=== PATIENT | male | born 1975 | race Caucasian/White ===

== ENCOUNTER 2017-09-22 14:00 | Emergency (ER) | payer MEDICAID ==
[2017-09-22 14:36] VITALS: BP 157/97
[2017-09-22] MEDS ORDERED: PROPARACAINE 0.5% OPHTH DROPS 15 ML EACHEYE STA (15:08)
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
== END 2017-09-22 15:28 | disposition home or self-care (01) ==
LOC: ED 14:00
DX: S05.02XA Injury of conjunctiva and corneal abrasion without foreign body, left eye, initial encounter (principal); X58.XXXA Exposure to other specified factors, initial encounter; F17.200 Nicotine dependence, unspecified, uncomplicated
CPT/HCPCS: 99283; J3490

== ENCOUNTER 2020-11-14 18:39 | Inpatient (IN) | payer MEDICAID ==
[2020-11-14] MEDS ORDERED: VANCOMYCIN INJ 1 GM in SODIUM CHLORIDE 0.9% 500 ML IV STA (19:15)
[2020-11-14] MEDS ORDERED: PIPERACILLIN/TAZOBACTAM 3.375 GM in SODIUM CHLORIDE 0.9% MINIBAG 100 ML IV STA (19:15)
[2020-11-14 19:18] LABS: BASOPHILS # (AUTO) 0.1 10^3/uL (0.0-0.1); BASOPHILS % (AUTO) 0.4 %; EOSINOPHILS # (AUTO) 0.5 10^3/uL (0.0-0.7); EOSINOPHILS % (AUTO) 3.3 %; HCT - HEMATOCRIT 35.1 % (42.0-52.0); HGB - HEMOGLOBIN 12.3 g/dL (14.0-18.0); LYMPHOCYTES # (AUTO) 1.6 10^3/uL (1.5-3.5); LYMPHOCYTES % (AUTO) 11.4 %; MEAN CORPUSCULAR HEMOGLOBIN 31.9 pg (27.0-31.0); MEAN CORPUSCULAR VOLUME 90.9 fL (80.0-94.0); MEAN PLATELET VOLUME 9.3 fL (7.4-11.4); MONOCYTES % (AUTO) 7.4 %; NEUTROPHILS # (AUTO) 10.7 10^3/uL (1.5-6.6); PLT - PLATELET COUNT 272 10^3/uL (130-450); RED BLOOD COUNT 3.86 10^6/uL (4.70-6.10); RED CELL DISTRIBUTION WIDTH 13.2 % (12.0-15.0); WHITE BLOOD COUNT 13.9 x10^3/uL (4.8-10.8)
[2020-11-14] MEDS ORDERED: SODIUM CHLORIDE 0.9% 2,585.49 ML IV STA (19:18)
--- NOTE | 2020-11-14 19:19 | ED Physician Documentation ---
History of Present Illness - Stated complaint Stated Complaint: LT LEG PX - Chief complaint Chief Complaint: Ext Problem - History obtained from History obtained from: Patient - History of Present Illness Timing: How many weeks ago (1) Pain level max: 9 Pain level now: 7 - Additonal information Additional information: Patient is a 45-year-old male who presents to the emergency department with left lower extremity swelling and pain. Worsening over the past week. He states he accidentally cut it on a tree. Tetanus is up-to-date. He states that originally he scraped the rivera along a tree. Fevers for the past 24 hours. He tried rubbing coconut oil on the skin, this did not help. Denies any IV drug use. He does use marijuana. Denies any allergies to medication or usual medications at home. Review of Systems Ten Systems: 10 systems reviewed and negative Constitutional: reports: Fever, Chills Ears: denies: Ear pain Nose: denies: Rhinorrhea / runny nose, Congestion GI: denies: Abdominal Pain, Nausea, Vomiting, Diarrhea Skin: denies: Rash Musculoskeletal: denies: Neck pain, Back pain PD PAST MEDICAL HISTORY - Past Medical History Cardiovascular: None Respiratory: None Endocrine/Autoimmune: None GI: None : None HEENT: None Psych: None Musculoskeletal: None Derm: None - Past Surgical History Past Surgical History: No - Present Medications Home Medications: Ambulatory Orders Medication Instructions Recorded Confirmed Polymyxin B/Trimeth Ophth Drop 1 drops LEFTEYE Q3H 7 Days #1 09/22/17 [Polytrim Ophth Drops] bottle - Allergies Allergies/Adverse Reactions: Allergies Allergy/AdvReac Type Severity Reaction Status Date / Time No Known Drug Allergies Allergy Verified 11/14/20 18:51 - Social History Does the pt smoke?: Yes Smoking Status: Current every day smoker Does the pt drink ETOH?: No Does the pt have substance abuse?: No - Immunizations Immunizations are current?: Yes - POLST Patient has POLST: No PD ED PE NORMAL - Vitals Vital signs reviewed: Yes - General General: Alert and oriented X 3, No acute distress - HEENT HEENT: Moist mucous membranes - Neck Neck: Supple, no meningeal sign - Cardiac Cardiac: RRR - Respiratory Respiratory: No respiratory distress, Clear bilaterally - Abdomen Abdomen: Soft, Non tender, Non distended - Derm Derm: Warm and dry - Extremities Extremities: Other (LLE swelling, erythema, pus draining from the lower left leg. erythema from toes to knee.) - Neuro Neuro: Alert and oriented X 3 Results - Vitals Vitals: Vital Signs - 24 hr 11/14/20 18:45 Temperature 38.9 C H Heart Rate 114 H Respiratory 20 Rate Blood Pressure 147/74 H O2 Saturation 94 Oxygen O2 Source Room air - Labs Labs: Microbiology 11/14/20 19:27 Wound Culture - Preliminary Left Lower Extremity - Abscess Laboratory Tests 11/14/20 11/14/20 11/14/20 19:12 19:12 19:12 WBC 13.9 H RBC 3.86 L Hgb 12.3 L Hct 35.1 L MCV 90.9 MCH 31.9 H MCHC 35.0 RDW 13.2 Plt Count 272 MPV 9.3 Neut # (Auto) 10.7 H Lymph # (Auto) 1.6 Radford # (Auto) 1.0 Eos # (Auto) 0.5 Baso # (Auto) 0.1 Absolute Nucleated RBC 0.00 Nucleated RBC % 0.0 PT 13.5 H INR 1.2 APTT 26.2 Sodium 131 L Potassium 3.4 L Chloride 96 L Carbon Dioxide 22 Anion Gap 13.0 BUN 17 Creatinine 0.8 Estimated GFR (MDRD) 104 Glucose 148 H Lactic Acid Calcium 8.8 Total Bilirubin 0.4 AST 39 ALT 32 Alkaline Phosphatase 74 Total Protein 7.2 Albumin 3.2 Globulin 4.0 Albumin/Globulin Ratio 0.8 L Lipase 31 Nasal Adenovirus (PCR) Nasal B. parapertussis DNA (PCR) Nasal Coronavir 229E PCR Nasal Coronavir HKU1 PCR Nasal Coronavir NL63 PCR Nasal Coronavir OC43 PCR Nasal Enterovir/Rhinovir PCR Nasal Influenza B PCR Nasal Influenza A PCR Nasal Parainfluen 1 PCR Nasal Parainfluen 2 PCR Nasal Parainfluen 3 PCR Nasal Parainfluen 4 PCR Nasal RSV (PCR) Nasal B.pertussis DNA PCR Nasal C.pneumoniae (PCR) Jeremias Human Metapneumo PCR Nasal M.pneumoniae (PCR) Nasal SARS-CoV-2 (PCR) 11/14/20 11/14/20 19:12 19:35 WBC RBC Hgb Hct MCV MCH MCHC RDW Plt Count MPV Neut # (Auto) Lymph # (Auto) Radford # (Auto) Eos # (Auto) Baso # (Auto) Absolute Nucleated RBC Nucleated RBC % PT INR APTT Sodium Potassium Chloride Carbon Dioxide Anion Gap BUN Creatinine Estimated GFR (MDRD) Glucose Lactic Acid 2.1 Calcium Total Bilirubin AST ALT Alkaline Phosphatase Total Protein Albumin Globulin Albumin/Globulin Ratio Lipase Nasal Adenovirus (PCR) NOT DETECTED Nasal B. parapertussis DNA (PCR) NOT DETECTED Nasal Coronavir 229E PCR NOT DETECTED Nasal Coronavir HKU1 PCR NOT DETECTED Nasal Coronavir NL63 PCR NOT DETECTED Nasal Coronavir OC43 PCR NOT DETECTED Nasal Enterovir/Rhinovir PCR NOT DETECTED Nasal Influenza B PCR NOT DETECTED Nasal Influenza A PCR NOT DETECTED Nasal Parainfluen 1 PCR NOT DETECTED Nasal Parainfluen 2 PCR NOT DETECTED Nasal Parainfluen 3 PCR NOT DETECTED Nasal Parainfluen 4 PCR NOT DETECTED Nasal RSV (PCR) NOT DETECTED Nasal B.pertussis DNA PCR NOT DETECTED Nasal C.pneumoniae (PCR) NOT DETECTED Jeremias Human Metapneumo PCR NOT DETECTED Nasal M.pneumoniae (PCR) NOT DETECTED Nasal SARS-CoV-2 (PCR) NOT DETECTED - Rads (name of study) cxr Radiology: Prelim report reviewed, EMP read contemporaneously, See rad report (No acute disease) PD MEDICAL DECISION MAKING - ED course Complexity details: reviewed results, re-evaluated patient, considered differential, d/w patient ED course: 45-year-old male with what appears to be sepsis due to cellulitis of the left lower extremity. Wound culture performed. Blood cultures drawn. Given vancomycin and Zosyn. Given IV fluids. We will admit for further care. Discussed the case with Dr. Solis, hospitalist who accepts This document was made in part using voice recognition software. While efforts are made to proofread this document, sound alike and grammatical errors may occur. - Sepsis Event Current Stage of Sepsis: Sepsis Possible source of Sepsis: Skin/soft tissue Mental/Cognitive Status: Alert/Oriented X3, Normal for patient Capillary refill: Less than 2 seconds Peripheral Pulse Strength: 3+ Normal Peripheral Pulse Location: Radial Bedside ultrasound performed: No Departure - Departure Disposition: 66 [facility] DC/Xfer Clinical Impression: Cellulitis Qualifiers: Site of cellulitis: extremity Site of cellulitis of extremity: lower extremity Laterality: left Qualified Code(s): L03.116 - Cellulitis of left lower limb Sepsis Qualifiers: Sepsis type: sepsis due to unspecified organism Sepsis acute organ dysfunction status: unspecified Qualified Code(s): A41.9 - Sepsis, unspecified organism Condition: Stable Discharge Date/Time: 11/14/20 20:00
[2020-11-14 19:30] LABS: INR 1.2 (0.8-1.2); LACTIC ACID, VENOUS 2.1 mmol/L (0.5-2.2); PT - PROTHROMBIN TIME 13.5 secs (9.9-12.6)
[2020-11-14 19:31] LABS: ALBUMIN 3.2 g/dL (3.2-5.5); ALBUMIN/GLOBULIN RATIO 0.8 (1.0-2.2); BILIRUBIN,TOTAL 0.4 mg/dL (0.2-1.0); CALCIUM 8.8 mg/dL (8.5-10.3); CREATININE 0.8 mg/dL (0.6-1.2); POTASSIUM 3.4 mmol/L (3.5-5.0); TOTAL PROTEIN 7.2 g/dL (6.7-8.2)
--- NOTE | 2020-11-14 19:35 | XRAY Report ---
PROCEDURE: Chest 1 View X-Ray INDICATIONS: fever TECHNIQUE: One view of the chest was acquired. COMPARISON: None FINDINGS: Surgical changes and devices: None. Lungs and pleura: No pleural effusions or pneumothorax. Lungs are clear. Mediastinum: Mediastinal contours appear normal. Heart size is normal. Bones and chest wall: No suspicious bony lesions. Overlying soft tissues appear unremarkable. IMPRESSION: No acute cardiopulmonary pathology. Reviewed by: Bharathi Martinez MD on 11/14/2020 7:33 PM PDT Approved by: Bharathi Martinez MD on 11/14/2020 7:33 PM PDT Station ID: [id number]
[2020-11-14 19:37] LABS: PARTIAL THROMBOPLASTIN TIME 26.2 secs (24.9-33.3)
[2020-11-14] MEDS ORDERED: oxyCODONE 5 MG TABLET PO PRN (19:38)
[2020-11-14] MEDS ORDERED: SODIUM CHLORIDE FLUSH 0.9% 10 ML SYRINGE IVP PRN (19:38)
[2020-11-14] MEDS ORDERED: ONDANSETRON 4 MG/2 ML VIAL IVP PRN (19:38)
[2020-11-14] MEDS ORDERED: ACETAMINOPHEN 325 MG TABLET PO PRN (19:38)
[2020-11-14] MEDS ORDERED: MORPHINE 2 MG/ML CARPUJECT IVP PRN (19:38)
[2020-11-14] MEDS ORDERED: ONDANSETRON ODT 4 MG TABLET TL PRN (19:38)
[2020-11-14] MEDS ORDERED: VANCOMYCIN 1 GM VIAL ONE (19:41)
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
[2020-11-14] MEDS ORDERED: LACTATED RINGERS 1,000 ML IV SCH ×2 (20:00→21:30)
[2020-11-14 20:28] LABS: B. PARAPERTUSSIS- RESP PCR PAN NOT DETECTED; B. PERTUSSIS- RESP PCR PANEL NOT DETECTED; C. PNEUMONIAE- RESP PCR PANEL NOT DETECTED; CORONAVIRUS 229E-RESP PCR NOT DETECTED; CORONAVIRUS HKU1-RESP PCR NOT DETECTED; CORONAVIRUS NL63-RESP PCR NOT DETECTED; CORONAVIRUS OC43-RESP PCR NOT DETECTED; HUMAN METAPNEUMOVIRUS NOT DETECTED; INFLUENZA A- RESP PCR PANEL NOT DETECTED; INFLUENZA B - RESP PCR PANEL NOT DETECTED; M. PNEUMONIAE- RESP PCR PANEL NOT DETECTED; PARAINFLUENZA VIRUS 1 NOT DETECTED; PARAINFLUENZA VIRUS 2 NOT DETECTED; PARAINFLUENZA VIRUS 3 NOT DETECTED; PARAINFLUENZA VIRUS 4 NOT DETECTED; RHINOVIRUS/ENTEROVIRUS NOT DETECTED; RSV- RESP PCR PANEL NOT DETECTED; SARS-CoV-2 -RESP PCR PANEL NOT DETECTED
[2020-11-14] MEDS ORDERED: NICOTINE 7 MG PATCH TOP SCH (22:35)
[2020-11-15] MEDS: PIPERACILLIN/TAZOBACTAM 3.375 GM in SODIUM CHLORIDE 0.9% MINIBAG 100 ML IV SCH ×4 (03:08→21:00)
[2020-11-15] MEDS: SODIUM CHLORIDE FLUSH 0.9% 10 ML SYRINGE IVP SCH ×3 (03:09→19:36)
[2020-11-15 03:40] LABS: BILIRUBIN,URINE NEGATIVE (NEGATIVE); GLUCOSE, URINE (UA) NEGATIVE (NEGATIVE); KETONES,URINE (UA) NEGATIVE (NEGATIVE); LEUKOCYTE ESTERASE, URINE NEGATIVE (NEGATIVE); NITRITE,URINE NEGATIVE (NEGATIVE); OCCULT BLOOD,URINE NEGATIVE (NEGATIVE); PROTEIN,URINE TRACE mg/dL (NEGATIVE); UROBILINOGEN,URINE 1 (NORMAL) E.U./dL (NORMAL)
[2020-11-15 03:43] LABS: CLARITY,URINE CLEAR (CLEAR)
[2020-11-15 03:58] LABS: MUDS CUTOFF CONCENTRATIONS CUTOFF CONC BELOW:
[2020-11-15 04:16] LABS: AMPHETAMINE SCREEN,URINE POSITIVE (NEGATIVE); BARBITURATE SCREEN,UR NEGATIVE (NEGATIVE); BENZODIAZEPINES SCREEN, URINE NEGATIVE (NEGATIVE); COCAINE SCREEN URINE NEGATIVE (NEGATIVE); METHADONE SCREEN, URINE NEGATIVE (NEGATIVE); METHAMPHETAMINES SCREEN, URINE POSITIVE (NEGATIVE); OPIATE SCREEN, URINE NEGATIVE (NEGATIVE); OXYCODONE SCREEN, URINE NEGATIVE (NEGATIVE); PROPOXYPHENE SCREEN, URINE NEGATIVE (NEGATIVE); THC CANNABINOID SCREEN, URINE POSITIVE (NEGATIVE); TRICYCLIC ANTIDEPRESSANT,URINE NEGATIVE (NEGATIVE)
[2020-11-15 05:21] LABS: BASOPHILS # (AUTO) 0.1 10^3/uL (0.0-0.1); BASOPHILS % (AUTO) 0.5 %; EOSINOPHILS # (AUTO) 0.4 10^3/uL (0.0-0.7); EOSINOPHILS % (AUTO) 3.8 %; HCT - HEMATOCRIT 34.9 % (42.0-52.0); HGB - HEMOGLOBIN 11.4 g/dL (14.0-18.0); LYMPHOCYTES # (AUTO) 2.2 10^3/uL (1.5-3.5); LYMPHOCYTES % (AUTO) 18.6 %; MEAN CORPUSCULAR HEMOGLOBIN 30.6 pg (27.0-31.0); MEAN CORPUSCULAR HGB CONC 32.7 g/dL (32.0-36.0); MEAN CORPUSCULAR VOLUME 93.6 fL (80.0-94.0); MEAN PLATELET VOLUME 9.3 fL (7.4-11.4); NEUTROPHILS # (AUTO) 7.8 10^3/uL (1.5-6.6); NEUTROPHILS % (AUTO) 67.3 %; PLT - PLATELET COUNT 252 10^3/uL (130-450); RED BLOOD COUNT 3.73 10^6/uL (4.70-6.10); RED CELL DISTRIBUTION WIDTH 13.4 % (12.0-15.0); WHITE BLOOD COUNT 11.6 x10^3/uL (4.8-10.8)
[2020-11-15 05:40] LABS: CALCIUM 8.2 mg/dL (8.5-10.3); CREATININE 0.6 mg/dL (0.6-1.2); CRP - C-REACTIVE PROTEIN 13.9 mg/dL (0-1.0); POTASSIUM 3.7 mmol/L (3.5-5.0)
[2020-11-15] MEDS ORDERED: VANCOMYCIN INJ 1 GM in SODIUM CHLORIDE 0.9% 250 ML IV SCH (07:00)
--- NOTE | 2020-11-15 07:24 | PROVIDER PROGRESS NOTE ---
Subjective - Prog Note Date Prog Note Date: 11/15/20 - Subjective Subjective: He reports feeling quite fatigued and tired this morning. States his pain is controlled at rest but he has significant pain on palpation in the left lower extremity. He does admit to smoking methamphetamines day prior to admission. Denies any history of IV drug use. Current Medications - Current Medications Current Medications: Active Medications Acetaminophen (Acetaminophen 325 Mg Tablet) 650 mg PO Q4HR PRN PRN Reason: Pain 1 to 4 Enoxaparin Sodium (Enoxaparin 40 Mg/0.4 Ml Syringe) 40 mg SUBQ DAILY [facility] Vancomycin HCl 1 gm/ Sodium (Chloride) 250 mls @ 167 mls/hr IV Q12H [facility] Last Admin: 11/15/20 06:48 Dose: 167 mls/hr Documented by: Piperacillin Sod/Tazobactam (Sod 3.375 gm/ Sodium Chloride) 100 mls @ 200 mls/hr IV Q6H [facility] Last Infusion: 11/15/20 03:38 Dose: Infused Documented by: Lactated Ringer's (Lr) 1,000 mls @ 100 mls/hr IV .Q10H [facility] Stop: 11/15/20 07:29 Last Admin: 11/14/20 21:53 Dose: 100 mls/hr Documented by: Morphine Sulfate (Morphine 2 Mg/Ml Carpuject) 2 mg IVP Q2HR PRN PRN Reason: Pain 8 to 10 Nicotine (Nicotine 7 Mg Patch) 1 patch TOP DAILY [facility] Last Admin: 11/14/20 22:55 Dose: 1 patch Documented by: Ondansetron HCl (Ondansetron Odt 4 Mg Tablet) 4 mg TL Q6HR PRN PRN Reason: Nausea / Vomiting Ondansetron HCl (Ondansetron 4 Mg/2 Ml Vial) 4 mg IVP Q6HR PRN PRN Reason: Nausea / Vomiting Oxycodone HCl (Oxycodone 5 Mg Tablet) 5 mg PO Q4HR PRN PRN Reason: Pain 5 to 7 Sodium Chloride (Sodium Chloride Flush 0.9% 10 Ml Syringe) 10 ml IVP PRN PRN PRN Reason: NEEDED PER PROVIDER ORDERS Sodium Chloride (Sodium Chloride Flush 0.9% 10 Ml Syringe) 10 ml IVP 0100,0900,1700 [facility] Last Admin: 11/15/20 03:09 Dose: 10 ml Documented by: Objective - Vital Signs/Intake & Output Reviewed Vital Signs: Yes Vital Signs: Vital Signs x48h Temp Pulse Pulse Resp BP Pulse Ox 11/15/20 04:36 37 C 74 17 97 11/15/20 03:12 37.0 C 74 17 149/86 H 97 11/14/20 23:45 37.4 C 93 20 143/75 H 98 Intake & Output: Intake & Output 11/12/20 11/13/20 11/14/20 11/15/20 23:59 23:59 23:59 23:59 Intake Total 3425.49 100 Output Total 1000 Balance 3425.49 -900 - Objective General Appearance: positive: Lethargic (He appears lethargic but will wake up and answer questions but will quickly fall asleep.), Other (Appears disheveled.) ENT: positive: Other (Poor dentition.) Neck: positive: Nml inspection Respiratory: positive: No respiratory distress. negative: Wheezes, Rales Cardiovascular: positive: Regular rate & rhythm, No murmur. negative: Tachycardia Abdomen: positive: Non-tender, No distention. negative: Tenderness Skin: positive: Other (The left lower extremity is erythematous below the knee down to the foot. It is warm to touch and tender to palpation. There is 3 x 3 cm wound over the lateral aspect of the mid tibia with purulent drainage.) Extremities: positive: Pedal edema (Last 2 to +3 pitting edema in the left lower extremity from the dorsum of the foot up to the knee.) Neurologic/Psychiatric: negative: Disoriented to person, Disoriented to place - Lab Results Fish Bones: 11/15/20 05:08 11/15/20 05:08 Other Labs: Lab Results x24hrs 11/15/20 11/15/20 11/15/20 Range/Units 05:08 05:08 03:07 WBC 11.6 H (4.8-10.8) x10^3/uL RBC 3.73 L (4.70-6.10) 10^6/uL Hgb 11.4 L (14.0-18.0) g/dL Hct 34.9 L (42.0-52.0) % MCV 93.6 (80.0-94.0) fL MCH 30.6 (27.0-31.0) pg MCHC 32.7 (32.0-36.0) g/dL RDW 13.4 (12.0-15.0) % Plt Count 252 (130-450) 10^3/uL MPV 9.3 (7.4-11.4) fL Neut # (Auto) 7.8 H (1.5-6.6) 10^3/uL Lymph # (Auto) 2.2 (1.5-3.5) 10^3/uL Cataño # (Auto) 1.0 (0.0-1.0) 10^3/uL Eos # (Auto) 0.4 (0.0-0.7) 10^3/uL Baso # (Auto) 0.1 (0.0-0.1) 10^3/uL Absolute Nucleated RBC 0.00 x10^3/uL Nucleated RBC % 0.0 /100WBC PT (9.9-12.6) secs INR (0.8-1.2) APTT (24.9-33.3) secs Sodium 137 (135-145) mmol/L Potassium 3.7 (3.5-5.0) mmol/L Chloride 105 (101-111) mmol/L Carbon Dioxide 24 (21-32) mmol/L Anion Gap 8.0 (6-13) BUN 11 (6-20) mg/dL Creatinine 0.6 (0.6-1.2) mg/dL Estimated GFR (MDRD) 144 (>89) Glucose 91 (70-100) mg/dL Lactic Acid (0.5-2.2) mmol/L Calcium 8.2 L (8.5-10.3) mg/dL Total Bilirubin (0.2-1.0) mg/dL AST (10-42) IU/L ALT (10-60) IU/L Alkaline Phosphatase (42-121) IU/L C-Reactive Protein 13.9 H (0-1.0) mg/dL Total Protein (6.7-8.2) g/dL Albumin (3.2-5.5) g/dL Globulin (2.1-4.2) g/dL Albumin/Globulin Ratio (1.0-2.2) Lipase (22-51) U/L Urine Color Urine Clarity (CLEAR) Urine pH (5.0-7.5) PH Ur Specific Whitewood (1.002-1.030) Urine Protein (NEGATIVE) mg/dL Urine Glucose (UA) (NEGATIVE) mg/dL Urine Ketones (NEGATIVE) mg/dL Urine Occult Blood (NEGATIVE) Urine Nitrite (NEGATIVE) Urine Bilirubin (NEGATIVE) Urine Urobilinogen (NORMAL) E.U./dL Ur Leukocyte Esterase (NEGATIVE) Ur Microscopic Review Urine Culture Comments Nasal Adenovirus (PCR) Nasal B. parapertussis DNA (PCR) Nasal Coronavir 229E PCR Nasal Coronavir HKU1 PCR Nasal Coronavir NL63 PCR Nasal Coronavir OC43 PCR Nasal Enterovir/Rhinovir PCR Nasal Influenza B PCR Nasal Influenza A PCR Nasal Parainfluen 1 PCR Nasal Parainfluen 2 PCR Nasal Parainfluen 3 PCR Nasal Parainfluen 4 PCR Nasal RSV (PCR) Nasal B.pertussis DNA PCR Nasal C.pneumoniae (PCR) Jeremias Human Metapneumo PCR Nasal M.pneumoniae (PCR) Nasal SARS-CoV-2 (PCR) Urine Opiates Screen NEGATIVE (NEGATIVE) Ur Oxycodone Screen NEGATIVE (NEGATIVE) Urine Methadone Screen NEGATIVE (NEGATIVE) Ur Propoxyphene Screen NEGATIVE (NEGATIVE) Ur Barbiturates Screen NEGATIVE (NEGATIVE) Ur Tricyclics Screen NEGATIVE (NEGATIVE) Ur Phencyclidine Scrn NEGATIVE (NEGATIVE) Ur Amphetamine Screen POSITIVE H (NEGATIVE) U Methamphetamines Scrn POSITIVE H (NEGATIVE) U Benzodiazepines Scrn NEGATIVE (NEGATIVE) Urine Cocaine Screen NEGATIVE (NEGATIVE) U Cannabinoids Screen POSITIVE H (NEGATIVE) 11/15/20 11/14/20 11/14/20 Range/Units 03:07 19:35 19:12 WBC (4.8-10.8) x10^3/uL RBC (4.70-6.10) 10^6/uL Hgb (14.0-18.0) g/dL Hct (42.0-52.0) % MCV (80.0-94.0) fL MCH (27.0-31.0) pg MCHC (32.0-36.0) g/dL RDW (12.0-15.0) % Plt Count (130-450) 10^3/uL MPV (7.4-11.4) fL Neut # (Auto) (1.5-6.6) 10^3/uL Lymph # (Auto) (1.5-3.5) 10^3/uL Cataño # (Auto) (0.0-1.0) 10^3/uL Eos # (Auto) (0.0-0.7) 10^3/uL Baso # (Auto) (0.0-0.1) 10^3/uL Absolute Nucleated RBC x10^3/uL Nucleated RBC % /100WBC PT (9.9-12.6) secs INR (0.8-1.2) APTT (24.9-33.3) secs Sodium (135-145) mmol/L Potassium (3.5-5.0) mmol/L Chloride (101-111) mmol/L Carbon Dioxide (21-32) mmol/L Anion Gap (6-13) BUN (6-20) mg/dL Creatinine (0.6-1.2) mg/dL Estimated GFR (MDRD) (>89) Glucose (70-100) mg/dL Lactic Acid 2.1 (0.5-2.2) mmol/L Calcium (8.5-10.3) mg/dL Total Bilirubin (0.2-1.0) mg/dL AST (10-42) IU/L ALT (10-60) IU/L Alkaline Phosphatase (42-121) IU/L C-Reactive Protein (0-1.0) mg/dL Total Protein (6.7-8.2) g/dL Albumin (3.2-5.5) g/dL Globulin (2.1-4.2) g/dL Albumin/Globulin Ratio (1.0-2.2) Lipase (22-51) U/L Urine Color YELLOW Urine Clarity CLEAR (CLEAR) Urine pH 6.0 (5.0-7.5) PH Ur Specific Whitewood 1.020 (1.002-1.030) Urine Protein TRACE (NEGATIVE) mg/dL Urine Glucose (UA) NEGATIVE (NEGATIVE) mg/dL Urine Ketones NEGATIVE (NEGATIVE) mg/dL Urine Occult Blood NEGATIVE (NEGATIVE) Urine Nitrite NEGATIVE (NEGATIVE) Urine Bilirubin NEGATIVE (NEGATIVE) Urine Urobilinogen 1 (NORMAL) (NORMAL) E.U./dL Ur Leukocyte Esterase NEGATIVE (NEGATIVE) Ur Microscopic Review NOT INDICATED Urine Culture Comments NOT INDICATED Nasal Adenovirus (PCR) NOT DETECTED Nasal B. parapertussis DNA (PCR) NOT DETECTED Nasal Coronavir 229E PCR NOT DETECTED Nasal Coronavir HKU1 PCR NOT DETECTED Nasal Coronavir NL63 PCR NOT DETECTED Nasal Coronavir OC43 PCR NOT DETECTED Nasal Enterovir/Rhinovir PCR NOT DETECTED Nasal Influenza B PCR NOT DETECTED Nasal Influenza A PCR NOT DETECTED Nasal Parainfluen 1 PCR NOT DETECTED Nasal Parainfluen 2 PCR NOT DETECTED Nasal Parainfluen 3 PCR NOT DETECTED Nasal Parainfluen 4 PCR NOT DETECTED Nasal RSV (PCR) NOT DETECTED Nasal B.pertussis DNA PCR NOT DETECTED Nasal C.pneumoniae (PCR) NOT DETECTED Jeremias Human Metapneumo PCR NOT DETECTED Nasal M.pneumoniae (PCR) NOT DETECTED Nasal SARS-CoV-2 (PCR) NOT DETECTED Urine Opiates Screen (NEGATIVE) Ur Oxycodone Screen (NEGATIVE) Urine Methadone Screen (NEGATIVE) Ur Propoxyphene Screen (NEGATIVE) Ur Barbiturates Screen (NEGATIVE) Ur Tricyclics Screen (NEGATIVE) Ur Phencyclidine Scrn (NEGATIVE) Ur Amphetamine Screen (NEGATIVE) U Methamphetamines Scrn (NEGATIVE) U Benzodiazepines Scrn (NEGATIVE) Urine Cocaine Screen (NEGATIVE) U Cannabinoids Screen (NEGATIVE) 11/14/20 11/14/20 11/14/20 Range/Units 19:12 19:12 19:12 WBC 13.9 H (4.8-10.8) x10^3/uL RBC 3.86 L (4.70-6.10) 10^6/uL Hgb 12.3 L (14.0-18.0) g/dL Hct 35.1 L (42.0-52.0) % MCV 90.9 (80.0-94.0) fL MCH 31.9 H (27.0-31.0) pg MCHC 35.0 (32.0-36.0) g/dL RDW 13.2 (12.0-15.0) % Plt Count 272 (130-450) 10^3/uL MPV 9.3 (7.4-11.4) fL Neut # (Auto) 10.7 H (1.5-6.6) 10^3/uL Lymph # (Auto) 1.6 (1.5-3.5) 10^3/uL Cataño # (Auto) 1.0 (0.0-1.0) 10^3/uL Eos # (Auto) 0.5 (0.0-0.7) 10^3/uL Baso # (Auto) 0.1 (0.0-0.1) 10^3/uL Absolute Nucleated RBC 0.00 x10^3/uL Nucleated RBC % 0.0 /100WBC PT 13.5 H (9.9-12.6) secs INR 1.2 (0.8-1.2) APTT 26.2 (24.9-33.3) secs Sodium 131 L (135-145) mmol/L Potassium 3.4 L (3.5-5.0) mmol/L Chloride 96 L (101-111) mmol/L Carbon Dioxide 22 (21-32) mmol/L Anion Gap 13.0 (6-13) BUN 17 (6-20) mg/dL Creatinine 0.8 (0.6-1.2) mg/dL Estimated GFR (MDRD) 104 (>89) Glucose 148 H (70-100) mg/dL Lactic Acid (0.5-2.2) mmol/L Calcium 8.8 (8.5-10.3) mg/dL Total Bilirubin 0.4 (0.2-1.0) mg/dL AST 39 (10-42) IU/L ALT 32 (10-60) IU/L Alkaline Phosphatase 74 (42-121) IU/L C-Reactive Protein (0-1.0) mg/dL Total Protein 7.2 (6.7-8.2) g/dL Albumin 3.2 (3.2-5.5) g/dL Globulin 4.0 (2.1-4.2) g/dL Albumin/Globulin Ratio 0.8 L (1.0-2.2) Lipase 31 (22-51) U/L Urine Color Urine Clarity (CLEAR) Urine pH (5.0-7.5) PH Ur Specific Whitewood (1.002-1.030) Urine Protein (NEGATIVE) mg/dL Urine Glucose (UA) (NEGATIVE) mg/dL Urine Ketones (NEGATIVE) mg/dL Urine Occult Blood (NEGATIVE) Urine Nitrite (NEGATIVE) Urine Bilirubin (NEGATIVE) Urine Urobilinogen (NORMAL) E.U./dL Ur Leukocyte Esterase (NEGATIVE) Ur Microscopic Review Urine Culture Comments Nasal Adenovirus (PCR) Nasal B. parapertussis DNA (PCR) Nasal Coronavir 229E PCR Nasal Coronavir HKU1 PCR Nasal Coronavir NL63 PCR Nasal Coronavir OC43 PCR Nasal Enterovir/Rhinovir PCR Nasal Influenza B PCR Nasal Influenza A PCR Nasal Parainfluen 1 PCR Nasal Parainfluen 2 PCR Nasal Parainfluen 3 PCR Nasal Parainfluen 4 PCR Nasal RSV (PCR) Nasal B.pertussis DNA PCR Nasal C.pneumoniae (PCR) Jeremias Human Metapneumo PCR Nasal M.pneumoniae (PCR) Nasal SARS-CoV-2 (PCR) Urine Opiates Screen (NEGATIVE) Ur Oxycodone Screen (NEGATIVE) Urine Methadone Screen (NEGATIVE) Ur Propoxyphene Screen (NEGATIVE) Ur Barbiturates Screen (NEGATIVE) Ur Tricyclics Screen (NEGATIVE) Ur Phencyclidine Scrn (NEGATIVE) Ur Amphetamine Screen (NEGATIVE) U Methamphetamines Scrn (NEGATIVE) U Benzodiazepines Scrn (NEGATIVE) Urine Cocaine Screen (NEGATIVE) U Cannabinoids Screen (NEGATIVE) ABX Reporting Has patient been on IV antibiotics over the past 48 hours?: Yes Sepsis Event Note (H) - Evaluation Current Stage of Sepsis: Sepsis Possible source of Sepsis: positive: Skin/soft tissue - Sepsis Criteria Sepsis Criteria: Recorded Temperature greater than 38.3C or Less than 36C, Re corded Heart Rate greater than 90 bpm, WBC count greater than 12,000 or less than 4000, MOTHERS HELPER: altered consciousness (unrelated to primary neuro pathology) Assessment/Plan - Problem List (1) Sepsis Impression: He is improving from a sepsis standpoint. He has been afebrile since yesterday evening. His white count is also improving. He is also no longer tachycardic. Blood cultures are pending. We will continue him on vancomycin and Zosyn IV. Continue to trend CBC and follow-up blood cultures. Qualifiers: Sepsis type: sepsis due to unspecified organism Sepsis acute organ dysfunction status: unspecified Qualified Code(s): A41.9 - Sepsis, unspecified organism (2) Cellulitis of left lower extremity Impression: This is the cause of his sepsis. Preliminary ultrasound report does not reveal any obvious abscess. He does have extensive subcutaneous edema.. We will continue him on vancomycin and Zosyn given there is wound over his left extremity with purulent drainage. Wound culture is growing gram-positive cocci in pairs and chains and we will continue to follow this up.. Follow-up blood cultures. Trend CRP and white count. (3) Methamphetamine abuse Impression: This was present on admission. He is lethargic today as he is likely with drawing from the methamphetamine. We will asked social work to evaluate him to discuss options regarding substance abuse.
[2020-11-15] MEDS ORDERED: NICOTINE 7 MG PATCH TOP SCH (07:47)
[2020-11-15] MEDS: ENOXAPARIN 40 MG/0.4 ML SYRINGE SUBQ SCH (09:19)
--- NOTE | 2020-11-15 10:02 | Ultrasound Report ---
PROCEDURE: Ext Limited Non Vascular INDICATIONS: left lower leg, below knee, tense, red, hot w infe TECHNIQUE: Real-time scanning was performed of the left rivera, with image documentation. COMPARISON: None. FINDINGS: Subcutaneous edema is present. No focal fluid collection is present. Prominent vessel is n oted traversing the midportion of the imaged area. IMPRESSION: Subcutaneous edema suggestive of cellulitis. Recommend clinical correlation. No focal fl uid collection. Reviewed by: Rosa Prince MD on 11/15/2020 10:01 AM PDT Approved by: Rosa Prince MD on 11/15/2020 10:01 AM PDT Station ID: [id number]
[2020-11-15] MEDS ORDERED: VANCOMYCIN INJ 500 MG in SODIUM CHLORIDE 0.9% MINIBAG 100 ML IV ONE (10:30)
--- NOTE | 2020-11-15 10:45 | PHARMACY PROGRESS NOTE ---
- Therapy Status Vancomycin regimen day #: 2 Therapy status: Awaiting steady state Basis for treatment: Empirical Treatment indication: CELLULITIS, SEPSIS Trough goal: 15-20 Concurrent antibiotics: PIP/TAZO - EZEKIEL Risk Risk level for Acute Kidney Injury: High Acute Kidney Injury risk factors: Piperacillin/Tozobactam, Goal trough >15, Total daily Vancomycin >4 grams, Sepsis - Monitoring and Recommendation Clinical response to treatment: I&O Previous 24 hours 11/13/20 11/14/20 11/15/20 23:59 23:59 23:59 Intake Total 3425.49 450 Output Total 2050 Balance 3425.49 -1600 Lab Results 11/15/20 11/14/20 05:08 19:12 BUN 11 17 Creatinine 0.6 0.8 Estimated GFR (MDRD) 144 104 Cultures 11/14/20 19:27 Left Lower Extremity - Abscess Wound Culture - Preliminary Monitoring plan: Daily serum creatinine Next trough due prior to maintenance dose #: 4 Next trough due (date/time): 11/16 AT 1730 Areas for additional monitoring: IV to PO when appropriate, Therapy de- escalation based on culture results, Acute Kidney Injury Pharmacy recommendation: Continue current regime
--- NOTE | 2020-11-15 15:11 | PHARMACY PROGRESS NOTE ---
- Best Possible Medication History Admit Date and Time: 11/14/201937 Processed by: Pharmacy Medication History completed: Yes Patient Interview: Completed As the person ultimately responsible for medication therapy, providers are able to order a medication from an existing home medication list in [facility] via the "Reconcile Routine" prior to Confirmation of that medication by sales support assistant. Such practice is discouraged except when the physician, in their clinical divya gment, deems that a medical need exists for a medication without regard to previous use.
[2020-11-15] MEDS: VANCOMYCIN INJ 1 GM, VANCOMYCIN INJ 500 MG in SODIUM CHLORIDE 0.9% 500 ML IV SCH (18:42)
[2020-11-16] MEDS: SODIUM CHLORIDE FLUSH 0.9% 10 ML SYRINGE IVP SCH ×2 (00:05→08:38)
[2020-11-16] MEDS: NICOTINE 21 MG PATCH TOP SCH ×2 (00:07→08:37)
[2020-11-16] MEDS: VANCOMYCIN INJ 1 GM, VANCOMYCIN INJ 500 MG in SODIUM CHLORIDE 0.9% 500 ML IV SCH ×2 (02:01→14:45)
[2020-11-16] MEDS: PIPERACILLIN/TAZOBACTAM 3.375 GM in SODIUM CHLORIDE 0.9% MINIBAG 100 ML IV SCH (05:07)
[2020-11-16 05:24] LABS: BASOPHILS # (AUTO) 0.1 10^3/uL (0.0-0.1); BASOPHILS % (AUTO) 0.5 %; EOSINOPHILS # (AUTO) 0.7 10^3/uL (0.0-0.7); EOSINOPHILS % (AUTO) 6.6 %; HCT - HEMATOCRIT 35.2 % (42.0-52.0); HGB - HEMOGLOBIN 11.5 g/dL (14.0-18.0); LYMPHOCYTES # (AUTO) 2.1 10^3/uL (1.5-3.5); LYMPHOCYTES % (AUTO) 20.6 %; MEAN CORPUSCULAR HEMOGLOBIN 30.8 pg (27.0-31.0); MEAN CORPUSCULAR HGB CONC 32.7 g/dL (32.0-36.0); MEAN CORPUSCULAR VOLUME 94.4 fL (80.0-94.0); MEAN PLATELET VOLUME 9.4 fL (7.4-11.4); MONOCYTES # (AUTO) 0.6 10^3/uL (0.0-1.0); MONOCYTES % (AUTO) 5.9 %; NEUTROPHILS # (AUTO) 6.6 10^3/uL (1.5-6.6); NEUTROPHILS % (AUTO) 65.6 %; PLT - PLATELET COUNT 306 10^3/uL (130-450); RED BLOOD COUNT 3.73 10^6/uL (4.70-6.10); RED CELL DISTRIBUTION WIDTH 13.5 % (12.0-15.0); WHITE BLOOD COUNT 10.1 x10^3/uL (4.8-10.8)
[2020-11-16 05:41] LABS: CALCIUM 8.4 mg/dL (8.5-10.3); CREATININE 0.8 mg/dL (0.6-1.2); CRP - C-REACTIVE PROTEIN 10.4 mg/dL (0-1.0); POTASSIUM 3.8 mmol/L (3.5-5.0)
[2020-11-16 08:19] VITALS: BP 133/81
[2020-11-16] MEDS: ENOXAPARIN 40 MG/0.4 ML SYRINGE SUBQ SCH (08:37)
--- NOTE | 2020-11-16 11:20 | Discharge Plan ---
Discharge Plan Problem Reviewed?: Yes Disposition: Against Medical Advice Condition: Fair Prescriptions: Amox/Clav 875/125 [Augmentin 875/125 Tab] 1 tablet PO Q8H 10 Days #30 tablet Diet: Regular Activity Restrictions: Activity as Tolerated Shower Restrictions: No Driving Restrictions: Yes Instruction Topics: Cellulitis Dc, Abuse Meth Abuse and Addiction Health Concerns: You were admitted for treatment of a leg infection (cellulitis), that had caused you to become septic. You are leaving AMA before the recommended hospitalization time, since a longer course of IV antibiotics are medically advised. Oral antibiotics are being ordered for you to keep treating this infection as an outpatient. The prescription for Augmentin was electronically sent to your [facility] pharmacy in [place]. Methamphetamine drug use is not advised. Social Work assistance to help you stop was offered to you, but you declined that. You need to see your Primary Care Provider in 1-2 weeks for re-check of the leg infection. Plan of Treatment: As above. Care Goals: Improvement in symptoms and stabilization are the goals. Assessment: Recommendations to continue hospital treatment were discussed with you; you are being discharged AGAINST MEDICAL ADVICE. No Smoking: If you smoke, Please STOP! Call for help.
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
== END 2020-11-16 13:00 | disposition left against medical advice (07) | DRG 871 ==
LOC: ED 18:39 → MS2 19:38
PROVIDERS: ADMIT Specialist; ATTEND Internal Medicine
DX: A40.8 Other streptococcal sepsis (principal); G93.41 Metabolic encephalopathy; L03.116 Cellulitis of left lower limb; F15.13 Other stimulant abuse with withdrawal; F10.11 Alcohol abuse, in remission; R65.20 Severe sepsis without septic shock; E87.6 Hypokalemia; F17.200 Nicotine dependence, unspecified, uncomplicated; R33.9 Retention of urine, unspecified; S81.812S Laceration without foreign body, left lower leg, sequela; W26.8XXS Contact with other sharp object(s), not elsewhere classified, sequela; Z20.822 Contact with and (suspected) exposure to COVID-19; Z53.29 Procedure and treatment not carried out because of patient's decision for other reasons
CPT/HCPCS: 0202U; 36415; 51701; 71045; 76882; 80048; 80053; 80306; 81003; 83605; 83690; 85025; 85610; 85730; 86140; 87040; 87070; 87077; 87181; 87205; 99284; 99285; A9270; J1650; J3370; J7120; 80202; 81001; 87086

== ENCOUNTER 2020-12-16 15:41 | Emergency (ER) | payer MEDICAID ==
--- OUTSIDE RECORDS SUMMARY | 2020-12-16 15:44 | EXTERNAL MEDICAL SUMMARY RPT | Continuity of Care Document ---
:1975 Demographics Phone Unavailable Preferred Language Unknown Marital Status Unknown Confucianist Affiliation Unknown Race Unknown Ethnic Group Unknown Author Organization [facility] Address [address] [phone] Phone Social History date description facility [id number]
[2020-12-16 15:56] VITALS: BP 162/93
[2020-12-16] MEDS ORDERED: HYDROcod/ACETAM 5/325 MG TABLET PO STA (16:07)
[2020-12-16] MEDS ORDERED: ceFAZolin 1 GM VIAL IM STA (16:07)
--- NOTE | 2020-12-16 16:09 | ED Physician Documentation ---
PD HPI LOWER EXT INJURY - Stated complaint Stated Complaint: MALE /PX - Chief complaint Chief Complaint: Wound - History obtained from History obtained from: Patient - Additional information Additional information: 45-year-old gentleman was admitted to this hospital about a month ago for left leg cellulitis. Subsequently a wound culture grew group A strep and MSSA. He was discharged on Augmentin and was doing well but over the last few days the wound has gotten worse again. He denies fevers or chills. He was febrile and septic last time. Review of Systems Constitutional: reports: Reviewed and negative. denies: Fever, Chills Eyes: denies: Loss of vision, Decreased vision Ears: denies: Loss of hearing, Ear pain Nose: denies: Rhinorrhea / runny nose, Congestion PD PAST MEDICAL HISTORY - Past Medical History Cardiovascular: None Respiratory: None Neuro: Head injury Endocrine/Autoimmune: None GI: None : None HEENT: None Psych: None Musculoskeletal: None Derm: None - Past Surgical History Past Surgical History: No - Present Medications Home Medications: Ambulatory Orders Medication Instructions Recorded Confirmed Amox/Clav 875/125 [Augmentin 1 tablet PO Q8H 10 Days #30 tablet 11/16/20 875/125 Tab] - Allergies Allergies/Adverse Reactions: Allergies Allergy/AdvReac Type Severity Reaction Status Date / Time No Known Drug Allergies Allergy Verified 12/16/20 15:56 - Social History Does the pt smoke?: Yes Smoking Status: Current every day smoker Does the pt drink ETOH?: No Does the pt have substance abuse?: No - Immunizations Immunizations are current?: Yes - POLST Patient has POLST: No POLST Status: Full Code PD ED PE NORMAL - Vitals Vital signs reviewed: Yes - General General: Alert and oriented X 3, No acute distress - Derm Derm: Other (There is a 2 cm diameter purulent ulcer with moderate surrounding cellulitis to the anterior mid lateral left rivera. It was cultured on exam.) - Neuro Neuro: Alert and oriented X 3, Normal speech Results - Vitals Vitals: Vital Signs - 24 hr 12/16/20 15:52 Temperature 36.6 C Heart Rate 98 Respiratory 14 Rate Blood Pressure 162/93 H O2 Saturation 98 Oxygen O2 Source Room air Departure - Departure Disposition: 01 Home, Self Care Clinical Impression: Cellulitis of left lower extremity Condition: Good Record reviewed to determine appropriate education?: Yes Instructions: Cellulitis Dc Comments: Return in 2 days for wound check and culture review. If you do not want to go all the way back to the ER, you can follow-up at the urgent care in [place] located at: Address: [address] [place] [address], [place] [address] Hours: 7AM7PM Sunday 7AM7PM Sunday 9AM4PM Sunday 124PM Sunday 7AM7PM Sunday 7AM7PM Sunday 7AM7PM In the meantime soap and water at least daily and keep it covered with dressing.
--- OUTSIDE RECORDS SUMMARY | 2020-12-16 16:12 | EXTERNAL MEDICAL SUMMARY RPT | Continuity of Care Document ---
:1975 Demographics Phone Unavailable Preferred Language Unknown Marital Status Unknown Anabaptism Affiliation Unknown Race Unknown Ethnic Group Unknown Author Organization [facility] Address [address] [phone] Phone Social History date description facility [id number]
== END 2020-12-16 16:59 | disposition home or self-care (01) ==
LOC: ED 15:41
DX: L03.116 Cellulitis of left lower limb (principal); L97.229 Non-pressure chronic ulcer of left calf with unspecified severity; B95.62 Methicillin resistant Staphylococcus aureus infection as the cause of diseases classified elsewhere; B96.20 Unspecified Escherichia coli [E. coli] as the cause of diseases classified elsewhere; Z16.23 Resistance to quinolones and fluoroquinolones; Z16.29 Resistance to other single specified antibiotic; F17.200 Nicotine dependence, unspecified, uncomplicated
CPT/HCPCS: 87070; 87181; 87205; 96372; 99283; A9270

== ENCOUNTER 2021-01-31 20:46 | Emergency (ER) | payer MEDICAID ==
--- OUTSIDE RECORDS SUMMARY | 2021-01-31 20:49 | EXTERNAL MEDICAL SUMMARY RPT | Continuity of Care Document ---
:1975 Demographics Phone Unavailable Preferred Language Unknown Marital Status Unknown Nondenominational Affiliation Unknown Race Unknown Ethnic Group Unknown Author Organization [facility] Address [address] [phone] Phone Allergies Encounters Medications Problems Results
[2021-01-31 20:54] VITALS: BP 160/96
--- OUTSIDE RECORDS SUMMARY | 2021-01-31 20:56 | EXTERNAL MEDICAL SUMMARY RPT | Continuity of Care Document ---
:1975 Demographics Phone Unavailable Preferred Language Unknown Marital Status Unknown Orthodoxy Affiliation Unknown Race Unknown Ethnic Group Unknown Author Organization [facility] Address [address] [phone] Phone Allergies Encounters Medications Problems Results
[2021-01-31] MEDS ORDERED: DOXYCYCLINE 100 MG TABLET PO STA (21:22)
[2021-01-31] MEDS ORDERED: cephALEXin 250 MG CAPSULE PO STA (21:22)
[2021-01-31] MEDS ORDERED: IBUPROFEN 800 MG TABLET PO STA (21:22)
--- NOTE | 2021-01-31 21:26 | ED Physician Documentation ---
PD HPI LOWER EXT INJURY - Stated complaint Stated Complaint: L LEG WOUND - Chief complaint Chief Complaint: Ext Problem - History obtained from History obtained from: Patient - Additional information Additional information: 45-year-old gentleman was admitted to this hospital with left leg cellulitis in October. Bounced back in November, but was not as sick. In November, the most recent culture grew beta-hemolytic group A strep, MRSA which was resistant to Bactrim, and E. coli. He was placed on Keflex and we tried to call him several times to change the antibiotics, but his mailbox was full. He says he has since fixed that problem. He has increased redness to the left leg. Denies systemic symptoms such as fevers. He is actively using methamphetamines via inhalation. Review of Systems Ten Systems: 10 systems reviewed and negative Constitutional: reports: Reviewed and negative Eyes: reports: Reviewed and negative Ears: reports: Reviewed and negative Nose: reports: Reviewed and negative Throat: reports: Reviewed and negative Cardiac: reports: Reviewed and negative Respiratory: reports: Reviewed and negative PD PAST MEDICAL HISTORY - Past Medical History Past Medical History: Yes Cardiovascular: None Respiratory: None Neuro: Head injury Endocrine/Autoimmune: None GI: None : None HEENT: None Psych: None Musculoskeletal: None Derm: None - Past Surgical History Past Surgical History: No - Present Medications Home Medications: Ambulatory Orders Medication Instructions Recorded Confirmed Doxycycline Hyclate 100 mg PO BID #20 01/31/21 Ibuprofen [Motrin] 800 mg PO Q8H PRN #20 tablet 01/31/21 cephALEXin [Keflex] 500 mg PO Q6H #40 cap 01/31/21 - Allergies Allergies/Adverse Reactions: Allergies Allergy/AdvReac Type Severity Reaction Status Date / Time No Known Drug Allergies Allergy Verified 01/31/21 20:49 - Social History Does the pt smoke?: Yes Smoking Status: Current every day smoker Does the pt drink ETOH?: No Does the pt have substance abuse?: Yes Substance Use and Type: Marijuana, Meth - Immunizations Immunizations are current?: Yes - POLST Patient has POLST: No POLST Status: Full Code PD ED PE NORMAL - Vitals Vital signs reviewed: Yes - General General: Alert and oriented X 3, No acute distress - HEENT HEENT: PERRL, EOMI - Neck Neck: No bony TTP - Extremities Extremities: Other (There is a 3 cm ulcer to the anterior left rivera with significant surrounding cellulitis. Some smaller lesions surrounding it. A culture was taken during exam.) - Neuro Neuro: Alert and oriented X 3, Normal speech Results - Vitals Vitals: Vital Signs - 24 hr 01/31/21 20:49 Temperature 36.6 C Heart Rate 100 Respiratory 16 Rate Blood Pressure 160/96 H O2 Saturation 100 Oxygen O2 Source Room air PD MEDICAL DECISION MAKING - ED course ED course: He has no systemic symptoms so doubt sepsis. He is placed on doxycycline and Keflex after review of prior cultures. Another culture was obtained. He says this time he can be reached by phone. Departure - Departure Disposition: Home, Self Care Clinical Impression: Cellulitis of left lower extremity Condition: Good Record reviewed to determine appropriate education?: Yes Instructions: Cellulitis Dc Prescriptions: Doxycycline Hyclate 100 mg PO BID #20 cephALEXin [Keflex] 500 mg PO Q6H #40 cap Ibuprofen [Motrin] 800 mg PO Q8H PRN #20 tablet PRN Reason: PAIN &/OR FEVER Comments: We are performing a wound culture, the results should be done in 48-72 hours. If antibiotic change is necessary we will call you. Return if worse in the meantime, especially if you develop increased pain, fevers, cannot keep down the medication. Otherwise follow-up with your physician in approximately 2-3 days. You can also followup at the walk in clinic in [place]: Address: [address] [place], [place] [address], [place] [address] Hours: Sunday 7AM7PM Sunday 7AM7PM Sunday 7AM7PM 7AM7PM Sunday 7AM7PM Sunday 9AM4PM Sunday 124PM
== END 2021-01-31 21:40 | disposition home or self-care (01) ==
LOC: ED 20:46
DX: L97.229 Non-pressure chronic ulcer of left calf with unspecified severity (principal); L03.116 Cellulitis of left lower limb; F15.10 Other stimulant abuse, uncomplicated; F17.200 Nicotine dependence, unspecified, uncomplicated
CPT/HCPCS: 87070; 87077; 87181; 87205; 99283; A9270

== ENCOUNTER 2021-03-24 12:15 | Emergency (ER) | payer MEDICAID ==
[2021-03-24 12:22] VITALS: BP 154/101
[2021-03-24] MEDS ORDERED: CLINDAMYCIN 150 MG CAPSULE PO STA (12:36)
[2021-03-24] MEDS ORDERED: IBUPROFEN 600 MG TABLET PO STA (12:37)
--- NOTE | 2021-03-24 12:43 | ED Physician Documentation ---
History of Present Illness - Stated complaint Stated Complaint: right leg px - Chief complaint Chief Complaint: Ext Problem - History obtained from History obtained from: Patient - Additonal information Additional information: Patient comes emergency department chief complaint of flareup of right leg cellulitis again. Patient has a history of recurrent cellulitis, secondary to chronic sores on his legs. He states that he has had a little extra drainage from his lower leg ulcer and that he has noticed that the lower leg seems to have increased erythema and swelling compared with baseline. Patient states that he has not been seen in wound care clinic and does not have a primary care physician. He has gone to the walk-in clinic but states they will not see him anymore. Reasons for this are unclear. No fevers or chills. No lightheadedness. No streaking. No other complaints at this time. Review of Systems Ten Systems: 10 systems reviewed and negative Constitutional: reports: Reviewed and negative. denies: Fever, Chills Eyes: reports: Reviewed and negative Ears: reports: Reviewed and negative Nose: reports: Reviewed and negative Throat: reports: Reviewed and negative Cardiac: reports: Reviewed and negative Respiratory: reports: Reviewed and negative GI: reports: Reviewed and negative : reports: Reviewed and negative Skin: reports: Other (Swelling, wounds, drainage) Musculoskeletal: reports: Reviewed and negative Neurologic: reports: Reviewed and negative Psychiatric: reports: Reviewed and negative Endocrine: reports: Reviewed and negative Immunocompromised: reports: Reviewed and negative PD PAST MEDICAL HISTORY - Past Medical History Cardiovascular: None Respiratory: None Neuro: Head injury Endocrine/Autoimmune: None GI: None : None HEENT: None Psych: None Musculoskeletal: None Derm: None - Past Surgical History Past Surgical History: No - Present Medications Home Medications: Ambulatory Orders Medication Instructions Recorded Confirmed Doxycycline Hyclate 100 mg PO BID #20 01/31/21 Ibuprofen [Motrin] 800 mg PO Q8H PRN #20 tablet 01/31/21 cephALEXin [Keflex] 500 mg PO Q6H #40 cap 01/31/21 Clindamycin [Cleocin] 300 mg PO Q6H 7 Days 03/24/21 - Allergies Allergies/Adverse Reactions: Allergies Allergy/AdvReac Type Severity Reaction Status Date / Time No Known Drug Allergies Allergy Verified 03/24/21 12:22 - Social History Does the pt smoke?: Yes Smoking Status: Current every day smoker Does the pt drink ETOH?: No Does the pt have substance abuse?: Yes - Immunizations Immunizations are current?: Yes - POLST Patient has POLST: No POLST Status: Full Code PD ED PE NORMAL - Vitals Vital signs reviewed: Yes - General General: Alert and oriented X 3, No acute distress, Well developed/nourished - HEENT HEENT: Atraumatic, PERRL, EOMI, Moist mucous membranes - Neck Neck: Supple, no meningeal sign - Cardiac Cardiac: Strong equal pulses - Respiratory Respiratory: No respiratory distress - Derm Derm: Warm and dry, Other (Of right lower leg circumferentially, and from about 6 cm distal to the knee and distally from there. Approximately 5 cm diameter stage III ulcer in the patient's mid pretibial area. Granulation tissue noted with some moisture but no expressible drainage. Numerous smaller such wounds. No indurati) - Extremities Extremities: No deformity - Neuro Neuro: Alert and oriented X 3 - Psych Psych: Normal mood, Normal affect Results - Vitals Vitals: Vital Signs - 24 hr 03/24/21 12:18 Temperature 37.6 C Heart Rate 104 H Respiratory 18 Rate Blood Pressure 154/101 H O2 Saturation 99 Oxygen O2 Source Room air PD MEDICAL DECISION MAKING - ED course Complexity details: reviewed results, re-evaluated patient, considered differential, d/w patient ED course: I reviewed the patient's history and found that his most recent wound culture was in January, and showed bacteria sensitive to clindamycin. Patient was started on this orally in the emergency department. We have discussed the importance of follow-up in primary care and that it may be helpful for the patient with his chronic wounds to be seen wound care as well. We discussed the usual indications for return. Departure - Departure Disposition: 01 Home, Self Care Clinical Impression: Cellulitis Qualifiers: Site of cellulitis: extremity Site of cellulitis of extremity: lower extremity Laterality: right Qualified Code(s): L03.115 - Cellulitis of right lower limb Ulcer of right leg Qualifiers: Non-pressure ulcer stage: with fat layer exposed Qualified Code(s): L97.912 - Non-pressure chronic ulcer of unspecified part of right lower leg with fat layer exposed Condition: Stable Instructions: ED Infec Skin Cellulitis Follow-Up: Kevin Oneil MD [Credentialed Staff Provider] - Prescriptions: Clindamycin [Cleocin] 300 mg PO Q6H 7 Days
== END 2021-03-24 13:07 | disposition home or self-care (01) ==
LOC: ED 12:15
DX: L03.115 Cellulitis of right lower limb (principal); L97.812 Non-pressure chronic ulcer of other part of right lower leg with fat layer exposed; F17.200 Nicotine dependence, unspecified, uncomplicated
CPT/HCPCS: 99282; 99284; A9270

== ENCOUNTER 2021-04-20 14:45 | Emergency (ER) | payer MEDICAID ==
--- NOTE | 2021-04-20 14:58 | ED Physician Documentation ---
PD HPI SKIN - Stated complaint Stated Complaint: LT LEG PX - Chief complaint Chief Complaint: Ext Problem - History obtained from History obtained from: Patient - History of Present Illness Timing - onset: How many weeks ago (has had ulceration anterior lower left leg since September without healing. Has had intermittent episdoes of surrounding cellulitis infection. Treated once inpatient and other times outpatient. Has not had PMD, trying to get into local clinic. Has not had consistent wound care as is homeless.) Timing - details: Gradual onset, Still present, Waxing and waning Location: LLE Quality / character: Painful, Discolored, Swelling, Draining Associated symptoms: No: Fever, Myalgias, N/V/D Recently seen: Emergency Dept (seen a month ago and the month prior, before that November, with similar process. Cultures grew Strep group B and MRSA. was treated with single agent antibiotics each time with improvement in surrounding redness but not of the ulceration itself.) Review of Systems Constitutional: denies: Fever, Chills, Myalgias Nose: denies: Rhinorrhea / runny nose, Congestion Throat: denies: Sore throat Cardiac: denies: Chest pain / pressure Respiratory: denies: Dyspnea, Cough GI: denies: Abdominal Pain, Nausea, Vomiting, Diarrhea Skin: reports: Lesions Musculoskeletal: reports: Extremity pain Neurologic: denies: Focal weakness, Numbness PD PAST MEDICAL HISTORY - Past Medical History Cardiovascular: None Respiratory: None Neuro: Head injury Endocrine/Autoimmune: None GI: None : None HEENT: None Psych: None Musculoskeletal: None Derm: None - Past Surgical History Past Surgical History: No - Present Medications Home Medications: Ambulatory Orders Medication Instructions Recorded Confirmed Doxycycline Hyclate 100 mg PO BID #20 01/31/21 Ibuprofen [Motrin] 800 mg PO Q8H PRN #20 tablet 01/31/21 cephALEXin [Keflex] 500 mg PO Q6H #40 cap 01/31/21 Clindamycin [Cleocin] 300 mg PO Q6H 7 Days 03/24/21 Clindamycin [Cleocin] 300 mg PO TID 7 Days #20 cap 04/20/21 HYDROcod/ACETAM 5/325 [[place] 5/325] 1 ea PO Q6H PRN #15 tablet 04/20/21 Mupirocin Calcium [Mupirocin] 1 applic TP TID #15 gm 04/20/21 cephALEXin [Keflex] 500 mg PO TID #20 cap 04/20/21 - Allergies Allergies/Adverse Reactions: Allergies Allergy/AdvReac Type Severity Reaction Status Date / Time No Known Drug Allergies Allergy Verified 03/24/21 12:22 - Living Situation Living Situation: reports: Alone Living Arrangement: reports: Homeless - Social History Does the pt smoke?: Yes Smoking Status: Current every day smoker Does the pt drink ETOH?: No Does the pt have substance abuse?: Yes - Immunizations Immunizations are current?: Yes - POLST Patient has POLST: No POLST Status: Full Code PD ED PE NORMAL - Vitals Vital signs reviewed: Yes - General General: Alert and oriented X 3, Well developed/nourished - Cardiac Cardiac: RRR, No murmur - Respiratory Respiratory: Clear bilaterally - Abdomen Abdomen: Soft, Non tender - Derm Derm: Normal color, Warm and dry, Other (left anterior and lateral lower leg with several ulcers to fatty tissue layer. The largest is anterior, with some yellow base. No draiange. Surrounding redness and tender c/w cellulitis as well. No fluctuance. ) Results - Vitals Vitals: Vital Signs - 24 hr 04/20/21 04/20/21 14:49 15:40 Temperature 36.8 C 36.8 C Heart Rate 90 91 Respiratory 16 20 Rate Blood Pressure 179/106 H 166/106 H O2 Saturation 98 97 Oxygen O2 Source Room air - Labs Labs: Laboratory Tests 04/20/21 04/20/21 15:30 15:30 WBC 9.3 RBC 4.04 L Hgb 12.6 L Hct 37.4 L MCV 92.6 MCH 31.2 H MCHC 33.7 RDW 13.6 Plt Count 330 MPV 8.9 Neut # (Auto) 5.1 Lymph # (Auto) 2.2 [place] # (Auto) 0.6 Eos # (Auto) 1.4 H Baso # (Auto) 0.1 Absolute Nucleated RBC 0.00 Nucleated RBC % 0.0 Manual Slide Review Indicated WBC Morphology NORMAL APPEARANCE Platelet Estimate NORMAL (130-450,000) Platelet Morphology NORMAL APPEARANCE RBC Morph Micro Appear NORMAL APPEARANCE Sodium 142 Potassium 3.7 Chloride 107 Carbon Dioxide 27 Anion Gap 8.0 BUN 16 Creatinine 0.8 Estimated GFR (MDRD) 103 Glucose 88 Calcium 9.2 C-Reactive Protein 1.5 H PD MEDICAL DECISION MAKING - ED course Complexity details: reviewed old records, reviewed results, considered differential (recurrent cellulitis in area of chronic ulcer lower leg. Prior cultures had strep group B and MRSA. No current drainage so not current culture. Will cover for both organisms. ), d/w patient Departure - Departure Disposition: 01 Home, Self Care Clinical Impression: Cellulitis of left lower extremity Ulcer of left lower leg Qualifiers: Non-pressure ulcer stage: with fat layer exposed Qualified Code(s): L97.922 - Non-pressure chronic ulcer of unspecified part of left lower leg with fat layer exposed Condition: Stable Record reviewed to determine appropriate education?: Yes Instructions: ED Infec Skin Cellulitis Prescriptions: Clindamycin [Cleocin] 300 mg PO TID 7 Days #20 cap cephALEXin [Keflex] 500 mg PO TID #20 cap Mupirocin Calcium [Mupirocin] 1 applic TP TID #15 gm HYDROcod/ACETAM 5/325 [[place] 5/325] 1 ea PO Q6H PRN #15 tablet PRN Reason: Pain Comments: To the best you can, clean the wound with soap and water once or twice daily and apply mupirocin topical antibiotic. Your wound cultures from prior visits had grown 2 different germs bolus staph and strep. As such I would prescribe you to antibiotics to target both of those. Take the cephalexin and clindamycin 3 times a day as directed for the next week. Tylenol or ibuprofen as needed for pains. Add Hydrocodone every 6 hours for worse pain. This would be intended to be short term. I would suggest having you recheck the wound at the walk-in clinic and [facility] in about 3 to 5 days. Alternatively return to the ER for evaluation. I am prescribing a short course of narcotic pain medication for you. These are potentially dangerous and addictive medications that should be used carefully. These medications may constipate you. Take an [id number] stool softener such as docusate twice daily with plenty of water while taking these medications. If you go 24 hours without a bowel movement, take [id number] MiraLAX, per package instructions. Do not drink or drive while taking these medications. If you received narcotic or sedating medications while in the emergency department do not drive for 24 hours. Store this medication in a safe, secure place and out of reach of children. It is a violation of federal law to give or sell this medication to another person or to use in a manner other than prescribed. The ED will not refill narcotic prescriptions, including prescriptions lost or stolen. You can dispose of unwanted medications at the [facility]'s office or at several pharmacies such as [facility]. Forms: Activity restrictions Discharge Date/Time: 04/20/21 17:48
[2021-04-20] MEDS ORDERED: CLINDAMYCIN 600 MG/50 ML 50 ML IV ONE (15:30)
[2021-04-20] MEDS ORDERED: MUPIROCIN 2% OINT 1 GM TOP STA (15:30)
[2021-04-20] MEDS ORDERED: cefTRIAXone 1 GM VIAL IVP STA (15:30)
[2021-04-20 15:41] VITALS: BP 166/106
[2021-04-20 15:55] LABS: BASOPHILS # (AUTO) 0.1 10^3/uL (0.0-0.1); EOSINOPHILS # (AUTO) 1.4 10^3/uL (0.0-0.7); EOSINOPHILS % (AUTO) 14.6 %; HCT - HEMATOCRIT 37.4 % (42.0-52.0); HGB - HEMOGLOBIN 12.6 g/dL (14.0-18.0); LYMPHOCYTES # (AUTO) 2.2 10^3/uL (1.5-3.5); LYMPHOCYTES % (AUTO) 23.4 %; MEAN CORPUSCULAR HEMOGLOBIN 31.2 pg (27.0-31.0); MEAN CORPUSCULAR HGB CONC 33.7 g/dL (32.0-36.0); MEAN CORPUSCULAR VOLUME 92.6 fL (80.0-94.0); MEAN PLATELET VOLUME 8.9 fL (7.4-11.4); MONOCYTES # (AUTO) 0.6 10^3/uL (0.0-1.0); MONOCYTES % (AUTO) 6.2 %; NEUTROPHILS # (AUTO) 5.1 10^3/uL (1.5-6.6); NEUTROPHILS % (AUTO) 54.5 %; PLT - PLATELET COUNT 330 10^3/uL (130-450); RED BLOOD COUNT 4.04 10^6/uL (4.70-6.10); RED CELL DISTRIBUTION WIDTH 13.6 % (12.0-15.0); WHITE BLOOD COUNT 9.3 x10^3/uL (4.8-10.8)
[2021-04-20 15:56] LABS: SLIDE REVIEW? Indicated
[2021-04-20] MEDS ORDERED: MUPIROCIN 2% OINT 1 GM ONE (16:06)
[2021-04-20 16:09] LABS: CALCIUM 9.2 mg/dL (8.5-10.3); CREATININE 0.8 mg/dL (0.6-1.2); CRP - C-REACTIVE PROTEIN 1.5 mg/dL (0-1.0); POTASSIUM 3.7 mmol/L (3.5-5.0)
[2021-04-20 16:41] LABS: PLATELET ESTIMATE, MANUAL NORMAL (130-450,000) (NORMAL); PLATELET MORPHOLOGY NORMAL APPEARANCE (NORMAL); RBC MORPHOLOGY (MULTIPLE) NORMAL APPEARANCE (NORMAL); WBC MORPHOLOGY (MULTIPLE) NORMAL APPEARANCE (NORMAL)
== END 2021-04-20 17:48 | disposition home or self-care (01) ==
LOC: ED 14:45
DX: L03.116 Cellulitis of left lower limb (principal); L97.922 Non-pressure chronic ulcer of unspecified part of left lower leg with fat layer exposed; Z59.0 Homelessness; F17.200 Nicotine dependence, unspecified, uncomplicated
CPT/HCPCS: 36415; 80048; 85025; 86140; 96365; 96375; 99283; 99284; A9270

== ENCOUNTER 2021-06-10 23:53 | Outpatient (CLI) | payer MEDICAID | END 2021-06-10 23:54 | disposition critical access hospital (66) | LOC: EMS 23:53 | DX: A49.02 Methicillin resistant Staphylococcus aureus infection, unspecified site (principal) | CPT/HCPCS: A0425; A0429; A0999 ==

== ENCOUNTER 2021-06-11 00:02 | Emergency (ER) | payer MEDICAID ==
--- NOTE | 2021-06-11 00:28 | ED Physician Documentation ---
PD HPI SKIN - Stated complaint Stated Complaint: LEFT LEG INFECTION - Chief complaint Chief Complaint: Wound - History obtained from History obtained from: Patient - Additional information Additional information: 46yM with chronic L leg wound/infection with MRSA in the past p/w worsening erythema and pain X several weeks. patient is without a home, actively uses meth. denies fevers. +full body aches. last antibiotics about a month ago. Review of Systems Ten Systems: 10 systems reviewed and negative Constitutional: reports: Myalgias, Fatigue. denies: Fever, Chills PD PAST MEDICAL HISTORY - Past Medical History Past Medical History: No Derm: Other drug resistant infections Other Past Medical History: MRSA - Past Surgical History Past Surgical History: No - Present Medications Home Medications: Ambulatory Orders Medication Instructions Recorded Confirmed Doxycycline Hyclate 100 mg PO BID 14 Days #28 tab 06/11/21 - Allergies Allergies/Adverse Reactions: Allergies Allergy/AdvReac Type Severity Reaction Status Date / Time No Known Drug Allergies Allergy Verified 06/11/21 00:17 - Social History Does the pt smoke?: Yes Smoking Status: Current some day smoker Does the pt drink ETOH?: No Does the pt have substance abuse?: Yes Substance Use and Type: Marijuana - Immunizations Immunizations are current?: Yes - POLST Patient has POLST: No PD ED PE NORMAL - Vitals Vital signs reviewed: Yes - General General: Alert and oriented X 3, No acute distress, Other (disheveled appearing) - HEENT HEENT: Atraumatic, PERRL, EOMI - Neck Neck: Supple, no meningeal sign - Cardiac Cardiac: RRR - Respiratory Respiratory: No respiratory distress, Clear bilaterally - Abdomen Abdomen: Non tender, Non distended - Derm Derm: Normal color, Warm and dry, Other (chronic appearing open wound and erythema to LLE below the knee extending to entire anterolateral leg. 2+ BL DP pulses, cap refill, sensation, strength) - Extremities Extremities: No deformity, Normal ROM s pain - Neuro Neuro: Alert and oriented X 3 - Psych Psych: Normal mood, Normal affect Results - Vitals Vitals: Vital Signs - 24 hr 06/11/21 06/11/21 06/11/21 00:12 01:00 01:13 Temperature 97.0 C H Heart Rate 98 87 91 Respiratory 14 14 20 Rate Blood Pressure 177/103 H 152/94 H 152/94 H O2 Saturation 99 98 99 06/11/21 06/11/21 06/11/21 01:30 02:00 02:30 Temperature 36.1 C L Heart Rate 90 89 92 Respiratory 17 16 17 Rate Blood Pressure 160/97 H 160/97 H 151/102 H O2 Saturation 95 98 98 06/11/21 06/11/21 06/11/21 03:00 03:02 05:00 Temperature Heart Rate 89 93 81 Respiratory 18 14 16 Rate Blood Pressure 145/111 H 148/111 H 124/85 H O2 Saturation 97 99 98 06/11/21 06:00 Temperature Heart Rate 74 Respiratory 16 Rate Blood Pressure 143/91 H O2 Saturation 98 Oxygen O2 Source Room air - EKG (time done) 0055 Rate: Rate (enter#) (87) Rhythm: NSR [place]: Normal, Other (borderline lad) Intervals: Normal MA QRS: Normal Ischemia: Normal ST segments - Labs Labs: Laboratory Tests 06/11/21 06/11/21 06/11/21 00:51 00:51 00:51 WBC 9.0 RBC 3.97 L Hgb 11.9 L Hct 36.5 L MCV 91.9 MCH 30.0 MCHC 32.6 RDW 13.3 Plt Count 320 MPV 8.8 Neut # (Auto) 5.3 Lymph # (Auto) 2.1 [facility] # (Auto) 0.9 Eos # (Auto) 0.7 Baso # (Auto) 0.1 Absolute Nucleated RBC 0.00 Nucleated RBC % 0.0 ESR Sodium 136 Potassium 3.9 Chloride 101 Carbon Dioxide 25 Anion Gap 10.0 BUN 23 H Creatinine 1.1 Estimated GFR (MDRD) 71 L Glucose 123 H Lactic Acid 1.2 Calcium 8.6 Total Bilirubin 0.3 AST 18 ALT 15 Alkaline Phosphatase 82 C-Reactive Protein 2.1 H C-React Prot High Sens 22.1 Total Protein 7.7 Albumin 3.1 L Globulin 4.6 H Albumin/Globulin Ratio 0.7 L 06/11/21 00:51 WBC RBC Hgb Hct MCV MCH MCHC RDW Plt Count MPV Neut # (Auto) Lymph # (Auto) [facility] # (Auto) Eos # (Auto) Baso # (Auto) Absolute Nucleated RBC Nucleated RBC % ESR 5 Sodium Potassium Chloride Carbon Dioxide Anion Gap BUN Creatinine Estimated GFR (MDRD) Glucose Lactic Acid Calcium Total Bilirubin AST ALT Alkaline Phosphatase C-Reactive Protein C-React Prot High Sens Total Protein Albumin Globulin Albumin/Globulin Ratio PD MEDICAL DECISION MAKING - ED course ED course: 46yM p/w chronic wound infection. d/w our hospitalist Dr Moraesf for possible admission but given he has no leukocytosis, fever, no signs of dvt, and no osteo or free air on xray, we will trial outpatient antibiotics first. If no improvement or worsening in 48h, patient will return for IV antibiotics. return precautions reinforced to patient. plan to f/u for wound check in 48 hours. Departure - Departure Clinical Impression: Chronic wound of extremity, Cellulitis Condition: Stable Instructions: ED Infec Skin Cellulitis Prescriptions: Doxycycline Hyclate 100 mg PO BID 14 Days #28 tab Comments: You were seen in the emergency department for chronic skin infection. Please take your antibiotics as prescribed and return to the emergency department if you do not have improvement in 24 to 48 hours. Return immediately if you have temperature higher than 100.4. Follow-up with your primary doctor for wound check in 48 hours or go to walk-in clinic.
[2021-06-11] MEDS ORDERED: VANCOMYCIN INJ 2 GM in SODIUM CHLORIDE 0.9% 500 ML IV STA (00:30)
[2021-06-11 01:02] LABS: BASOPHILS # (AUTO) 0.1 10^3/uL (0.0-0.1); BASOPHILS % (AUTO) 0.9 %; EOSINOPHILS # (AUTO) 0.7 10^3/uL (0.0-0.7); EOSINOPHILS % (AUTO) 7.5 %; HCT - HEMATOCRIT 36.5 % (42.0-52.0); HGB - HEMOGLOBIN 11.9 g/dL (14.0-18.0); LYMPHOCYTES # (AUTO) 2.1 10^3/uL (1.5-3.5); LYMPHOCYTES % (AUTO) 23.2 %; MEAN CORPUSCULAR HGB CONC 32.6 g/dL (32.0-36.0); MEAN CORPUSCULAR VOLUME 91.9 fL (80.0-94.0); MEAN PLATELET VOLUME 8.8 fL (7.4-11.4); MONOCYTES # (AUTO) 0.9 10^3/uL (0.0-1.0); MONOCYTES % (AUTO) 9.6 %; NEUTROPHILS # (AUTO) 5.3 10^3/uL (1.5-6.6); NEUTROPHILS % (AUTO) 58.5 %; PLT - PLATELET COUNT 320 10^3/uL (130-450); RED BLOOD COUNT 3.97 10^6/uL (4.70-6.10); RED CELL DISTRIBUTION WIDTH 13.3 % (12.0-15.0)
[2021-06-11 01:20] LABS: ALBUMIN 3.1 g/dL (3.2-5.5); ALBUMIN/GLOBULIN RATIO 0.7 (1.0-2.2); BILIRUBIN,TOTAL 0.3 mg/dL (0.2-1.0); CALCIUM 8.6 mg/dL (8.5-10.3); CREATININE 1.1 mg/dL (0.6-1.2); CRP - C-REACTIVE PROTEIN 2.1 mg/dL (0-1.0); CRP HIGH SENSITIVITY 22.1 mg/L; POTASSIUM 3.9 mmol/L (3.5-5.0); TOTAL PROTEIN 7.7 g/dL (6.7-8.2)
[2021-06-11] MEDS ORDERED: VANCOMYCIN 1 GM VIAL ONE (01:24)
--- NOTE | 2021-06-11 01:48 | Ultrasound Report ---
PROCEDURE: Duplex Ext Veins Left INDICATIONS: LLE wound TECHNIQUE: Real-time imaging, as well as color and pulse Doppler interrogation, were performed of the lower extr emity deep veins from the inguinal ligament to the popliteal fossa. COMPARISON: None. FINDINGS: The deep veins are normally compressible, and free of intraluminal thrombus. Color and pu lse Doppler demonstrate normal phasic intraluminal flow. There is normal augmentation response to di stal compression maneuver. Enlarged left groin lymph node is noted which could be reactive or neoplastic. IMPRESSION: No evidence of deep vein thrombosis involving the left lower extremity. Reviewed by: Rita Owens MD, PhD on 06/11/2021 1:46 AM PDT Approved by: Rita Owens MD, PhD on 06/11/2021 1:46 AM PDT Station ID: [id number]
[2021-06-11] MEDS ORDERED: KETOROLAC 15 MG/ML VIAL IVP STA (02:26)
[2021-06-11] MEDS ORDERED: DOXYCYCLINE 100 MG TABLET PO STA (07:54)
--- NOTE | 2021-06-11 08:03 | XRAY Report ---
PROCEDURE: Tib/Fib LT INDICATIONS: LLE cellulitis, infection TECHNIQUE: 4 views of the tibia and fibula were acquired. COMPARISON: None FINDINGS: No fracture. Alignment is normal. Imaged portions of the knee and ankle demonstrate no acute osseous abnormality. There is diffuse soft tissue edema throughout the lower extremity with irregularity of t he anterior soft tissues of the mid to distal tibia. No radiopaque foreign body or subcutaneous emphy sema is identified. There is questionable mild smooth periosteal reaction. IMPRESSION: Skin surface irregularity of the anterior aspect of the mid to distal leg without underlying radiopaq ue foreign body. There is diffuse soft tissue edema. Subtle smooth periosteal reaction underlying ski n lesion may represent sequela of chronic inflammation. Osteomyelitis is not completely excluded. Rec ommend clinical correlation. Reviewed by: Edson Rojas DO on 06/11/2021 7:02 AM GI[facility] Approved by: Edson Rojas DO on 06/11/2021 7:02 AM GIULIANO Station ID: [id number]
--- NOTE | 2021-06-11 08:05 | XRAY Report ---
PROCEDURE: Chest 1 View X-Ray INDICATIONS: body aches, chest aches TECHNIQUE: One view of the chest was acquired. COMPARISON: 11/14/2020 FINDINGS: Overlying EKG wires. Surgical changes and devices: None. Lungs and pleura: No pleural effusions or pneumothorax. Lungs are clear. Mediastinum: Mediastinal contours appear normal. Heart size is normal. Bones and chest wall: No suspicious bony lesions. Overlying soft tissues appear unremarkable. IMPRESSION: No evidence of an acute cardiopulmonary abnormality. No significant discrepancy from the preliminary report. Reviewed by: Edson Rojas DO on 06/11/2021 7:04 AM GI[facility] Approved by: Edson Rojas DO on 06/11/2021 7:04 AM GIULIANO Station ID: [id number]
[2021-06-11 11:46] VITALS: BP 139/80
== END 2021-06-11 11:47 | disposition home or self-care (01) ==
LOC: MERGE 00:02 → ED 00:02
DX: L03.116 Cellulitis of left lower limb (principal); Z86.14 Personal history of Methicillin resistant Staphylococcus aureus infection; M79.10 Myalgia, unspecified site; R53.83 Other fatigue; F17.200 Nicotine dependence, unspecified, uncomplicated; Z59.00 Homelessness unspecified
CPT/HCPCS: 36415; 71045; 73590; 80053; 83605; 85025; 85651; 86140; 86141; 87040; 93005; 93971; 96365; 96366; 96375; 99283; 99284; A9270; J3370

== ENCOUNTER 2021-06-19 | Emergency (ER) | payer MEDICAID ==
[2021-06-19 01:09] LABS: BASOPHILS # (AUTO) 0.1 10^3/uL (0.0-0.1); EOSINOPHILS # (AUTO) 0.8 10^3/uL (0.0-0.7); EOSINOPHILS % (AUTO) 10.3 %; HCT - HEMATOCRIT 35.7 % (42.0-52.0); HGB - HEMOGLOBIN 11.4 g/dL (14.0-18.0); LYMPHOCYTES # (AUTO) 2.2 10^3/uL (1.5-3.5); LYMPHOCYTES % (AUTO) 26.4 %; MEAN CORPUSCULAR HEMOGLOBIN 29.8 pg (27.0-31.0); MEAN CORPUSCULAR HGB CONC 31.9 g/dL (32.0-36.0); MEAN CORPUSCULAR VOLUME 93.5 fL (80.0-94.0); MEAN PLATELET VOLUME 9.4 fL (7.4-11.4); MONOCYTES # (AUTO) 0.8 10^3/uL (0.0-1.0); MONOCYTES % (AUTO) 9.3 %; NEUTROPHILS # (AUTO) 4.3 10^3/uL (1.5-6.6); NEUTROPHILS % (AUTO) 52.6 %; PLT - PLATELET COUNT 358 10^3/uL (130-450); RED BLOOD COUNT 3.82 10^6/uL (4.70-6.10); RED CELL DISTRIBUTION WIDTH 13.1 % (12.0-15.0); WHITE BLOOD COUNT 8.1 x10^3/uL (4.8-10.8)
[2021-06-19 01:19] LABS: ALBUMIN 3.2 g/dL (3.2-5.5); ALBUMIN/GLOBULIN RATIO 0.7 (1.0-2.2); BILIRUBIN,TOTAL 0.2 mg/dL (0.2-1.0); CALCIUM 9.4 mg/dL (8.5-10.3); POTASSIUM 3.7 mmol/L (3.5-5.0); TOTAL PROTEIN 7.9 g/dL (6.7-8.2)
--- NOTE | 2021-06-19 02:37 | ED Physician Documentation ---
PD HPI SKIN - Stated complaint Stated Complaint: L LEG INJ - Chief complaint Chief Complaint: Wound - History obtained from History obtained from: Patient - Additional information Additional information: 46yM with pmh methamphetamine use, undomiciled, with chronic LLE MRSA wound infection and cellulitis, p/w worsening infection since being seen in the ED 1 week prior. Patient states he filled his prescription for doxycycline upon discharge and took 5 days worth of antibiotics before losing his prescription this Sunday. He presents to the ED today due to worsening erythema, pain and swelling. denies fevers. Review of Systems Constitutional: denies: Fever, Chills Skin: reports: Other (chronic wound infection LLE) PD PAST MEDICAL HISTORY - Past Medical History Past Medical History: Yes Cardiovascular: None Respiratory: None Neuro: Head injury Endocrine/Autoimmune: None GI: None : None HEENT: None Psych: None Musculoskeletal: None Derm: None, Other drug resistant infections - Past Surgical History Past Surgical History: No - Present Medications Home Medications: Ambulatory Orders Medication Instructions Recorded Confirmed Doxycycline Hyclate 100 mg PO BID #20 01/31/21 06/19/21 Ibuprofen [Motrin] 800 mg PO Q8H PRN #20 tablet 01/31/21 06/19/21 HYDROcod/ACETAM 5/325 [[place] 5/325] 1 ea PO Q6H PRN #15 tablet 04/20/21 06/19/21 Mupirocin Calcium [Mupirocin] 1 applic TP TID #15 gm 04/20/21 06/19/21 Doxycycline Hyclate 100 mg PO BID 14 Days #28 tab 06/19/21 Ibuprofen [Motrin] 600 mg PO Q6H PRN #30 tab 06/19/21 Mupirocin 2% Oint [Bactroban 2% 1 applic TOP TID 30 Days #50 gm 06/19/21 Oint] - Allergies Allergies/Adverse Reactions: Allergies Allergy/AdvReac Type Severity Reaction Status Date / Time No Known Drug Allergies Allergy Verified 06/19/21 00:02 - Social History Does the pt smoke?: Yes Smoking Status: Current every day smoker Does the pt drink ETOH?: No Does the pt have substance abuse?: Yes - Immunizations Immunizations are current?: Yes - POLST Patient has POLST: No POLST Status: Full Code PD ED PE NORMAL - Vitals Vital signs reviewed: Yes - General General: Alert and oriented X 3, No acute distress, Well developed/nourished - HEENT HEENT: Atraumatic, PERRL, EOMI - Neck Neck: Supple, no meningeal sign - Cardiac Cardiac: RRR - Respiratory Respiratory: No respiratory distress, Clear bilaterally - Derm Derm: Normal color, Warm and dry, Other (erythema to LLE stopping below the knee. also with chronic purulent eschar to L anterior leg. eschar to R anterior leg appears noncellulitic. 2+ BL DP pulses) - Extremities Extremities: Other (normal cap refill, strength, sensation in BL LE. 2+ DP pulses) - Neuro Neuro: Alert and oriented X 3, No motor deficit, No sensory deficit - Psych Psych: Normal mood, Normal affect Results - Vitals Vitals: Vital Signs - 24 hr 06/19/21 06/19/21 06/19/21 00:03 02:45 03:54 Temperature 36.5 C 37.1 C 37.1 C Heart Rate 90 91 91 Respiratory 16 14 14 Rate Blood Pressure 180/90 H 171/104 H 171/104 H O2 Saturation 99 99 99 Oxygen O2 Source Room air - Labs Labs: Microbiology 06/19/21 00:35 Wound Culture - Preliminary Left Lower Extremity - Abscess Laboratory Tests 06/19/21 06/19/21 06/19/21 00:48 00:48 00:48 WBC 8.1 RBC 3.82 L Hgb 11.4 L Hct 35.7 L MCV 93.5 MCH 29.8 MCHC 31.9 L RDW 13.1 Plt Count 358 MPV 9.4 Neut # (Auto) 4.3 Lymph # (Auto) 2.2 [place] # (Auto) 0.8 Eos # (Auto) 0.8 H Baso # (Auto) 0.1 Absolute Nucleated RBC 0.00 Nucleated RBC % 0.0 Sodium 139 Potassium 3.7 Chloride 104 Carbon Dioxide 23 Anion Gap 12.0 BUN 24 H Creatinine 1.0 Estimated GFR (MDRD) 80 L Glucose 118 H Lactic Acid 1.4 Calcium 9.4 Total Bilirubin 0.2 AST 25 ALT 21 Alkaline Phosphatase 82 Total Protein 7.9 Albumin 3.2 Globulin 4.7 H Albumin/Globulin Ratio 0.7 L PD MEDICAL DECISION MAKING - ED course ED course: d/w Dr. Dalton for possible admission given that patient took doxycycline outpatient for a week and has not had improvement in his LLE wound. She will evaluate the patient and get back to me. Dr. Dalton offered admission to the patient but he has a court date on sunday and states he would like to try outpatient antibiotics again since it seemed to work last time until he ran out. Strict return precautions discussed. Plan to f/u with [facility]. Departure - Departure Disposition: Home, Self Care Clinical Impression: Chronic wound of extremity, Cellulitis Condition: Stable Instructions: Cellulitis Dc Prescriptions: Mupirocin 2% Oint [Bactroban 2% Oint] 1 applic TOP TID 30 Days #50 gm Doxycycline Hyclate 100 mg PO BID 14 Days #28 tab Ibuprofen [Motrin] 600 mg PO Q6H PRN #30 tab PRN Reason: Pain Comments: You are seen in the emergency department for wound site infection. Please return to the emergency department if you do not have improvement in 48 hours. Return if you have fevers or new or worsening symptoms or other concerns. Follow-up with walk-in clinic for wound check in 48 hours. Discharge Date/Time: 06/19/21 04:05
[2021-06-19] MEDS ORDERED: DOXYCYCLINE 100 MG TABLET PO STA (03:28)
[2021-06-19] MEDS ORDERED: KETOROLAC 30 MG/ML VIAL IM STA (03:37)
[2021-06-19 03:54] VITALS: BP 171/104
== END 2021-06-19 04:05 | disposition home or self-care (01) ==
LOC: ED
DX: L03.116 Cellulitis of left lower limb (principal); F17.200 Nicotine dependence, unspecified, uncomplicated; Z59.02 Unsheltered homelessness
CPT/HCPCS: 36415; 80053; 83605; 85025; 87040; 87070; 87077; 87181; 87205; 96372; 99283; A9270

== ENCOUNTER 2021-07-28 23:43 | Inpatient (IN) | payer MEDICAID ==
[2021-07-28] MEDS ORDERED: SODIUM CHLORIDE 0.9% 2,653.53 ML IV STA (23:54)
[2021-07-28] MEDS ORDERED: ACETAMINOPHEN 325 MG TABLET PO STA (23:56)
[2021-07-28] MEDS ORDERED: CEFEPIME 2 GM in SODIUM CHLORIDE 0.9% MINIBAG 100 ML IV STA (23:56)
[2021-07-28] MEDS ORDERED: VANCOMYCIN INJ 1.75 GM in SODIUM CHLORIDE 0.9% 500 ML IV STA (23:56)
[2021-07-29] MEDS ORDERED: VANCOMYCIN 1 GM VIAL ONE ×2 (00:12→00:17)
--- NOTE | 2021-07-29 00:22 | ED Physician Documentation ---
PD HPI SKIN - Stated complaint Stated Complaint: L LEG INFECTION - Chief complaint Chief Complaint: Wound - History obtained from History obtained from: Patient - Additional information Additional information: 46-year-old man with chronic left leg MRSA infection p/w fever/chills and worsening erythema/pain of BL legs, worse on L versus right, worsening over the past couple weeks. gradual onset, constant, aching, nonradiating, localized to L anterior leg with associated wound that is expanding and purulent. patient has failed several courses of outpatient antibiotics and is amenable to admission. Review of Systems Ten Systems: 10 systems reviewed and negative Constitutional: reports: Fever, Chills Cardiac: denies: Chest pain / pressure Respiratory: denies: Dyspnea, Cough GI: denies: Nausea, Vomiting Musculoskeletal: reports: Extremity pain PD PAST MEDICAL HISTORY - Past Medical History Cardiovascular: None Respiratory: None Neuro: Head injury Endocrine/Autoimmune: None GI: None : None HEENT: None Psych: None Musculoskeletal: None Derm: None, Other drug resistant infections - Past Surgical History Past Surgical History: No - Present Medications Home Medications: Ambulatory Orders Medication Instructions Recorded Confirmed Doxycycline Hyclate 100 mg PO BID #20 01/31/21 06/19/21 Ibuprofen [Motrin] 800 mg PO Q8H PRN #20 tablet 01/31/21 06/19/21 HYDROcod/ACETAM 5/325 [[place] 5/325] 1 ea PO Q6H PRN #15 tablet 04/20/21 06/19/21 Mupirocin Calcium [Mupirocin] 1 applic TP TID #15 gm 04/20/21 06/19/21 Doxycycline Hyclate 100 mg PO BID 14 Days #28 tab 06/19/21 Ibuprofen [Motrin] 600 mg PO Q6H PRN #30 tab 06/19/21 Mupirocin 2% Oint [Bactroban 2% 1 applic TOP TID 30 Days #50 gm 06/19/21 Oint] - Allergies Allergies/Adverse Reactions: Allergies Allergy/AdvReac Type Severity Reaction Status Date / Time No Known Drug Allergies Allergy Verified 07/28/21 23:46 - Social History Does the pt smoke?: Yes Smoking Status: Current every day smoker Does the pt drink ETOH?: No Does the pt have substance abuse?: Yes - Immunizations Immunizations are current?: Yes - POLST Patient has POLST: No POLST Status: Full Code PD ED PE NORMAL - Vitals Vital signs reviewed: Yes - General General: Alert and oriented X 3, Other (disheveled appearing, uncomfortable appearing) - HEENT HEENT: Atraumatic, PERRL, EOMI - Neck Neck: Supple, no meningeal sign - Cardiac Cardiac: Other (tachycardic rate, regular rhythm) - Respiratory Respiratory: No respiratory distress, Clear bilaterally - Abdomen Abdomen: Non tender, Non distended - Derm Derm: Warm and dry, Other (LLE with large chronic appearing wound to anterior leg with gross purulence and surrounding erythema/swelling and warmth. RLE with small eschar and surrounding erythema to anterior aspect) - Extremities Extremities: Other (2+ BL DP pulses. normal sensation and cap refill) - Neuro Neuro: Alert and oriented X 3 - Psych Psych: Normal mood, Normal affect Results - Vitals Vitals: Vital Signs - 24 hr 07/28/21 07/29/21 23:46 01:00 Temperature 38.8 C H Heart Rate 125 H 107 H Respiratory 18 20 Rate Blood Pressure 189/99 H 146/83 H O2 Saturation 92 96 Oxygen O2 Source Room air - Labs Labs: Microbiology 07/29/21 00:54 Wound Culture - Preliminary Leg - Left Laboratory Tests 07/29/21 07/29/21 07/29/21 00:27 00:27 00:27 WBC 10.7 RBC 4.69 L Hgb 13.8 L Hct 42.3 MCV 90.2 MCH 29.4 MCHC 32.6 RDW 13.2 Plt Count 333 MPV 8.7 Neut # (Auto) 8.7 H Lymph # (Auto) 1.2 L [place] # (Auto) 0.5 Eos # (Auto) 0.2 Baso # (Auto) 0.0 Absolute Nucleated RBC 0.00 Nucleated RBC % 0.0 Sodium 134 L Potassium 4.3 Chloride 96 L Carbon Dioxide 29 Anion Gap 9.0 BUN 18 Creatinine 1.0 Estimated GFR (MDRD) 80 L Glucose 113 H Lactic Acid 1.0 Calcium 9.1 Total Bilirubin 0.4 AST 24 ALT 17 Alkaline Phosphatase 85 Total Protein 8.4 H Albumin 3.5 Globulin 4.9 H Albumin/Globulin Ratio 0.7 L Nasal Adenovirus (PCR) Nasal B. parapertussis DNA (PCR) Nasal Coronavir 229E PCR Nasal Coronavir HKU1 PCR Nasal Coronavir NL63 PCR Nasal Coronavir OC43 PCR Nasal Enterovir/Rhinovir PCR Nasal Influenza B PCR Nasal Influenza A PCR Nasal Parainfluen 1 PCR Nasal Parainfluen 2 PCR Nasal Parainfluen 3 PCR Nasal Parainfluen 4 PCR Nasal RSV (PCR) Nasal B.pertussis DNA PCR Nasal C.pneumoniae (PCR) [place] Human Metapneumo PCR Nasal M.pneumoniae (PCR) Nasal SARS-CoV-2 (PCR) 07/29/21 00:31 WBC RBC Hgb Hct MCV MCH MCHC RDW Plt Count MPV Neut # (Auto) Lymph # (Auto) [place] # (Auto) Eos # (Auto) Baso # (Auto) Absolute Nucleated RBC Nucleated RBC % Sodium Potassium Chloride Carbon Dioxide Anion Gap BUN Creatinine Estimated GFR (MDRD) Glucose Lactic Acid Calcium Total Bilirubin AST ALT Alkaline Phosphatase Total Protein Albumin Globulin Albumin/Globulin Ratio Nasal Adenovirus (PCR) NOT DETECTED Nasal B. parapertussis DNA (PCR) NOT DETECTED Nasal Coronavir 229E PCR NOT DETECTED Nasal Coronavir HKU1 PCR NOT DETECTED Nasal Coronavir NL63 PCR NOT DETECTED Nasal Coronavir OC43 PCR NOT DETECTED Nasal Enterovir/Rhinovir PCR NOT DETECTED Nasal Influenza B PCR NOT DETECTED Nasal Influenza A PCR NOT DETECTED Nasal Parainfluen 1 PCR NOT DETECTED Nasal Parainfluen 2 PCR NOT DETECTED Nasal Parainfluen 3 PCR NOT DETECTED Nasal Parainfluen 4 PCR NOT DETECTED Nasal RSV (PCR) NOT DETECTED Nasal B.pertussis DNA PCR NOT DETECTED Nasal C.pneumoniae (PCR) NOT DETECTED [place] Human Metapneumo PCR NOT DETECTED Nasal M.pneumoniae (PCR) NOT DETECTED Nasal SARS-CoV-2 (PCR) DETECTED A PD MEDICAL DECISION MAKING - ED course ED course: 46yM p/w sepsis 2/2 chronic LLE wound versus covid-19 infection. patient hypoxic on arrival with o2 sat 92% RA. antibiotics given. plan to admit for treatment of wound infection/management of covid-19 infection. Departure - Departure Disposition: 66 [facility] DC/Xfer Clinical Impression: Chronic wound of extremity, Sepsis, COVID-19, Hypoxia Condition: Stable
[2021-07-29 00:38] LABS: BASOPHILS % (AUTO) 0.2 %; EOSINOPHILS # (AUTO) 0.2 10^3/uL (0.0-0.7); EOSINOPHILS % (AUTO) 1.7 %; HCT - HEMATOCRIT 42.3 % (42.0-52.0); HGB - HEMOGLOBIN 13.8 g/dL (14.0-18.0); LYMPHOCYTES # (AUTO) 1.2 10^3/uL (1.5-3.5); LYMPHOCYTES % (AUTO) 11.3 %; MEAN CORPUSCULAR HEMOGLOBIN 29.4 pg (27.0-31.0); MEAN CORPUSCULAR HGB CONC 32.6 g/dL (32.0-36.0); MEAN CORPUSCULAR VOLUME 90.2 fL (80.0-94.0); MEAN PLATELET VOLUME 8.7 fL (7.4-11.4); MONOCYTES # (AUTO) 0.5 10^3/uL (0.0-1.0); NEUTROPHILS # (AUTO) 8.7 10^3/uL (1.5-6.6); NEUTROPHILS % (AUTO) 81.5 %; PLT - PLATELET COUNT 333 10^3/uL (130-450); RED BLOOD COUNT 4.69 10^6/uL (4.70-6.10); RED CELL DISTRIBUTION WIDTH 13.2 % (12.0-15.0); WHITE BLOOD COUNT 10.7 x10^3/uL (4.8-10.8)
[2021-07-29 00:52] LABS: ALBUMIN 3.5 g/dL (3.2-5.5); ALBUMIN/GLOBULIN RATIO 0.7 (1.0-2.2); BILIRUBIN,TOTAL 0.4 mg/dL (0.2-1.0); CALCIUM 9.1 mg/dL (8.5-10.3); POTASSIUM 4.3 mmol/L (3.5-5.0); TOTAL PROTEIN 8.4 g/dL (6.7-8.2)
--- NOTE | 2021-07-29 00:58 | XRAY Report ---
PROCEDURE: Tib/Fib LT INDICATIONS: chronic nonhealing wound. fever TECHNIQUE: 2 views of the tibia and fibula were acquired. COMPARISON: None FINDINGS: Bones: No fractures or dislocations. No suspicious bony lesions. Soft tissues: No suspicious soft tissue calcifications or masses. IMPRESSION: No acute fracture. No osseous lesion. If symptoms and/or clinical suspicion for pathology continue, f urther assessment with repeat plain films, or advanced imaging (e.g., CT, MRI, or bone scan) is recom mended for further assessment. Reviewed by: Tim Cotto MD on 07/29/2021 12:57 AM PST Approved by: Tim Cotto MD on 07/29/2021 12:57 AM PST Station ID: [id number]
[2021-07-29 01:35] LABS: B. PARAPERTUSSIS- RESP PCR PAN NOT DETECTED; B. PERTUSSIS- RESP PCR PANEL NOT DETECTED; C. PNEUMONIAE- RESP PCR PANEL NOT DETECTED; CORONAVIRUS 229E-RESP PCR NOT DETECTED; CORONAVIRUS HKU1-RESP PCR NOT DETECTED; CORONAVIRUS NL63-RESP PCR NOT DETECTED; CORONAVIRUS OC43-RESP PCR NOT DETECTED; HUMAN METAPNEUMOVIRUS NOT DETECTED; INFLUENZA A- RESP PCR PANEL NOT DETECTED; INFLUENZA B - RESP PCR PANEL NOT DETECTED; M. PNEUMONIAE- RESP PCR PANEL NOT DETECTED; PARAINFLUENZA VIRUS 1 NOT DETECTED; PARAINFLUENZA VIRUS 2 NOT DETECTED; PARAINFLUENZA VIRUS 3 NOT DETECTED; PARAINFLUENZA VIRUS 4 NOT DETECTED; RHINOVIRUS/ENTEROVIRUS NOT DETECTED; RSV- RESP PCR PANEL NOT DETECTED
[2021-07-29 01:36] LABS: SARS-CoV-2 -RESP PCR PANEL DETECTED
[2021-07-29] MEDS ORDERED: ACETAMINOPHEN 325 MG TABLET PO PRN (01:57)
[2021-07-29] MEDS ORDERED: ONDANSETRON 4 MG/2 ML VIAL IVP PRN (01:57)
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
[2021-07-29] MEDS: SODIUM CHLORIDE 0.9% 1,000 ML IV SCH ×3 (02:57→21:49)
[2021-07-29 05:55] LABS: BASOPHILS % (AUTO) 0.2 %; EOSINOPHILS # (AUTO) 0.1 10^3/uL (0.0-0.7); HCT - HEMATOCRIT 37.7 % (42.0-52.0); HGB - HEMOGLOBIN 12.5 g/dL (14.0-18.0); LYMPHOCYTES # (AUTO) 1.4 10^3/uL (1.5-3.5); LYMPHOCYTES % (AUTO) 13.4 %; MEAN CORPUSCULAR HEMOGLOBIN 29.6 pg (27.0-31.0); MEAN CORPUSCULAR HGB CONC 33.2 g/dL (32.0-36.0); MEAN CORPUSCULAR VOLUME 89.3 fL (80.0-94.0); MEAN PLATELET VOLUME 8.9 fL (7.4-11.4); MONOCYTES # (AUTO) 0.5 10^3/uL (0.0-1.0); MONOCYTES % (AUTO) 4.7 %; NEUTROPHILS # (AUTO) 8.4 10^3/uL (1.5-6.6); NEUTROPHILS % (AUTO) 80.3 %; PLT - PLATELET COUNT 277 10^3/uL (130-450); RED BLOOD COUNT 4.22 10^6/uL (4.70-6.10); RED CELL DISTRIBUTION WIDTH 13.1 % (12.0-15.0); WHITE BLOOD COUNT 10.4 x10^3/uL (4.8-10.8)
[2021-07-29 06:03] LABS: CREATININE 0.8 mg/dL (0.6-1.2)
[2021-07-29] MEDS: ACETAMINOPHEN 325 MG TABLET PO PRN (09:00)
[2021-07-29] MEDS ORDERED: HEPARIN 5,000 UNIT/ML VIAL SUBQ SCH (09:00)
[2021-07-29] MEDS ORDERED: CEFEPIME 2 GM in SODIUM CHLORIDE 0.9% MINIBAG 100 ML IV SCH (09:00)
[2021-07-29] MEDS: NICOTINE 14 MG PATCH TOP SCH (09:01)
[2021-07-29] MEDS: SODIUM CHLORIDE FLUSH 0.9% 10 ML SYRINGE IVP SCH ×3 (09:01→23:43)
[2021-07-29] MEDS ORDERED: IOVERSOL 320 100 ML VIAL IVP ONE ×2 (09:15→10:44)
--- NOTE | 2021-07-29 09:49 | XRAY Report ---
PROCEDURE: Chest 1 View X-Ray INDICATIONS: COVID (+) TECHNIQUE: One view of the chest was acquired. COMPARISON: 11/14/2020 FINDINGS: Surgical changes and devices: None. Lungs and pleura: No pleural effusions or pneumothorax. There are patchy bilateral airspace groundgl ass opacities, most notable in the central/perihilar lungs and the left lung base. Mediastinum: Mediastinal contours appear normal. Heart size is normal. Bones and chest wall: No suspicious bony lesions. Overlying soft tissues appear unremarkable. IMPRESSION: Patchy bilateral groundglass airspace opacities, most notable in the central/perihilar in the left umang ng base. Findings would be consistent with infection, including viral pneumonitis. Reviewed by: Michel Darnell MD on 07/29/2021 8:48 AM [facility] Approved by: Michel Darnell MD on 07/29/2021 8:48 AM [facility] Station ID: [id number]
[2021-07-29 10:02] LABS: INR 1.3 (0.8-1.2); PT - PROTHROMBIN TIME 14.5 secs (9.9-12.6)
[2021-07-29] MEDS: VANCOMYCIN INJ 1 GM, VANCOMYCIN INJ 500 MG in SODIUM CHLORIDE 0.9% 500 ML IV SCH ×2 (11:46→23:43)
[2021-07-29] MEDS ORDERED: VANCOMYCIN INJ 1.75 GM in SODIUM CHLORIDE 0.9% 500 ML IV SCH (12:00)
[2021-07-29] MEDS: MULTIVITAMIN W/MINERALS TABLET PO SCH (12:20)
[2021-07-29] MEDS: ASCORBIC ACID 500 MG TABLET PO SCH (12:20)
[2021-07-29] MEDS: LACTOBACILLUS RHAMNOSUS GG CAPSULE PO SCH (12:20)
--- NOTE | 2021-07-29 12:42 | CT Report ---
PROCEDURE: LOWER EXTREMITY W - LT INDICATIONS: Cellulitis, eval for necrotizing fascitis TECHNIQUE: Contrast-enhanced 1 mm thick axial images obtained through both lower extremities from the level of the distal femur to the feet. Sagittal and coronal reformations, with soft tissue and bone algorithm. COMPARISON: None. FINDINGS: No acute fracture. No focal osseous destruction seen. There is anatomic alignment. There is diffuse subcutaneous cellulitis and edema involving both lower extremities on the left great er than right. There is trace scattered superficial fascial fluid. No definite soft tissue gas is see n. No rim-enhancing loculated abscess identified. Associated diffuse skin thickening noted again left greater than right. The muscles are grossly unremarkable. No definite subfascial abnormality identified. Vessels appear p atent. Trace left knee joint effusion. IMPRESSION: Diffuse superficial cellulitis of the lower extremities, left greater than right. No definite soft ti ssue gas. Reviewed by: Reg Metz MD on 07/29/2021 12:41 PM PST Approved by: Reg Metz MD on 07/29/2021 12:41 PM PST Station ID: [id number]
--- NOTE | 2021-07-29 12:46 | CT Report ---
PROCEDURE: LOWER EXTREMITY W - RT INDICATIONS: Cellulitis, eval for necrotizing fascitis TECHNIQUE: Contrast-enhanced 1 mm thick axial images obtained through both lower extremities from the level of the distal femur to the feet. Sagittal and coronal reformations, with soft tissue and bone algorithm. COMPARISON: Please see images including both lower extremities on the comparison left lower extremity CT dated same day. FINDINGS: No acute fracture. No focal osseous destruction seen. There is anatomic alignment. There is diffuse subcutaneous cellulitis and edema involving both lower extremities on the left great er than right. There is trace scattered superficial fascial fluid. No definite soft tissue gas is see n. No rim-enhancing loculated abscess identified. Associated diffuse skin thickening noted again left greater than right. The muscles are grossly unremarkable. No definite subfascial abnormality identified. Vessels appear p atent. IMPRESSION: Diffuse superficial cellulitis of the lower extremities, left greater than right. No definite soft ti ssue gas. Reviewed by: Reg Metz MD on 07/29/2021 12:45 PM PST Approved by: Reg Metz MD on 07/29/2021 12:45 PM PST Station ID: [id number]
--- NOTE | 2021-07-29 14:19 | PHARMACY PROGRESS NOTE ---
- Best Possible Medication History Admit Date and Time: 07/29/21 0157 Processed by: Pharmacy Patient Interview: Pt interview ONLY source As the person ultimately responsible for medication therapy, providers are able to order a medication from an existing home medication list in [facility] via the "Reconcile Routine" prior to Confirmation of that medication by family support coordinator. Such practice is discouraged except when the physician, in their clinical judgment, deems that a medical need exists for a medication without regard to previous use.
[2021-07-29] MEDS: CEFEPIME 2 GM in SODIUM CHLORIDE 0.9% MINIBAG 100 ML IV SCH ×2 (17:20→21:50)
[2021-07-29 21:37] LABS: MUDS CUTOFF CONCENTRATIONS CUTOFF CONC BELOW:
[2021-07-29 21:51] LABS: AMPHETAMINE SCREEN,URINE POSITIVE (NEGATIVE); BARBITURATE SCREEN,UR NEGATIVE (NEGATIVE); BENZODIAZEPINES SCREEN, URINE NEGATIVE (NEGATIVE); COCAINE SCREEN URINE NEGATIVE (NEGATIVE); METHADONE SCREEN, URINE NEGATIVE (NEGATIVE); METHAMPHETAMINES SCREEN, URINE POSITIVE (NEGATIVE); OPIATE SCREEN, URINE NEGATIVE (NEGATIVE); OXYCODONE SCREEN, URINE NEGATIVE (NEGATIVE); PROPOXYPHENE SCREEN, URINE NEGATIVE (NEGATIVE); THC CANNABINOID SCREEN, URINE NEGATIVE (NEGATIVE); TRICYCLIC ANTIDEPRESSANT,URINE NEGATIVE (NEGATIVE)
[2021-07-30] MEDS: ACETAMINOPHEN 325 MG TABLET PO PRN ×2 (05:30→12:16)
[2021-07-30] MEDS: CEFEPIME 2 GM in SODIUM CHLORIDE 0.9% MINIBAG 100 ML IV SCH ×3 (05:36→22:58)
[2021-07-30 06:48] LABS: BASOPHILS % (AUTO) 0.1 %; EOSINOPHILS # (AUTO) 0.3 10^3/uL (0.0-0.7); EOSINOPHILS % (AUTO) 3.3 %; HCT - HEMATOCRIT 37.5 % (42.0-52.0); HGB - HEMOGLOBIN 12.3 g/dL (14.0-18.0); LYMPHOCYTES # (AUTO) 0.8 10^3/uL (1.5-3.5); MEAN CORPUSCULAR HEMOGLOBIN 29.4 pg (27.0-31.0); MEAN CORPUSCULAR HGB CONC 32.8 g/dL (32.0-36.0); MEAN CORPUSCULAR VOLUME 89.5 fL (80.0-94.0); MEAN PLATELET VOLUME 8.7 fL (7.4-11.4); MONOCYTES # (AUTO) 0.3 10^3/uL (0.0-1.0); MONOCYTES % (AUTO) 3.4 %; NEUTROPHILS # (AUTO) 7.8 10^3/uL (1.5-6.6); NEUTROPHILS % (AUTO) 83.8 %; PLT - PLATELET COUNT 266 10^3/uL (130-450); RED BLOOD COUNT 4.19 10^6/uL (4.70-6.10); RED CELL DISTRIBUTION WIDTH 13.2 % (12.0-15.0); WHITE BLOOD COUNT 9.3 x10^3/uL (4.8-10.8)
[2021-07-30 06:57] LABS: CREATININE 0.7 mg/dL (0.6-1.2); POTASSIUM 4.2 mmol/L (3.5-5.0)
[2021-07-30] MEDS: SODIUM CHLORIDE 0.9% 1,000 ML IV SCH ×2 (09:01→20:06)
[2021-07-30] MEDS: ENOXAPARIN 30 MG/0.3 ML SYRINGE SUBQ SCH (09:02)
[2021-07-30] MEDS: NICOTINE 14 MG PATCH TOP SCH (09:02)
[2021-07-30] MEDS: ASCORBIC ACID 500 MG TABLET PO SCH (09:02)
[2021-07-30] MEDS: LACTOBACILLUS RHAMNOSUS GG CAPSULE PO SCH (09:02)
[2021-07-30] MEDS: MULTIVITAMIN W/MINERALS TABLET PO SCH (09:02)
[2021-07-30] MEDS: SODIUM CHLORIDE FLUSH 0.9% 10 ML SYRINGE IVP SCH ×2 (09:03→20:06)
[2021-07-30] MEDS: VANCOMYCIN INJ 1 GM, VANCOMYCIN INJ 500 MG in SODIUM CHLORIDE 0.9% 500 ML IV SCH (12:12)
[2021-07-30] MEDS: IBUPROFEN 600 MG TABLET PO PRN (14:23)
--- NOTE | 2021-07-30 14:26 | PROVIDER PROGRESS NOTE ---
Assessment/Plan - Problem List (1) Sepsis Qualifiers: Assessment/Plan: Sepsis is improving with normalized heart rate and Lactic Acid level but still spiking fevers today. Sepsis is secondary to cellulitis of both lower extremities, per imaging, L worse than R. It is reported that patient has history of MRSA and Pseudomonas infection, and attempts to manage cellulitis with oral antibiotics in the out patient setting has been unsuccessful. Outpatient treatment was further compounded by patient being homeless. Blood culture was repeated today with the fever Awaiting blood culture results. We will continue iv vancomycin and iv cefepime. Continue IV hydration with normal saline. Tylenol and Motrin ordered as needed for fever. (2) Cellulitis Qualifiers: Site of cellulitis: extremity Site of cellulitis of extremity: lower extr emity Laterality: unspecified laterality Qualified Code(s): L03.119 - Cellulitis of unspecified part of limb Assessment/Plan: Cellulitis is of both lower extremities, per CT imaging done after admission, L worse than R. It is reported that patient has history of MRSA and Pseudomonas infection, and attempts to manage cellulitis with oral antibiotics in the outpatient setting has been unsuccessful. Outpatient treatment was further compounded by patient having no PCP, antibx were obtained from ER visits. Await blood culture results. We will continue iv vancomycin and iv cefepime. Continue IV hydration with normal saline. Tylenol and Motrin ordered as needed for pain or fever. Keep legs elevated (3) Chronic wound of extremity Assessment/Plan: Patient has been unable to see wound care in the outpatient setting because he does not have a primary care physician. Antibx were obtained from ER visits. Currently he is homeless. First step to addressing his outpatient care will be establishing with a primary care physician. Social work/discharge coordinators to provide him with a list of primary care physicians in the area and will secure him an appointment. We will consult wound care while the patient is in the hospital for recommendations. (4) COVID-19 Assessment/Plan: Patient is unvaccinated. The (+) COVID was an incidental finding. A chest x-ray was done after admission and does show bilateral fluffy infiltrates consistent with Covid pneumonia. The patient is asymptomatic. Oxygen saturation is 98% on room air with a respiratory rate of 19. Not qualify for remdesivir treatment or Regeneron treatment Will continue to monitor the patient from a respiratory point of view. Contact isolation ordered. (5) Methamphetamine abuse Assessment/Plan: A MUDS screen was done and is (+) for Meth. Today he is somnolent, possibly in withdrawal phase of meth use. - Current Meds Current Meds: Current Medications Generic Name Dose Route Start Last Admin Trade Name Freq PRN Reason Stop Dose Admin Acetaminophen 650 mg 07/29/21 08:51 07/30/21 12:16 Acetaminophen 325 Mg Tablet PO 650 mg Q4HR PRN Administration Pain or Fever > 38C (100.4F) Ascorbic Acid 500 mg 07/29/21 12:00 07/30/21 09:02 Ascorbic Acid 500 Mg Tablet PO 500 mg DAILY LAKISHA Administration Enoxaparin Sodium 30 mg 07/30/21 09:00 07/30/21 09:02 Enoxaparin 30 Mg/0.3 Ml Syringe SUBQ 30 mg DAILY LAKISHA Administration Sodium Chloride 1,000 mls @ 125 mls/hr 07/29/21 02:00 07/30/21 09:01 Normal Saline 0.9% IV 125 mls/hr .Q8H LAKISHA Administration Vancomycin HCl 1 gm/ 500 mls @ 250 mls/hr 07/29/21 12:00 07/30/21 12:12 Vancomycin HCl 500 mg/ Sodium IV 250 mls/hr Chloride Q12H LAKISHA Administration Cefepime HCl 2 gm/ Sodium 100 mls @ 200 mls/hr 07/29/21 16:00 07/30/21 12:12 Chloride IV 200 mls/hr TID LAKISHA Administration Lactobacillus Rhamnosus 1 cap 07/29/21 12:00 07/30/21 09:02 Lactobacillus Rhamnosus Gg Capsule PO 1 cap DAILY LAKISHA Administration Multivitamins/Minerals 1 tab 07/29/21 12:00 07/30/21 09:02 Multivitamin W/Minerals Tablet PO 1 tab DAILYWM LAKISHA Administration Nicotine 1 patch 07/29/21 09:00 07/30/21 09:02 Nicotine 14 Mg Patch TOP 1 patch DAILY LAKISHA Administration Sodium Chloride 10 ml 07/29/21 09:00 07/30/21 09:03 Sodium Chloride Flush 0.9% 10 Ml Syringe IVP Not Given 0100,0900,1700 LAKISHA - Lab Result Fish Bone Diagrams: 07/30/21 06:37 07/30/21 06:37 - Additional Planning My Orders: My Active Orders 07/29/21 16:00 Cefepime 2 gm Sodium Chloride 0.9% Minibag [Normal Saline 0.9% Minibag] 100 ml IV TID 07/30/21 08:16 Telemetry-Discontinue [RC] .ONCE 07/30/21 08:29 CULTURE, BLOOD #1 [RM] Stat Subjective - Subjective Patient Reports: Resting Comfortably Nursing Reports: Other (Eating well, sleeping alot per RN) Objective Vital Signs: Vital Signs - 24 hr 07/29/21 07/29/21 07/30/21 17:00 19:56 00:07 Temperature 37.1 C 38.1 C H Heart Rate [ 81 87 Brachial] Heart Rate [ 87 Radial] Respiratory 16 20 20 Rate Blood Pressure 122/65 136/69 H [Right Brachial artery] Blood Pressure 124/68 [Right Radial artery] O2 Saturation 98 95 07/30/21 07/30/21 07/30/21 05:53 07:53 12:23 Temperature 38.9 C H 37.9 C 39.4 C H Heart Rate [ 98 93 98 Brachial] Heart Rate [ Radial] Respiratory 19 20 20 Rate Blood Pressure 136/88 H 141/86 H 154/77 H [Right Brachial artery] Blood Pressure [Right Radial artery] O2 Saturation 95 95 94 07/30/21 07/30/21 13:36 14:19 Temperature 38.9 C H 39.4 C H Heart Rate [ Brachial] Heart Rate [ Radial] Respiratory Rate Blood Pressure [Right Brachial artery] Blood Pressure [Right Radial artery] O2 Saturation Oxygen O2 Source Room air I&O (Last 24 Hrs): Intake and Output Totals x24h 07/28/21 07/29/21 07/30/21 23:59 23:59 23:59 Intake Total 7728.863 2655.000 Output Total 3050 3400 Balance 4678.863 -745.000 General: Alert ((visit done remotely)), No acute distress HEENT: Mucous membr. moist/pink Neck: Supple Neuro: Non Focal Cardiovascular: Regular rate Respiratory: No respiratory distress Extremities: Other (Redness and warmth both shins, open wound of L rivera is bandaged) - Results Results: Laboratory Results WBC 9.3 x10^3/uL (4.8-10.8) 07/30/21 06:37 RBC 4.19 10^6/uL (4.70-6.10) L 07/30/21 06:37 Hgb 12.3 g/dL (14.0-18.0) L 07/30/21 06:37 Hct 37.5 % (42.0-52.0) L 07/30/21 06:37 MCV 89.5 fL (80.0-94.0) 07/30/21 06:37 MCH 29.4 pg (27.0-31.0) 07/30/21 06:37 MCHC 32.8 g/dL (32.0-36.0) 07/30/21 06:37 RDW 13.2 % (12.0-15.0) 07/30/21 06:37 Plt Count 266 10^3/uL (130-450) 07/30/21 06:37 MPV 8.7 fL (7.4-11.4) 07/30/21 06:37 Neut # (Auto) 7.8 10^3/uL (1.5-6.6) H 07/30/21 06:37 Lymph # (Auto) 0.8 10^3/uL (1.5-3.5) L 07/30/21 06:37 Hunt # (Auto) 0.3 10^3/uL (0.0-1.0) 07/30/21 06:37 Eos # (Auto) 0.3 10^3/uL (0.0-0.7) 07/30/21 06:37 Baso # (Auto) 0.0 10^3/uL (0.0-0.1) 07/30/21 06:37 Absolute Nucleated RBC 0.00 x10^3/uL 07/30/21 06:37 Nucleated RBC % 0.0 /100WBC 07/30/21 06:37 PT 14.5 secs (9.9-12.6) H 07/29/21 09:26 INR 1.3 (0.8-1.2) H 07/29/21 09:26 D-Dimer < 200.0 ng/mL (200.0-255.0) L 07/29/21 09:26 Sodium 132 mmol/L (135-145) L 07/30/21 06:37 Potassium 4.2 mmol/L (3.5-5.0) 07/30/21 06:37 Chloride 101 mmol/L (101-111) 07/30/21 06:37 Carbon Dioxide 23 mmol/L (21-32) 07/30/21 06:37 Anion Gap 8.0 (6-13) 07/30/21 06:37 BUN 12 mg/dL (6-20) 07/30/21 06:37 Creatinine 0.7 mg/dL (0.6-1.2) 07/30/21 06:37 Estimated GFR (MDRD) 120 (>89) 07/30/21 06:37 Glucose 90 mg/dL (70-100) 07/30/21 06:37 Lactic Acid 1.0 mmol/L (0.5-2.2) 07/29/21 00:27 Calcium 8.0 mg/dL (8.5-10.3) L 07/30/21 06:37 Magnesium 1.8 mg/dL (1.7-2.8) 07/29/21 09:26 Total Bilirubin 0.4 mg/dL (0.2-1.0) 07/29/21 00:27 AST 24 IU/L (10-42) 07/29/21 00:27 ALT 17 IU/L (10-60) 07/29/21 00:27 Alkaline Phosphatase 85 IU/L (42-121) 07/29/21 00:27 Total Protein 8.4 g/dL (6.7-8.2) H 07/29/21 00:27 Albumin 3.5 g/dL (3.2-5.5) 07/29/21 00:27 Globulin 4.9 g/dL (2.1-4.2) H 07/29/21 00:27 Albumin/Globulin Ratio 0.7 (1.0-2.2) L 07/29/21 00:27 Nasal Adenovirus (PCR) NOT DETECTED 07/29/21 00:31 Nasal B. parapertussis DNA (PCR) NOT DETECTED 07/29/21 00:31 Nasal Coronavir 229E PCR NOT DETECTED 07/29/21 00:31 Nasal Coronavir HKU1 PCR NOT DETECTED 07/29/21 00:31 Nasal Coronavir NL63 PCR NOT DETECTED 07/29/21 00:31 Nasal Coronavir OC43 PCR NOT DETECTED 07/29/21 00:31 Nasal Enterovir/Rhinovir PCR NOT DETECTED 07/29/21 00:31 Nasal Influenza B PCR NOT DETECTED 07/29/21 00:31 Nasal Influenza A PCR NOT DETECTED 07/29/21 00:31 Nasal Parainfluen 1 PCR NOT DETECTED 07/29/21 00:31 Nasal Parainfluen 2 PCR NOT DETECTED 07/29/21 00:31 Nasal Parainfluen 3 PCR NOT DETECTED 07/29/21 00:31 Nasal Parainfluen 4 PCR NOT DETECTED 07/29/21 00:31 Nasal RSV (PCR) NOT DETECTED 07/29/21 00:31 Nasal B.pertussis DNA PCR NOT DETECTED 07/29/21 00:31 Nasal C.pneumoniae (PCR) NOT DETECTED 07/29/21 00:31 Jeremias Human Metapneumo PCR NOT DETECTED 07/29/21 00:31 Nasal M.pneumoniae (PCR) NOT DETECTED 07/29/21 00:31 Nasal SARS-CoV-2 (PCR) DETECTED A 07/29/21 00:31 Urine Opiates Screen NEGATIVE (NEGATIVE) 07/29/21 21:27 Ur Oxycodone Screen NEGATIVE (NEGATIVE) 07/29/21 21:27 Urine Methadone Screen NEGATIVE (NEGATIVE) 07/29/21 21:27 Ur Propoxyphene Screen NEGATIVE (NEGATIVE) 07/29/21 21:27 Ur Barbiturates Screen NEGATIVE (NEGATIVE) 07/29/21 21:27 Ur Tricyclics Screen NEGATIVE (NEGATIVE) 07/29/21 21:27 Ur Phencyclidine Scrn NEGATIVE (NEGATIVE) 07/29/21 21:27 Ur Amphetamine Screen POSITIVE (NEGATIVE) H 07/29/21 21:27 U Methamphetamines Scrn POSITIVE (NEGATIVE) H 07/29/21 21:27 U Benzodiazepines Scrn NEGATIVE (NEGATIVE) 07/29/21 21:27 Urine Cocaine Screen NEGATIVE (NEGATIVE) 07/29/21 21:27 U Cannabinoids Screen NEGATIVE (NEGATIVE) 07/29/21 21:27 Sepsis Event Note (H) - Evaluation Current Stage of Sepsis: Sepsis Possible source of Sepsis: positive: Skin/soft tissue - Sepsis Criteria Sepsis Criteria: Recorded Temperature greater than 38.3C or Less than 36C, Recorded Heart Rate greater than 90 bpm
--- NOTE | 2021-07-30 15:05 | PHARMACY PROGRESS NOTE ---
- Therapy Status Vancomycin regimen day #: 2 Therapy status: Awaiting steady state Basis for treatment: Empirical Treatment indication: Cellulitis with IV drug abuse Trough goal: 15-20 Concurrent antibiotics: Cefepime - EZEKIEL Risk Risk level for Acute Kidney Injury: Moderate Acute Kidney Injury risk factors: Goal trough >15, Sepsis - Monitoring and Recommendation Clinical response to treatment: I&O Previous 24 hours 07/28/21 07/29/21 07/30/21 23:59 23:59 23:59 Intake Total 7728.863 3155.000 Output Total 3050 3600 Balance 4678.863 -445.000 Lab Results 07/30/21 07/29/21 07/29/21 06:37 05:34 00:27 BUN 12 14 18 Creatinine 0.7 0.8 1.0 Estimated GFR (MDRD) 120 103 80 L Cultures 07/29/21 00:54 Leg - Left Wound Culture - Preliminary Pseudomonas Species, Presumpt Staphylococcus Aureus 07/29/21 00:27 Blood Blood Culture - Preliminary NO GROWTH AFTER 1 DAY 07/29/21 00:33 Blood Blood Culture - Preliminary NO GROWTH AFTER 1 DAY Monitoring plan: Daily serum creatinine Next trough due prior to maintenance dose #: 5 Next trough due (date/time): 07/31/2021 @1100 Areas for additional monitoring: IV to PO when appropriate, Therapy de- escalation based on culture results
[2021-07-31] MEDS: IBUPROFEN 600 MG TABLET PO PRN (00:08)
[2021-07-31 05:19] LABS: BASOPHILS % (AUTO) 0.2 %; EOSINOPHILS # (AUTO) 0.1 10^3/uL (0.0-0.7); EOSINOPHILS % (AUTO) 0.8 %; HCT - HEMATOCRIT 36.4 % (42.0-52.0); HGB - HEMOGLOBIN 12.1 g/dL (14.0-18.0); LYMPHOCYTES # (AUTO) 0.8 10^3/uL (1.5-3.5); LYMPHOCYTES % (AUTO) 12.8 %; MEAN CORPUSCULAR HEMOGLOBIN 29.3 pg (27.0-31.0); MEAN CORPUSCULAR HGB CONC 33.2 g/dL (32.0-36.0); MEAN CORPUSCULAR VOLUME 88.1 fL (80.0-94.0); MEAN PLATELET VOLUME 9.4 fL (7.4-11.4); MONOCYTES # (AUTO) 0.3 10^3/uL (0.0-1.0); MONOCYTES % (AUTO) 4.6 %; NEUTROPHILS # (AUTO) 5.3 10^3/uL (1.5-6.6); NEUTROPHILS % (AUTO) 81.3 %; PLT - PLATELET COUNT 239 10^3/uL (130-450); RED BLOOD COUNT 4.13 10^6/uL (4.70-6.10); RED CELL DISTRIBUTION WIDTH 13.2 % (12.0-15.0); WHITE BLOOD COUNT 6.6 x10^3/uL (4.8-10.8)
[2021-07-31 05:30] LABS: CALCIUM 7.7 mg/dL (8.5-10.3); CREATININE 0.7 mg/dL (0.6-1.2); POTASSIUM 3.8 mmol/L (3.5-5.0)
[2021-07-31] MEDS: SODIUM CHLORIDE FLUSH 0.9% 10 ML SYRINGE IVP SCH ×3 (06:22→19:47)
[2021-07-31] MEDS: ACETAMINOPHEN 325 MG TABLET PO PRN ×2 (06:22→11:17)
[2021-07-31] MEDS: SODIUM CHLORIDE 0.9% 1,000 ML IV SCH ×2 (06:24→19:47)
[2021-07-31] MEDS: CEFEPIME 2 GM in SODIUM CHLORIDE 0.9% MINIBAG 100 ML IV SCH ×3 (06:24→21:49)
[2021-07-31] MEDS: ENOXAPARIN 30 MG/0.3 ML SYRINGE SUBQ SCH (08:33)
[2021-07-31] MEDS: LACTOBACILLUS RHAMNOSUS GG CAPSULE PO SCH (08:33)
[2021-07-31] MEDS: NICOTINE 14 MG PATCH TOP SCH (08:33)
[2021-07-31] MEDS: ASCORBIC ACID 500 MG TABLET PO SCH (08:33)
[2021-07-31] MEDS: MULTIVITAMIN W/MINERALS TABLET PO SCH (08:33)
--- NOTE | 2021-07-31 11:32 | PROVIDER PROGRESS NOTE ---
Assessment/Plan - Problem List (1) Sepsis Qualifiers: Assessment/Plan: Sepsis is improving with normalized heart rate and Lactic Acid level but still spiking fever today. He has had a fever daily since admission. Sepsis is secondary to cellulitis of both lower extremities, per CT imaging, L worse than R. It is reported that patient has history of MRSA and Pseudomonas infection, and attempts to manage cellulitis with oral antibiotics in the outpatient setting has been unsuccessful. Outpatient treatment was further compounded by patient being homeless. Blood culture was repeated again today with the fever Awaiting blood culture results. We will continue iv vancomycin and iv cefepime. Continue IV hydration with normal saline. Will order an Echo to eval for endocarditis, given that daily fever spikes persist. Tylenol and Motrin ordered as needed for fever. (2) Cellulitis Qualifiers: Site of cellulitis: extremity Site of cellulitis of extremity: lower extremity Laterality: unspecified laterality Qualified Code(s): L03.119 - Cellulitis of unspecified part of limb Assessment/Plan: Cellulitis is of both lower extremities, per CT imaging done after admission, L worse than R. It is reported that patient has history of MRSA and Pseudomonas infection, and attempts to manage cellulitis with oral antibiotics in the outpatient setting has been unsuccessful. Outpatient treatment was further compounded by patient having no PCP, antibx were obtained from ER visits. He has spiked a fever every day of being here yet. Awaiting blood culture results. We will continue iv vancomycin and iv cefepime. Continue IV hydration with normal saline. Tylenol and Motrin ordered as needed for pain or fever. Keep legs elevated (3) MRSA infection Assessment/Plan: As per (+) wound culture results, and sensitivities available. Continue iv Vanco. Awaiting blood culture results. (4) Proteus infection Assessment/Plan: As per (+) wound culture results, and sensitivities available. Continue iv Cefepime. Awaiting blood culture results. (5) Non-healing wound of lower extremity Qualifiers: Encounter type: subsequent encounter Assessment/Plan: He has had this wound for many mos. Patient has been unable to see wound care in the outpatient setting because he does not have a primary care physician. Antibx were obtained from ER visits. Currently he is homeless. First step to addressing his outpatient care will be establishing with a primary care physician. Social work/discharge coordinators to provide him with a list of primary care physicians in the area and will secure him an appointment. We will consult wound care while the patient is in the hospital for recommendations (today is [place], and Wound Clinic personnel not here until ). (6) COVID-19 Assessment/Plan: Patient is unvaccinated. The (+) COVID was an incidental finding. A chest x-ray was done after admission and does show bilateral fluffy infiltrates consistent with Covid pneumonia. The patient is asymptomatic. Oxygen saturation is 98% on room air with a respiratory rate of 19. Not qualify for Remdesivir treatment or Regeneron treatment Will continue to monitor the patient from a respiratory point of view. Contact isolation ordered. (7) Methamphetamine abuse Assessment/Plan: A MUDS screen was done at admission and was (+) for Meth. For his first 2.5 days here, he was somnolent, probably in withdrawal phase of meth use. He is awake and alert today. - Current Meds Current Meds: Current Medications Generic Name Dose Route Start Last Admin Trade Name Freq PRN Reason Stop Dose Admin Acetaminophen 650 mg 07/29/21 08:51 07/31/21 11:17 Acetaminophen 325 Mg Tablet PO 650 mg Q4HR PRN Administration Pain or Fever > 38C (100.4F) Ascorbic Acid 500 mg 07/29/21 12:00 07/31/21 08:33 Ascorbic Acid 500 Mg Tablet PO 500 mg DAILY LAKISHA Administration Enoxaparin Sodium 30 mg 07/30/21 09:00 07/31/21 08:33 Enoxaparin 30 Mg/0.3 Ml Syringe SUBQ 30 mg DAILY LAKISHA Administration Sodium Chloride 1,000 mls @ 125 mls/hr 07/29/21 02:00 07/31/21 06:24 Normal Saline 0.9% IV 125 mls/hr .Q8H LAKISHA Administration Vancomycin HCl 1 gm/ 500 mls @ 250 mls/hr 07/29/21 12:00 07/31/21 03:18 Vancomycin HCl 500 mg/ Sodium IV Infused Chloride Q12H LAKISHA Infusion Cefepime HCl 2 gm/ Sodium 100 mls @ 200 mls/hr 07/29/21 16:00 07/31/21 07:00 Chloride IV Infused TID LAKISHA Infusion Ibuprofen 600 mg 07/29/21 08:52 07/31/21 00:08 Ibuprofen 600 Mg Tablet PO 600 mg Q6HR PRN Administration PAIN Lactobacillus Rhamnosus 1 cap 07/29/21 12:00 07/31/21 08:33 Lactobacillus Rhamnosus Gg Capsule PO 1 cap DAILY LAKISHA Administration Multivitamins/Minerals 1 tab 07/29/21 12:00 07/31/21 08:33 Multivitamin W/Minerals Tablet PO 1 tab DAILYWM LAKISHA Administration Nicotine 1 patch 07/29/21 09:00 07/31/21 08:33 Nicotine 14 Mg Patch TOP 1 patch DAILY LAKISHA Administration Sodium Chloride 10 ml 07/29/21 09:00 07/31/21 08:34 Sodium Chloride Flush 0.9% 10 Ml Syringe IVP Not Given 0100,0900,1700 LAKISHA - Lab Result Fish Bone Diagrams: 07/31/21 04:45 07/31/21 04:45 - Additional Planning My Orders: My Active Orders 07/31/21 08:27 CULTURE, BLOOD #1 [RM] Stat Subjective - Subjective Patient Reports: Feeling Better Nursing Reports: Other (Less sleepy, wants a shower and could shower himself) Objective Vital Signs: Vital Signs - 24 hr 07/30/21 07/30/21 07/30/21 12:23 13:36 14:19 Temperature 39.4 C H 38.9 C H 39.4 C H Heart Rate [ 98 Brachial] Heart Rate [ Radial] Respiratory 20 Rate Blood Pressure 154/77 H [Right Brachial artery] Blood Pressure [Right Radial artery] O2 Saturation 94 07/30/21 07/30/21 07/30/21 15:00 15:01 16:51 Temperature 38.5 C H 39.2 C H 36.9 C Heart Rate [ Brachial] Heart Rate [ 86 Radial] Respiratory 20 Rate Blood Pressure [Right Brachial artery] Blood Pressure 114/67 [Right Radial artery] O2 Saturation 95 07/30/21 07/31/21 07/31/21 20:53 00:05 06:15 Temperature 37.3 C 38.9 C H 38 C H Heart Rate [ 87 Brachial] Heart Rate [ 93 102 H Radial] Respiratory 22 22 20 Rate Blood Pressure 150/82 H [Right Brachial artery] Blood Pressure 147/74 H 151/90 H [Right Radial artery] O2 Saturation 97 94 95 07/31/21 07/31/21 07:59 09:48 Temperature 38.3 C H 38 C H Heart Rate [ 100 Brachial] Heart Rate [ Radial] Respiratory 18 Rate Blood Pressure 138/68 H [Right Brachial artery] Blood Pressure [Right Radial artery] O2 Saturation 94 Oxygen O2 Source Room air I&O (Last 24 Hrs): Intake and Output Totals x24h 07/29/21 07/30/21 07/31/21 23:59 23:59 23:59 Intake Total 7728.863 4655.000 2425 Output Total 3050 4550 1700 Balance 4678.863 105.000 725 General: Alert, Oriented x3 HEENT: Mucous membr. moist/pink, Other (Disheveled) Neck: Supple, No JVD Neuro: Alert, Non Focal Cardiovascular: Regular rate, No murmurs Respiratory: No respiratory distress, Breath sounds nml Abdomen: Soft Extremities: Other (Decreased swelling and redness of both lower legs, scaly skin around L anterior rivera woumd. Wound has brown, dry eschar, well dem arctaed.) - Results Results: Laboratory Results WBC 6.6 x10^3/uL (4.8-10.8) 07/31/21 04:45 RBC 4.13 10^6/uL (4.70-6.10) L 07/31/21 04:45 Hgb 12.1 g/dL (14.0-18.0) L 07/31/21 04:45 Hct 36.4 % (42.0-52.0) L 07/31/21 04:45 MCV 88.1 fL (80.0-94.0) 07/31/21 04:45 MCH 29.3 pg (27.0-31.0) 07/31/21 04:45 MCHC 33.2 g/dL (32.0-36.0) 07/31/21 04:45 RDW 13.2 % (12.0-15.0) 07/31/21 04:45 Plt Count 239 10^3/uL (130-450) 07/31/21 04:45 MPV 9.4 fL (7.4-11.4) 07/31/21 04:45 Neut # (Auto) 5.3 10^3/uL (1.5-6.6) 07/31/21 04:45 Lymph # (Auto) 0.8 10^3/uL (1.5-3.5) L 07/31/21 04:45 Yell # (Auto) 0.3 10^3/uL (0.0-1.0) 07/31/21 04:45 Eos # (Auto) 0.1 10^3/uL (0.0-0.7) 07/31/21 04:45 Baso # (Auto) 0.0 10^3/uL (0.0-0.1) 07/31/21 04:45 Absolute Nucleated RBC 0.00 x10^3/uL 07/31/21 04:45 Nucleated RBC % 0.0 /100WBC 07/31/21 04:45 PT 14.5 secs (9.9-12.6) H 07/29/21 09:26 INR 1.3 (0.8-1.2) H 07/29/21 09:26 D-Dimer < 200.0 ng/mL (200.0-255.0) L 07/29/21 09:26 Sodium 132 mmol/L (135-145) L 07/31/21 04:45 Potassium 3.8 mmol/L (3.5-5.0) 07/31/21 04:45 Chloride 100 mmol/L (101-111) L 07/31/21 04:45 Carbon Dioxide 21 mmol/L (21-32) 07/31/21 04:45 Anion Gap 11.0 (6-13) 07/31/21 04:45 BUN 11 mg/dL (6-20) 07/31/21 04:45 Creatinine 0.7 mg/dL (0.6-1.2) 07/31/21 04:45 Estimated GFR (MDRD) 120 (>89) 07/31/21 04:45 Glucose 94 mg/dL (70-100) 07/31/21 04:45 Lactic Acid 1.0 mmol/L (0.5-2.2) 07/29/21 00:27 Calcium 7.7 mg/dL (8.5-10.3) L 07/31/21 04:45 Magnesium 1.8 mg/dL (1.7-2.8) 07/29/21 09:26 Total Bilirubin 0.4 mg/dL (0.2-1.0) 07/29/21 00:27 AST 24 IU/L (10-42) 07/29/21 00:27 ALT 17 IU/L (10-60) 07/29/21 00:27 Alkaline Phosphatase 85 IU/L (42-121) 07/29/21 00:27 Total Protein 8.4 g/dL (6.7-8.2) H 07/29/21 00:27 Albumin 3.5 g/dL (3.2-5.5) 07/29/21 00:27 Globulin 4.9 g/dL (2.1-4.2) H 07/29/21 00:27 Albumin/Globulin Ratio 0.7 (1.0-2.2) L 07/29/21 00:27 Nasal Adenovirus (PCR) NOT DETECTED 07/29/21 00:31 Nasal B. parapertussis DNA (PCR) NOT DETECTED 07/29/21 00:31 Nasal Coronavir 229E PCR NOT DETECTED 07/29/21 00:31 Nasal Coronavir HKU1 PCR NOT DETECTED 07/29/21 00:31 Nasal Coronavir NL63 PCR NOT DETECTED 07/29/21 00:31 Nasal Coronavir OC43 PCR NOT DETECTED 07/29/21 00:31 Nasal Enterovir/Rhinovir PCR NOT DETECTED 07/29/21 00:31 Nasal Influenza B PCR NOT DETECTED 07/29/21 00:31 Nasal Influenza A PCR NOT DETECTED 07/29/21 00:31 Nasal Parainfluen 1 PCR NOT DETECTED 07/29/21 00:31 Nasal Parainfluen 2 PCR NOT DETECTED 07/29/21 00:31 Nasal Parainfluen 3 PCR NOT DETECTED 07/29/21 00:31 Nasal Parainfluen 4 PCR NOT DETECTED 07/29/21 00:31 Nasal RSV (PCR) NOT DETECTED 07/29/21 00:31 Nasal B.pertussis DNA PCR NOT DETECTED 07/29/21 00:31 Nasal C.pneumoniae (PCR) NOT DETECTED 07/29/21 00:31 Jeremias Human Metapneumo PCR NOT DETECTED 07/29/21 00:31 Nasal M.pneumoniae (PCR) NOT DETECTED 07/29/21 00:31 Nasal SARS-CoV-2 (PCR) DETECTED A 07/29/21 00:31 Urine Opiates Screen NEGATIVE (NEGATIVE) 07/29/21 21: Ur Oxycodone Screen NEGATIVE (NEGATIVE) 07/29/21 21:27 Urine Methadone Screen NEGATIVE (NEGATIVE) 07/29/21 21:27 Ur Propoxyphene Screen NEGATIVE (NEGATIVE) 07/29/21 21:27 Ur Barbiturates Screen NEGATIVE (NEGATIVE) 07/29/21 21:27 Ur Tricyclics Screen NEGATIVE (NEGATIVE) 07/29/21 21:27 Ur Phencyclidine Scrn NEGATIVE (NEGATIVE) 07/29/21 21:27 Ur Amphetamine Screen POSITIVE (NEGATIVE) H 07/29/21 21:27 U Methamphetamines Scrn POSITIVE (NEGATIVE) H 07/29/21 21:27 U Benzodiazepines Scrn NEGATIVE (NEGATIVE) 07/29/21 21:27 Urine Cocaine Screen NEGATIVE (NEGATIVE) 07/29/21 21:27 U Cannabinoids Screen NEGATIVE (NEGATIVE) 07/29/21 21:27 Sepsis Event Note (H) - Evaluation Current Stage of Sepsis: Sepsis Possible source of Sepsis: positive: Skin/soft tissue - Sepsis Criteria Sepsis Criteria: Recorded Temperature greater than 38.3C or Less than 36C, Recorded Heart Rate greater than 90 bpm
[2021-07-31 11:33] LABS: VANCOMYCIN,TROUGH 9.9 ug/mL (10.0-20.0)
--- NOTE | 2021-07-31 11:39 | PHARMACY PROGRESS NOTE ---
- Therapy Status Vancomycin regimen day #: 3 Therapy status: Trough subtherapeutic Basis for treatment: Culture result Treatment indication: MRSA Cellulitis Trough goal: 15-20 Concurrent antibiotics: Cefepime - EZEKIEL Risk Risk level for Acute Kidney Injury: High Acute Kidney Injury risk factors: Goal trough >15, Total daily Vancomycin >4 grams, Sepsis - Monitoring and Recommendation Clinical response to treatment: I&O Previous 24 hours 07/29/21 07/30/21 07/31/21 23:59 23:59 23:59 Intake Total 7728.863 4655.000 2425 Output Total 3050 4550 1700 Balance 4678.863 105.000 725 Lab Results 07/31/21 07/30/21 07/29/21 04:45 06:37 05:34 BUN 11 12 14 Creatinine 0.7 0.7 0.8 Estimated GFR (MDRD) 120 120 103 07/29/21 00:27 BUN 18 Creatinine 1.0 Estimated GFR (MDRD) 80 L Vancomycin Monitoring 07/31/21 11:15 Vancomycin Trough 9.9 L Cultures 07/29/21 00:54 Leg - Left Wound Culture - Final Pseudomonas Aeruginosa Methicillin Resist S. Aureus 07/30/21 08:29 Blood Blood Culture - Preliminary NO GROWTH AFTER 1 DAY 07/29/21 00:27 Blood Blood Culture - Preliminary NO GROWTH AFTER 2 DAYS 07/29/21 00:33 Blood Blood Culture - Preliminary NO GROWTH AFTER 2 DAYS Improving Monitoring plan: Daily serum creatinine Next trough due prior to maintenance dose #: 6 Next trough due (date/time): 08/02/21 @ 1100 Areas for additional monitoring: IV to PO when appropriate, Therapy de- escalation based on culture results, Acute Kidney Injury Pharmacy recommendation: Increase dose
[2021-07-31] MEDS: VANCOMYCIN INJ 1 GM, VANCOMYCIN INJ 500 MG in SODIUM CHLORIDE 0.9% 500 ML IV SCH ×5 (12:00→19:47)
[2021-08-01] MEDS: VANCOMYCIN INJ 1 GM, VANCOMYCIN INJ 500 MG in SODIUM CHLORIDE 0.9% 500 ML IV SCH ×3 (03:56→20:06)
[2021-08-01] MEDS: ACETAMINOPHEN 325 MG TABLET PO PRN ×4 (04:10→22:12)
[2021-08-01 05:41] LABS: BASOPHILS % (AUTO) 0.2 %; EOSINOPHILS % (AUTO) 0.4 %; HCT - HEMATOCRIT 34.7 % (42.0-52.0); HGB - HEMOGLOBIN 11.5 g/dL (14.0-18.0); LYMPHOCYTES # (AUTO) 0.9 10^3/uL (1.5-3.5); LYMPHOCYTES % (AUTO) 17.6 %; MEAN CORPUSCULAR HEMOGLOBIN 29.6 pg (27.0-31.0); MEAN CORPUSCULAR HGB CONC 33.1 g/dL (32.0-36.0); MEAN CORPUSCULAR VOLUME 89.2 fL (80.0-94.0); MEAN PLATELET VOLUME 9.1 fL (7.4-11.4); MONOCYTES # (AUTO) 0.3 10^3/uL (0.0-1.0); MONOCYTES % (AUTO) 6.3 %; NEUTROPHILS # (AUTO) 3.8 10^3/uL (1.5-6.6); NEUTROPHILS % (AUTO) 75.1 %; PLT - PLATELET COUNT 225 10^3/uL (130-450); RED BLOOD COUNT 3.89 10^6/uL (4.70-6.10); RED CELL DISTRIBUTION WIDTH 13.1 % (12.0-15.0); WHITE BLOOD COUNT 5.1 x10^3/uL (4.8-10.8)
[2021-08-01 05:51] LABS: CALCIUM 7.7 mg/dL (8.5-10.3); CREATININE 0.7 mg/dL (0.6-1.2); POTASSIUM 3.9 mmol/L (3.5-5.0)
[2021-08-01] MEDS: CEFEPIME 2 GM in SODIUM CHLORIDE 0.9% MINIBAG 100 ML IV SCH ×3 (06:35→22:18)
[2021-08-01] MEDS: SODIUM CHLORIDE FLUSH 0.9% 10 ML SYRINGE IVP SCH ×3 (06:35→20:07)
[2021-08-01] MEDS: ASCORBIC ACID 500 MG TABLET PO SCH (08:58)
[2021-08-01] MEDS: MULTIVITAMIN W/MINERALS TABLET PO SCH (08:58)
[2021-08-01] MEDS: ENOXAPARIN 30 MG/0.3 ML SYRINGE SUBQ SCH (08:58)
[2021-08-01] MEDS: NICOTINE 14 MG PATCH TOP SCH (08:58)
[2021-08-01] MEDS: SODIUM CHLORIDE 0.9% 1,000 ML IV SCH ×5 (08:59→20:22)
[2021-08-01] MEDS: IBUPROFEN 600 MG TABLET PO PRN ×2 (08:59→20:06)
[2021-08-01] MEDS: LACTOBACILLUS RHAMNOSUS GG CAPSULE PO SCH (08:59)
--- NOTE | 2021-08-01 14:06 | PROVIDER PROGRESS NOTE ---
Assessment/Plan - Problem List (1) Cellulitis Qualifiers: Site of cellulitis: extremity Site of cellulitis of extremity: lower extremity Laterality: unspecified laterality Qualified Code(s): L03.119 - Cellulitis of unspecified part of limb Assessment/Plan: Cellulitis is of both lower extremities, per CT imaging done after admission, L worse than R. It is reported that patient has history of MRSA and Pseudomonas infection, and attempts to manage cellulitis with oral antibiotics in the outpatient setting has been unsuccessful. Outpatient treatment was further compounded by patient having no PCP, antibx were obtained from ER visits. He has spiked a fever every day of being here yet. Awaiting blood culture results. We will continue iv vancomycin and iv cefepime. Continue IV hydration with normal saline. Tylenol and Motrin ordered as needed for pain or fever. Keep legs elevated (3) MRSA infection Assessment/Plan: As per (+) wound culture results, and sensitivities available. Continue iv Vanco. Awaiting blood culture results. (4) Proteus infection Assessment/Plan: As per (+) wound culture results, and sensitivities available. Continue iv Cefepime. Awaiting blood culture results. (5) Non-healing wound of lower extremity Qualifiers: Encounter type: subsequent encounter Assessment/Plan: He has had this wound for many mos. Patient has been unable to see wound care in the outpatient setting because he does not have a primary care physician. Antibx were obtained from ER visits. Currently he is homeless. First step to addressing his outpatient care will be establishing with a primary care physician. Social work/discharge coordinators to provide him with a list of primary care physicians in the area and will secure him an appointment. We will consult Wound Care from [facility] while the patient is in the hospital for recommendations (today is [place], and Wound Clinic personnel not here until ). (6) COVID-19 Assessment/Plan: Patient is unvaccinated. The (+) COVID was an incidental finding. A chest x-ray was done after admission and does show bilateral fluffy infiltrates consistent with Covid pneumonia. The patient is asymptomatic. Oxygen saturation is 92-95% on room air with a respiratory rate of 19. Not qualify for Remdesivir treatment or Regeneron t reatment Will continue to monitor the patient from a respiratory point of view. Contact isolation ordered. (7) Methamphetamine abuse Assessment/Plan: A MUDS screen was done at admission and was (+) for Meth. For his first 2.5 days here, he was somnolent, probably in withdrawal phase of meth use. He is awake and alert since yesterday. (4) Non-healing wound of lower extremity Qualifiers: Encounter type: subsequent encounter (7) Sepsis Qualifiers: Assessment/Plan: Resolved. Normalized heart rate and Lactic Acid level but still spiking fevers daily (however that may be from COVID). Echo ordered to eval for endocarditis, given that daily fever spikes persist. - Current Meds Current Meds: Current Medications Generic Name Dose Route Start Last Admin Trade Name Freq PRN Reason Stop Dose Admin Acetaminophen 650 mg 07/29/21 08:51 08/01/21 08:58 Acetaminophen 325 Mg Tablet PO 650 mg Q4HR PRN Administration Pain or Fever > 38C (100.4F) Ascorbic Acid 500 mg 07/29/21 12:00 08/01/21 08:58 Ascorbic Acid 500 Mg Tablet PO 500 mg DAILY LAKISHA Administration Enoxaparin Sodium 30 mg 07/30/21 09:00 08/01/21 08:58 Enoxaparin 30 Mg/0.3 Ml Syringe SUBQ 30 mg DAILY LAKISHA Administration Sodium Chloride 1,000 mls @ 125 mls/hr 07/29/21 02:00 08/01/21 08:59 Normal Saline 0.9% IV 125 mls/hr .Q8H LAKISHA Administration Cefepime HCl 2 gm/ Sodium 100 mls @ 200 mls/hr 07/29/21 16:00 08/01/21 07:12 Chloride IV Infused TID LAKISHA Infusion Vancomycin HCl 1 gm/ 500 mls @ 250 mls/hr 07/31/21 12:00 08/01/21 06:37 Vancomycin HCl 500 mg/ Sodium IV Infused Chloride Q8H LAKISHA Infusion Ibuprofen 600 mg 07/29/21 08:52 08/01/21 08:59 Ibuprofen 600 Mg Tablet PO 600 mg Q6HR PRN Administration PAIN Lactobacillus Rhamnosus 1 cap 07/29/21 12:00 08/01/21 08:59 Lactobacillus Rhamnosus Gg Capsule PO 1 cap DAILY LAKISHA Administration Multivitamins/Minerals 1 tab 07/29/21 12:00 08/01/21 08:58 Multivitamin W/Minerals Tablet PO 1 tab DAILYWM LAKISHA Administration Nicotine 1 patch 07/29/21 09:00 08/01/21 08:58 Nicotine 14 Mg Patch TOP 1 patch DAILY LAKISHA Administration Sodium Chloride 10 ml 07/29/21 09:00 08/01/21 06:35 Sodium Chloride Flush 0.9% 10 Ml Syringe IVP 10 ml 0100,0900,1700 LAKISHA Administration - Lab Result Fish Bone Diagrams: 08/01/21 05:30 08/01/21 05:30 - Additional Planning My Orders: My Active Orders 08/01/21 08:00 Echo Transthoracic Complete [ECHO] Routine Subjective - Subjective Patient Reports: Resting Comfortably, Other (Feels terrible when spikes a fever. Appetitie is OK) Objective Vital Signs: Vital Signs - 24 hr 07/31/21 07/31/21 07/31/21 17:00 18:53 20:38 Temperature 39.3 C H 39.3 C H 38.3 C H Heart Rate Heart Rate [ 103 H 92 Brachial] Heart Rate [ 101 H Radial] Respiratory 20 24 20 Rate Blood Pressure 150/94 H 110/54 L [Right Brachial artery] O2 Saturation 95 92 94 07/31/21 07/31/21 08/01/21 22:14 23:38 03:59 Temperature 36.6 C 36.6 C 38.2 C H Heart Rate Heart Rate [ 77 91 Brachial] Heart Rate [ Radial] Respiratory 16 22 Rate Blood Pressure 116/73 140/72 H [Right Brachial artery] O2 Saturation 95 95 08/01/21 08/01/21 08/01/21 05:07 08:01 09:57 Temperature 37.8 C 37.8 C 37.8 C Heart Rate 79 Heart Rate [ 79 Brachial] Heart Rate [ Radial] Respiratory 18 18 Rate Blood Pressure 134/72 H [Right Brachial artery] O2 Saturation 94 94 08/01/21 12:02 Temperature 37.0 C Heart Rate Heart Rate [ 77 Brachial] Heart Rate [ Radial] Respiratory 18 Rate Blood Pressure 118/64 [Right Brachial artery] O2 Saturation 96 Oxygen O2 Source Room air I&O (Last 24 Hrs): Intake and Output Totals x24h 07/30/21 07/31/21 08/01/21 23:59 23:59 23:59 Intake Total 4655.000 5558.333 2226.250 Output Total 4550 4350 950 Balance 615.893 1462.333 1276.250 General: Alert ((visit done remotely)), Oriented x3 HEENT: Mucous membr. moist/pink Neck: Supple Neuro: Alert, Non Focal Cardiovascular: Regular rate Respiratory: No respiratory distress Abdomen: Soft Extremities: Other (Legs similr to yesterday's exam) - Results Results: Laboratory Results WBC 5.1 x10^3/uL (4.8-10.8) 08/01/21 05:30 RBC 3.89 10^6/uL (4.70-6.10) L 08/01/21 05:30 Hgb 11.5 g/dL (14.0-18.0) L 08/01/21 05:30 Hct 34.7 % (42.0-52.0) L 08/01/21 05:30 MCV 89.2 fL (80.0-94.0) 08/01/21 05:30 MCH 29.6 pg (27.0-31.0) 08/01/21 05:30 MCHC 33.1 g/dL (32.0-36.0) 08/01/21 05:30 RDW 13.1 % (12.0-15.0) 08/01/21 05:30 Plt Count 225 10^3/uL (130-450) 08/01/21 05:30 MPV 9.1 fL (7.4-11.4) 08/01/21 05:30 Neut # (Auto) 3.8 10^3/uL (1.5-6.6) 08/01/21 05:30 Lymph # (Auto) 0.9 10^3/uL (1.5-3.5) L 08/01/21 05:30 [place] # (Auto) 0.3 10^3/uL (0.0-1.0) 08/01/21 05:30 Eos # (Auto) 0.0 10^3/uL (0.0-0.7) 08/01/21 05:30 Baso # (Auto) 0.0 10^3/uL (0.0-0.1) 08/01/21 05:30 Absolute Nucleated RBC 0.00 x10^3/uL 08/01/21 05:30 Nucleated RBC % 0.0 /100WBC 08/01/21 05:30 PT 14.5 secs (9.9-12.6) H 07/29/21 09:26 INR 1.3 (0.8-1.2) H 07/29/21 09:26 D-Dimer < 200.0 ng/mL (200.0-255.0) L 07/29/21 09:26 Sodium 133 mmol/L (135-145) L 08/01/21 05:30 Potassium 3.9 mmol/L (3.5-5.0) 08/01/21 05:30 Chloride 102 mmol/L (101-111) 08/01/21 05:30 Carbon Dioxide 22 mmol/L (21-32) 08/01/21 05:30 Anion Gap 9.0 (6-13) 08/01/21 05:30 BUN 11 mg/dL (6-20) 08/01/21 05:30 Creatinine 0.7 mg/dL (0.6-1.2) 08/01/21 05:30 Estimated GFR (MDRD) 120 (>89) 08/01/21 05:30 Glucose 101 mg/dL (70-100) H 08/01/21 05:30 Lactic Acid 1.0 mmol/L (0.5-2.2) 07/29/21 00:27 Calcium 7.7 mg/dL (8.5-10.3) L 08/01/21 05:30 Magnesium 1.8 mg/dL (1.7-2.8) 07/29/21 09:26 Total Bilirubin 0.4 mg/dL (0.2-1.0) 07/29/21 00:27 AST 24 IU/L (10-42) 07/29/21 00:27 ALT 17 IU/L (10-60) 07/29/21 00:27 Alkaline Phosphatase 85 IU/L (42-121) 07/29/21 00:27 Total Protein 8.4 g/dL (6.7-8.2) H 07/29/21 00:27 Albumin 3.5 g/dL (3.2-5.5) 07/29/21 00:27 Globulin 4.9 g/dL (2.1-4.2) H 07/29/21 00:27 Albumin/Globulin Ratio 0.7 (1.0-2.2) L 07/29/21 00:27 Nasal Adenovirus (PCR) NOT DETECTED 07/29/21 00:31 Nasal B. parapertussis DNA (PCR) NOT DETECTED 07/29/21 00:31 Nasal Coronavir 229E PCR NOT DETECTED 07/29/21 00:31 Nasal Coronavir HKU1 PCR NOT DETECTED 12 00:31 Nasal Coronavir NL63 PCR NOT DETECTED 07/29/21 00:31 Nasal Coronavir OC43 PCR NOT DETECTED 07/29/21 00:31 Nasal Enterovir/Rhinovir PCR NOT DETECTED 07/29/21 00:31 Nasal Influenza B PCR NOT DETECTED 12 00:31 Nasal Influenza A PCR NOT DETECTED 07/29/21 00:31 Nasal Parainfluen 1 PCR NOT DETECTED 07/29/21 00:31 Nasal Parainfluen 2 PCR NOT DETECTED 07/29/21 00:31 Nasal Parainfluen 3 PCR NOT DETECTED 12 00:31 Nasal Parainfluen 4 PCR NOT DETECTED 12 00:31 Nasal RSV (PCR) NOT DETECTED 07/29/21 00:31 Nasal B.pertussis DNA PCR NOT DETECTED 07/29/21 00:31 Nasal C.pneumoniae (PCR) NOT DETECTED 07/29/21 00:31 Jeremias Human Metapneumo PCR NOT DETECTED 07/29/21 00:31 Nasal M.pneumoniae (PCR) NOT DETECTED 07/29/21 00:31 Nasal SARS-CoV-2 (PCR) DETECTED A 07/29/21 00:31 Last Dose Date UNK 07/31/21 11:15 Last Dose Time UNK 07/31/21 11:15 Vancomycin Trough 9.9 ug/mL (10.0-20.0) L 07/31/21 11:15 Urine Opiates Screen NEGATIVE (NEGATIVE) 07/29/21 21:27 Ur Oxycodone Screen NEGATIVE (NEGATIVE) 07/29/21 21:27 Urine Methadone Screen NEGATIVE (NEGATIVE) 07/29/21 21:27 Ur Propoxyphene Screen NEGATIVE (NEGATIVE) 07/29/21 21:27 Ur Barbiturates Screen NEGATIVE (NEGATIVE) 07/29/21 21:27 Ur Tricyclics Screen NEGATIVE (NEGATIVE) 07/29/21 21:27 Ur Phencyclidine Scrn NEGATIVE (NEGATIVE) 07/29/21 21:27 Ur Amphetamine Screen POSITIVE (NEGATIVE) H 07/29/21 21:27 U Methamphetamines Scrn POSITIVE (NEGATIVE) H 07/29/21 21:27 U Benzodiazepines Scrn NEGATIVE (NEGATIVE) 07/29/21 21:27 Urine Cocaine Screen NEGATIVE (NEGATIVE) 07/29/21 21:27 U Cannabinoids Screen NEGATIVE (NEGATIVE) 07/29/21 21:27 Sepsis Event Note (H) - Evaluation Current Stage of Sepsis: Sepsis Possible source of Sepsis: positive: Skin/soft tissue - Sepsis Criteria Sepsis Criteria: Recorded Temperature greater than 38.3C or Less than 36C, Recorded Heart Rate greater than 90 bpm
[2021-08-02] MEDS: VANCOMYCIN INJ 1 GM, VANCOMYCIN INJ 500 MG in SODIUM CHLORIDE 0.9% 500 ML IV SCH ×3 (04:10→20:10)
[2021-08-02] MEDS: SODIUM CHLORIDE FLUSH 0.9% 10 ML SYRINGE IVP SCH ×3 (04:11→17:46)
[2021-08-02] MEDS: CEFEPIME 2 GM in SODIUM CHLORIDE 0.9% MINIBAG 100 ML IV SCH ×3 (06:28→22:44)
[2021-08-02] MEDS: MULTIVITAMIN W/MINERALS TABLET PO SCH (08:04)
[2021-08-02] MEDS: IBUPROFEN 600 MG TABLET PO PRN (08:04)
[2021-08-02] MEDS: guaiFENesin 600 MG TABLET PO SCH ×2 (09:12→20:10)
[2021-08-02] MEDS: BENZONATATE 100 MG CAPSULE PO PRN (09:12)
[2021-08-02] MEDS: HYDROcod/ACETAM 5/325 MG TABLET PO PRN ×3 (09:12→20:15)
[2021-08-02] MEDS: LORazepam 0.5 MG TABLET PO PRN ×2 (09:12→20:15)
[2021-08-02] MEDS: ENOXAPARIN 30 MG/0.3 ML SYRINGE SUBQ SCH (09:13)
[2021-08-02] MEDS: LACTOBACILLUS RHAMNOSUS GG CAPSULE PO SCH (09:13)
[2021-08-02] MEDS: ASCORBIC ACID 500 MG TABLET PO SCH (09:13)
[2021-08-02] MEDS: NICOTINE 14 MG PATCH TOP SCH (09:17)
--- NOTE | 2021-08-02 10:57 | PROVIDER PROGRESS NOTE ---
Assessment/Plan - Problem List (1) Cellulitis Qualifiers: Site of cellulitis: extremity Site of cellulitis of extremity: lower extremity Laterality: unspecified laterality Qualified Code(s): L03.119 - Cellulitis of unspecified part of limb Assessment/Plan: 08/02 improved. There is no swelling, still present slight erythema but still present warmth comparing with right leg. Continue intravenous antibiotics cefepime and vancomycin, continue probiotics, per wound culture study. pt had opened wound at left lower extremity, consult with wound care, nurse for dressing change. continue pain control. Repeated blood culture is negative for bacteremia. (2) MRSA infection Assessment/Plan: positive MRSA per wound culture results, and sensitivities available as pt's hx of wound culture. continue IV of antibiotics per sensitive study result. (3) fever Assessment/Plan: As per (+) wound culture results, and sensitivities available. Continue iv Cefepime. Awaiting blood culture results. (4) Non-healing wound of lower extremity improved. the opened wound appear dry, non drainage. he had hx of left lower extremity wound and non healing for many months . Patient has been unable to see wound care in the outpatient setting because he does not have a primary care physician. Currently he is homeless. consult Wound Care from [facility] while the patient is in the hospital for recommendations, dressing change. continue antibiotics treatment in the hospital. (5) fever Assessment/Plan: pt continue to have Intermittently fever. it likely caused by his Covid 19 infection. pt's blood culture is negative for bacteremia. ECHO study did not present Vegetation. Continue intravenous IV fluids, continue Tylenol and ibuprofen as needed. (6) COVID-19 Assessment/Plan: Patient had a stable respiratory status, patient had a 94%-98% oxygen saturation on room air, patient has no acute respiratory distress. Because patient does not need supplemental oxygen, patient was not treated with COVID-19 medication yet. Patient is unvaccinated. we Will continue to monitor the patient Respiratory status closely Contact isolation ordered. (7) Methamphetamine abuse Assessment/Plan: A MUDS screen was done at admission and was (+) for Meth as pt's hx, IV drug abuse. he present anxiety on today, which is likely caused by his drug withdrawal. add PRN of Ativan. pt had order of [place] for his cellulitis pain. pt is alert and oriented plus 4. Initially he requested to sign AMA, now per nurse report, he seem calm down and is willing to stay at hospital to continue the treatment. Discussed all risks of signing AMA with pt in detail. pt understood that. - Current Meds Current Meds: Current Medications Generic Name Dose Route Start Last Admin Trade Name Freq PRN Reason Stop Dose Admin Acetaminophen 650 mg 07/29/21 08:51 08/01/21 22:12 Acetaminophen 325 Mg Tablet PO 650 mg Q4HR PRN Administration Pain or Fever > 38C (100.4F) Hydrocodone Bitart/Acetaminophen 1 tab 07/29/21 01:57 08/02/21 09:12 Hydrocod/Acetam 5/325 Mg Tablet PO 1 tab Q4HR PRN Administration Pain 5 to 7 Ascorbic Acid 500 mg 07/29/21 12:00 08/02/21 09:13 Ascorbic Acid 500 Mg Tablet PO 500 mg DAILY LAKISHA Administration Benzonatate 100 mg 08/02/21 08:36 08/02/21 09:12 Benzonatate 100 Mg Capsule PO 100 mg TID PRN Administration Cough Enoxaparin Sodium 30 mg 07/30/21 09:00 08/02/21 09:13 Enoxaparin 30 Mg/0.3 Ml Syringe SUBQ 30 mg DAILY LAKISHA Administration Guaifenesin 600 mg 08/02/21 08:25 08/02/21 09:12 Guaifenesin 600 Mg Tablet PO 600 mg BID LAKISHA Administration Sodium Chloride 1,000 mls @ 125 mls/hr 07/29/21 02:00 08/01/21 20:22 Normal Saline 0.9% IV Not Given .Q8H [facility] Cefepime HCl 2 gm/ Sodium 100 mls @ 200 mls/hr 07/29/21 16:00 08/02/21 07:05 Chloride IV Infused TID [facility] Infusion Vancomycin HCl 1 gm/ 500 mls @ 250 mls/hr 07/31/21 12:00 08/02/21 06:58 Vancomycin HCl 500 mg/ Sodium IV Infused Chloride Q8H [facility] Infusion Ibuprofen 600 mg 07/29/21 08:52 08/02/21 08:04 Ibuprofen 600 Mg Tablet PO 600 mg Q6HR PRN Administration PAIN Lactobacillus Rhamnosus 1 cap 07/29/21 12:00 08/02/21 09:13 Lactobacillus Rhamnosus Gg Capsule PO 1 cap DAILY [facility] Administration Lorazepam 0.5 mg 08/02/21 08:16 08/02/21 09:12 Lorazepam 0.5 Mg Tablet PO 0.5 mg Q8H PRN Administration Anxiety Multivitamins/Minerals 1 tab 07/29/21 12:00 08/02/21 08:04 Multivitamin W/Minerals Tablet PO 1 tab DAILYWM [facility] Administration Nicotine 1 patch 07/29/21 09:00 08/02/21 09:17 Nicotine 14 Mg Patch TOP 1 patch DAILY [facility] Administration Sodium Chloride 10 ml 07/29/21 09:00 08/02/21 09:21 Sodium Chloride Flush 0.9% 10 Ml Syringe IVP 10 ml 0100,0900,1700 LAKISHA Administration - Lab Result Fish Bone Diagrams: 08/01/21 05:30 08/01/21 05:30 - Additional Planning My Orders: My Active Orders 08/02/21 Social Work Consult [CONS] Routine VITAMIN D,25-OH,TOTAL,IA [REFLAB] Routine Wound Consult MAC [MAC] Routine 08/02/21 06:35 BMP - BASIC METABOLIC PANEL [CHEM] Routine CBC - COMP BLD CT W/AUTO DIFF [HEME] Routine 08/02/21 08:16 Wound Care - MAC [RC] .ONCE LORazepam [Ativan] 0.5 mg PO Q8H PRN 08/02/21 08:25 guaiFENesin [Mucinex] 600 mg PO BID 08/02/21 08:36 Benzonatate [Tessalon] 100 mg PO TID PRN Subjective - Subjective Patient Reports: Feeling Better Objective Vital Signs: Vital Signs - 24 hr 08/01/21 08/01/21 08/01/21 12:02 17:00 17:20 Temperature 37.0 C 37.3 C Heart Rate [ 77 Brachial] Heart Rate [ 91 Radial] Respiratory 18 22 Rate Blood Pressure [Left Brachial artery] Blood Pressure 118/64 [Right Brachial artery] Blood Pressure 108/59 L [Right Radial artery] O2 Saturation 96 99 98 08/01/21 08/01/21 08/01/21 19:12 20:05 21:43 Temperature 39.1 C H 39.2 C H 38.4 C H Heart Rate [ 88 Brachial] Heart Rate [ Radial] Respiratory 16 Rate Blood Pressure [Left Brachial artery] Blood Pressure 126/65 [Right Brachial artery] Blood Pressure [Right Radial artery] O2 Saturation 96 08/01/21 08/02/21 08/02/21 23:57 06:10 08:02 Temperature 37.5 C 38.9 C H 38.4 C H Heart Rate [ 79 87 Brachial] Heart Rate [ 87 Radial] Respiratory 18 19 20 Rate Blood Pressure 155/88 H [Left Brachial artery] Blood Pressure 107/58 L 139/81 H [Right Brachial artery] Blood Pressure [Right Radial artery] O2 Saturation 95 97 98 08/02/21 09:22 Temperature 37.6 C Heart Rate [ Brachial] Heart Rate [ Radial] Respiratory Rate Blood Pressure [Left Brachial artery] Blood Pressure [Right Brachial artery] Blood Pressure [Right Radial artery] O2 Saturation Oxygen O2 Source Room air I&O (Last 24 Hrs): Intake and Output Totals x24h 07/31/21 08/01/21 08/02/21 23:59 23:59 23:59 Intake Total 5558.333 4643.333 855 Output Total 4350 2075 1600 Balance 8253.806 1816.333 -745 General: Alert, Oriented x3, Mild distress HEENT: Atraumatic Neck: Supple Lymphatic: no adenopathy Neuro: Alert, Non Focal, Oriented Times 3 Cardiovascular: Regular rate, Normal S1, Normal S2 Respiratory: Chest non-tender, No respiratory distress Abdomen: Normal bowel sounds, Soft Extremities: Normal pulses, Other (There is an opened superficial chronic wound at anterior of left lower extremity, size nearly 3x 3.5cm, it is dry and no drainage.) - Results Results: Laboratory Results WBC 5.1 x10^3/uL (4.8-10.8) 08/01/21 05:30 RBC 3.89 10^6/uL (4.70-6.10) L 08/01/21 05:30 Hgb 11.5 g/dL (14.0-18.0) L 08/01/21 05:30 Hct 34.7 % (42.0-52.0) L 08/01/21 05:30 MCV 89.2 fL (80.0-94.0) 08/01/21 05:30 MCH 29.6 pg (27.0-31.0) 08/01/21 05:30 MCHC 33.1 g/dL (32.0-36.0) 08/01/21 05:30 RDW 13.1 % (12.0-15.0) 08/01/21 05:30 Plt Count 225 10^3/uL (130-450) 08/01/21 05:30 MPV 9.1 fL (7.4-11.4) 08/01/21 05:30 Neut # (Auto) 3.8 10^3/uL (1.5-6.6) 08/01/21 05:30 Lymph # (Auto) 0.9 10^3/uL (1.5-3.5) L 08/01/21 05:30 [place] # (Auto) 0.3 10^3/uL (0.0-1.0) 08/01/21 05:30 Eos # (Auto) 0.0 10^3/uL (0.0-0.7) 08/01/21 05:30 Baso # (Auto) 0.0 10^3/uL (0.0-0.1) 08/01/21 05:30 Absolute Nucleated RBC 0.00 x10^3/uL 08/01/21 05:30 Nucleated RBC % 0.0 /100WBC 08/01/21 05:30 PT 14.5 secs (9.9-12.6) H 07/29/21 09:26 INR 1.3 (0.8-1.2) H 07/29/21 09:26 D-Dimer < 200.0 ng/mL (200.0-255.0) L 07/29/21 09:26 Sodium 133 mmol/L (135-145) L 08/01/21 05:30 Potassium 3.9 mmol/L (3.5-5.0) 08/01/21 05:30 Chloride 102 mmol/L (101-111) 08/01/21 05:30 Carbon Dioxide 22 mmol/L (21-32) 08/01/21 05:30 Anion Gap 9.0 (6-13) 08/01/21 05:30 BUN 11 mg/dL (6-20) 08/01/21 05:30 Creatinine 0.7 mg/dL (0.6-1.2) 08/01/21 05:30 Estimated GFR (MDRD) 120 (>89) 08/01/21 05:30 Glucose 101 mg/dL (70-100) H 08/01/21 05:30 Lactic Acid 1.0 mmol/L (0.5-2.2) 07/29/21 00:27 Calcium 7.7 mg/dL (8.5-10.3) L 08/01/21 05:30 Magnesium 1.8 mg/dL (1.7-2.8) 07/29/21 09:26 Total Bilirubin 0.4 mg/dL (0.2-1.0) 07/29/21 00:27 AST 24 IU/L (10-42) 07/29/21 00:27 ALT 17 IU/L (10-60) 07/29/21 00:27 Alkaline Phosphatase 85 IU/L (42-121) 07/29/21 00:27 Total Protein 8.4 g/dL (6.7-8.2) H 07/29/21 00:27 Albumin 3.5 g/dL (3.2-5.5) 07/29/21 00:27 Globulin 4.9 g/dL (2.1-4.2) H 07/29/21 00:27 Albumin/Globulin Ratio 0.7 (1.0-2.2) L 07/29/21 00:27 Nasal Adenovirus (PCR) NOT DETECTED 07/29/21 00:31 Nasal B. parapertussis DNA (PCR) NOT DETECTED 07/29/21 00:31 Nasal Coronavir 229E PCR NOT DETECTED 07/29/21 00:31 Nasal Coronavir HKU1 PCR NOT DETECTED 07/29/21 00:31 Nasal Coronavir NL63 PCR NOT DETECTED 07/29/21 00:31 Nasal Coronavir OC43 PCR NOT DETECTED 07/29/21 00:31 Nasal Enterovir/Rhinovir PCR NOT DETECTED 07/29/21 00:31 Nasal Influenza B PCR NOT DETECTED 07/29/21 00:31 Nasal Influenza A PCR NOT DETECTED 07/29/21 00:31 Nasal Parainfluen 1 PCR NOT DETECTED 07/29/21 00:31 Nasal Parainfluen 2 PCR NOT DETECTED 07/29/21 00:31 Nasal Parainfluen 3 PCR NOT DETECTED 07/29/21 00:31 Nasal Parainfluen 4 PCR NOT DETECTED 07/29/21 00:31 Nasal RSV (PCR) NOT DETECTED 07/29/21 00:31 Nasal B.pertussis DNA PCR NOT DETECTED 07/29/21 00:31 Nasal C.pneumoniae (PCR) NOT DETECTED 07/29/21 00:31 Jeremias Human Metapneumo PCR NOT DETECTED 07/29/21 00:31 Nasal M.pneumoniae (PCR) NOT DETECTED 07/29/21 00:31 Nasal SARS-CoV-2 (PCR) DETECTED A 07/29/21 00:31 Last Dose Date UNK 07/31/21 11:15 Last Dose Time UNK 07/31/21 11:15 Vancomycin Trough 9.9 ug/mL (10.0-20.0) L 07/31/21 11:15 Urine Opiates Screen NEGATIVE (NEGATIVE) 07/29/21 21:27 Ur Oxycodone Screen NEGATIVE (NEGATIVE) 07/29/21 21:27 Urine Methadone Screen NEGATIVE (NEGATIVE) 07/29/21 21:27 Ur Propoxyphene Screen NEGATIVE (NEGATIVE) 07/29/21 21:27 Ur Barbiturates Screen NEGATIVE (NEGATIVE) 07/29/21 21:27 Ur Tricyclics Screen NEGATIVE (NEGATIVE) 07/29/21 21:27 Ur Phencyclidine Scrn NEGATIVE (NEGATIVE) 07/29/21 21:27 Ur Amphetamine Screen POSITIVE (NEGATIVE) H 07/29/21 21:27 U Methamphetamines Scrn POSITIVE (NEGATIVE) H 07/29/21 21:27 U Benzodiazepines Scrn NEGATIVE (NEGATIVE) 07/29/21 21:27 Urine Cocaine Screen NEGATIVE (NEGATIVE) 07/29/21 21:27 U Cannabinoids Screen NEGATIVE (NEGATIVE) 07/29/21 21:27 Sepsis Event Note (H) - Evaluation Current Stage of Sepsis: Sepsis Possible source of Sepsis: positive: Skin/soft tissue - Sepsis Criteria Sepsis Criteria: Recorded Temperature greater than 38.3C or Less than 36C, Recorded Heart Rate greater than 90 bpm ABX Reporting Has patient been on IV antibiotics over the past 48 hours?: Yes Current Medications - Current Medications Current Medications: Active Medications Acetaminophen (Acetaminophen 325 Mg Tablet) 650 mg PO Q4HR PRN PRN Reason: Pain or Fever > 38C (100.4F) Last Admin: 08/01/21 22:12 Dose: 650 mg Documented by: Hydrocodone Bitart/Acetaminophen (Hydrocod/Acetam 5/325 Mg Tablet) 1 tab PO Q4HR PRN PRN Reason: Pain 5 to 7 Last Admin: 08/02/21 09:12 Dose: 1 tab Documented by: Ascorbic Acid (Ascorbic Acid 500 Mg Tablet) 500 mg PO DAILY [facility] Last Admin: 08/02/21 09:13 Dose: 500 mg Documented by: Benzonatate (Benzonatate 100 Mg Capsule) 100 mg PO TID PRN PRN Reason: Cough Last Admin: 08/02/21 09:12 Dose: 100 mg Documented by: Enoxaparin Sodium (Enoxaparin 30 Mg/0.3 Ml Syringe) 30 mg SUBQ DAILY [facility] Last Admin: 08/02/21 09:13 Dose: 30 mg Documented by: Guaifenesin (Guaifenesin 600 Mg Tablet) 600 mg PO BID [facility] Last Admin: 08/02/21 09:12 Dose: 600 mg Documented by: Sodium Chloride (Normal Saline 0.9%) 1,000 mls @ 125 mls/hr IV .Q8H [facility] Last Admin: 08/01/21 20:22 Dose: Not Given Documented by: Cefepime HCl 2 gm/ Sodium (Chloride) 100 mls @ 200 mls/hr IV TID [facility] Last Infusion: 08/02/21 07:05 Dose: Infused Documented by: Vancomycin HCl 1 gm/Vancomycin HCl 500 mg/ Sodium Chloride 500 mls @ 250 mls/hr IV Q8H [facility] Last Infusion: 08/02/21 06:58 Dose: Infused Documented by: Ibuprofen (Ibuprofen 600 Mg Tablet) 600 mg PO Q6HR PRN PRN Reason: PAIN Last Admin: 08/02/21 08:04 Dose: 600 mg Documented by: Lactobacillus Rhamnosus (Lactobacillus Rhamnosus Gg Capsule) 1 cap PO DAILY [facility] Last Admin: 08/02/21 09:13 Dose: 1 cap Documented by: Lorazepam (Lorazepam 0.5 Mg Tablet) 0.5 mg PO Q8H PRN PRN Reason: Anxiety Last Admin: 08/02/21 09:12 Dose: 0.5 mg Documented by: Multivitamins/Minerals (Multivitamin W/Minerals Tablet) 1 tab PO DAILYWM [facility] Last Admin: 08/02/21 08:04 Dose: 1 tab Documented by: Nicotine (Nicotine 14 Mg Patch) 1 patch TOP DAILY [facility] Last Admin: 08/02/21 09:17 Dose: 1 patch Documented by: Ondansetron HCl (Ondansetron 4 Mg/2 Ml Vial) 4 mg IVP Q6HR PRN PRN Reason: Nausea / Vomiting Sodium Chloride (Sodium Chloride Flush 0.9% 10 Ml Syringe) 10 ml IVP PRN PRN PRN Reason: NEEDED PER PROVIDER ORDERS Sodium Chloride (Sodium Chloride Flush 0.9% 10 Ml Syringe) 10 ml IVP 0100,0900,1700 [facility] Last Admin: 08/02/21 09:21 Dose: 10 ml Documented by: No Known Home Medications 07/29/21
[2021-08-02 11:33] LABS: BASOPHILS % (AUTO) 0.4 %; EOSINOPHILS % (AUTO) 0.4 %; HCT - HEMATOCRIT 32.8 % (42.0-52.0); HGB - HEMOGLOBIN 10.8 g/dL (14.0-18.0); LYMPHOCYTES # (AUTO) 0.9 10^3/uL (1.5-3.5); LYMPHOCYTES % (AUTO) 19.5 %; MEAN CORPUSCULAR HGB CONC 32.9 g/dL (32.0-36.0); MEAN CORPUSCULAR VOLUME 88.2 fL (80.0-94.0); MEAN PLATELET VOLUME 9.2 fL (7.4-11.4); MONOCYTES # (AUTO) 0.2 10^3/uL (0.0-1.0); MONOCYTES % (AUTO) 3.3 %; NEUTROPHILS # (AUTO) 3.6 10^3/uL (1.5-6.6); PLT - PLATELET COUNT 209 10^3/uL (130-450); RED BLOOD COUNT 3.72 10^6/uL (4.70-6.10); RED CELL DISTRIBUTION WIDTH 13.1 % (12.0-15.0); WHITE BLOOD COUNT 4.8 x10^3/uL (4.8-10.8)
[2021-08-02] MEDS: SODIUM CHLORIDE 0.9% 1,000 ML IV SCH ×2 (11:38→15:21)
[2021-08-02] MEDS: SODIUM CHLORIDE FLUSH 0.9% 10 ML SYRINGE IVP PRN ×2 (11:40→20:18)
[2021-08-02 11:43] LABS: SLIDE REVIEW? Indicated
[2021-08-02 11:46] LABS: CALCIUM 7.7 mg/dL (8.5-10.3); CREATININE 0.7 mg/dL (0.6-1.2); POTASSIUM 3.4 mmol/L (3.5-5.0); VANCOMYCIN,TROUGH 15.5 ug/mL (10.0-20.0)
[2021-08-02 12:23] LABS: WBC MORPHOLOGY (MULTIPLE) NORMAL APPEARANCE (NORMAL)
[2021-08-02 12:24] LABS: PLATELET ESTIMATE, MANUAL NORMAL (130-450,000) (NORMAL); PLATELET MORPHOLOGY NORMAL APPEARANCE (NORMAL); RBC MORPHOLOGY (MULTIPLE) NORMAL APPEARANCE (NORMAL)
[2021-08-02] MEDS ORDERED: POTASSIUM CHLORIDE 20 MEQ TABLET PO ONE (13:10)
[2021-08-03] MEDS: BENZONATATE 100 MG CAPSULE PO PRN ×2 (00:25→21:18)
[2021-08-03] MEDS: HYDROcod/ACETAM 5/325 MG TABLET PO PRN ×4 (00:25→21:18)
[2021-08-03] MEDS: SODIUM CHLORIDE FLUSH 0.9% 10 ML SYRINGE IVP SCH ×3 (01:21→16:24)
[2021-08-03] MEDS: VANCOMYCIN INJ 1 GM, VANCOMYCIN INJ 500 MG in SODIUM CHLORIDE 0.9% 500 ML IV SCH ×3 (03:38→19:23)
[2021-08-03] MEDS: SODIUM CHLORIDE 0.9% 1,000 ML IV SCH ×3 (03:40→16:45)
[2021-08-03 05:56] LABS: BASOPHILS % (AUTO) 0.4 %; EOSINOPHILS % (AUTO) 0.4 %; HCT - HEMATOCRIT 35.5 % (42.0-52.0); HGB - HEMOGLOBIN 11.7 g/dL (14.0-18.0); LYMPHOCYTES # (AUTO) 1.5 10^3/uL (1.5-3.5); LYMPHOCYTES % (AUTO) 27.2 %; MEAN CORPUSCULAR HEMOGLOBIN 29.3 pg (27.0-31.0); MEAN PLATELET VOLUME 9.1 fL (7.4-11.4); MONOCYTES # (AUTO) 0.3 10^3/uL (0.0-1.0); MONOCYTES % (AUTO) 6.1 %; NEUTROPHILS # (AUTO) 3.6 10^3/uL (1.5-6.6); NEUTROPHILS % (AUTO) 65.5 %; PLT - PLATELET COUNT 244 10^3/uL (130-450); RED BLOOD COUNT 3.99 10^6/uL (4.70-6.10); RED CELL DISTRIBUTION WIDTH 13.2 % (12.0-15.0); WHITE BLOOD COUNT 5.5 x10^3/uL (4.8-10.8)
[2021-08-03 06:04] LABS: CALCIUM 8.1 mg/dL (8.5-10.3); CREATININE 0.7 mg/dL (0.6-1.2); POTASSIUM 3.8 mmol/L (3.5-5.0)
[2021-08-03] MEDS: CEFEPIME 2 GM in SODIUM CHLORIDE 0.9% MINIBAG 100 ML IV SCH ×3 (06:18→21:23)
[2021-08-03] MEDS: CHOLECALCIFEROL 400 UNIT TABLET PO SCH (08:30)
[2021-08-03] MEDS: IBUPROFEN 600 MG TABLET PO PRN (08:30)
[2021-08-03] MEDS: MULTIVITAMIN W/MINERALS TABLET PO SCH (08:31)
[2021-08-03] MEDS: ENOXAPARIN 30 MG/0.3 ML SYRINGE SUBQ SCH (08:31)
[2021-08-03] MEDS: ASCORBIC ACID 500 MG TABLET PO SCH (08:31)
[2021-08-03] MEDS: LORazepam 0.5 MG TABLET PO PRN ×2 (08:31→16:47)
[2021-08-03] MEDS: guaiFENesin 600 MG TABLET PO SCH ×2 (08:31→21:18)
[2021-08-03] MEDS: NICOTINE 14 MG PATCH TOP SCH (08:31)
[2021-08-03] MEDS: LACTOBACILLUS RHAMNOSUS GG CAPSULE PO SCH (08:31)
--- NOTE | 2021-08-03 13:42 | PROVIDER PROGRESS NOTE ---
Assessment/Plan - Problem List (1) Cellulitis Qualifiers: Site of cellulitis: extremity Site of cellulitis of extremity: lower extremity Laterality: unspecified laterality Qualified Code(s): L03.119 - Cellulitis of unspecified part of limb Assessment/Plan: 08/03 continue improved, but still present mild warmth comparing right lower extremity. left lower extremity swelling, erythema are controlled. WBC is normal arrange, repeat blood culture is negative. pt has no fever for over one day wh ich was likely caused by his Covid 19. continue IV of antibiotics. According to wound culture, we may switch to PO antibiotics on tomorrow. continue pain control. 08/02 improved. There is no swelling, still present slight erythema but still present warmth comparing with right leg. Continue intravenous antibiotics cefepime and vancomycin, continue probiotics, per wound culture study. pt had opened wound at left lower extremity, consult with wound care, nurse for dressing change. continue pain control. Repeated blood culture is negative for bacteremia. (2) MRSA infection Assessment/Plan: positive MRSA per wound culture results, and sensitivities available as pt's hx of wound culture. continue IV of antibiotics per sensitive study result. (3) Non-healing wound of lower extremity 08/03 improved, swelling and drainage are controlled. [facility] clinic wound already assessed and treated for pt, followup their instruction for dressing change, continue antibiotics, pt need wound care at out-pt setting as well. consult with professor of social work improved. the opened wound appear dry, non drainage. he had hx of left lower extremity wound and non healing for many months . Patient has been unable to see wound care in the outpatient setting because he does not have a primary care physician. Currently he is homeless. consult Wound Care from [facility] while the patient is in the hospital for recommendations, dressing change. continue antibiotics treatment in the hospital. (4) fever Assessment/Plan: 08/03 resolved. pt had no fever for over one day. pt is likely improving for his Covid 19 pt continue to have Intermittently fever. it likely caused by his Covid 19 infection. pt's blood culture is negative for bacteremia. ECHO study did not present Vegetation. Continue intravenous IV fluids, continue Tylenol and ibuprofen as needed. (5) COVID-19 Assessment/Plan: 08/03 stable, pt has 95% Oxygen saturation on room air, patient has no acute respiratory distress. Continue Isolation precaution. Patient had a stable respiratory status, patient had a 94%-98% oxygen saturation on room air, patient has no acute respiratory distress. Because patient does not need supplemental oxygen, patient was not treated with COVID-19 medication yet. Patient is unvaccinated. we Will continue to monitor the patient Respiratory status closely Contact isolation ordered. (6) Methamphetamine abuse Assessment/Plan: 128, patient feel much better, patient's anxiety and pain are controlled. Patient's withdrawal symptoms are controlled. Continue Ativan and Acton as needed A MUDS screen was done at admission and was (+) for Meth as pt's hx, IV drug abuse. he present anxiety on today, which is likely caused by his drug withdrawal. add PRN of Ativan. pt had order of Acton for his cellulitis pain. pt is alert and oriented plus 4. Initially he requested to sign AMA, now per nurse report, he seem calm down and is willing to stay at hospital to continue the treatment. Discussed all risks of signing AMA with pt in detail. pt understood that. Consult with social work for help patient. - Current Meds Current Meds: Current Medications Generic Name Dose Route Start Last Admin Trade Name Freq PRN Reason Stop Dose Admin Acetaminophen 650 mg 07/29/21 08:51 08/01/21 22:12 Acetaminophen 325 Mg Tablet PO 650 mg Q4HR PRN Administration Pain or Fever > 38C (100.4F) Hydrocodone Bitart/Acetaminophen 1 tab 07/29/21 01:57 08/03/21 06:18 Hydrocod/Acetam 5/325 Mg Tablet PO 1 tab Q4HR PRN Administration Pain 5 to 7 Ascorbic Acid 500 mg 07/29/21 12:00 08/03/21 08:31 Ascorbic Acid 500 Mg Tablet PO 500 mg DAILY LAKISHA Administration Benzonatate 100 mg 08/02/21 08:36 08/03/21 00:25 Benzonatate 100 Mg Capsule PO 100 mg TID PRN Administration Cough Cholecalciferol 800 unit 08/03/21 09:00 08/03/21 08:30 Cholecalciferol 400 Unit Tablet PO 800 unit DAILY LAKISHA Administration Enoxaparin Sodium 30 mg 07/30/21 09:00 08/03/21 08:31 Enoxaparin 30 Mg/0.3 Ml Syringe SUBQ 30 mg DAILY LAKISHA Administration Guaifenesin 600 mg 08/02/21 08:25 08/03/21 08:31 Guaifenesin 600 Mg Tablet PO 600 mg BID LAKISHA Administration Sodium Chloride 1,000 mls @ 125 mls/hr 07/29/21 02:00 08/03/21 06:48 Normal Saline 0.9% IV 125 mls/hr .Q8H LAKISHA Infusion Cefepime HCl 2 gm/ Sodium 100 mls @ 200 mls/hr 07/29/21 16:00 08/03/21 06:49 Chloride IV Infused TID L[facility]ISHA Infusion Vancomycin HCl 1 gm/ 500 mls @ 250 mls/hr 07/31/21 12:00 08/03/21 12:10 Vancomycin HCl 500 mg/ Sodium IV 250 mls/hr Chloride Q8H LAKISHA Administration Ibuprofen 600 mg 07/29/21 08:52 08/03/21 08:30 Ibuprofen 600 Mg Tablet PO 600 mg Q6HR PRN Administration PAIN Lactobacillus Rhamnosus 1 cap 07/29/21 12:00 08/03/21 08:31 Lactobacillus Rhamnosus Gg Capsule PO 1 cap DAILY LAKISHA Administration Lorazepam 0.5 mg 08/02/21 08:16 08/03/21 08:31 Lorazepam 0.5 Mg Tablet PO 0.5 mg Q8H PRN Administration Anxiety Multivitamins/Minerals 1 tab 07/29/21 12:00 08/03/21 08:31 Multivitamin W/Minerals Tablet PO 1 tab DAILYWM LAKISHA Administration Nicotine 1 patch 07/29/21 09:00 08/03/21 08:31 Nicotine 14 Mg Patch TOP 1 patch DAILY LAKISHA Administration Sodium Chloride 10 ml 07/29/21 01:57 08/02/21 20:18 Sodium Chloride Flush 0.9% 10 Ml Syringe IVP 10 ml PRN PRN Administration NEEDED PER PROVIDER ORDERS Sodium Chloride 10 ml 07/29/21 09:00 08/03/21 08:32 Sodium Chloride Flush 0.9% 10 Ml Syringe IVP 10 ml 0100,0900,1700 LAKISHA Administration - Lab Result Fish Bone Diagrams: 08/03/21 05:39 08/03/21 05:39 - Additional Planning My Orders: My Active Orders 08/02/21 15:35 Miscellaenous Nursing Order [RC] DAILY 08/03/21 09:00 Cholecalciferol [Vitamin D3] 800 unit PO DAILY Subjective - Subjective Patient Reports: Feeling Better, Resting Comfortably Objective Vital Signs: Vital Signs - 24 hr 08/02/21 08/02/21 08/03/21 16:03 21:00 00:14 Temperature 37.6 C 37.0 C 37.8 C Heart Rate [ 94 99 96 Brachial] Respiratory 22 16 16 Rate Blood Pressure 152/81 H 150/90 H [Left Brachial artery] Blood Pressure 117/66 [Right Brachial artery] O2 Saturation 98 93 93 08/03/21 08/03/21 08/03/21 06:18 07:55 11:55 Temperature 36.4 C L 37.5 C 36.8 C Heart Rate [ 81 83 75 Brachial] Respiratory 18 18 18 Rate Blood Pressure [Left Brachial artery] Blood Pressure 126/68 118/71 117/69 [Right Brachial artery] O2 Saturation 96 95 95 Oxygen O2 Source Room air I&O (Last 24 Hrs): Intake and Output Totals x24h 08/01/21 08/02/21 08/03/21 23:59 23:59 23:59 Intake Total 5266.250 4297.333 2905.000 Output Total 2075 2925 1800 Balance 3191.250 6003.306 5127.000 General: Alert, Oriented x3, No acute distress HEENT: Atraumatic Neck: Supple Lymphatic: no adenopathy Neuro: Alert, Non Focal, Oriented Times 3 Cardiovascular: Regular rate, Normal S1, Normal S2 Respiratory: Chest non-tender, No respiratory distress Abdomen: Normal bowel sounds, Soft, No tenderness Extremities: Normal pulses, Other (left lower extremity's swelling is well controlled. pt present mild warmth at left lower extremity. There is no drainage at wound site, and open wound start showing healing) - Results Results: Laboratory Results WBC 5.5 x10^3/uL (4.8-10.8) 08/03/21 05:39 RBC 3.99 10^6/uL (4.70-6.10) L 08/03/21 05:39 Hgb 11.7 g/dL (14.0-18.0) L 08/03/21 05:39 Hct 35.5 % (42.0-52.0) L 08/03/21 05:39 MCV 89.0 fL (80.0-94.0) 08/03/21 05:39 MCH 29.3 pg (27.0-31.0) 08/03/21 05:39 MCHC 33.0 g/dL (32.0-36.0) 08/03/21 05:39 RDW 13.2 % (12.0-15.0) 08/03/21 05:39 Plt Count 244 10^3/uL (130-450) 08/03/21 05:39 MPV 9.1 fL (7.4-11.4) 08/03/21 05:39 Neut # (Auto) 3.6 10^3/uL (1.5-6.6) 08/03/21 05:39 Lymph # (Auto) 1.5 10^3/uL (1.5-3.5) 08/03/21 05:39 Borden # (Auto) 0.3 10^3/uL (0.0-1.0) 08/03/21 05:39 Eos # (Auto) 0.0 10^3/uL (0.0-0.7) 08/03/21 05:39 Baso # (Auto) 0.0 10^3/uL (0.0-0.1) 08/03/21 05:39 Absolute Nucleated RBC 0.00 x10^3/uL 08/03/21 05:39 Nucleated RBC % 0.0 /100WBC 08/03/21 05:39 Manual Slide Review Indicated 08/02/21 11:23 WBC Morphology NORMAL APPEARANCE (NORMAL) 08/02/21 11:23 Platelet Estimate NORMAL (130-450,000) (NORMAL) 08/02/21 11:23 Platelet Morphology NORMAL APPEARANCE (NORMAL) 08/02/21 11:23 RBC Morph Micro Appear NORMAL APPEARANCE (NORMAL) 08/02/21 11:23 PT 14.5 secs (9.9-12.6) H 07/29/21 09:26 INR 1.3 (0.8-1.2) H 07/29/21 09:26 D-Dimer < 200.0 ng/mL (200.0-255.0) L 07/29/21 09:26 Sodium 134 mmol/L (135-145) L 08/03/21 05:39 Potassium 3.8 mmol/L (3.5-5.0) 08/03/21 05:39 Chloride 100 mmol/L (101-111) L 08/03/21 05:39 Carbon Dioxide 22 mmol/L (21-32) 08/03/21 05:39 Anion Gap 12.0 (6-13) 08/03/21 05:39 BUN 10 mg/dL (6-20) 08/03/21 05:39 Creatinine 0.7 mg/dL (0.6-1.2) 08/03/21 05:39 Estimated GFR (MDRD) 120 (>89) 08/03/21 05:39 Glucose 77 mg/dL (70-100) 08/03/21 05:39 Lactic Acid 1.0 mmol/L (0.5-2.2) 07/29/21 00:27 Calcium 8.1 mg/dL (8.5-10.3) L 08/03/21 05:39 Magnesium 1.8 mg/dL (1.7-2.8) 07/29/21 09:26 Total Bilirubin 0.4 mg/dL (0.2-1.0) 07/29/21 00:27 AST 24 IU/L (10-42) 07/29/21 00:27 ALT 17 IU/L (10-60) 07/29/21 00:27 Alkaline Phosphatase 85 IU/L (42-121) 07/29/21 00:27 Total Protein 8.4 g/dL (6.7-8.2) H 07/29/21 00:27 Albumin 3.5 g/dL (3.2-5.5) 07/29/21 00:27 Globulin 4.9 g/dL (2.1-4.2) H 07/29/21 00:27 Albumin/Globulin Ratio 0.7 (1.0-2.2) L 07/29/21 00:27 25-OH Vitamin D Total 22 ng/mL (30-100) L 08/02/21 11:23 Nasal Adenovirus (PCR) NOT DETECTED 07/29/21 00:31 Nasal B. parapertussis DNA (PCR) NOT DETECTED 07/29/21 00:31 Nasal Coronavir 229E PCR NOT DETECTED 07/29/21 00:31 Nasal Coronavir HKU1 PCR NOT DETECTED 07/29/21 00:31 Nasal Coronavir NL63 PCR NOT DETECTED 07/29/21 00:31 Nasal Coronavir OC43 PCR NOT DETECTED 12/03/21 00:31 Nasal Enterovir/Rhinovir PCR NOT DETECTED 07/29/21 00:31 Nasal Influenza B PCR NOT DETECTED 07/29/21 00:31 Nasal Influenza A PCR NOT DETECTED 07/29/21 00:31 Nasal Parainfluen 1 PCR NOT DETECTED 07/29/21 00:31 Nasal Parainfluen 2 PCR NOT DETECTED 07/29/21 00:31 Nasal Parainfluen 3 PCR NOT DETECTED 07/29/21 00:31 Nasal Parainfluen 4 PCR NOT DETECTED 07/29/21 00:31 Nasal RSV (PCR) NOT DETECTED 07/29/21 00:31 Nasal B.pertussis DNA PCR NOT DETECTED 07/29/21 00:31 Nasal C.pneumoniae (PCR) NOT DETECTED 07/29/21 00:31 Jeremias Human Metapneumo PCR NOT DETECTED 07/29/21 00:31 Nasal M.pneumoniae (PCR) NOT DETECTED 07/29/21 00:31 Nasal SARS-CoV-2 (PCR) DETECTED A 07/29/21 00:31 Last Dose Date Not Reportable 08/02/21 11:23 Last Dose Time Not Reportable 08/02/21 11:23 Vancomycin Trough 15.5 ug/mL (10.0-20.0) 08/02/21 11:23 Urine Opiates Screen NEGATIVE (NEGATIVE) 07/29/21 21:27 Ur Oxycodone Screen NEGATIVE (NEGATIVE) 07/29/21 21:27 Urine Methadone Screen NEGATIVE (NEGATIVE) 07/29/21 21:27 Ur Propoxyphene Screen NEGATIVE (NEGATIVE) 07/29/21 21:27 Ur Barbiturates Screen NEGATIVE (NEGATIVE) 07/29/21 21:27 Ur Tricyclics Screen NEGATIVE (NEGATIVE) 07/29/21 21:27 Ur Phencyclidine Scrn NEGATIVE (NEGATIVE) 07/29/21 21:27 Ur Amphetamine Screen POSITIVE (NEGATIVE) H 07/29/21 21:27 U Methamphetamines Scrn POSITIVE (NEGATIVE) H 07/29/21 21:27 U Benzodiazepines Scrn NEGATIVE (NEGATIVE) 07/29/21 21:27 Urine Cocaine Screen NEGATIVE (NEGATIVE) 07/29/21 21:27 U Cannabinoids Screen NEGATIVE (NEGATIVE) 07/29/21 21:27 Sepsis Event Note (H) - Evaluation Current Stage of Sepsis: Sepsis Possible source of Sepsis: positive: Skin/soft tissue - Sepsis Criteria Sepsis Criteria: Recorded Temperature greater than 38.3C or Less than 36C, Recorded Heart Rate greater than 90 bpm ABX Reporting Has patient been on IV antibiotics over the past 48 hours?: Yes Current Medications - Current Medications Current Medications: Active Medications Acetaminophen (Acetaminophen 325 Mg Tablet) 650 mg PO Q4HR PRN PRN Reason: Pain or Fever > 38C (100.4F) Last Admin: 08/01/21 22:12 Dose: 650 mg Documented by: Hydrocodone Bitart/Acetaminophen (Hydrocod/Acetam 5/325 Mg Tablet) 1 tab PO Q4HR PRN PRN Reason: Pain 5 to 7 Last Admin: 08/03/21 06:18 Dose: 1 tab Documented by: Ascorbic Acid (Ascorbic Acid 500 Mg Tablet) 500 mg PO DAILY [facility] Last Admin: 08/03/21 08:31 Dose: 500 mg Documented by: Benzonatate (Benzonatate 100 Mg Capsule) 100 mg PO TID PRN PRN Reason: Cough Last Admin: 08/03/21 00:25 Dose: 100 mg Documented by: Cholecalciferol (Cholecalciferol 400 Unit Tablet) 800 unit PO DAILY [facility] Last Admin: 08/03/21 08:30 Dose: 800 unit Documented by: Enoxaparin Sodium (Enoxaparin 30 Mg/0.3 Ml Syringe) 30 mg SUBQ DAILY [facility] Last Admin: 08/03/21 08:31 Dose: 30 mg Documented by: Guaifenesin (Guaifenesin 600 Mg Tablet) 600 mg PO BID [facility] Last Admin: 08/03/21 08:31 Dose: 600 mg Documented by: Sodium Chloride (Normal Saline 0.9%) 1,000 mls @ 125 mls/hr IV .Q8H [facility] Last Infusion: 08/03/21 06:48 Dose: 125 mls/hr Documented by: Cefepime HCl 2 gm/ Sodium (Chloride) 100 mls @ 200 mls/hr IV TID [facility] Last Infusion: 08/03/21 06:49 Dose: Infused Documented by: Vancomycin HCl 1 gm/Vancomycin HCl 500 mg/ Sodium Chloride 500 mls @ 250 mls/hr IV Q8H [facility] Last Admin: 08/03/21 12:10 Dose: 250 mls/hr Documented by: Ibuprofen (Ibuprofen 600 Mg Tablet) 600 mg PO Q6HR PRN PRN Reason: PAIN Last Admin: 08/03/21 08:30 Dose: 600 mg Documented by: Lactobacillus Rhamnosus (Lactobacillus Rhamnosus Gg Capsule) 1 cap PO DAILY [facility] Last Admin: 08/03/21 08:31 Dose: 1 cap Documented by: Lorazepam (Lorazepam 0.5 Mg Tablet) 0.5 mg PO Q8H PRN PRN Reason: Anxiety Last Admin: 08/03/21 08:31 Dose: 0.5 mg Documented by: Multivitamins/Minerals (Multivitamin W/Minerals Tablet) 1 tab PO DAILYWM [facility] Last Admin: 08/03/21 08:31 Dose: 1 tab Documented by: Nicotine (Nicotine 14 Mg Patch) 1 patch TOP DAILY [facility] Last Admin: 08/03/21 08:31 Dose: 1 patch Documented by: Ondansetron HCl (Ondansetron 4 Mg/2 Ml Vial) 4 mg IVP Q6HR PRN PRN Reason: Nausea / Vomiting Sodium Chloride (Sodium Chloride Flush 0.9% 10 Ml Syringe) 10 ml IVP PRN PRN PRN Reason: NEEDED PER PROVIDER ORDERS Last Admin: 08/02/21 20:18 Dose: 10 ml Documented by: Sodium Chloride (Sodium Chloride Flush 0.9% 10 Ml Syringe) 10 ml IVP 0100,0900,1700 [facility] Last Admin: 08/03/21 08:32 Dose: 10 ml Documented by: No Known Home Medications 07/29/21
[2021-08-04] MEDS: LORazepam 0.5 MG TABLET PO PRN (02:16)
[2021-08-04] MEDS: IBUPROFEN 600 MG TABLET PO PRN (02:17)
[2021-08-04] MEDS: HYDROcod/ACETAM 5/325 MG TABLET PO PRN ×2 (02:49→08:35)
[2021-08-04] MEDS: SODIUM CHLORIDE FLUSH 0.9% 10 ML SYRINGE IVP SCH ×2 (02:57→08:34)
[2021-08-04] MEDS: VANCOMYCIN INJ 1 GM, VANCOMYCIN INJ 500 MG in SODIUM CHLORIDE 0.9% 500 ML IV SCH (04:14)
[2021-08-04 06:17] LABS: BASOPHILS % (AUTO) 0.4 %; CALCIUM 7.9 mg/dL (8.5-10.3); CREATININE 0.7 mg/dL (0.6-1.2); EOSINOPHILS # (AUTO) 0.1 10^3/uL (0.0-0.7); EOSINOPHILS % (AUTO) 0.9 %; HCT - HEMATOCRIT 29.8 % (42.0-52.0); HGB - HEMOGLOBIN 9.9 g/dL (14.0-18.0); LYMPHOCYTES # (AUTO) 1.2 10^3/uL (1.5-3.5); MEAN CORPUSCULAR HEMOGLOBIN 29.1 pg (27.0-31.0); MEAN CORPUSCULAR HGB CONC 33.2 g/dL (32.0-36.0); MEAN CORPUSCULAR VOLUME 87.6 fL (80.0-94.0); MEAN PLATELET VOLUME 9.5 fL (7.4-11.4); MONOCYTES # (AUTO) 0.3 10^3/uL (0.0-1.0); MONOCYTES % (AUTO) 6.3 %; NEUTROPHILS # (AUTO) 3.7 10^3/uL (1.5-6.6); NEUTROPHILS % (AUTO) 69.5 %; PLT - PLATELET COUNT 226 10^3/uL (130-450); POTASSIUM 3.5 mmol/L (3.5-5.0); RED CELL DISTRIBUTION WIDTH 13.2 % (12.0-15.0); WHITE BLOOD COUNT 5.4 x10^3/uL (4.8-10.8)
[2021-08-04] MEDS: CEFEPIME 2 GM in SODIUM CHLORIDE 0.9% MINIBAG 100 ML IV SCH (06:54)
[2021-08-04 07:39] LABS: ABSOLUTE RETICS # AUTO 0.016 10^6/uL (0.020-0.110); RED BLOOD COUNT 3.38 10^6/uL (4.70-6.10); RETICULOCYTE COUNT % (AUTO) 0.47 % (0.5-2.3)
[2021-08-04 07:58] LABS: FERRITIN 238.7 ng/mL (23.9-336.2)
[2021-08-04 08:01] LABS: % IRON SATURATION 5 % (20-50); IRON 10 ug/dL (45-182); TOTAL IRON BINDING CAPACITY 195 ug/dL (250-450); TRANSFERRIN 139 mg/dL (180-329)
[2021-08-04] MEDS: ENOXAPARIN 30 MG/0.3 ML SYRINGE SUBQ SCH (08:33)
[2021-08-04] MEDS: ASCORBIC ACID 500 MG TABLET PO SCH (08:33)
[2021-08-04] MEDS: CHOLECALCIFEROL 400 UNIT TABLET PO SCH (08:33)
[2021-08-04] MEDS: MULTIVITAMIN W/MINERALS TABLET PO SCH (08:33)
[2021-08-04] MEDS: NICOTINE 14 MG PATCH TOP SCH (08:34)
[2021-08-04] MEDS: guaiFENesin 600 MG TABLET PO SCH (08:34)
[2021-08-04] MEDS: LACTOBACILLUS RHAMNOSUS GG CAPSULE PO SCH (08:34)
[2021-08-04] MEDS ORDERED: CIPROFLOXACIN 250 MG TABLET PO SCH (09:00)
[2021-08-04] MEDS ORDERED: LINEZOLID 600 MG TABLET PO SCH (09:00)
[2021-08-04] MEDS ORDERED: CYANOCOBALAMIN 1,000 MCG/ML VIAL IM ONE (10:30)
--- NOTE | 2021-08-04 10:30 | Discharge Plan ---
Discharge Plan Problem Reviewed?: Yes Disposition: Home, Self Care Condition: Stable Prescriptions: HYDROcod/ACETAM 5/325 [[place] 5/325] 1 tab PO Q4HR PRN #20 tablet PRN Reason: Pain 5 to 7 Ciprofloxacin [Cipro] 500 mg PO BID 8 Days #32 tablet Lactobacillus Rhamnosus GG [Culturelle] 1 cap PO DAILY #8 cap Ferrous Sulfate [Feosol] 325 mg PO DAILY #30 tablet Nicotine 14 mg Patch [Nicoderm] 1 patch TOP DAILY PRN #7 patch PRN Reason: Anxiety Benzonatate [Tessalon] 100 mg PO TID PRN #20 cap PRN Reason: Cough Multivitamin W/Minerals [Theragran M] 1 tab PO QDLUNCH #30 tablet Cholecalciferol [Vitamin D3] 800 unit PO DAILY #60 tablet Linezolid [Zyvox] 600 mg PO BID 8 Days #16 tablet Diet: Regular Activity Restrictions: Activity as Tolerated Shower Restrictions: No (fall precaution) Instruction Topics: COVID-19 [facility], COVID-19 [facility] Department Statement, Flu and Cold: Nutrition, Prevention and Treatment Tips, Ciprofloxacin tablets, Linezolid tablets, Acetaminophen Hydrocodone tablets or capsules Health Concerns: Covid 19 infection, and cellulitis and wound care Plan of Treatment: pt have no more fever, and you have stable respiratory status. please followup with [facility] recommendation for Covid 19 infection. Your cellulitis and wound had significant improved after you were treated in the hospital. you are prescribed two antibiotics for continuing the treatment. You had extensive education in the hospital for your wound dressing change and wound care. You may followup with your PCP in one to two weeks and out-pt wound care clinic. Should your symptoms return or worsen, more pain, swelling, drainage, fever, chill, but not limited to, you may return to ER or call 911 for help. Care Goals: Stabilization and improvement of your medical conditions Assessment: Discussed in detail the care plan with you, answered your questions, and you verbally stated you understood. Additional Instructions or Follow Up instructions: You may followup with your PCP in one to two weeks and out-pt wound care clinic. Should your symptoms return or worsen, you may present to ER or call 911 for help. Follow-Up Care: [facility] [place] [facility] - Wound/Ostomy No Smoking: If you smoke, Please STOP! Call for help.
--- NOTE | 2021-08-04 10:46 | DISCHARGE SUMMARY ---
Discharge Summary Admit Date: 07/29/21 Discharge Date: 08/04/21 Discharging Provider: Brian Turner Condition at Discharge: Stable Discharge Disposition: 01 Home, Self Care Discharge Facility Name: home - DIAGNOSES Discharge Diagnoses with Status of Each Condition: (1) Cellulitis stable and improved. Swelling and erythema are reduced. pt has no more fever, W BC is 5.4 from 10.7 at admission, repeated blood culture is negative for bacteremia. pt is prescribed antibiotics for continuing the treatment course according to wound culture study. pt had 6 days IV of antibiotics in the hospital and pt is prescribed 8 days PO antibiotics, total 14 days treatment now. (2) MRSA infection pt had positive MRSA in his wound culture results. pt is prescribed Antibiotics for continuing treatment course according to wound culture study. Repeated blood culture was negative for bacteremia. ECHO show no obvious vegetations. (3) wound of lower extremity stable and improved. pt has hx of non-healing wound at his lower extremities. pt is prescribed antibiotics for continuing treatment course. pt had extensive education from my personal education and nurse education, and pt demonstrate for how to do dressing change by himself. pt was given medical material for dressing change. pt is homeless, he had covid 19 infection, he is sent to [facility] for covid 19 quarantine. torpedo worker was consulted for Disposition planning. torpedo worker is difficult to arrange out-pt wound care now. Pt may continue his PCP and wound care at out-pt setting as well. pt is prescribed pain meds PRN. (4) fever resolved. (5) COVID-19 stable, pt has 98% Oxygen saturation on room air, patient has no acute respiratory distress. pt's fever was resolved. Continue Isolation precaution per [facility] and [facility] recommendation. (6) Methamphetamine abuse Patient was advised for quitting of methamphetamine, amphetamine abuse (7)anemia pt's HGB is 9.9. pt is found iron Deficiency anemia, patient is prescribed iron pill, patient was given B12 IM at hospital. - HPI History of Present Illness: refer from Dr. Claire's HPI on 07/29/21 Patient is a 46-year-old male who presented to the ED with complaint of feeling lightheaded, weak and ringing in his ears. Upon presentation to the ED and on further examination he has chronic wounds on his lower extremities bilaterally but the left lower extremity appears erythematous up to mid-rivera and the wound sites are draining. He sustained this wounds when he tripped, fell and gouged his leg while walking through a future building site next to [facility] in [place] in September 2020. The site has a lot of roots that have been pulled up after trees were cut down. He does not have a primary care physician and as a result has not been able to see wound care. He has been seen in the emergency department a couple of times before for the wounds. At the last visit it was recommended he stay in the hospital for further treatment but he opted to leave. He has been treated with doxycycline a couple of times in the outpatient setting. In the ED he was noted to be tachycardic with a heart rate as high as 125. He was also febrile with a temperature of 38.8 C. Further work-up in anticipation of admission included testing for Covid which came back positive. Patient does not have difficulty breathing. His oxygen sa turation is 98% on room air with a respiratory rate of 19. He denied chest pain, abdominal pain, nausea, vomiting. As a result of the findings above he was presented for admission for further treatment. - HOSPITAL COURSE Hospital Course: pt was admitted for his complain of lightheaded, weak and ringing in his ears. pt was found to have cellulitis on his lower extremities bilaterally, non- healing chronic wound mainly at left lower extremity. pt was also found to have positive Covid 19 infection. Pt Was treated with intravenous antibiotics of Cefepime and vancomycin. patient had wound culture which show positive Pseudomonas and MRSA staph aureus. pt had wound care consult at hospital as well. pt had fever at hospital which was likely caused his Covid 19 infection. pt has been stable respiratory status, he was not required to have O2 supplement, pt has not required to have medications treated for Covid 19. Repeated blood culture show negative for bacteremia. ECHO reveals no obvious vegetation. after treatment in hospital, pt's cellulitis had significant improvement, his wound has improvement as well. Pt is prescribed antibiotics for continuing treatment course, continue to have dressing change. pt is arrange for covid 19 quarantine. - ALLERGIES Allergies/Adverse Reactions: Allergies Allergy/AdvReac Type Severity Reaction Status Date / Time No Known Drug Allergies Allergy Verified 07/28/21 23:46 - MEDICATIONS Home Medications: Ambulatory Orders Medication Instructions Recorded Confirmed Benzonatate [Tessalon] 100 mg PO TID PRN #20 cap 08/04/21 Cholecalciferol [Vitamin D3] 800 unit PO DAILY #60 tablet 08/04/21 Ciprofloxacin [Cipro] 500 mg PO BID 8 Days #32 tablet 08/04/21 Ferrous Sulfate [Feosol] 325 mg PO DAILY #30 tablet 08/04/21 HYDROcod/ACETAM 5/325 [[place] 5/325] 1 tab PO Q4H PRN #15 tablet 08/04/21 Lactobacillus Rhamnosus GG 1 cap PO DAILY #8 cap 08/04/21 [Culturelle] Linezolid [Zyvox] 600 mg PO BID 8 Days #16 tablet 08/04/21 Multivitamin W/Minerals [Theragran 1 tab PO QDLUNCH #30 tablet 08/04/21 M] Nicotine 14 mg Patch [Nicoderm] 1 patch TOP DAILY PRN #7 patch 08/04/21 - PHYSICAL EXAM AT DISCHARGE General Appearance: positive: No acute distress, Alert. negative: Lethargic Eyes Bilateral: positive: Normal inspection, PERRL, No lid inflammation ENT: positive: ENT inspection nml, No signs of dehydration. negative: Purulent nasal drainage Neck: positive: Nml inspection, Trachea midline. negative: Tracheal deviation Respiratory: positive: Chest non-tender, No respiratory distress. negative: Wheezes Cardiovascular: positive: Regular rate & rhythm. negative: Tachycardia, Bradycardia, Systolic murmur Peripheral Pulses: positive: 2+ Abdomen: positive: Non-tender, Nml bowel sounds, No distention. negative: Tenderness Back: positive: Nml inspection Skin: positive: Color nml, Warm, Dry, Laceration (cm) (5X4.5 cm size). negative: Cyanosis Extremities: positive: Non-tender, Full ROM, Other (reduced erythema at left lower extremity, mild erythema at right lower extremity. There is a 5X4.5 cm opened-wound at mid-rivera at his left lower extremity. pt is put a new wound dressing on the wound.). negative: Calf tenderness Neurologic/Psychiatric: positive: Oriented x3, Motor nml, Sensation nml. negative: Weakness, Sensory loss, Facial droop, Slurred/abnml speech, Depressed mood/affect - LABS Result Diagrams: 08/04/21 05:44 08/04/21 05:44 - SEPSIS Current Stage of Sepsis: Sepsis Possible source of Sepsis: Skin/soft tissue Sepsis Criteria: Recorded Temperature greater than 38.3C or Less than 36C, Recorded Heart Rate greater than 90 bpm - FOLLOW UP Follow Up: pt have no more fever, and you have stable respiratory status. please followup with [facility] recommendation for Covid 19 infection. Your cellulitis and wound had significant improved after you were treated in the hospital. you are prescribed two antibiotics for continuing the treatment. You had extensive education in the hospital for your wound dressing change and wound care. You may followup with your PCP in one to two weeks and out-pt wound care clinic. Should your symptoms return or worsen, more pain, swelling, drainage, fever, chill, shortness of breathing, but not limited to, you may return to ER or call 911 for help. You may followup with your PCP in one to two weeks and out-pt wound care clinic. Should your symptoms return or worsen, you may present to ER or call 911 for help. - TIME SPENT Time Spent in Discharge (Minutes): 30
[2021-08-04 11:29] VITALS: BP 117/74
[2021-08-04] MEDS ORDERED: FERROUS SULFATE 325 MG TABLET PO SCH (12:00)
[2021-08-05] MEDS ORDERED: MULTIVITAMIN W/MINERALS TABLET PO SCH (12:00)
== END 2021-08-04 12:50 | disposition home or self-care (01) | DRG 871 ==
LOC: ED 23:43 → MS2 07-29 01:57
PROVIDERS: ADMIT Internal Medicine; ATTEND Nurse Practitioner Gerontology
DX: A41.02 Sepsis due to Methicillin resistant Staphylococcus aureus (principal); U07.1 COVID-19; L03.116 Cellulitis of left lower limb; L03.115 Cellulitis of right lower limb; F15.13 Other stimulant abuse with withdrawal; A41.52 Sepsis due to Pseudomonas; S81.802D Unspecified open wound, left lower leg, subsequent encounter; S81.801D Unspecified open wound, right lower leg, subsequent encounter; B96.5 Pseudomonas (aeruginosa) (mallei) (pseudomallei) as the cause of diseases classified elsewhere
CPT/HCPCS: 0202U; 36415; 71045; 73590; 73701; 80048; 80053; 80202; 80306; 82306; 82607; 82728; 83540; 83605; 83615; 83735; 84466; 85025; 85045; 85379; 85610; 87040; 87070; 87077; 87181; 87205; 93306; 96365; 96368; 99285; A9270; J1650; J3370; Q9967

== ENCOUNTER 2021-10-26 18:23 | Emergency (ER) | payer MEDICAID ==
[2021-10-26] MEDS ORDERED: KETOROLAC 30 MG/ML VIAL IM STA (20:53)
[2021-10-26] MEDS ORDERED: cefTRIAXone 1 GM VIAL IM STA (20:53)
[2021-10-26] MEDS ORDERED: BACITRACIN ZINC OINT 1 PACKET TOP STA (20:55)
--- NOTE | 2021-10-26 20:55 | ED Physician Documentation ---
PD HPI SKIN - Stated complaint Stated Complaint: LEG NOT HEALING AFTER INFECTION - Chief complaint Chief Complaint: Wound - History obtained from History obtained from: Patient - Additional information Additional information: 46yM with pmh chronic LLE wound with hx MRSA, recent hospitalization 07/29 - 08/04, p/w wound worsening over apst few weeks. denies fever. ambulatory on it without difficulty but he is having gradual onset aching pain in the toes radiating up the foot a/w swelling and erythema. patient is undomiciled. Review of Systems Constitutional: denies: Fever Skin: reports: Other (wound) Musculoskeletal: reports: Extremity pain PD PAST MEDICAL HISTORY - Past Medical History Past Medical History: Yes Cardiovascular: None Respiratory: None Neuro: Head injury Endocrine/Autoimmune: None GI: None : None HEENT: None Psych: None Musculoskeletal: None Derm: None, Other drug resistant infections - Past Surgical History Past Surgical History: No - Present Medications Home Medications: Ambulatory Orders Medication Instructions Recorded Confirmed Benzonatate [Tessalon] 100 mg PO TID PRN #20 cap 08/04/21 Cholecalciferol [Vitamin D3] 800 unit PO DAILY #60 tablet 08/04/21 Ciprofloxacin [Cipro] 500 mg PO BID 8 Days #32 tablet 08/04/21 Ferrous Sulfate [Feosol] 325 mg PO DAILY #30 tablet 08/04/21 HYDROcod/ACETAM 5/325 [[place] 5/325] 1 tab PO Q4H PRN #15 tablet 08/04/21 Lactobacillus Rhamnosus GG 1 cap PO DAILY #8 cap 08/04/21 [Culturelle] Linezolid [Zyvox] 600 mg PO BID 8 Days #16 tablet 08/04/21 Multivitamin W/Minerals [Theragran 1 tab PO QDLUNCH #30 tablet 08/04/21 M] Nicotine 14 mg Patch [Nicoderm] 1 patch TOP DAILY PRN #7 patch 08/04/21 Doxycycline Hyclate 100 mg PO BID 14 Days #28 tab 10/26/21 Ketorolac [Toradol] 10 mg PO Q6H PRN #30 tablet 10/26/21 Mupirocin 2% Oint [Bactroban 2% 1 applic TOP BID #50 gm 10/26/21 Oint] - Allergies Allergies/Adverse Reactions: Allergies Allergy/AdvReac Type Severity Reaction Status Date / Time No Known Drug Allergies Allergy Verified 10/26/21 18:47 - Social History Does the pt smoke?: Yes Smoking Status: Current every day smoker Does the pt drink ETOH?: No Does the pt have substance abuse?: Yes Substance Use and Type: Marijuana - Immunizations Immunizations are current?: Yes - POLST Patient has POLST: No POLST Status: Full Code PD ED PE NORMAL - Vitals Vital signs reviewed: Yes - General General: Alert and oriented X 3, No acute distress, Well developed/nourished - HEENT HEENT: Atraumatic, PERRL, EOMI - Derm Derm: Normal color, Warm and dry, Other (LLE erythema, swelling to foot and distal anterior leg with chronic appearing purulent anterior leg wound) - Extremities Extremities: Normal ROM s pain - Neuro Neuro: Alert and oriented X 3 - Psych Psych: Normal mood Results - Vitals Vitals: Vital Signs - 24 hr 10/26/21 10/26/21 18:41 21:29 Temperature 36.8 C 37.1 C Heart Rate 112 H 78 Respiratory 18 20 Rate Blood Pressure 178/98 H 168/90 H O2 Saturation 96 100 Oxygen O2 Source Room air - Labs Labs: Microbiology 10/26/21 21:05 Wound Culture - Preliminary Abscess PD MEDICAL DECISION MAKING - ED course ED course: 46yM p/w chronic LLE wound, appears infected. cultures sent. he has not been on antibiotics or had wound follow up since hospitalization in july. antibioitcs prescribed and advised him to f/u with Dr. Lester (provider on our call list for ED follow ups for this week) for referral to wound clinic. return precautiosn given. Departure - Departure Disposition: 01 Home, Self Care Clinical Impression: Open wound of left lower extremity Condition: Stable Instructions: Dressing Change Dc Follow-Up: Gee Lester MD [Physician No Access] - Prescriptions: Mupirocin 2% Oint [Bactroban 2% Oint] 1 applic TOP BID #50 gm Doxycycline Hyclate 100 mg PO BID 14 Days #28 tab Ketorolac [Toradol] 10 mg PO Q6H PRN #30 tablet PRN Reason: Pain Comments: You were seen in the emergency department for evaluation of chronic leg wound. A culture was done and we will call you if you need to come back in or have your antibiotics adjusted. Please return to the ED if you have temp >100.4 (fever), new or worsening symptoms or other concerns. Take your medicines as prescribed. You should also follow up with Dr. Lester for ED follow up and for referral to our wound clinic, located within the hospital at [facility] (info below). [facility]. [address] [place] [address]. [place] [address]. Directions and Map. Discharge Date/Time: 10/26/21 21:33
[2021-10-26 21:31] VITALS: BP 168/90
--- NOTE | 2021-10-28 08:09 | ED Physician Documentation ---
ED Addendum - Addendum Addendum: 10/28/21 08:08 Cultures come back showing MRSA with resistance to tetracycline and trimethoprim sulfa. It is sensitive to clindamycin. He was discharged on doxycycline so we can change from that to clindamycin. I will have nursing find out which pharmacy he prefers and update the prescription.
--- NOTE | 2021-10-29 12:11 | ED Physician Documentation ---
ED Addendum - Addendum Addendum: 10/29/21 12:11 Culture review, in addition to the MRSA that Dr. Garza had already addressed yesterday, secondary culture grew Klebsiella oxytocin. Per the notes patient should already have a prescription for Bactrim and asked the nurse to advise him to restart this but continue the clindamycin.
== END 2021-10-26 21:33 | disposition home or self-care (01) ==
LOC: ED 18:23
DX: S81.802A Unspecified open wound, left lower leg, initial encounter (principal); X58.XXXA Exposure to other specified factors, initial encounter; A49.02 Methicillin resistant Staphylococcus aureus infection, unspecified site; F17.200 Nicotine dependence, unspecified, uncomplicated
CPT/HCPCS: 36415; 87040; 87070; 87077; 87181; 87205; 96372; 99283; A9270

== ENCOUNTER 2021-12-05 16:08 | Emergency (ER) | payer MEDICAID ==
[2021-12-05 16:32] VITALS: BP 173/108
== END 2021-12-05 17:45 | disposition left against medical advice (07) ==
LOC: ED 16:08
DX: Z53.21 Procedure and treatment not carried out due to patient leaving prior to being seen by health care provider (principal)

== ENCOUNTER 2021-12-15 17:17 | Emergency (ER) | payer MEDICAID ==
--- NOTE | 2021-12-15 17:25 | ED Physician Documentation ---
PD HPI SKIN - Stated complaint Stated Complaint: WOUND LT LEG/MRSA - History obtained from History obtained from: Patient - History of Present Illness Timing - onset: How many weeks ago (1) Timing - duration: Weeks (1 week of redness and swelling. The wound itself has been for multiple months.) Timing - details: Gradual onset Location: LLE (Anterior lower leg wound chronically nonhealing with infection. Redness and swelling from mid rivera to top of the foot the past week.) Quality / character: Painful, Discolored (red), Swelling, Draining Associated symptoms: No: Fever, Myalgias, N/V/D Recently seen: Emergency Dept (October 26 (7 weeks ago) and treated with Bactrim and then clindamycin added due to resistance of MRSA. He states he had improvement with the clindamycin and did not take the Bactrim as well. Redness and swelling were gone and wound was started to heal. Worse again the past week.). No: Clinic (He states he called the wound care clinic after his last admission but they were not taking new patients at that time. I told him he could try again and see if they are now.) Review of Systems Constitutional: denies: Fever, Chills, Myalgias Nose: denies: Rhinorrhea / runny nose, Congestion Throat: denies: Sore throat Respiratory: denies: Cough GI: denies: Abdominal Pain, Nausea, Vomiting, Diarrhea Musculoskeletal: reports: Extremity swelling (left lower leg the past week) Neurologic: denies: Focal weakness, Numbness PD PAST MEDICAL HISTORY - Past Medical History Cardiovascular: None Respiratory: None Neuro: Head injury Endocrine/Autoimmune: None GI: None : None HEENT: None Psych: None Musculoskeletal: None Derm: None, Other drug resistant infections - Past Surgical History Past Surgical History: No - Present Medications Home Medications: Ambulatory Orders Medication Instructions Recorded Confirmed Benzonatate [Tessalon] 100 mg PO TID PRN #20 cap 08/04/21 Cholecalciferol [Vitamin D3] 800 unit PO DAILY #60 tablet 08/04/21 Ciprofloxacin [Cipro] 500 mg PO BID 8 Days #32 tablet 08/04/21 Ferrous Sulfate [Feosol] 325 mg PO DAILY #30 tablet 08/04/21 HYDROcod/ACETAM 5/325 [[place] 5/325] 1 tab PO Q4H PRN #15 tablet 08/04/21 Lactobacillus Rhamnosus GG 1 cap PO DAILY #8 cap 08/04/21 [Culturelle] Linezolid [Zyvox] 600 mg PO BID 8 Days #16 tablet 08/04/21 Multivitamin W/Minerals [Theragran 1 tab PO QDLUNCH #30 tablet 08/04/21 M] Nicotine 14 mg Patch [Nicoderm] 1 patch TOP DAILY PRN #7 patch 08/04/21 Doxycycline Hyclate 100 mg PO BID 14 Days #28 tab 10/26/21 Ketorolac [Toradol] 10 mg PO Q6H PRN #30 tablet 10/26/21 Mupirocin 2% Oint [Bactroban 2% 1 applic TOP BID #50 gm 10/26/21 Oint] HYDROcod/ACETAM 5/325 [[place] 5/325] 1 ea PO Q6H PRN #15 tablet 12/15/21 Mupirocin 2% Oint [Bactroban 2% 1 applic TOP TID #15 gm 12/15/21 Oint] Soft Lens Rinse,Store Solution 20 ml TOP TID 6 Days #355 ml 12/15/21 [Saline Solution] cephALEXin [Keflex] 500 mg PO TID #20 cap 12/15/21 clindamycin HCL [Clindamycin HCl] 300 mg PO TID 7 Days #20 cap 12/15/21 - Allergies Allergies/Adverse Reactions: Allergies Allergy/AdvReac Type Severity Reaction Status Date / Time No Known Drug Allergies Allergy Verified 12/15/21 17:27 - Living Situation Living Situation: reports: Alone Living Arrangement: reports: Homeless - Social History Does the pt smoke?: Yes Smoking Status: Current every day smoker Does the pt drink ETOH?: No Does the pt have substance abuse?: Yes - Immunizations Immunizations are current?: Yes - POLST Patient has POLST: No POLST Status: Full Code PD ED PE NORMAL - Vitals Vital signs reviewed: Yes - General General: Alert and oriented X 3, No acute distress, Well developed/nourished - Cardiac Cardiac: RRR, No murmur - Respiratory Respiratory: Clear bilaterally - Abdomen Abdomen: Soft, Non tender - Derm Derm: Normal color, Warm and dry, Other (Anterior left lower leg ulcerative wound through the fatty layer to the fatty layer. Muscle not seen. There is some purulent material from the edges with palpation which is cultured. Photos taken by nursing. ) - Extremities Extremities: Other (The left lower leg shows redness warmth and swelling from the proximal tibial area to the dorsum of the foot. There is mild general tenderness. No crepitance. The calf is not tender. There is an open ulcerative wound in the mid lower leg anteriorly about 5 to 6 cm diameter.) - Neuro Neuro: Alert and oriented X 3, No motor deficit, Normal speech Results - Vitals Vitals: Vital Signs - 24 hr 12/15/21 17:28 Temperature 36.7 C Heart Rate 93 Respiratory 18 Rate Blood Pressure 148/100 H O2 Saturation 100 Oxygen O2 Source Room air - Labs Labs: Laboratory Tests 12/15/21 12/15/21 12/15/21 17:50 17:50 17:50 WBC 8.5 RBC 4.40 L Hgb 13.0 L Hct 39.3 L MCV 89.3 MCH 29.5 MCHC 33.1 RDW 13.3 Plt Count 351 MPV 9.2 Neut # (Auto) 5.5 Lymph # (Auto) 1.6 [place] # (Auto) 0.7 Eos # (Auto) 0.7 Baso # (Auto) 0.1 Absolute Nucleated RBC 0.00 Nucleated RBC % 0.0 Sodium 139 Potassium 4.4 Chloride 100 L Carbon Dioxide 29 Anion Gap 10.0 BUN 15 Creatinine 0.9 Estimated GFR (MDRD) 90 Glucose 75 Lactic Acid 0.9 Calcium 9.0 Total Bilirubin 0.3 AST 19 ALT 14 Alkaline Phosphatase 82 Total Protein 7.5 Albumin 3.1 L Globulin 4.3 H Albumin/Globulin Ratio 0.7 L Lipase 29 PD MEDICAL DECISION MAKING - ED course Complexity details: reviewed old records (I would choose antibiotics based off his prior culture from early October showing Klebsiella and MRSA. We will start with cephalosporin and clindamycin.), d/w patient Departure - Departure Disposition: 01 Home, Self Care Clinical Impression: Wound infection, Cellulitis Condition: Stable Instructions: ED Infec Skin Cellulitis Prescriptions: Mupirocin 2% Oint [Bactroban 2% Oint] 1 applic TOP TID #15 gm clindamycin HCL [Clindamycin HCl] 300 mg PO TID 7 Days #20 cap cephALEXin [Keflex] 500 mg PO TID #20 cap HYDROcod/ACETAM 5/325 [[place] 5/325] 1 ea PO Q6H PRN #15 tablet PRN Reason: Pain Soft Lens Rinse,Store Solution [Saline Solution] 20 ml TOP TID 6 Days #355 ml Comments: Cleanse your wound with a little bit of saline 3 times daily and apply mupirocin ointment topical antibiotic. I wrote prescriptions for both of these. Also antibiotics of cephalexin and clindamycin 3 times daily for the next week. Add Tylenol or hydrocodone if needed for pains. I sent your prescriptions to [facility] pharmacy in [place]. Try to follow-up with the walk-in clinic or primary care next week. Return to the ER as needed. You could also try calling the wound care clinic again and see if they have openings available at this point. Their number is I am prescribing a short course of narcotic pain medication for you. These are potentially dangerous and addictive medications that should be used carefully. These medications may constipate you. Take an [id number] stool softener such as docusate twice daily with plenty of water while taking these medications. If you go 24 hours without a bowel movement, take [id number] MiraLAX, per package instructions. Do not drink or drive while taking these medications. If you received narcotic or sedating medications while in the emergency department do not drive for 24 hours. Store this medication in a safe, secure place and out of reach of children. It is a violation of federal law to give or sell this medication to another person or to use in a manner other than prescribed. The ED will not refill narcotic prescriptions, including prescriptions lost or stolen. You can dispose of unwanted medications at the [facility]'s office or at several pharmacies such as [facility].
[2021-12-15 17:30] VITALS: BP 148/100
[2021-12-15] MEDS ORDERED: SULFAMETH/TRIMETH DS 800/160 MG TABLET PO STA (17:40)
[2021-12-15] MEDS ORDERED: HYDROcod/ACETAM 5/325 MG TABLET PO STA (17:40)
[2021-12-15] MEDS ORDERED: CLINDAMYCIN 150 MG CAPSULE PO STA (17:40)
[2021-12-15] MEDS ORDERED: MUPIROCIN 2% OINT 1 GM TOP STA (17:40)
[2021-12-15] MEDS ORDERED: KETOROLAC 30 MG/ML VIAL IM STA (17:42)
[2021-12-15] MEDS ORDERED: LIDOCAINE 1% 2 ML VIAL MC ONE (17:42)
[2021-12-15] MEDS ORDERED: cefTRIAXone 500 MG VIAL IM STA (17:42)
[2021-12-15 18:02] LABS: BASOPHILS # (AUTO) 0.1 10^3/uL (0.0-0.1); BASOPHILS % (AUTO) 0.7 %; EOSINOPHILS # (AUTO) 0.7 10^3/uL (0.0-0.7); EOSINOPHILS % (AUTO) 7.6 %; HCT - HEMATOCRIT 39.3 % (42.0-52.0); LYMPHOCYTES # (AUTO) 1.6 10^3/uL (1.5-3.5); LYMPHOCYTES % (AUTO) 18.7 %; MEAN CORPUSCULAR HEMOGLOBIN 29.5 pg (27.0-31.0); MEAN CORPUSCULAR HGB CONC 33.1 g/dL (32.0-36.0); MEAN CORPUSCULAR VOLUME 89.3 fL (80.0-94.0); MEAN PLATELET VOLUME 9.2 fL (7.4-11.4); MONOCYTES # (AUTO) 0.7 10^3/uL (0.0-1.0); MONOCYTES % (AUTO) 8.3 %; NEUTROPHILS # (AUTO) 5.5 10^3/uL (1.5-6.6); NEUTROPHILS % (AUTO) 64.5 %; PLT - PLATELET COUNT 351 10^3/uL (130-450); RED CELL DISTRIBUTION WIDTH 13.3 % (12.0-15.0); WHITE BLOOD COUNT 8.5 x10^3/uL (4.8-10.8)
[2021-12-15 18:15] LABS: ALBUMIN 3.1 g/dL (3.2-5.5); ALBUMIN/GLOBULIN RATIO 0.7 (1.0-2.2); BILIRUBIN,TOTAL 0.3 mg/dL (0.2-1.0); CREATININE 0.9 mg/dL (0.6-1.2); POTASSIUM 4.4 mmol/L (3.5-5.0); TOTAL PROTEIN 7.5 g/dL (6.7-8.2)
== END 2021-12-15 19:14 | disposition home or self-care (01) ==
LOC: ED 17:17
DX: L03.116 Cellulitis of left lower limb (principal); A49.02 Methicillin resistant Staphylococcus aureus infection, unspecified site; S81.802A Unspecified open wound, left lower leg, initial encounter; X58.XXXA Exposure to other specified factors, initial encounter; Z59.00 Homelessness unspecified; F17.200 Nicotine dependence, unspecified, uncomplicated
CPT/HCPCS: 36415; 80053; 83605; 83690; 85025; 87070; 87077; 87181; 87205; 96372; 99284; A9270

== ENCOUNTER 2022-03-04 19:02 | Emergency (ER) | payer MEDICAID ==
--- OUTSIDE RECORDS SUMMARY | 2022-03-04 19:27 | EXTERNAL MEDICAL SUMMARY RPT | Continuity of Care Document ---
:1975 Author Organization [facility] Address [address] [place] [address] Phone Allergies and Intolerances date description facility type (no date) No Known Drug Allergies [facility] (unkn own) Encounters No information. Functional Status No information. Immunizations No information. Medications date description facility +0000 cefdinir 300 MG Oral Capsule [facility] [id number] linezolid 600 MG Oral Tablet [facility] Problems No information. Procedures date description facility +0000 Diagnosis [facility] [id number] Diagnosis [facility] [id number] Finding [facility] [id number] Finding [facility] [id number] General Physician [facility] [id number] [facility] Results/Labs test date author facility value unit interpret ation Result panel 1 (unknown) (no (unknown) (unknown) (no value) (units (unk nown) date) unknown) (unknown) (no (unknown) (unknown) Date of Service: (units (unknown) date) 01/31/22 unknown) (unknown) (no (unknown) (unknown) (no value) (units (unk nown) date) unknown) (unknown) (no (unknown) (unknown) Allergies (units (unkn own) date) unknown) (unknown) (no (unknown) (unknown) ED Orders (units (unkn own) date) unknown) (unknown) (no (unknown) (unknown) Emergency Report (units (unknown) date) unknown) (unknown) (no (unknown) (unknown) [facility] (units (unknown) date) [address]) [place] [address] (unknown) (no (unknown) (unknown) Vital Signs - 8 (units (unknown) date) hr unknown) (unknown) (no (unknown) (unknown) (no value) (units (unk nown) date) unknown) (unknown) (no (unknown) (unknown) 01/31/22 (units (unkno wn) date) unknown) (unknown) (no (unknown) (unknown) 01/31/22 07:09 (units (unknown) date) unknown) (unknown) (no (unknown) (unknown) 01/31/22 07:55 (units (unknown) date) unknown) (unknown) (no (unknown) (unknown) 07:00 (units (unkno wn) date) unknown) (unknown) (no (unknown) (unknown) [id number] (units (unkno wn) date) unknown) (unknown) (no (unknown) (unknown) Age/Sex: 46 / M (units (unknown) date) unknown) (unknown) (no (unknown) (unknown) Allergy/AdvReac (units (unknown) date) Type Severity unknown) Reaction Status Date / Time (unknown) (no (unknown) (unknown) Blood Culture (units ( unknown) date) Stat unknown) (unknown) (no (unknown) (unknown) Blood Pressure (units (unknown) date) 135/80 01/31/22 unknown) 07:00 (unknown) (no (unknown) (unknown) Blood Pressure (units (unknown) date) 135/80 unknown) (unknown) (no (unknown) (unknown) Chief Complaint: (units (unknown) date) Wound/Laceration unknown) (unknown) (no (unknown) (unknown) Complete Blood (units (unknown) date) Count AUTO DIFF unknown) Stat (unknown) (no (unknown) (unknown) Comprehensive (units ( unknown) date) Metabolic Panel unknown) Stat (unknown) (no (unknown) (unknown) Consult to ICHTHYOLOGIST - (units (unknown) date) Infection Preventionist unknown) Stat (unknown) (no (unknown) (unknown) Course (units (unkno wn) date) unknown) (unknown) (no (unknown) (unknown) : 1975 (units (unknown) date) Acct:[id number] unknown) (unknown) (no (unknown) (unknown) ER Physician: (units ( unknown) date) Lana Santiago unknown) D.O. (unknown) (no (unknown) (unknown) Exam (units (unkno wn) date) unknown) (unknown) (no (unknown) (unknown) General (units (unkno wn) date) unknown) (unknown) (no (unknown) (unknown) HPI - (units (unkno wn) date) Wound/Laceration unknown) (unknown) (no (unknown) (unknown) Initial Vital (units ( unknown) date) Signs unknown) (unknown) (no (unknown) (unknown) Initial Vital (units ( unknown) date) Signs: unknown) (unknown) (no (unknown) (unknown) Lactate (Lactic (units (unknown) date) Acid) Stat unknown) (unknown) (no (unknown) (unknown) Limitations: no (units (unknown) date) limitations unknown) (unknown) (no (unknown) (unknown) Lipase Stat (units (un known) date) unknown) (unknown) (no (unknown) (unknown) Mode of arrival: (units (unknown) date) Ambulatory unknown) (unknown) (no (unknown) (unknown) No Known Drug (units ( unknown) date) Allergies Allergy unknown) Verified 01/31/22 07:10 (unknown) (no (unknown) (unknown) Ordered: (units (unkno wn) date) unknown) (unknown) (no (unknown) (unknown) Orders (units (unkno wn) date) unknown) (unknown) (no (unknown) (unknown) Patient History (units (unknown) date) unknown) (unknown) (no (unknown) (unknown) Patient: (units (unkno wn) date) Piero Frazier unknown) MR#: [id number] (unknown) (no (unknown) (unknown) Procalcitonin (units ( unknown) date) Stat unknown) (unknown) (no (unknown) (unknown) Pulse Oximetry (units (unknown) date) 99 01/31/22 unknown) 07:00 (unknown) (no (unknown) (unknown) Pulse Oximetry (units (unknown) date) 99 unknown) (unknown) (no (unknown) (unknown) Pulse Rate 93 H (units (unknown) date) 01/31/22 07:00 unknown) (unknown) (no (unknown) (unknown) Pulse Rate 93 H (units (unknown) date) unknown) (unknown) (no (unknown) (unknown) ROS Unobtainable: (units (unknown) date) All systems unknown) reviewed + are unremarkable except as noted in HPI (unknown) (no (unknown) (unknown) Related Data (units (u nknown) date) unknown) (unknown) (no (unknown) (unknown) Respiratory Rate (units (unknown) date) 18 01/31/22 unknown) 07:00 (unknown) (no (unknown) (unknown) Respiratory Rate (units (unknown) date) 18 unknown) (unknown) (no (unknown) (unknown) Review of (units (unkn own) date) Systems unknown) (unknown) (no (unknown) (unknown) Signed By: (units (unk nown) date) unknown) (unknown) (no (unknown) (unknown) Smoking Status: (units (unknown) date) Current every day unknown) smoker (unknown) (no (unknown) (unknown) Smoking Status: (units (unknown) date) Current every day unknown) smoker (unknown) (no (unknown) (unknown) Social History (units (unknown) date) (Reviewed unknown) 01/31/22 @ 07:56 by Lana Santiago DO) (unknown) (no (unknown) (unknown) Source: patient (units (unknown) date) unknown) (unknown) (no (unknown) (unknown) Stated (units (unkno wn) date) Complaint: Mersa unknown) on left leg (unknown) (no (unknown) (unknown) Substance Use (units ( unknown) date) Type: marijuana unknown) (unknown) (no (unknown) (unknown) Temperature (units (un known) date) 98.4 F 01/31/22 unknown) 07:00 (unknown) (no (unknown) (unknown) Temperature 98.4 (units (unknown) date) F unknown) (unknown) (no (unknown) (unknown) Time Seen by (units (u nknown) date) Provider: unknown) 01/31/22 07:55 (unknown) (no (unknown) (unknown) Vital Signs (units (un known) date) unknown) (unknown) (no (unknown) (unknown) Vital signs: (units (u nknown) date) unknown) (unknown) (no (unknown) (unknown) alcohol intake (units (unknown) date) frequency: 0-2 unknown) drinks per day (unknown) (no (unknown) (unknown) and below (units (unkn own) date) unknown) Result panel 2 (unknown) (no (unknown) (unknown) (no value) (units (unk nown) date) unknown) (unknown) (no (unknown) (unknown) Date of Service: (units (unknown) date) 01/31/22 unknown) (unknown) (no (unknown) (unknown) (no value) (units (unk nown) date) unknown) (unknown) (no (unknown) (unknown) 01/31/22 07:52 (units (unknown) date) unknown) (unknown) (no (unknown) (unknown) Allergies (units (unkn own) date) unknown) (unknown) (no (unknown) (unknown) ED Orders (units (unkn own) date) unknown) (unknown) (no (unknown) (unknown) Emergency Report (units (unknown) date) unknown) (unknown) (no (unknown) (unknown) [facility] (units (unknown) date) [address]) [place] [address] (unknown) (no (unknown) (unknown) Vital Signs - 8 (units (unknown) date) hr unknown) (unknown) (no (unknown) (unknown) (no value) (units (unk nown) date) unknown) (unknown) (no (unknown) (unknown) 01/31/22 (units (unkno wn) date) unknown) (unknown) (no (unknown) (unknown) 01/31/22 07:09 (units (unknown) date) unknown) (unknown) (no (unknown) (unknown) 01/31/22 07:52 (units (unknown) date) unknown) (unknown) (no (unknown) (unknown) 07:00 (units (unkno wn) date) unknown) (unknown) (no (unknown) (unknown) [id number] (units (unkno wn) date) unknown) (unknown) (no (unknown) (unknown) Age/Sex: 46 / M (units (unknown) date) unknown) (unknown) (no (unknown) (unknown) Allergy/AdvReac (units (unknown) date) Type Severity unknown) Reaction Status Date / Time (unknown) (no (unknown) (unknown) Blood Culture (units ( unknown) date) Stat unknown) (unknown) (no (unknown) (unknown) Blood Pressure (units (unknown) date) 135/80 01/31/22 unknown) 07:00 (unknown) (no (unknown) (unknown) Blood Pressure (units (unknown) date) 135/80 unknown) (unknown) (no (unknown) (unknown) Chief Complaint: (units (unknown) date) Wound/Laceration unknown) (unknown) (no (unknown) (unknown) Complete Blood (units (unknown) date) Count AUTO DIFF unknown) Stat (unknown) (no (unknown) (unknown) Comprehensive (units ( unknown) date) Metabolic Panel unknown) Stat (unknown) (no (unknown) (unknown) Consult to ICHTHYOLOGIST - (units (unknown) date) Infection Preventionist unknown) Stat (unknown) (no (unknown) (unknown) Course (units (unkno wn) date) unknown) (unknown) (no (unknown) (unknown) : 1975 (units (unknown) date) Acct:[id number] unknown) (unknown) (no (unknown) (unknown) ER Physician: (units ( unknown) date) Lana Santiago unknown) D.O. (unknown) (no (unknown) (unknown) Exam (units (unkno wn) date) unknown) (unknown) (no (unknown) (unknown) General (units (unkno wn) date) unknown) (unknown) (no (unknown) (unknown) HPI - (units (unkno wn) date) Wound/Laceration unknown) (unknown) (no (unknown) (unknown) Initial Vital (units ( unknown) date) Signs unknown) (unknown) (no (unknown) (unknown) Initial Vital (units ( unknown) date) Signs: unknown) (unknown) (no (unknown) (unknown) Lab Data (units (unkno wn) date) unknown) (unknown) (no (unknown) (unknown) Lactate (Lactic (units (unknown) date) Acid) Stat unknown) (unknown) (no (unknown) (unknown) Limitations: no (units (unknown) date) limitations unknown) (unknown) (no (unknown) (unknown) Lipase Stat (units (un known) date) unknown) (unknown) (no (unknown) (unknown) MDM - (units (unkno wn) date) Wound/Laceration unknown) (unknown) (no (unknown) (unknown) Mode of arrival: (units (unknown) date) Ambulatory unknown) (unknown) (no (unknown) (unknown) No Known Drug (units ( unknown) date) Allergies Allergy unknown) Verified 01/31/22 07:10 (unknown) (no (unknown) (unknown) Ordered: (units (unkno wn) date) unknown) (unknown) (no (unknown) (unknown) Orders (units (unkno wn) date) unknown) (unknown) (no (unknown) (unknown) Patient History (units (unknown) date) unknown) (unknown) (no (unknown) (unknown) Patient: (units (unkno wn) date) Piero Frazier unknown) MR#: [id number] (unknown) (no (unknown) (unknown) Procalcitonin (units ( unknown) date) Stat unknown) (unknown) (no (unknown) (unknown) Pulse Oximetry (units (unknown) date) 99 01/31/22 unknown) 07:00 (unknown) (no (unknown) (unknown) Pulse Oximetry (units (unknown) date) 99 unknown) (unknown) (no (unknown) (unknown) Pulse Rate 93 H (units (unknown) date) 01/31/22 07:00 unknown) (unknown) (no (unknown) (unknown) Pulse Rate 93 H (units (unknown) date) unknown) (unknown) (no (unknown) (unknown) ROS Unobtainable: (units (unknown) date) All systems unknown) reviewed + are unremarkable except as noted in HPI (unknown) (no (unknown) (unknown) Related Data (units (u nknown) date) unknown) (unknown) (no (unknown) (unknown) Respiratory Rate (units (unknown) date) 18 01/31/22 unknown) 07:00 (unknown) (no (unknown) (unknown) Respiratory Rate (units (unknown) date) 18 unknown) (unknown) (no (unknown) (unknown) Result diagrams: (units (unknown) date) unknown) (unknown) (no (unknown) (unknown) Review of (units (unkn own) date) Systems unknown) (unknown) (no (unknown) (unknown) Signed By: (units (unk nown) date) unknown) (unknown) (no (unknown) (unknown) Smoking Status: (units (unknown) date) Current every day unknown) smoker (unknown) (no (unknown) (unknown) Smoking Status: (units (unknown) date) Current every day unknown) smoker (unknown) (no (unknown) (unknown) Social History (units (unknown) date) (Reviewed unknown) 01/31/22 @ 08:11 by Lana Santiago DO) (unknown) (no (unknown) (unknown) Source: patient (units (unknown) date) unknown) (unknown) (no (unknown) (unknown) Stated (units (unkno wn) date) Complaint: Mersa unknown) on left leg (unknown) (no (unknown) (unknown) Substance Use (units ( unknown) date) Type: marijuana unknown) (unknown) (no (unknown) (unknown) Temperature (units (un known) date) 98.4 F 01/31/22 unknown) 07:00 (unknown) (no (unknown) (unknown) Temperature 98.4 (units (unknown) date) F unknown) (unknown) (no (unknown) (unknown) Time Seen by (units (u nknown) date) Provider: unknown) 01/31/22 07:55 (unknown) (no (unknown) (unknown) Vital Signs (units (un known) date) unknown) (unknown) (no (unknown) (unknown) Vital signs: (units (u nknown) date) unknown) (unknown) (no (unknown) (unknown) [Embedded Image (units (unknown) date) Not Available] unknown) (unknown) (no (unknown) (unknown) alcohol intake (units (unknown) date) frequency: 0-2 unknown) drinks per day (unknown) (no (unknown) (unknown) and below (units (unkn own) date) unknown) Result panel 3 (unknown) (no (unknown) (unknown) (no value) (units (unk nown) date) unknown) (unknown) (no (unknown) (unknown) [address] [place] [address] (units (unknown) date) unknown) (unknown) (no (unknown) (unknown) [facility]ha (units ( unknown) date) [id number] unknown) (unknown) (no (unknown) (unknown) [facility] (units (unknown) date) unknown) (unknown) (no (unknown) (unknown) Signed (units (unkno wn) date) unknown) (unknown) (no (unknown) (unknown) Ultrasound (units (unk nown) date) Report unknown) (unknown) (no (unknown) (unknown) XRay Report (units (un known) date) unknown) (unknown) (no (unknown) (unknown) (no value) (units (unk nown) date) unknown) (unknown) (no (unknown) (unknown) 01/31/22 (units (unkno wn) date) unknown) (unknown) (no (unknown) (unknown) A1 can be seen, (units (unknown) date) without an unknown) associated underlying fluid collection. (unknown) (no (unknown) (unknown) Approved by: (units (u nknown) date) Yrn Baker, unknown) Peggy on 01/31/2022 at 8:46 (unknown) (no (unknown) (unknown) Approved by: (units (u nknown) date) Juan Vaughan, unknown) Peggy on 01/31/2022 at 8:14 (unknown) (no (unknown) (unknown) Bones: No acute (units (unknown) date) fractures or unknown) dislocations. No suspicious bony lesions. (unknown) (no (unknown) (unknown) COMPARISON: (units (un known) date) None. unknown) (unknown) (no (unknown) (unknown) Dictated by: (units (u nknown) date) Yrn Baker, rupinder) Peggy on 01/31/2022 at 8:41 (unknown) (no (unknown) (unknown) Dictated by: (units (u nknown) date) Juan Vaughan, rupinder) MKelsey on 01/31/2022 at 8:13 (unknown) (no (unknown) (unknown) Enlarged left (units ( unknown) date) groin lymph nodes unknown) are seen, with the largest measuring 3.5 x 1.4 (unknown) (no (unknown) (unknown) Enlarged left (units ( unknown) date) groin lymph nodes unknown) are seen. (unknown) (no (unknown) (unknown) FINDINGS: (units (unkn own) date) unknown) (unknown) (no (unknown) (unknown) FINDINGS: The (units (unknown) date) common femoral, unknown) femoral and popliteal veins are normally (unknown) (no (unknown) (unknown) IMPRESSION: (units (un known) date) unknown) (unknown) (no (unknown) (unknown) IMPRESSION: (units (un known) date) Skin irregularity unknown) is seen at the anterior lower leg with diffuse (unknown) (no (unknown) (unknown) INDICATIONS: (units (u nknown) date) PAIN AND SWELLING unknown) WITH CHRONIC INFECTION (unknown) (no (unknown) (unknown) INDICATIONS: (units (u nknown) date) chronic leg unknown) infection, r/o FB (unknown) (no (unknown) (unknown) Negative for (units (u nknown) date) deep venous unknown) thrombosis. (unknown) (no (unknown) (unknown) No fluid (units (unkno wn) date) collections are unknown) seen associated with the wound. (unknown) (no (unknown) (unknown) Real-time (units (unkn own) date) imaging, as well unknown) as color and pulse Doppler interrogation, were (unknown) (no (unknown) (unknown) Soft tissues: (units ( unknown) date) No suspicious unknown) soft tissue calcifications or masses. Skin (unknown) (no (unknown) (unknown) TECHNIQUE: (units (unk nown) date) unknown) (unknown) (no (unknown) (unknown) TECHNIQUE: 2 (units ( unknown) date) views of the unknown) tibia and fibula were acquired. (unknown) (no (unknown) (unknown) This lymph node (units (unknown) date) demonstrates a unknown) normal fatty hilum. There is additional (unknown) (no (unknown) (unknown) free of (units (unkno wn) date) intraluminal unknown) thrombus. Color and pulse Doppler demonstrate normal (unknown) (no (unknown) (unknown) intraluminal (units (u nknown) date) flow. There is unknown) normal augmentation response to distal compression (unknown) (no (unknown) (unknown) node measuring 3 (units (unknown) date) x 3 x 1.4 cm that unknown) demonstrates loss of the normal fatty hilum. (unknown) (no (unknown) (unknown) present. (units (unkno wn) date) unknown) (unknown) (no (unknown) (unknown) seen at the (units (un known) date) anterior aspect unknown) of lower leg. Diffuse subcutaneous soft tissue (unknown) (no (unknown) (unknown) subcutaneous (units (u nknown) date) soft tissue unknown) edema. No radiopaque foreign body. (unknown) (no (unknown) (unknown) the lower (units (unkn own) date) extremity deep unknown) veins from the inguinal ligament to the popliteal (unknown) (no (unknown) (unknown) [id number] (units (unkno wn) date) unknown) (unknown) (no (unknown) (unknown) Accession (units (unkn own) date) Number: unknown) [id number] (unknown) (no (unknown) (unknown) Accession (units (unkn own) date) Number: unknown) [id number] (unknown) (no (unknown) (unknown) Age/Sex: 46 / M (units (unknown) date) Date of unknown) Service: (unknown) (no (unknown) (unknown) : 1975 (units (unknown) date) Acct:[id number] unknown) (unknown) (no (unknown) (unknown) Loc: ED (units (unkno wn) date) unknown) (unknown) (no (unknown) (unknown) Ordering (units (unkno wn) date) Provider: unknown) Lana Santiago D.O. (unknown) (no (unknown) (unknown) PROCEDURE: US (units (unknown) date) PERIPH VENOUS LOW unknown) EXTREM LT (unknown) (no (unknown) (unknown) PROCEDURE: XR (units (unknown) date) TIBIA FIBULA LT unknown) 2V (unknown) (no (unknown) (unknown) Patient: (units (unkno wn) date) Piero Frazier unknown) MR#: [id number] (unknown) (no (unknown) (unknown) Procedure: US (units ( unknown) date) periph venous low unknown) extrem lt (unknown) (no (unknown) (unknown) Procedure: XR (units ( unknown) date) tibia fibula LT unknown) 2V (unknown) (no (unknown) (unknown) compressible, (units ( unknown) date) and unknown) (unknown) (no (unknown) (unknown) edema is (units (unkno wn) date) unknown) (unknown) (no (unknown) (unknown) enlarged lymph (units (unknown) date) unknown) (unknown) (no (unknown) (unknown) fossa. (units (unkno wn) date) unknown) (unknown) (no (unknown) (unknown) irregularity is (units (unknown) date) unknown) (unknown) (no (unknown) (unknown) maneuver. (units (unkn own) date) unknown) (unknown) (no (unknown) (unknown) performed of (units (u nknown) date) unknown) (unknown) (no (unknown) (unknown) phasic (units (unkno wn) date) unknown) (unknown) (no (unknown) (unknown) x 2.8 cm. (units (unkn own) date) unknown) Result panel 4 (unknown) (no date) (unknown) (unknown) > 60 mL/min (unkn own) (unknown) (no date) (unknown) (unknown) 0.5 mg/dL (unkn own) (unknown) (no date) (unknown) (unknown) 0.98 mg/dL (unkn own) (unknown) (no date) (unknown) (unknown) 1.0 (units unknown) (unknown) (unknown) (no date) (unknown) (unknown) 1.7 mmol/L (unkn own) (unknown) (no date) (unknown) (unknown) 12 IU/L (unkn own) (unknown) (no date) (unknown) (unknown) 120 mg/dL (unkn own) (unknown) (no date) (unknown) (unknown) 134 mmol/L (unkn own) (unknown) (no date) (unknown) (unknown) 16 mg/dL (unkn own) (unknown) (no date) (unknown) (unknown) 16.3 (units unknown) (unknown) (unknown) (no date) (unknown) (unknown) 20 IU/L (unkn own) (unknown) (no date) (unknown) (unknown) 3.4 mmol/L (unkn own) (unknown) (no date) (unknown) (unknown) 3.8 g/dL (unkn own) (unknown) (no date) (unknown) (unknown) 3.9 g/dL (unkn own) (unknown) (no date) (unknown) (unknown) 30 mmol/L (unkn own) (unknown) (no date) (unknown) (unknown) 52 U/L (unkn own) (unknown) (no date) (unknown) (unknown) 7.7 g/dL (unkn own) (unknown) (no date) (unknown) (unknown) 8.8 mg/dL (unkn own) (unknown) (no date) (unknown) (unknown) 89 U/L (unkn own) (unknown) (no date) (unknown) (unknown) 98 mmol/L (unkn own) Result panel 5 (unknown) (no (unknown) (unknown) (no value) (units (unk nown) date) unknown) (unknown) (no (unknown) (unknown) Date of Service: (units (unknown) date) 01/31/22 unknown) (unknown) (no (unknown) (unknown) (no value) (units (unk nown) date) unknown) (unknown) (no (unknown) (unknown) 01/31/22 07:52 (units (unknown) date) unknown) (unknown) (no (unknown) (unknown) Allergies (units (unkn own) date) unknown) (unknown) (no (unknown) (unknown) ED Orders (units (unkn own) date) unknown) (unknown) (no (unknown) (unknown) Emergency Report (units (unknown) date) unknown) (unknown) (no (unknown) (unknown) [facility] (units (unknown) date) [address]) [place] [address] (unknown) (no (unknown) (unknown) Lab Results (units (un known) date) unknown) (unknown) (no (unknown) (unknown) Vital Signs - 8 (units (unknown) date) hr unknown) (unknown) (no (unknown) (unknown) (no value) (units (unk nown) date) unknown) (unknown) (no (unknown) (unknown) 01/31/22 (units (unkno wn) date) 01/31/22 unknown) Range/Units (unknown) (no (unknown) (unknown) 07:52 07:52 (units (un known) date) unknown) (unknown) (no (unknown) (unknown) 01/31/22 (units (unkno wn) date) unknown) (unknown) (no (unknown) (unknown) 0 /uL (unkno wn) date) (unknown) (no (unknown) (unknown) 0.4 % (unkno wn) date) (unknown) (no (unknown) (unknown) 0.8 % (unkno wn) date) (unknown) (no (unknown) (unknown) 01/31/22 07:09 (units (unknown) date) unknown) (unknown) (no (unknown) (unknown) 01/31/22 07:52 (units (unknown) date) unknown) (unknown) (no (unknown) (unknown) 01/31/22 08:26 (units (unknown) date) unknown) (unknown) (no (unknown) (unknown) 07:00 (units (unkno wn) date) unknown) (unknown) (no (unknown) (unknown) 100 /uL (unkno wn) date) (unknown) (no (unknown) (unknown) [id number] /uL (unkno wn) date) (unknown) (no (unknown) (unknown) 12.6 % (unkno wn) date) (unknown) (no (unknown) (unknown) 12.6 g/dL (unkno wn) date) (unknown) (no (unknown) (unknown) 13.3 X10 3/uL (unkno wn) date) (unknown) (no (unknown) (unknown) 15.5 % (unkno wn) date) (unknown) (no (unknown) (unknown) 1700 /uL (unkno wn) date) (unknown) (no (unknown) (unknown) 247 X10 3/uL (unkno wn) date) (unknown) (no (unknown) (unknown) 29.4 PG (unkno wn) date) (unknown) (no (unknown) (unknown) 33.0 % (unkno wn) date) (unknown) (no (unknown) (unknown) 38.1 % (unkno wn) date) (unknown) (no (unknown) (unknown) 4.28 X10 6/uL (unkno wn) date) (unknown) (no (unknown) (unknown) [id number] (units (unkno wn) date) unknown) (unknown) (no (unknown) (unknown) 6.8 % (unkno wn) date) (unknown) (no (unknown) (unknown) 79.4 % (unkno wn) date) (unknown) (no (unknown) (unknown) 89.0 fL (unkno wn) date) (unknown) (no (unknown) (unknown) 900 /uL (unkno wn) date) (unknown) (no (unknown) (unknown) ALT 12 (<50) (units (unknown) date) IU/L unknown) (unknown) (no (unknown) (unknown) AST 20 (units (unkno wn) date) (17-59) IU/L unknown) (unknown) (no (unknown) (unknown) Age/Sex: 46 / M (units (unknown) date) unknown) (unknown) (no (unknown) (unknown) Albumin 3.9 (units (u nknown) date) (3.5-5.0) g/dL unknown) (unknown) (no (unknown) (unknown) Albumin/Globulin (units (unknown) date) Ratio 1.0 unknown) (1.0-2.8) (unknown) (no (unknown) (unknown) Alkaline (units (unkno wn) date) Phosphatase 89 unknown) (38-126) U/L (unknown) (no (unknown) (unknown) Allergy/AdvReac (units (unknown) date) Type Severity unknown) Reaction Status Date / Time (unknown) (no (unknown) (unknown) BUN 16 (9-20) (units (unknown) date) mg/dL unknown) (unknown) (no (unknown) (unknown) BUN/Creatinine (units (unknown) date) Ratio 16.3 unknown) (6-22) (unknown) (no (unknown) (unknown) Blood Culture (units ( unknown) date) Stat unknown) (unknown) (no (unknown) (unknown) Blood Pressure (units (unknown) date) 135/80 06/07/22 unknown) 07:00 (unknown) (no (unknown) (unknown) Blood Pressure (units (unknown) date) 135/80 unknown) (unknown) (no (unknown) (unknown) Calcium 8.8 (units (u nknown) date) (8.4-10.2) mg/dL unknown) (unknown) (no (unknown) (unknown) Carbon Dioxide (units (unknown) date) 30 (22-32) unknown) mmol/L (unknown) (no (unknown) (unknown) Chief Complaint: (units (unknown) date) Wound/Laceration unknown) (unknown) (no (unknown) (unknown) Chloride 98 (units (u nknown) date) (98-107) mmol/L unknown) (unknown) (no (unknown) (unknown) Complete Blood (units (unknown) date) Count AUTO DIFF unknown) Stat (unknown) (no (unknown) (unknown) Comprehensive (units ( unknown) date) Metabolic Panel unknown) Stat (unknown) (no (unknown) (unknown) Consult to ICHTHYOLOGIST - (units (unknown) date) Infection Preventionist unknown) Stat (unknown) (no (unknown) (unknown) Course (units (unkno wn) date) unknown) (unknown) (no (unknown) (unknown) Creatinine 0.98 (units (unknown) date) (0.66-1.25) unknown) mg/dL (unknown) (no (unknown) (unknown) : 1975 (units (unknown) date) Acct:[id number] unknown) (unknown) (no (unknown) (unknown) ER Physician: (units ( unknown) date) Lana Santiago unknown) D.O. (unknown) (no (unknown) (unknown) Estimated GFR > (units (unknown) date) 60 (>60) unknown) mL/min (unknown) (no (unknown) (unknown) Exam (units (unkno wn) date) unknown) (unknown) (no (unknown) (unknown) General (units (unkno wn) date) unknown) (unknown) (no (unknown) (unknown) Globulin 3.8 (units ( unknown) date) (1.7-4.1) g/dL unknown) (unknown) (no (unknown) (unknown) Glucose 120 H (units (unknown) date) (70-100) mg/dL unknown) (unknown) (no (unknown) (unknown) HPI - (units (unkno wn) date) Wound/Laceration unknown) (unknown) (no (unknown) (unknown) HPI narrative: (units (unknown) date) unknown) (unknown) (no (unknown) (unknown) History of (units (unk nown) date) Present Illness unknown) (unknown) (no (unknown) (unknown) Initial Vital (units ( unknown) date) Signs unknown) (unknown) (no (unknown) (unknown) Initial Vital (units ( unknown) date) Signs: unknown) (unknown) (no (unknown) (unknown) Lab Data (units (unkno wn) date) unknown) (unknown) (no (unknown) (unknown) Labs: (units (unkno wn) date) unknown) (unknown) (no (unknown) (unknown) Lactate 1.7 (units ( unknown) date) (0.7-2.1) mmol/L unknown) (unknown) (no (unknown) (unknown) Lactate (Lactic (units (unknown) date) Acid) Stat unknown) (unknown) (no (unknown) (unknown) Limitations: no (units (unknown) date) limitations unknown) (unknown) (no (unknown) (unknown) Lipase 52 (units (unk nown) date) (23-300) U/L unknown) (unknown) (no (unknown) (unknown) Lipase Stat (units (un known) date) unknown) (unknown) (no (unknown) (unknown) MDM - (units (unkno wn) date) Wound/Laceration unknown) (unknown) (no (unknown) (unknown) Mode of arrival: (units (unknown) date) Ambulatory unknown) (unknown) (no (unknown) (unknown) No Known Drug (units ( unknown) date) Allergies Allergy unknown) Verified 01/31/22 07:10 (unknown) (no (unknown) (unknown) Ordered: (units (unkno wn) date) unknown) (unknown) (no (unknown) (unknown) Orders (units (unkno wn) date) unknown) (unknown) (no (unknown) (unknown) Patient History (units (unknown) date) unknown) (unknown) (no (unknown) (unknown) Patient: (units (unkno wn) date) Piero Frazier unknown) MR#: [id number] (unknown) (no (unknown) (unknown) Potassium 3.4 (units (unknown) date) (3.4-5.1) mmol/L unknown) (unknown) (no (unknown) (unknown) Procalcitonin (units ( unknown) date) Stat unknown) (unknown) (no (unknown) (unknown) Pulse Oximetry (units (unknown) date) 99 01/31/22 unknown) 07:00 (unknown) (no (unknown) (unknown) Pulse Oximetry (units (unknown) date) 99 unknown) (unknown) (no (unknown) (unknown) Pulse Rate 93 H (units (unknown) date) 01/31/22 07:00 unknown) (unknown) (no (unknown) (unknown) Pulse Rate 93 H (units (unknown) date) unknown) (unknown) (no (unknown) (unknown) ROS Unobtainable: (units (unknown) date) All systems unknown) reviewed + are unremarkable except as noted in HPI (unknown) (no (unknown) (unknown) Related Data (units (u nknown) date) unknown) (unknown) (no (unknown) (unknown) Respiratory Rate (units (unknown) date) 18 01/31/22 unknown) 07:00 (unknown) (no (unknown) (unknown) Respiratory Rate (units (unknown) date) 18 unknown) (unknown) (no (unknown) (unknown) Result diagrams: (units (unknown) date) unknown) (unknown) (no (unknown) (unknown) Review of (units (unkn own) date) Systems unknown) (unknown) (no (unknown) (unknown) Signed By: (units (unk nown) date) unknown) (unknown) (no (unknown) (unknown) Smoking Status: (units (unknown) date) Current every day unknown) smoker (unknown) (no (unknown) (unknown) Smoking Status: (units (unknown) date) Current every day unknown) smoker (unknown) (no (unknown) (unknown) Social History (units (unknown) date) (Reviewed unknown) 01/31/22 @ 08:11 by Lana Santiago DO) (unknown) (no (unknown) (unknown) Sodium 134 L (units ( unknown) date) (137-145) mmol/L unknown) (unknown) (no (unknown) (unknown) Source: patient (units (unknown) date) unknown) (unknown) (no (unknown) (unknown) Stated (units (unkno wn) date) Complaint: Mersa unknown) on left leg (unknown) (no (unknown) (unknown) Substance Use (units ( unknown) date) Type: marijuana unknown) (unknown) (no (unknown) (unknown) Temperature (units (un known) date) 98.4 F 01/31/22 unknown) 07:00 (unknown) (no (unknown) (unknown) Temperature 98.4 (units (unknown) date) F unknown) (unknown) (no (unknown) (unknown) This is a (units (unkno wn) date) 46-year-old man unknown) with history of housing in security, longstanding left (unknown) (no (unknown) (unknown) Time Seen by (units (u nknown) date) Provider: unknown) 01/31/22 07:55 (unknown) (no (unknown) (unknown) Total Bilirubin (units (unknown) date) 0.5 (0.2-1.3) unknown) mg/dL (unknown) (no (unknown) (unknown) Total Protein (units ( unknown) date) 7.7 (6.3-8.2) unknown) g/dL (unknown) (no (unknown) (unknown) US periph venous (units (unknown) date) low extrem lt unknown) Stat (unknown) (no (unknown) (unknown) Vital Signs (units (un known) date) unknown) (unknown) (no (unknown) (unknown) Vital signs: (units (u nknown) date) unknown) (unknown) (no (unknown) (unknown) XR tibia fibula (units (unknown) date) LT 2V Stat unknown) (unknown) (no (unknown) (unknown) [Embedded Image (units (unknown) date) Not Available] unknown) (unknown) (no (unknown) (unknown) alcohol intake (units (unknown) date) frequency: 0-2 unknown) drinks per day (unknown) (no (unknown) (unknown) and below (units (unkn own) date) unknown) (unknown) (no (unknown) (unknown) cutting his leg. (units (unknown) date) unknown) (unknown) (no (unknown) (unknown) lower leg (units (unkno wn) date) infection. unknown) Patient states initially he injured his leg when trying to (unknown) (no (unknown) (unknown) pull would out (units (unknown) date) of a pile of tree unknown) that had been cut down he fell scraping or Result panel 6 (unknown) (no date) (unknown) (unknown) > 60 mL/min (unkn own) (unknown) (no date) (unknown) (unknown) 0.37 ng/mL (unkn own) (unknown) (no date) (unknown) (unknown) 0.5 mg/dL (unkn own) (unknown) (no date) (unknown) (unknown) 0.98 mg/dL (unkn own) (unknown) (no date) (unknown) (unknown) 1.0 (units unknown) (unknown) (unknown) (no date) (unknown) (unknown) 12 IU/L (unkn own) (unknown) (no date) (unknown) (unknown) 120 mg/dL (unkn own) (unknown) (no date) (unknown) (unknown) 134 mmol/L (unkn own) (unknown) (no date) (unknown) (unknown) 16 mg/dL (unkn own) (unknown) (no date) (unknown) (unknown) 16.3 (units unknown) (unknown) (unknown) (no date) (unknown) (unknown) 20 IU/L (unkn own) (unknown) (no date) (unknown) (unknown) 3.4 mmol/L (unkn own) (unknown) (no date) (unknown) (unknown) 3.8 g/dL (unkn own) (unknown) (no date) (unknown) (unknown) 3.9 g/dL (unkn own) (unknown) (no date) (unknown) (unknown) 30 mmol/L (unkn own) (unknown) (no date) (unknown) (unknown) 52 U/L (unkn own) (unknown) (no date) (unknown) (unknown) 7.7 g/dL (unkn own) (unknown) (no date) (unknown) (unknown) 8.8 mg/dL (unkn own) (unknown) (no date) (unknown) (unknown) 89 U/L (unkn own) (unknown) (no date) (unknown) (unknown) 98 mmol/L (unkn own) Result panel 7 (unknown) (no (unknown) (unknown) (no value) (units (unk nown) date) unknown) (unknown) (no (unknown) (unknown) Radiologist's (units ( unknown) date) Impression: unknown) (unknown) (no (unknown) (unknown) (no value) (units (unk nown) date) unknown) (unknown) (no (unknown) (unknown) Date of Service: (units (unknown) date) 01/31/22 unknown) (unknown) (no (unknown) (unknown) (no value) (units (unk nown) date) unknown) (unknown) (no (unknown) (unknown) 01/31/22 07:52 (units (unknown) date) unknown) (unknown) (no (unknown) (unknown) [address] (units (unknown) date) unknown) (unknown) (no (unknown) (unknown) Allergies (units (unkn own) date) unknown) (unknown) (no (unknown) (unknown) [place], [place] (units ( unknown) date) [id number] unknown) (unknown) (no (unknown) (unknown) ED Orders (units (unkn own) date) unknown) (unknown) (no (unknown) (unknown) Emergency Report (units (unknown) date) unknown) (unknown) (no (unknown) (unknown) [facility] (units (unknown) date) unknown) (unknown) (no (unknown) (unknown) [facility] (units (unknown) date) [address] unknown) [place] [address] (unknown) (no (unknown) (unknown) Lab Results (units (un known) date) unknown) (unknown) (no (unknown) (unknown) Signed (units (unkno wn) date) unknown) (unknown) (no (unknown) (unknown) Stop: 01/31/22 (units (unknown) date) 08:27 unknown) (unknown) (no (unknown) (unknown) Stop: 01/31/22 (units (unknown) date) 09:25 unknown) (unknown) (no (unknown) (unknown) Stop: 01/31/22 (units (unknown) date) 11:25 unknown) (unknown) (no (unknown) (unknown) Vital Signs - 8 (units (unknown) date) hr unknown) (unknown) (no (unknown) (unknown) XRay Report (units (un known) date) unknown) (unknown) (no (unknown) (unknown) (no value) (units (unk nown) date) unknown) (unknown) (no (unknown) (unknown) 01/31/22 (units (unkno wn) date) 01/31/22 01/31/22 unknown) Range/Units (unknown) (no (unknown) (unknown) 07:52 07:52 (units (un known) date) 07:52 unknown) (unknown) (no (unknown) (unknown) 01/31/22 (units (unkno wn) date) unknown) (unknown) (no (unknown) (unknown) 01/31/22 07:09 (units (unknown) date) unknown) (unknown) (no (unknown) (unknown) 01/31/22 07:52 (units (unknown) date) unknown) (unknown) (no (unknown) (unknown) 01/31/22 08:10 (units (unknown) date) unknown) (unknown) (no (unknown) (unknown) 01/31/22 08:26 (units (unknown) date) unknown) (unknown) (no (unknown) (unknown) 01/31/22 08:43 (units (unknown) date) unknown) (unknown) (no (unknown) (unknown) 07:00 (units (unkno wn) date) unknown) (unknown) (no (unknown) (unknown) [id number] (units (unkno wn) date) unknown) (unknown) (no (unknown) (unknown) ? (units (unkno wn) date) unknown) (unknown) (no (unknown) (unknown) ALT 12 (<50) (units (unknown) date) IU/L unknown) (unknown) (no (unknown) (unknown) AST 20 (units (unkno wn) date) (17-59) IU/L unknown) (unknown) (no (unknown) (unknown) Accession (units (unkn own) date) Number: unknown) [id number] ?? (unknown) (no (unknown) (unknown) Acct:[id number] (units (unknown) date) unknown) (unknown) (no (unknown) (unknown) Age/Sex: 46 / M (units (unknown) date) unknown) (unknown) (no (unknown) (unknown) Age/Sex: 46 / M (units (unknown) date) unknown) (unknown) (no (unknown) (unknown) Albumin 3.9 (units ( unknown) date) (3.5-5.0) g/dL unknown) (unknown) (no (unknown) (unknown) Albumin/Globulin (units (unknown) date) Ratio 1.0 unknown) (1.0-2.8) (unknown) (no (unknown) (unknown) Alkaline (units (unkno wn) date) Phosphatase 89 unknown) (38-126) U/L (unknown) (no (unknown) (unknown) Allergy/AdvReac (units (unknown) date) Type Severity unknown) Reaction Status Date / Time (unknown) (no (unknown) (unknown) Approved by: (units (u nknown) date) alejandro Alex M.D. on 01/31/2022 at 8:46?? (unknown) (no (unknown) (unknown) BUN 16 (units (unkno wn) date) (9-20) mg/dL unknown) (unknown) (no (unknown) (unknown) BUN/Creatinine (units (unknown) date) Ratio 16.3 unknown) (6-22) (unknown) (no (unknown) (unknown) Baso # (Auto) 0 (units (unknown) date) (0-100) /uL unknown) (unknown) (no (unknown) (unknown) Baso % (Auto) (units ( unknown) date) 0.4 (0-2) % unknown) (unknown) (no (unknown) (unknown) Blood Culture (units ( unknown) date) Stat unknown) (unknown) (no (unknown) (unknown) Blood Pressure (units (unknown) date) 135/80 01/31/22 unknown) 07:00 (unknown) (no (unknown) (unknown) Blood Pressure (units (unknown) date) 135/80 unknown) (unknown) (no (unknown) (unknown) Bones:? No acute (units (unknown) date) fractures or unknown) dislocations.? No suspicious bony lesions.? (unknown) (no (unknown) (unknown) COMPARISON:? (units (u nknown) date) None. unknown) (unknown) (no (unknown) (unknown) COVID19 -Nasal (units (unknown) date) RAPID/Pre-Proc unknown) Stat (unknown) (no (unknown) (unknown) Calcium 8.8 (units ( unknown) date) (8.4-10.2) mg/dL unknown) (unknown) (no (unknown) (unknown) Carbon Dioxide (units (unknown) date) 30 (22-32) unknown) mmol/L (unknown) (no (unknown) (unknown) Chief Complaint: (units (unknown) date) Wound/Laceration unknown) (unknown) (no (unknown) (unknown) Chloride 98 (units ( unknown) date) (98-107) mmol/L unknown) (unknown) (no (unknown) (unknown) Clindamycin (units (un known) date) Phosphate unknown) (Cleocin) 900 mg in 50 mls @ 50 mls/hr IV NOW ONE (unknown) (no (unknown) (unknown) Complete Blood (units (unknown) date) Count AUTO DIFF unknown) Stat (unknown) (no (unknown) (unknown) Comprehensive (units ( unknown) date) Metabolic Panel unknown) Stat (unknown) (no (unknown) (unknown) [place] [facility] [place] ([place]) [place]) Infection Preventionist unknown) Stat (unknown) (no (unknown) (unknown) Course (units (unkno wn) date) unknown) (unknown) (no (unknown) (unknown) Creatinine (units (unk nown) date) 0.98 unknown) (0.66-1.25) mg/dL (unknown) (no (unknown) (unknown) : 1975 (units (unknown) date) Acct:[id number] unknown) (unknown) (no (unknown) (unknown) : 1975 (units (unknown) date) unknown) (unknown) (no (unknown) (unknown) Date of Service: (units (unknown) date) 01/31/22 unknown) (unknown) (no (unknown) (unknown) Dictated by: (units (u nknown) date) Yrn Baker unknownDiallo Woods on 01/31/2022 at 8:41 ? ? (unknown) (no (unknown) (unknown) Discontinued (units (u nknown) date) Medications unknown) (unknown) (no (unknown) (unknown) ER Physician: (units ( unknown) date) Lana Santiago unknown) D.O. (unknown) (no (unknown) (unknown) Eos # (Auto) (units (u nknown) date) 100 (0-450) unknown) /uL (unknown) (no (unknown) (unknown) Eos % (Auto) (units (u nknown) date) 0.8 L (2-4) % unknown) (unknown) (no (unknown) (unknown) Estimated GFR (units ( unknown) date) > 60 (>60) unknown) mL/min (unknown) (no (unknown) (unknown) Exam (units (unkno wn) date) unknown) (unknown) (no (unknown) (unknown) Extremity x-ray (units (unknown) date) #1: unknown) (unknown) (no (unknown) (unknown) FINDINGS:? (units (unk nown) date) unknown) (unknown) (no (unknown) (unknown) General (units (unkno wn) date) unknown) (unknown) (no (unknown) (unknown) GenericComposite (units (unknown) date) [Plt Count 247 unknown) (150-400) X10^3/uL ] (unknown) (no (unknown) (unknown) GenericComposite (units (unknown) date) [RBC 4.28 L unknown) (4.5-5.9) X10^6/uL ] (unknown) (no (unknown) (unknown) GenericComposite (units (unknown) date) [WBC 13.3 H unknown) (4.5-11.0) X10^3/uL ] (unknown) (no (unknown) (unknown) Globulin 3.8 (units (unknown) date) (1.7-4.1) g/dL unknown) (unknown) (no (unknown) (unknown) Glucose 120 H (units (unknown) date) (70-100) mg/dL unknown) (unknown) (no (unknown) (unknown) HPI - (units (unkno wn) date) Wound/Laceration unknown) (unknown) (no (unknown) (unknown) HPI narrative: (units (unknown) date) unknown) (unknown) (no (unknown) (unknown) Hct 38.1 L (units (un known) date) (41-53) % unknown) (unknown) (no (unknown) (unknown) Hgb 12.6 L (units (un known) date) (13.5-17.5) g/dL unknown) (unknown) (no (unknown) (unknown) History of (units (unk nown) date) Present Illness unknown) (unknown) (no (unknown) (unknown) IMPRESSION:? (units (u nknown) date) Skin irregularity unknown) is seen at the anterior lower leg with diffuse (unknown) (no (unknown) (unknown) INDICATIONS:? (units ( unknown) date) chronic leg unknown) infection, r/o FB (unknown) (no (unknown) (unknown) Imaging Data (units (u nknown) date) unknown) (unknown) (no (unknown) (unknown) Initial Vital (units ( unknown) date) Signs unknown) (unknown) (no (unknown) (unknown) Initial Vital (units ( unknown) date) Signs: unknown) (unknown) (no (unknown) (unknown) Ketorolac (units (unkn own) date) Tromethamine unknown) (Ketorolac 30 Mg/Ml Vial) 15 mg IV NOW ONE (unknown) (no (unknown) (unknown) Lab Data (units (unkno wn) date) unknown) (unknown) (no (unknown) (unknown) Labs: (units (unkno wn) date) unknown) (unknown) (no (unknown) (unknown) Lactate 1.7 (units (unknown) date) (0.7-2.1) mmol/L unknown) (unknown) (no (unknown) (unknown) Lactate (Lactic (units (unknown) date) Acid) Stat unknown) (unknown) (no (unknown) (unknown) Limitations: no (units (unknown) date) limitations unknown) (unknown) (no (unknown) (unknown) Lipase 52 (units (un known) date) (23-300) U/L unknown) (unknown) (no (unknown) (unknown) Lipase Stat (units (un known) date) unknown) (unknown) (no (unknown) (unknown) Loc: ED (units (unkno wn) date) unknown) (unknown) (no (unknown) (unknown) Lymph # (Auto) (units (unknown) date) 1700 unknown) (5797-1127) /uL (unknown) (no (unknown) (unknown) Lymph % (Auto) (units (unknown) date) 12.6 L (25-40) unknown) % (unknown) (no (unknown) (unknown) MCH 29.4 (units (unkn own) date) (26-34) PG unknown) (unknown) (no (unknown) (unknown) MCHC 33.0 (units (unk nown) date) (30-36) % unknown) (unknown) (no (unknown) (unknown) MCV 89.0 (units (unkn own) date) (80-100) fL unknown) (unknown) (no (unknown) (unknown) MDM - (units (unkno wn) date) Wound/Laceration unknown) (unknown) (no (unknown) (unknown) MR#: [id number] (units (unknown) date) unknown) (unknown) (no (unknown) (unknown) Mode of arrival: (units (unknown) date) Ambulatory unknown) (unknown) (no (unknown) (unknown) Ashley # (Auto) (units ( unknown) date) 900 (0-900) unknown) /uL (unknown) (no (unknown) (unknown) Ashley % (Auto) (units ( unknown) date) 6.8 (3-14) % unknown) (unknown) (no (unknown) (unknown) Neut # (Auto) (units ( unknown) date) 30039 H unknown) (5145-2254) /uL (unknown) (no (unknown) (unknown) Neut % (Auto) (units ( unknown) date) 79.4 H (50-75) unknown) % (unknown) (no (unknown) (unknown) No Known Drug (units ( unknown) date) Allergies Allergy unknown) Verified 01/31/22 07:10 (unknown) (no (unknown) (unknown) Ordered: (units (unkno wn) date) unknown) (unknown) (no (unknown) (unknown) Ordering (units (unkno wn) date) Provider: unknown) Lana Santiago D.O. (unknown) (no (unknown) (unknown) Orders (units (unkno wn) date) unknown) (unknown) (no (unknown) (unknown) PROCEDURE:? XR (units (unknown) date) TIBIA FIBULA LT unknown) 2V (unknown) (no (unknown) (unknown) Patient History (units (unknown) date) unknown) (unknown) (no (unknown) (unknown) Patient: (units (unkno wn) date) Piero Frazier unknown) MR#: [id number] (unknown) (no (unknown) (unknown) Patient: (units (unkno wn) date) Piero Frazier unknown) (unknown) (no (unknown) (unknown) Potassium 3.4 (units (unknown) date) (3.4-5.1) unknown) mmol/L (unknown) (no (unknown) (unknown) Procalcitonin (units ( unknown) date) 0.37 (<0.5) unknown) ng/mL (unknown) (no (unknown) (unknown) Procalcitonin (units ( unknown) date) Stat unknown) (unknown) (no (unknown) (unknown) Procedure: XR (units ( unknown) date) tibia fibula LT unknown) 2V (unknown) (no (unknown) (unknown) Pulse Oximetry (units (unknown) date) 99 01/31/22 unknown) 07:00 (unknown) (no (unknown) (unknown) Pulse Oximetry (units (unknown) date) 99 unknown) (unknown) (no (unknown) (unknown) Pulse Rate 93 H (units (unknown) date) 01/31/22 07:00 unknown) (unknown) (no (unknown) (unknown) Pulse Rate 93 H (units (unknown) date) unknown) (unknown) (no (unknown) (unknown) RDW 15.5 H (units (un known) date) (11.6-14.8) % unknown) (unknown) (no (unknown) (unknown) ROS Unobtainable: (units (unknown) date) All systems unknown) reviewed + are unremarkable except as noted in HPI (unknown) (no (unknown) (unknown) Related Data (units (u nknown) date) unknown) (unknown) (no (unknown) (unknown) Respiratory Rate (units (unknown) date) 18 01/31/22 unknown) 07:00 (unknown) (no (unknown) (unknown) Respiratory Rate (units (unknown) date) 18 unknown) (unknown) (no (unknown) (unknown) Result diagrams: (units (unknown) date) unknown) (unknown) (no (unknown) (unknown) Review of (units (unkn own) date) Systems unknown) (unknown) (no (unknown) (unknown) Signed By: (units (unk nown) date) unknown) (unknown) (no (unknown) (unknown) Smoking Status: (units (unknown) date) Current every day unknown) smoker (unknown) (no (unknown) (unknown) Smoking Status: (units (unknown) date) Current every day unknown) smoker (unknown) (no (unknown) (unknown) Social History (units (unknown) date) (Reviewed unknown) 01/31/22 @ 09:00 by Lana Santiago DO) (unknown) (no (unknown) (unknown) Sodium 134 L (units (unknown) date) (137-145) mmol/L unknown) (unknown) (no (unknown) (unknown) Sodium Chloride (units (unknown) date) (Normal Saline unknown) 0.9%) 2,397 mls @ 799 mls/hr 30 ml/kg infuse (unknown) (no (unknown) (unknown) Soft tissues:? (units (unknown) date) No suspicious unknown) soft tissue calcifications or masses.? Skin (unknown) (no (unknown) (unknown) Source: patient (units (unknown) date) unknown) (unknown) (no (unknown) (unknown) Stated (units (unkno wn) date) Complaint: Mersa unknown) on left leg (unknown) (no (unknown) (unknown) Substance Use (units ( unknown) date) Type: marijuana unknown) (unknown) (no (unknown) (unknown) TECHNIQUE:? 2 (units ( unknown) date) views of the unknown) tibia and fibula were acquired.? (unknown) (no (unknown) (unknown) Temperature (units (un known) date) 98.4 F 01/31/22 unknown) 07:00 (unknown) (no (unknown) (unknown) Temperature 98.4 (units (unknown) date) F unknown) (unknown) (no (unknown) (unknown) This is a (units (unkno wn) date) 46-year-old man unknown) with history of housing in security, longstanding left (unknown) (no (unknown) (unknown) Time Seen by (units (u nknown) date) Provider: unknown) 01/31/22 07:55 (unknown) (no (unknown) (unknown) Total Bilirubin (units (unknown) date) 0.5 (0.2-1.3) unknown) mg/dL (unknown) (no (unknown) (unknown) Total Protein (units ( unknown) date) 7.7 (6.3-8.2) unknown) g/dL (unknown) (no (unknown) (unknown) US periph venous (units (unknown) date) low extrem lt unknown) Stat (unknown) (no (unknown) (unknown) Vital Signs (units (un known) date) unknown) (unknown) (no (unknown) (unknown) Vital signs: (units (u nknown) date) unknown) (unknown) (no (unknown) (unknown) XR tibia fibula (units (unknown) date) LT 2V Stat unknown) (unknown) (no (unknown) (unknown) [Embedded Image (units (unknown) date) Not Available] unknown) (unknown) (no (unknown) (unknown) alcohol intake (units (unknown) date) frequency: 0-2 unknown) drinks per day (unknown) (no (unknown) (unknown) and below (units (unkn own) date) unknown) (unknown) (no (unknown) (unknown) cutting his leg. (units (unknown) date) unknown) (unknown) (no (unknown) (unknown) edema is (units (unkno wn) date) unknown) (unknown) (no (unknown) (unknown) irregularity is (units (unknown) date) unknown) (unknown) (no (unknown) (unknown) lower leg (units (unkno wn) date) infection. unknown) Patient states initially he injured his leg when trying to (unknown) (no (unknown) (unknown) over 3 hr (2397 (units (unknown) date) ml) IV NOW ONE unknown) (unknown) (no (unknown) (unknown) present. (units (unkno wn) date) unknown) (unknown) (no (unknown) (unknown) pull would out (units (unknown) date) of a pile of tree unknown) that had been cut down he fell scraping or (unknown) (no (unknown) (unknown) seen at the (units (un known) date) anterior aspect unknown) of lower leg.? Diffuse subcutaneous soft tissue (unknown) (no (unknown) (unknown) subcutaneous (units (u nknown) date) soft tissue unknown) edema.? No radiopaque foreign body. Result panel 8 (unknown) (no date) (unknown) (unknown) POSITIVE (units (unkn own) unknown) Result panel 9 (unknown) (no (unknown) (unknown) (no value) (units (unk nown) date) unknown) (unknown) (no (unknown) (unknown) Radiologist's (units ( unknown) date) Impression: unknown) (unknown) (no (unknown) (unknown) (no value) (units (unk nown) date) unknown) (unknown) (no (unknown) (unknown) Date of Service: (units (unknown) date) 01/31/22 unknown) (unknown) (no (unknown) (unknown) (no value) (units (unk nown) date) unknown) (unknown) (no (unknown) (unknown) 01/31/22 07:52 (units (unknown) date) unknown) (unknown) (no (unknown) (unknown) [address] [place] [address] (units (unknown) date) unknown) (unknown) (no (unknown) (unknown) Allergies (units (unkn own) date) unknown) (unknown) (no (unknown) (unknown) KULWANT Jha (units ( unknown) date) [id number] unknown) (unknown) (no (unknown) (unknown) Documented by: (units (unknown) date) RSTONE unknown) (unknown) (no (unknown) (unknown) ED Orders (units (unkn own) date) unknown) (unknown) (no (unknown) (unknown) Emergency Report (units (unknown) date) unknown) (unknown) (no (unknown) (unknown) [facility] (units (unknown) date) unknown) (unknown) (no (unknown) (unknown) [facility] (units (unknown) date) [address] [place] [address] unknown) KULWANT Jha [id number] (unknown) (no (unknown) (unknown) Lab Results (units (un known) date) unknown) (unknown) (no (unknown) (unknown) Last Admin: (units (un known) date) 01/31/22 09:00 unknown) Dose: 15 mg (unknown) (no (unknown) (unknown) Last Admin: (units (un known) date) 01/31/22 09:00 unknown) Dose: 799 mls/hr (unknown) (no (unknown) (unknown) Last Admin: (units (un known) date) 01/31/22 09:01 unknown) Dose: 50 mls/hr (unknown) (no (unknown) (unknown) Signed (units (unkno wn) date) unknown) (unknown) (no (unknown) (unknown) Stop: 01/31/22 (units (unknown) date) 08:27 unknown) (unknown) (no (unknown) (unknown) Stop: 01/31/22 (units (unknown) date) 09:25 unknown) (unknown) (no (unknown) (unknown) Stop: 01/31/22 (units (unknown) date) 11:25 unknown) (unknown) (no (unknown) (unknown) Vital Signs - 8 (units (unknown) date) hr unknown) (unknown) (no (unknown) (unknown) XRay Report (units (un known) date) unknown) (unknown) (no (unknown) (unknown) (no value) (units (unk nown) date) unknown) (unknown) (no (unknown) (unknown) 01/31/22 (units (unkno wn) date) 01/31/22 01/31/22 unknown) Range/Units (unknown) (no (unknown) (unknown) 01/31/22 (units (unkno wn) date) Range/Units unknown) (unknown) (no (unknown) (unknown) 07:52 07:52 (units (un known) date) 07:52 unknown) (unknown) (no (unknown) (unknown) 09:04 (units (unkno wn) date) unknown) (unknown) (no (unknown) (unknown) 01/31/22 (units (unkno wn) date) unknown) (unknown) (no (unknown) (unknown) 01/31/22 07:09 (units (unknown) date) unknown) (unknown) (no (unknown) (unknown) 01/31/22 07:52 (units (unknown) date) unknown) (unknown) (no (unknown) (unknown) 01/31/22 08:10 (units (unknown) date) unknown) (unknown) (no (unknown) (unknown) 01/31/22 08:26 (units (unknown) date) unknown) (unknown) (no (unknown) (unknown) 01/31/22 09:04 (units (unknown) date) unknown) (unknown) (no (unknown) (unknown) 07:00 (units (unkno wn) date) unknown) (unknown) (no (unknown) (unknown) [id number] (units (unkno wn) date) unknown) (unknown) (no (unknown) (unknown) ? (units (unkno wn) date) unknown) (unknown) (no (unknown) (unknown) ALT (<50) (units (un known) date) IU/L unknown) (unknown) (no (unknown) (unknown) ALT 12 (<50) (units (unknown) date) IU/L unknown) (unknown) (no (unknown) (unknown) AST (17-59) (units ( unknown) date) IU/L unknown) (unknown) (no (unknown) (unknown) AST 20 (units (unkno wn) date) (17-59) IU/L unknown) (unknown) (no (unknown) (unknown) Accession (units (unkn own) date) Number: unknown) [id number] ?? (unknown) (no (unknown) (unknown) Acct:[id number] (units (unknown) date) unknown) (unknown) (no (unknown) (unknown) Age/Sex: 46 / M (units (unknown) date) unknown) (unknown) (no (unknown) (unknown) Age/Sex: 46 / M (units (unknown) date) unknown) (unknown) (no (unknown) (unknown) Albumin (units (unkno wn) date) (3.5-5.0) g/dL unknown) (unknown) (no (unknown) (unknown) Albumin 3.9 (units ( unknown) date) (3.5-5.0) g/dL unknown) (unknown) (no (unknown) (unknown) Albumin/Globulin (units (unknown) date) Ratio (1.0-2.8) unknown) (unknown) (no (unknown) (unknown) Albumin/Globulin (units (unknown) date) Ratio 1.0 unknown) (1.0-2.8) (unknown) (no (unknown) (unknown) Alkaline (units (unkno wn) date) Phosphatase unknown) (38-126) U/L (unknown) (no (unknown) (unknown) Alkaline (units (unkno wn) date) Phosphatase 89 unknown) (38-126) U/L (unknown) (no (unknown) (unknown) Allergy/AdvReac (units (unknown) date) Type Severity unknown) Reaction Status Date / Time (unknown) (no (unknown) (unknown) Approved by: (units (u nknown) date) alejandro Alex M.D. on 01/31/2022 at 8:46?? (unknown) (no (unknown) (unknown) BUN (9-20) (units (u nknown) date) mg/dL unknown) (unknown) (no (unknown) (unknown) BUN 16 (units (unkno wn) date) (9-20) mg/dL unknown) (unknown) (no (unknown) (unknown) BUN/Creatinine (units (unknown) date) Ratio (6-) unknown) (unknown) (no (unknown) (unknown) BUN/Creatinine (units (unknown) date) Ratio 16.3 unknown) (02-15) (unknown) (no (unknown) (unknown) Baso # (Auto) (units ( unknown) date) (0-100) /uL unknown) (unknown) (no (unknown) (unknown) Baso # (Auto) 0 (units (unknown) date) (0-100) /uL unknown) (unknown) (no (unknown) (unknown) Baso % (Auto) (units ( unknown) date) (0-2) % unknown) (unknown) (no (unknown) (unknown) Baso % (Auto) (units ( unknown) date) 0.4 (0-2) % unknown) (unknown) (no (unknown) (unknown) Blood Culture (units ( unknown) date) Stat unknown) (unknown) (no (unknown) (unknown) Blood Pressure (units (unknown) date) 135/80 01/31/22 unknown) 07:00 (unknown) (no (unknown) (unknown) Blood Pressure (units (unknown) date) 135/80 unknown) (unknown) (no (unknown) (unknown) Bones:? No acute (units (unknown) date) fractures or unknown) dislocations.? No suspicious bony lesions.? (unknown) (no (unknown) (unknown) COMPARISON:? (units (u nknown) date) None. unknown) (unknown) (no (unknown) (unknown) COVID19 -Nasal (units (unknown) date) RAPID/Pre-Proc unknown) Stat (unknown) (no (unknown) (unknown) Calcium (units (unkno wn) date) (8.4-10.2) mg/dL unknown) (unknown) (no (unknown) (unknown) Calcium 8.8 (units ( unknown) date) (8.4-10.2) mg/dL unknown) (unknown) (no (unknown) (unknown) Carbon Dioxide (units (unknown) date) (22-32) mmol/L unknown) (unknown) (no (unknown) (unknown) Carbon Dioxide (units (unknown) date) 30 (22-32) unknown) mmol/L (unknown) (no (unknown) (unknown) Chief Complaint: (units (unknown) date) Wound/Laceration unknown) (unknown) (no (unknown) (unknown) Chloride (units (unkno wn) date) (98-107) mmol/L unknown) (unknown) (no (unknown) (unknown) Chloride 98 (units ( unknown) date) (98-107) mmol/L unknown) (unknown) (no (unknown) (unknown) Clindamycin (units (un known) date) Phosphate unknown) (Cleocin) 900 mg in 50 mls @ 50 mls/hr IV NOW ONE (unknown) (no (unknown) (unknown) Complete Blood (units (unknown) date) Count AUTO DIFF unknown) Stat (unknown) (no (unknown) (unknown) Comprehensive (units ( unknown) date) Metabolic Panel unknown) Stat (unknown) (no (unknown) (unknown) Consult to ICHTHYOLOGIST - (units (unknown) date) Infection Preventionist unknown) Stat (unknown) (no (unknown) (unknown) Course (units (unkno wn) date) unknown) (unknown) (no (unknown) (unknown) Creatinine (units (unk nown) date) (0.66-1.25) unknown) mg/dL (unknown) (no (unknown) (unknown) Creatinine (units (unk nown) date) 0.98 unknown) (0.66-1.25) mg/dL (unknown) (no (unknown) (unknown) : 1975 (units (unknown) date) Acct:[id number] unknown) (unknown) (no (unknown) (unknown) : 1975 (units (unknown) date) unknown) (unknown) (no (unknown) (unknown) Date of Service: (units (unknown) date) 01/31/22 unknown) (unknown) (no (unknown) (unknown) Dictated by: (units (u nknown) date) alejandro Alex M.D. on 01/31/2022 at 8:41 ? ? (unknown) (no (unknown) (unknown) Discontinued (units (u nknown) date) Medications unknown) (unknown) (no (unknown) (unknown) ER Physician: (units ( unknown) date) Lana Santiago unknown) D.O. (unknown) (no (unknown) (unknown) Eos # (Auto) (units (u nknown) date) (0-450) /uL unknown) (unknown) (no (unknown) (unknown) Eos # (Auto) (units (u nknown) date) 100 (0-450) unknown) /uL (unknown) (no (unknown) (unknown) Eos % (Auto) (units (u nknown) date) (2-4) % unknown) (unknown) (no (unknown) (unknown) Eos % (Auto) (units (u nknown) date) 0.8 L (2-4) % unknown) (unknown) (no (unknown) (unknown) Estimated GFR (units ( unknown) date) > 60 (>60) unknown) mL/min (unknown) (no (unknown) (unknown) Estimated GFR (units ( unknown) date) (>60) mL/min unknown) (unknown) (no (unknown) (unknown) Exam (units (unkno wn) date) unknown) (unknown) (no (unknown) (unknown) Extremity x-ray (units (unknown) date) #1: unknown) (unknown) (no (unknown) (unknown) FINDINGS:? (units (unk nown) date) unknown) (unknown) (no (unknown) (unknown) General (units (unkno wn) date) unknown) (unknown) (no (unknown) (unknown) GenericComposite (units (unknown) date) [Plt Count unknown) (150-400) X10^3/uL ] (unknown) (no (unknown) (unknown) GenericComposite (units (unknown) date) [Plt Count 247 unknown) (150-400) X10^3/uL ] (unknown) (no (unknown) (unknown) GenericComposite (units (unknown) date) [RBC (4.5-5.9) unknown) X10^6/uL ] (unknown) (no (unknown) (unknown) GenericComposite (units (unknown) date) [RBC 4.28 L unknown) (4.5-5.9) X10^6/uL ] (unknown) (no (unknown) (unknown) GenericComposite (units (unknown) date) [WBC (4.5-11.0) unknown) X10^3/uL ] (unknown) (no (unknown) (unknown) GenericComposite (units (unknown) date) [WBC 13.3 H unknown) (4.5-11.0) X10^3/uL ] (unknown) (no (unknown) (unknown) Globulin (units (unkno wn) date) (1.7-4.1) g/dL unknown) (unknown) (no (unknown) (unknown) Globulin 3.8 (units (unknown) date) (1.7-4.1) g/dL unknown) (unknown) (no (unknown) (unknown) Glucose (units (unkno wn) date) (70-100) mg/dL unknown) (unknown) (no (unknown) (unknown) Glucose 120 H (units (unknown) date) (70-100) mg/dL unknown) (unknown) (no (unknown) (unknown) HPI - (units (unkno wn) date) Wound/Laceration unknown) (unknown) (no (unknown) (unknown) HPI narrative: (units (unknown) date) unknown) (unknown) (no (unknown) (unknown) Hct (41-53) % (units (unknown) date) unknown) (unknown) (no (unknown) (unknown) Hct 38.1 L (units (un known) date) (41-53) % unknown) (unknown) (no (unknown) (unknown) Hgb (units (unkno wn) date) (13.5-17.5) g/dL unknown) (unknown) (no (unknown) (unknown) Hgb 12.6 L (units (un known) date) (13.5-17.5) g/dL unknown) (unknown) (no (unknown) (unknown) History of (units (unk nown) date) Present Illness unknown) (unknown) (no (unknown) (unknown) IMPRESSION:? (units (u nknown) date) Skin irregularity unknown) is seen at the anterior lower leg with diffuse (unknown) (no (unknown) (unknown) INDICATIONS:? (units ( unknown) date) chronic leg unknown) infection, r/o FB (unknown) (no (unknown) (unknown) Imaging Data (units (u nknown) date) unknown) (unknown) (no (unknown) (unknown) Initial Vital (units ( unknown) date) Signs unknown) (unknown) (no (unknown) (unknown) Initial Vital (units ( unknown) date) Signs: unknown) (unknown) (no (unknown) (unknown) Ketorolac (units (unkn own) date) Tromethamine unknown) (Ketorolac 30 Mg/Ml Vial) 15 mg IV NOW ONE (unknown) (no (unknown) (unknown) Lab Data (units (o wn) date) unknown) (unknown) (no (unknown) (unknown) Labs: (units (unkno wn) date) unknown) (unknown) (no (unknown) (unknown) Lactate 1.7 (units (unknown) date) (0.7-2.1) mmol/L unknown) (unknown) (no (unknown) (unknown) Lactate (units (o wn) date) (0.7-2.1) mmol/L unknown) (unknown) (no (unknown) (unknown) Lactate (Lactic (units (unknown) date) Acid) Stat unknown) (unknown) (no (unknown) (unknown) Limitations: no (units (unknown) date) limitations unknown) (unknown) (no (unknown) (unknown) Lipase (units (unkno wn) date) (23-300) U/L unknown) (unknown) (no (unknown) (unknown) Lipase 52 (units (un known) date) (23-300) U/L unknown) (unknown) (no (unknown) (unknown) Lipase Stat (units (un known) date) unknown) (unknown) (no (unknown) (unknown) Loc: ED (units (unkno wn) date) unknown) (unknown) (no (unknown) (unknown) Lymph # (Auto) (units (unknown) date) (0340-5761) /uL unknown) (unknown) (no (unknown) (unknown) Lymph # (Auto) (units (unknown) date) 1700 unknown) (2531-9027) /uL (unknown) (no (unknown) (unknown) Lymph % (Auto) (units (unknown) date) (25-40) % unknown) (unknown) (no (unknown) (unknown) Lymph % (Auto) (units (unknown) date) 12.6 L (25-40) unknown) % (unknown) (no (unknown) (unknown) MCH (26-34) (units ( unknown) date) PG unknown) (unknown) (no (unknown) (unknown) MCH 29.4 (units (unkn own) date) (26-34) PG unknown) (unknown) (no (unknown) (unknown) MCHC (30-36) (units (unknown) date) % unknown) (unknown) (no (unknown) (unknown) MCHC 33.0 (units (unk nown) date) (30-36) % unknown) (unknown) (no (unknown) (unknown) MCV (80-100) (units (unknown) date) fL unknown) (unknown) (no (unknown) (unknown) MCV 89.0 (units (unkn own) date) (80-100) fL unknown) (unknown) (no (unknown) (unknown) MDM - (units (unkno wn) date) Wound/Laceration unknown) (unknown) (no (unknown) (unknown) MR#: [id number] (units (unknown) date) unknown) (unknown) (no (unknown) (unknown) Mode of arrival: (units (unknown) date) Ambulatory unknown) (unknown) (no (unknown) (unknown) Ashley # (Auto) (units ( unknown) date) (0-900) /uL unknown) (unknown) (no (unknown) (unknown) Ashley # (Auto) (units ( unknown) date) 900 (0-900) unknown) /uL (unknown) (no (unknown) (unknown) Ashley % (Auto) (units ( unknown) date) (3-14) % unknown) (unknown) (no (unknown) (unknown) Ashley % (Auto) (units ( unknown) date) 6.8 (3-14) % unknown) (unknown) (no (unknown) (unknown) Neut # (Auto) (units ( unknown) date) (2400-9126) /uL unknown) (unknown) (no (unknown) (unknown) Neut # (Auto) (units ( unknown) date) 71390 H unknown) (5695-4602) /uL (unknown) (no (unknown) (unknown) Neut % (Auto) (units ( unknown) date) (50-75) % unknown) (unknown) (no (unknown) (unknown) Neut % (Auto) (units ( unknown) date) 79.4 H (50-75) unknown) % (unknown) (no (unknown) (unknown) No Known Drug (units ( unknown) date) Allergies Allergy unknown) Verified 01/31/22 07:10 (unknown) (no (unknown) (unknown) Ordered: (units (unkno wn) date) unknown) (unknown) (no (unknown) (unknown) Ordering (units (unkno wn) date) Provider: unknown) Lana Santiago D.O. (unknown) (no (unknown) (unknown) Orders (units (unkno wn) date) unknown) (unknown) (no (unknown) (unknown) PROCEDURE:? XR (units (unknown) date) TIBIA FIBULA LT unknown) 2V (unknown) (no (unknown) (unknown) Patient History (units (unknown) date) unknown) (unknown) (no (unknown) (unknown) Patient: (units (unkno wn) date) Piero Frazier unknown) MR#: [id number] (unknown) (no (unknown) (unknown) Patient: (units (unkno wn) date) Piero Frazier unknown) (unknown) (no (unknown) (unknown) Potassium (units (unkn own) date) (3.4-5.1) mmol/L unknown) (unknown) (no (unknown) (unknown) Potassium 3.4 (units (unknown) date) (3.4-5.1) unknown) mmol/L (unknown) (no (unknown) (unknown) Procalcitonin (units ( unknown) date) (<0.5) ng/mL unknown) (unknown) (no (unknown) (unknown) Procalcitonin (units ( unknown) date) 0.37 (<0.5) unknown) ng/mL (unknown) (no (unknown) (unknown) Procalcitonin (units ( unknown) date) Stat unknown) (unknown) (no (unknown) (unknown) Procedure: XR (units ( unknown) date) tibia fibula LT unknown) 2V (unknown) (no (unknown) (unknown) Pulse Oximetry (units (unknown) date) 99 01/31/22 unknown) 07:00 (unknown) (no (unknown) (unknown) Pulse Oximetry (units (unknown) date) 99 unknown) (unknown) (no (unknown) (unknown) Pulse Rate 93 H (units (unknown) date) 01/31/22 07:00 unknown) (unknown) (no (unknown) (unknown) Pulse Rate 93 H (units (unknown) date) unknown) (unknown) (no (unknown) (unknown) RDW (units (unkno wn) date) (11.6-14.8) % unknown) (unknown) (no (unknown) (unknown) RDW 15.5 H (units (un known) date) (11.6-14.8) % unknown) (unknown) (no (unknown) (unknown) ROS Unobtainable: (units (unknown) date) All systems unknown) reviewed + are unremarkable except as noted in HPI (unknown) (no (unknown) (unknown) Related Data (units (u nknown) date) unknown) (unknown) (no (unknown) (unknown) Respiratory Rate (units (unknown) date) 18 01/31/22 unknown) 07:00 (unknown) (no (unknown) (unknown) Respiratory Rate (units (unknown) date) 18 unknown) (unknown) (no (unknown) (unknown) Result diagrams: (units (unknown) date) unknown) (unknown) (no (unknown) (unknown) Review of (units (unkn own) date) Systems unknown) (unknown) (no (unknown) (unknown) SARS-CoV-2 (PCR) (units (unknown) date) (Negative) unknown) (unknown) (no (unknown) (unknown) SARS-CoV-2 (PCR) (units (unknown) date) Positive H unknown) (Negative) (unknown) (no (unknown) (unknown) Signed By: (units (unk nown) date) unknown) (unknown) (no (unknown) (unknown) Smoking Status: (units (unknown) date) Current every day unknown) smoker (unknown) (no (unknown) (unknown) Smoking Status: (units (unknown) date) Current every day unknown) smoker (unknown) (no (unknown) (unknown) Social History (units (unknown) date) (Reviewed unknown) 01/31/22 @ 09:00 by Lana Santiago DO) (unknown) (no (unknown) (unknown) Sodium (units (unkno wn) date) (137-145) mmol/L unknown) (unknown) (no (unknown) (unknown) Sodium 134 L (units (unknown) date) (137-145) mmol/L unknown) (unknown) (no (unknown) (unknown) Sodium Chloride (units (unknown) date) (Normal Saline unknown) 0.9%) 2,397 mls @ 799 mls/hr 30 ml/kg infuse (unknown) (no (unknown) (unknown) Soft tissues:? (units (unknown) date) No suspicious unknown) soft tissue calcifications or masses.? Skin (unknown) (no (unknown) (unknown) Source: patient (units (unknown) date) unknown) (unknown) (no (unknown) (unknown) Stated (units (unkno wn) date) Complaint: Mersa unknown) on left leg (unknown) (no (unknown) (unknown) Substance Use (units ( unknown) date) Type: marijuana unknown) (unknown) (no (unknown) (unknown) TECHNIQUE:? 2 (units ( unknown) date) views of the unknown) tibia and fibula were acquired.? (unknown) (no (unknown) (unknown) Temperature (units (un known) date) 98.4 F 01/31/22 unknown) 07:00 (unknown) (no (unknown) (unknown) Temperature 98.4 (units (unknown) date) F unknown) (unknown) (no (unknown) (unknown) This is a (units (unkno wn) date) 46-year-old man unknown) with history of housing in security, longstanding left (unknown) (no (unknown) (unknown) Time Seen by (units (u nknown) date) Provider: unknown) 01/31/22 07:55 (unknown) (no (unknown) (unknown) Total Bilirubin (units (unknown) date) (0.2-1.3) mg/dL unknown) (unknown) (no (unknown) (unknown) Total Bilirubin (units (unknown) date) 0.5 (0.2-1.3) unknown) mg/dL (unknown) (no (unknown) (unknown) Total Protein (units ( unknown) date) (6.3-8.2) g/dL unknown) (unknown) (no (unknown) (unknown) Total Protein (units ( unknown) date) 7.7 (6.3-8.2) unknown) g/dL (unknown) (no (unknown) (unknown) US periph venous (units (unknown) date) low extrem lt unknown) Stat (unknown) (no (unknown) (unknown) Vital Signs (units (un known) date) unknown) (unknown) (no (unknown) (unknown) Vital signs: (units (u nknown) date) unknown) (unknown) (no (unknown) (unknown) XR tibia fibula (units (unknown) date) LT 2V Stat unknown) (unknown) (no (unknown) (unknown) [Embedded Image (units (unknown) date) Not Available] unknown) (unknown) (no (unknown) (unknown) alcohol intake (units (unknown) date) frequency: 0-2 unknown) drinks per day (unknown) (no (unknown) (unknown) and below (units (unkn own) date) unknown) (unknown) (no (unknown) (unknown) cutting his leg. (units (unknown) date) unknown) (unknown) (no (unknown) (unknown) edema is (units (unkno wn) date) unknown) (unknown) (no (unknown) (unknown) irregularity is (units (unknown) date) unknown) (unknown) (no (unknown) (unknown) lower leg (units (unkno wn) date) infection. unknown) Patient states initially he injured his leg when trying to (unknown) (no (unknown) (unknown) over 3 hr (2396 (units (unknown) date) ml) IV NOW ONE unknown) (unknown) (no (unknown) (unknown) present. (units (unkno wn) date) unknown) (unknown) (no (unknown) (unknown) pull would out (units (unknown) date) of a pile of tree unknown) that had been cut down he fell scraping or (unknown) (no (unknown) (unknown) seen at the (units (un known) date) anterior aspect unknown) of lower leg.? Diffuse subcutaneous soft tissue (unknown) (no (unknown) (unknown) subcutaneous (units (u nknown) date) soft tissue unknown) edema.? No radiopaque foreign body. Result panel 10 (unknown) (no (unknown) (unknown) (no value) (units (unk nown) date) unknown) (unknown) (no (unknown) (unknown) Radiologist's (units ( unknown) date) Impression: unknown) (unknown) (no (unknown) (unknown) (no value) (units (unk nown) date) unknown) (unknown) (no (unknown) (unknown) Date of Service: (units (unknown) date) 01/31/22 unknown) (unknown) (no (unknown) (unknown) (no value) (units (unk nown) date) unknown) (unknown) (no (unknown) (unknown) 01/31/22 07:52 (units (unknown) date) unknown) (unknown) (no (unknown) (unknown) [address] [place] [id number] (units (unknown) date) unknown) (unknown) (no (unknown) (unknown) Allergies (units (unkn own) date) unknown) (unknown) (no (unknown) (unknown) KULWANT Jha (units ( unknown) date) [id number] unknown) (unknown) (no (unknown) (unknown) Close (units (unkno wn) date) unknown) (unknown) (no (unknown) (unknown) Documented by: (units (unknown) date) LAMAR unknown) (unknown) (no (unknown) (unknown) ED Orders (units (unkn own) date) unknown) (unknown) (no (unknown) (unknown) Emergency Report (units (unknown) date) unknown) (unknown) (no (unknown) (unknown) [facility] (units (unknown) date) unknown) (unknown) (no (unknown) (unknown) [facility] (units (unknown) date) [address] unknown) [place] [address] (unknown) (no (unknown) (unknown) Lab Results (units (un known) date) unknown) (unknown) (no (unknown) (unknown) Last Admin: (units (un known) date) 01/31/22 09:00 unknown) Dose: 15 mg (unknown) (no (unknown) (unknown) Last Admin: (units (un known) date) 01/31/22 09:00 unknown) Dose: 799 mls/hr (unknown) (no (unknown) (unknown) Last Admin: (units (un known) date) 01/31/22 09:01 unknown) Dose: 50 mls/hr (unknown) (no (unknown) (unknown) Launch?Image (units (u nknown) date) unknown) (unknown) (no (unknown) (unknown) Signed (units (unkno wn) date) unknown) (unknown) (no (unknown) (unknown) Stop: 01/31/22 (units (unknown) date) 08:27 unknown) (unknown) (no (unknown) (unknown) Stop: 01/31/22 (units (unknown) date) 09:25 unknown) (unknown) (no (unknown) (unknown) Stop: 01/31/22 (units (unknown) date) 11:25 unknown) (unknown) (no (unknown) (unknown) Ultrasound Report (units (unknown) date) unknown) (unknown) (no (unknown) (unknown) Vital Signs - 8 (units (unknown) date) hr unknown) (unknown) (no (unknown) (unknown) XRay Report (units (un known) date) unknown) (unknown) (no (unknown) (unknown) (no value) (units (unk nown) date) unknown) (unknown) (no (unknown) (unknown) 01/31/22 01/31/22 (units (unknown) date) 01/31/22 unknown) Range/Units (unknown) (no (unknown) (unknown) 01/31/22 (units (unkno wn) date) Range/Units unknown) (unknown) (no (unknown) (unknown) 07:52 07:52 07:52 (units (unknown) date) unknown) (unknown) (no (unknown) (unknown) 09:04 (units (unkno wn) date) unknown) (unknown) (no (unknown) (unknown) 01/31/22 (units (unkno wn) date) unknown) (unknown) (no (unknown) (unknown) 12 he does have a (units (unknown) date) leftward shift, unknown) labs are otherwise fairly unremarkable with a (unknown) (no (unknown) (unknown) 2.8 cm.? 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 Last visit I have available is in November (unknown) (no (unknown) (unknown) does not quite (units (unknown) date) meet septic unknown) criteria his white count is 13 today. Hemoglobin is (unknown) (no (unknown) (unknown) lymph (units (unkno wn) date) unknown) (unknown) (no (unknown) (unknown) sodium of 134 (units ( unknown) date) glucose of 120 unknown) with normal renal function normal lactate and a (unknown) (no (unknown) (unknown) - (units (unkno wn) date) unknown) (unknown) (no (unknown) (unknown) 01/31/22 (units (unkno wn) date) unknown) (unknown) (no (unknown) (unknown) 01/31/22 07:09 (units (unknown) date) unknown) (unknown) (no (unknown) (unknown) 01/31/22 07:52 (units (unknown) date) unknown) (unknown) (no (unknown) (unknown) 01/31/22 08:10 (units (unknown) date) unknown) (unknown) (no (unknown) (unknown) 01/31/22 08:26 (units (unknown) date) unknown) (unknown) (no (unknown) (unknown) 01/31/22 09:04 (units (unknown) date) unknown) (unknown) (no (unknown) (unknown) 07:00 (units (unkno wn) date) unknown) (unknown) (no (unknown) (unknown) 2021 ER visit was (units (unknown) date) obtained from unknown) [facility]. It appears patient has been treated (unknown) (no (unknown) (unknown) [id number] (units (unkno wn) date) unknown) (unknown) (no (unknown) (unknown) ? (units (unkno wn) date) unknown) (unknown) (no (unknown) (unknown) ? (units (unkno wn) date) unknown) (unknown) (no (unknown) (unknown) A1 can be seen, (units (unknown) date) without an unknown) associated underlying fluid collection. (unknown) (no (unknown) (unknown) ABDOMEN: Soft, (units (unknown) date) nontender. unknown) Normoactive bowel sounds all 4 quadrants. No (unknown) (no (unknown) (unknown) ALT (<50) IU/L (units (unknown) date) unknown) (unknown) (no (unknown) (unknown) ALT 12 (<50) (units (unknown) date) IU/L unknown) (unknown) (no (unknown) (unknown) AST (17-59) (units ( unknown) date) IU/L unknown) (unknown) (no (unknown) (unknown) AST 20 (units (unkno wn) date) (17-59) IU/L unknown) (unknown) (no (unknown) (unknown) Accession Number: (units (unknown) date) [id number] ?? unknown) (unknown) (no (unknown) (unknown) Accession Number: (units (unknown) date) [id number] ?? unknown) (unknown) (no (unknown) (unknown) Acct:[id number] (units (unknown) date) unknown) (unknown) (no (unknown) (unknown) Age/Sex: 46 / M (units (unknown) date) unknown) (unknown) (no (unknown) (unknown) Age/Sex: 46 / M (units (unknown) date) unknown) (unknown) (no (unknown) (unknown) Albumin (units (unkno wn) date) (3.5-5.0) g/dL unknown) (unknown) (no (unknown) (unknown) Albumin 3.9 (units ( unknown) date) (3.5-5.0) g/dL unknown) (unknown) (no (unknown) (unknown) Albumin/Globulin (units (unknown) date) Ratio (1.0-2.8) unknown) (unknown) (no (unknown) (unknown) Albumin/Globulin (units (unknown) date) Ratio 1.0 unknown) (1.0-2.8) (unknown) (no (unknown) (unknown) Alkaline (units (unkno wn) date) Phosphatase unknown) (38-126) U/L (unknown) (no (unknown) (unknown) Alkaline (units (unkno wn) date) Phosphatase 89 unknown) (38-126) U/L (unknown) (no (unknown) (unknown) Allergy/Adv: No (units (unknown) date) Known Drug unknown) Allergies (unknown) (no (unknown) (unknown) Allergy/AdvReac (units (unknown) date) Type Severity unknown) Reaction Status Date / Time (unknown) (no (unknown) (unknown) Approved by: (units (u nknown) date) Yrn Baker, unknown) Peggy on 01/31/2022 at 8:46?? (unknown) (no (unknown) (unknown) Approved by: (units (u nknown) date) Juan Vaughan, rupinder) Peggy on 01/31/2022 at 8:14?? (unknown) (no (unknown) (unknown) BUN (9-20) (units (u nknown) date) mg/dL unknown) (unknown) (no (unknown) (unknown) BUN 16 (9-20) (units (unknown) date) mg/dL unknown) (unknown) (no (unknown) (unknown) BUN/Creatinine (units (unknown) date) Ratio (6-22) unknown) (unknown) (no (unknown) (unknown) BUN/Creatinine (units (unknown) date) Ratio 16.3 unknown) (6-22) (unknown) (no (unknown) (unknown) Baso # (Auto) (units ( unknown) date) (0-100) /uL unknown) (unknown) (no (unknown) (unknown) Baso # (Auto) 0 (units (unknown) date) (0-100) /uL unknown) (unknown) (no (unknown) (unknown) Baso % (Auto) (units ( unknown) date) (0-2) % unknown) (unknown) (no (unknown) (unknown) Baso % (Auto) (units ( unknown) date) 0.4 (0-2) % unknown) (unknown) (no (unknown) (unknown) Blood Culture (units ( unknown) date) Stat unknown) (unknown) (no (unknown) (unknown) Blood Pressure (units (unknown) date) 135/80 06/07/ unknown) 07:00 (unknown) (no (unknown) (unknown) Blood Pressure (units (unknown) date) 135/80 unknown) (unknown) (no (unknown) (unknown) Bones:? No acute (units (unknown) date) fractures or unknown) dislocations.? No suspicious bony lesions.? (unknown) (no (unknown) (unknown) CARDIOVASCULAR: (units (unknown) date) Regular rate and unknown) rhythm without murmurs, rubs or gallops. (unknown) (no (unknown) (unknown) COMPARISON:? (units (u nknown) date) None. unknown) (unknown) (no (unknown) (unknown) COVID19 -Nasal (units (unknown) date) RAPID/Pre-Proc unknown) Stat (unknown) (no (unknown) (unknown) Calcium (units (unkno wn) date) (8.4-10.2) mg/dL unknown) (unknown) (no (unknown) (unknown) Calcium 8.8 (units ( unknown) date) (8.4-10.2) mg/dL unknown) (unknown) (no (unknown) (unknown) Carbon Dioxide (units (unknown) date) (22-32) mmol/L unknown) (unknown) (no (unknown) (unknown) Carbon Dioxide (units (unknown) date) 30 (22-32) unknown) mmol/L (unknown) (no (unknown) (unknown) Chief Complaint: (units (unknown) date) Wound/Laceration unknown) (unknown) (no (unknown) (unknown) Chloride (units (unkno wn) date) (98-107) mmol/L unknown) (unknown) (no (unknown) (unknown) Chloride 98 (units ( unknown) date) (98-107) mmol/L unknown) (unknown) (no (unknown) (unknown) Clindamycin (units (un known) date) Phosphate unknown) (Cleocin) 900 mg in 50 mls @ 50 mls/hr IV NOW ONE (unknown) (no (unknown) (unknown) Clinical (units (unkno wn) date) Impression: unknown) (unknown) (no (unknown) (unknown) Complete Blood (units (unknown) date) Count AUTO DIFF unknown) Stat (unknown) (no (unknown) (unknown) Comprehensive (units ( unknown) date) Metabolic Panel unknown) Stat (unknown) (no (unknown) (unknown) [place] [facility] [place] ([place]) [place]) Infection Preventionist unknown) Stat (unknown) (no (unknown) (unknown) Course (units (unkno wn) date) unknown) (unknown) (no (unknown) (unknown) Creatinine (units (unk nown) date) (0.66-1.25) mg/dL unknown) (unknown) (no (unknown) (unknown) Creatinine 0.98 (units (unknown) date) (0.66-1.25) unknown) mg/dL (unknown) (no (unknown) (unknown) : 1975 (units (unknown) date) Acct:[id number] unknown) (unknown) (no (unknown) (unknown) : 1975 (units (unknown) date) unknown) (unknown) (no (unknown) (unknown) Date of Service: (units (unknown) date) 01/31/22 unknown) (unknown) (no (unknown) (unknown) Departure (units (unkn own) date) unknown) (unknown) (no (unknown) (unknown) Dictated by: (units (u nknown) date) alejandro Alex M.D. on 01/31/2022 at 8:41 ? ? (unknown) (no (unknown) (unknown) Dictated by: (units (u nknown) date) alejandro Zaidi M.D. on 01/31/2022 at 8:13 ? ? (unknown) (no (unknown) (unknown) Discharge Plan (units (unknown) date) unknown) (unknown) (no (unknown) (unknown) Discontinued (units (u nknown) date) Medications unknown) (unknown) (no (unknown) (unknown) ER Physician: (units ( unknown) date) Lana Santiago D.O. unknown) (unknown) (no (unknown) (unknown) EXTREMITIES: (units (u nknown) date) Normal range of unknown) motion, no clubbing. Neurovascularly intact. (unknown) (no (unknown) (unknown) Enlarged left (units (u nknown) date) groin lymph nodes unknown) are seen, with the largest measuring 3.5 x 1.4 x (unknown) (no (unknown) (unknown) Enlarged left (units ( unknown) date) groin lymph nodes unknown) are seen. (unknown) (no (unknown) (unknown) Eos # (Auto) (units (u nknown) date) (0-450) /uL unknown) (unknown) (no (unknown) (unknown) Eos # (Auto) 100 (units (unknown) date) (0-450) /uL unknown) (unknown) (no (unknown) (unknown) Eos % (Auto) (units (u nknown) date) (2-4) % unknown) (unknown) (no (unknown) (unknown) Eos % (Auto) 0.8 (units (unknown) date) L (2-4) % unknown) (unknown) (no (unknown) (unknown) Estimated GFR > (units (unknown) date) 60 (>60) mL/min unknown) (unknown) (no (unknown) (unknown) Estimated GFR (units ( unknown) date) (>60) mL/min unknown) (unknown) (no (unknown) (unknown) Exam (units (unkno wn) date) unknown) (unknown) (no (unknown) (unknown) Exam Narrative: (units (unknown) date) unknown) (unknown) (no (unknown) (unknown) Extremity x-ray (units (unknown) date) #1: unknown) (unknown) (no (unknown) (unknown) FINDINGS:? (units (unk nown) date) unknown) (unknown) (no (unknown) (unknown) FINDINGS:? The (units (unknown) date) common femoral, unknown) femoral and popliteal veins are normally (unknown) (no (unknown) (unknown) GENERAL: Alert (units (unknown) date) and oriented x unknown) three, male in mild distress. (unknown) (no (unknown) (unknown) : No CVA (units (unk nown) date) tenderness unknown) (unknown) (no (unknown) (unknown) General (units (unkno wn) date) unknown) (unknown) (no (unknown) (unknown) GenericComposite[ (units (unknown) date) Plt Count unknown) (150-400) X10^3/uL ] (unknown) (no (unknown) (unknown) GenericComposite[ (units (unknown) date) Plt Count 247 unknown) (150-400) X10^3/uL ] (unknown) (no (unknown) (unknown) GenericComposite[ (units (unknown) date) RBC (4.5-5.9) unknown) X10^6/uL ] (unknown) (no (unknown) (unknown) GenericComposite[ (units (unknown) date) RBC 4.28 L unknown) (4.5-5.9) X10^6/uL ] (unknown) (no (unknown) (unknown) GenericComposite[ (units (unknown) date) WBC (4.5-11.0) unknown) X10^3/uL ] (unknown) (no (unknown) (unknown) GenericComposite[ (units (unknown) date) WBC 13.3 H unknown) (4.5-11.0) X10^3/uL ] (unknown) (no (unknown) (unknown) Globulin (units (unkno wn) date) (1.7-4.1) g/dL unknown) (unknown) (no (unknown) (unknown) Globulin 3.8 (units (unknown) date) (1.7-4.1) g/dL unknown) (unknown) (no (unknown) (unknown) Glucose (units (unkno wn) date) (70-100) mg/dL unknown) (unknown) (no (unknown) (unknown) Glucose 120 H (units (unknown) date) (70-100) mg/dL unknown) (unknown) (no (unknown) (unknown) HEENT: Head (units (un known) date) normocephalic, unknown) atraumatic, EOMI, pupils reactive, face symmetric, (unknown) (no (unknown) (unknown) HPI - (units (unkno wn) date) Wound/Laceration unknown) (unknown) (no (unknown) (unknown) HPI narrative: (units (unknown) date) unknown) (unknown) (no (unknown) (unknown) Hct (41-53) % (units (unknown) date) unknown) (unknown) (no (unknown) (unknown) Hct 38.1 L (units (un known) date) (41-53) % unknown) (unknown) (no (unknown) (unknown) Hgb (13.5-17.5) (units (unknown) date) g/dL unknown) (unknown) (no (unknown) (unknown) Hgb 12.6 L (units (un known) date) (13.5-17.5) g/dL unknown) (unknown) (no (unknown) (unknown) History of (units (unk nown) date) Present Illness unknown) (unknown) (no (unknown) (unknown) IMPRESSION:? (units (u nknown) date) unknown) (unknown) (no (unknown) (unknown) IMPRESSION:? Skin (units (unknown) date) irregularity is unknown) seen at the anterior lower leg with diffuse (unknown) (no (unknown) (unknown) INDICATIONS:? (units ( unknown) date) PAIN AND SWELLING unknown) WITH CHRONIC INFECTION (unknown) (no (unknown) (unknown) INDICATIONS:? (units ( unknown) date) chronic leg unknown) infection, r/o FB (unknown) (no (unknown) (unknown) Imaging Data (units (u nknown) date) unknown) (unknown) (no (unknown) (unknown) Initial Vital (units ( unknown) date) Signs unknown) (unknown) (no (unknown) (unknown) Initial Vital (units ( unknown) date) Signs: unknown) (unknown) (no (unknown) (unknown) Ketorolac (units (unkn own) date) Tromethamine unknown) (Ketorolac 30 Mg/Ml Vial) 15 mg IV NOW ONE (unknown) (no (unknown) (unknown) [place],Juan (units ( unknown) date) unknown) (unknown) (no (unknown) (unknown) Lab Data (units (unkno wn) date) unknown) (unknown) (no (unknown) (unknown) Labs: (units (unkno wn) date) unknown) (unknown) (no (unknown) (unknown) Lactate 1.7 (units (unknown) date) (0.7-2.1) mmol/L unknown) (unknown) (no (unknown) (unknown) Lactate (units (unkno wn) date) (0.7-2.1) mmol/L unknown) (unknown) (no (unknown) (unknown) Lactate (Lactic (units (unknown) date) Acid) Stat unknown) (unknown) (no (unknown) (unknown) Piero Frazier??4 (units (unknown) date) 8??M??1975 unknown) (unknown) (no (unknown) (unknown) Limitations: no (units (unknown) date) limitations unknown) (unknown) (no (unknown) (unknown) Lipase (23-300) (units (unknown) date) U/L unknown) (unknown) (no (unknown) (unknown) Lipase 52 (units (un known) date) (23-300) U/L unknown) (unknown) (no (unknown) (unknown) Lipase Stat (units (un known) date) unknown) (unknown) (no (unknown) (unknown) Loc: ED (units (unkno wn) date) unknown) (unknown) (no (unknown) (unknown) Lymph # (Auto) (units (unknown) date) (5903-8596) /uL unknown) (unknown) (no (unknown) (unknown) Lymph # (Auto) (units (unknown) date) 1700 unknown) (7403-8381) /uL (unknown) (no (unknown) (unknown) Lymph % (Auto) (units (unknown) date) (25-40) % unknown) (unknown) (no (unknown) (unknown) Lymph % (Auto) (units (unknown) date) 12.6 L (25-40) unknown) % (unknown) (no (unknown) (unknown) MCH (26-34) PG (units (unknown) date) unknown) (unknown) (no (unknown) (unknown) MCH 29.4 (units (unkn own) date) (26-34) PG unknown) (unknown) (no (unknown) (unknown) MCHC (30-36) % (units (unknown) date) unknown) (unknown) (no (unknown) (unknown) MCHC 33.0 (units (unk nown) date) (30-36) % unknown) (unknown) (no (unknown) (unknown) MCV (80-100) (units (unknown) date) fL unknown) (unknown) (no (unknown) (unknown) MCV 89.0 (units (unkn own) date) (80-100) fL unknown) (unknown) (no (unknown) (unknown) MDM - (units (unkno wn) date) Wound/Laceration unknown) (unknown) (no (unknown) (unknown) MDM Narrative (units ( unknown) date) unknown) (unknown) (no (unknown) (unknown) MR#: [id number] (units (unknown) date) unknown) (unknown) (no (unknown) (unknown) Medical decision (units (unknown) date) making narrative: unknown) (unknown) (no (unknown) (unknown) Mode of arrival: (units (unknown) date) Ambulatory unknown) (unknown) (no (unknown) (unknown) Ashley # (Auto) (units ( unknown) date) (0-900) /uL unknown) (unknown) (no (unknown) (unknown) Ashley # (Auto) (units ( unknown) date) 900 (0-900) unknown) /uL (unknown) (no (unknown) (unknown) Ashley % (Auto) (units ( unknown) date) (3-14) % unknown) (unknown) (no (unknown) (unknown) Ashley % (Auto) (units ( unknown) date) 6.8 (3-14) % unknown) (unknown) (no (unknown) (unknown) NECK: Supple, (units ( unknown) date) full range of unknown) motion (unknown) (no (unknown) (unknown) NEUROLOGICAL: (units ( unknown) date) Cranial nerves II unknown) through XII grossly intact. Moving all (unknown) (no (unknown) (unknown) Narrative (units (unkn own) date) unknown) (unknown) (no (unknown) (unknown) Negative for deep (units (unknown) date) venous thrombosis. unknown) (unknown) (no (unknown) (unknown) Neut # (Auto) (units ( unknown) date) (3799-2043) /uL unknown) (unknown) (no (unknown) (unknown) Neut # (Auto) (units ( unknown) date) 42756 H unknown) (4109-1218) /uL (unknown) (no (unknown) (unknown) Neut % (Auto) (units ( unknown) date) (50-75) % unknown) (unknown) (no (unknown) (unknown) Neut % (Auto) (units ( unknown) date) 79.4 H (50-75) unknown) % (unknown) (no (unknown) (unknown) No Known Drug (units ( unknown) date) Allergies Allergy unknown) Verified 01/31/22 07:10 (unknown) (no (unknown) (unknown) No fluid (units (unkno wn) date) collections are unknown) seen associated with the wound. (unknown) (no (unknown) (unknown) Ordered: (units (unkno wn) date) unknown) (unknown) (no (unknown) (unknown) Ordering (units (unkno wn) date) Provider: unknown) Lana Santiago D.O. (unknown) (no (unknown) (unknown) Orders (units (unkno wn) date) unknown) (unknown) (no (unknown) (unknown) PROCEDURE:? US (units (unknown) date) PERIPH VENOUS LOW unknown) EXTREM LT (unknown) (no (unknown) (unknown) PROCEDURE:? XR (units (unknown) date) TIBIA FIBULA LT 2V unknown) (unknown) (no (unknown) (unknown) Patient History (units (unknown) date) unknown) (unknown) (no (unknown) (unknown) Patient has (units (un known) date) significant unknown) swelling of the left calf and foot in comparison to the (unknown) (no (unknown) (unknown) Patient's chart (units (unknown) date) shows in early unknown) October she had a culture that showed Klebsiella (unknown) (no (unknown) (unknown) Patient: (units (unkno wn) date) Piero Frazier unknown) MR#: [id number] (unknown) (no (unknown) (unknown) Patient: (units (unkno wn) date) Piero Frazier unknown) (unknown) (no (unknown) (unknown) Positive for JVD. (units (unknown) date) unknown) (unknown) (no (unknown) (unknown) Potassium (units (unkn own) date) (3.4-5.1) mmol/L unknown) (unknown) (no (unknown) (unknown) Potassium 3.4 (units (unknown) date) (3.4-5.1) mmol/L unknown) (unknown) (no (unknown) (unknown) Procalcitonin (units ( unknown) date) (<0.5) ng/mL unknown) (unknown) (no (unknown) (unknown) Procalcitonin (units ( unknown) date) 0.37 (<0.5) unknown) ng/mL (unknown) (no (unknown) (unknown) Procalcitonin (units ( unknown) date) Stat unknown) (unknown) (no (unknown) (unknown) Procedure: US (units ( unknown) date) periph venous low unknown) extrem lt (unknown) (no (unknown) (unknown) Procedure: XR (units ( unknown) date) tibia fibula LT 2V unknown) (unknown) (no (unknown) (unknown) Pulse Oximetry (units (unknown) date) 99 01/31/22 unknown) 07:00 (unknown) (no (unknown) (unknown) Pulse Oximetry 99 (units (unknown) date) unknown) (unknown) (no (unknown) (unknown) Pulse Rate 93 H (units (unknown) date) 01/31/22 07:00 unknown) (unknown) (no (unknown) (unknown) Pulse Rate 93 H (units (unknown) date) unknown) (unknown) (no (unknown) (unknown) RDW (11.6-14.8) (units (unknown) date) % unknown) (unknown) (no (unknown) (unknown) RDW 15.5 H (units (un known) date) (11.6-14.8) % unknown) (unknown) (no (unknown) (unknown) RESPIRATORY: (units (u nknown) date) Breath sounds unknown) equal bilaterally, no wheezes rales or rhonchi. No (unknown) (no (unknown) (unknown) ROS Unobtainable: (units (unknown) date) All systems unknown) reviewed + are unremarkable except as noted in HPI (unknown) (no (unknown) (unknown) Real-time (units (unkn own) date) imaging, as well unknown) as color and pulse Doppler interrogation, were (unknown) (no (unknown) (unknown) Related Data (units (u nknown) date) unknown) (unknown) (no (unknown) (unknown) Respiratory Rate (units (unknown) date) 18 01/31/22 unknown) 07:00 (unknown) (no (unknown) (unknown) Respiratory Rate (units (unknown) date) 18 unknown) (unknown) (no (unknown) (unknown) Result diagrams: (units (unknown) date) unknown) (unknown) (no (unknown) (unknown) Review of Systems (units (unknown) date) unknown) (unknown) (no (unknown) (unknown) Yrn Baker (units (unknown) date) unknown) (unknown) (no (unknown) (unknown) SARS-CoV-2 (PCR) (units (unknown) date) (Negative) unknown) (unknown) (no (unknown) (unknown) SARS-CoV-2 (PCR) (units (unknown) date) Positive H unknown) (Negative) (unknown) (no (unknown) (unknown) SKIN: Warm, dry, (units (unknown) date) no petechiae, no unknown) rashes or lesions other than noted above. (unknown) (no (unknown) (unknown) Signed By: (units (unk nown) date) unknown) (unknown) (no (unknown) (unknown) Smoking Status: (units (unknown) date) Current every day unknown) smoker (unknown) (no (unknown) (unknown) Smoking Status: (units (unknown) date) Current every day unknown) smoker (unknown) (no (unknown) (unknown) Social History (units (unknown) date) (Reviewed 01/31/22 unknown) @ 10:02 by Lana Santiago DO) (unknown) (no (unknown) (unknown) Sodium (units (unkno wn) date) (137-145) mmol/L unknown) (unknown) (no (unknown) (unknown) Sodium 134 L (units (unknown) date) (137-145) mmol/L unknown) (unknown) (no (unknown) (unknown) Sodium Chloride (units (unknown) date) (Normal Saline unknown) 0.9%) 2,397 mls @ 799 mls/hr 30 ml/kg infuse (unknown) (no (unknown) (unknown) Soft tissues:? No (units (unknown) date) suspicious soft unknown) tissue calcifications or masses.? Skin (unknown) (no (unknown) (unknown) Source: patient (units (unknown) date) unknown) (unknown) (no (unknown) (unknown) Stated Complaint: (units (unknown) date) [place] on left leg unknown) (unknown) (no (unknown) (unknown) Substance Use (units ( unknown) date) Type: marijuana unknown) (unknown) (no (unknown) (unknown) TECHNIQUE:? (units (un known) date) unknown) (unknown) (no (unknown) (unknown) TECHNIQUE:? 2 (units ( unknown) date) views of the tibia unknown) and fibula were acquired.? (unknown) (no (unknown) (unknown) Temperature 98.4 (units (unknown) date) F 01/31/22 07:00 unknown) (unknown) (no (unknown) (unknown) Temperature 98.4 (units (unknown) date) F unknown) (unknown) (no (unknown) (unknown) This is a (units (unkn own) date) 46-year-old male unknown) presents with chronic left lower extremity wound (unknown) (no (unknown) (unknown) This is a (units (unkn own) date) 46-year-old man unknown) with history of housing insecurity, longstanding left (unknown) (no (unknown) (unknown) This lymph node (units (unknown) date) demonstrates a unknown) normal fatty hilum.? There is additional enlarged (unknown) (no (unknown) (unknown) Tibia/Fibula (units (u nknown) date) X-Ray (Signed) unknown) (unknown) (no (unknown) (unknown) Time Seen by (units (u nknown) date) Provider: 01/31/22 unknown) 07:55 (unknown) (no (unknown) (unknown) Total Bilirubin (units (unknown) date) (0.2-1.3) mg/dL unknown) (unknown) (no (unknown) (unknown) Total Bilirubin (units (unknown) date) 0.5 (0.2-1.3) unknown) mg/dL (unknown) (no (unknown) (unknown) Total Protein (units ( unknown) date) (6.3-8.2) g/dL unknown) (unknown) (no (unknown) (unknown) Total Protein (units ( unknown) date) 7.7 (6.3-8.2) unknown) g/dL (unknown) (no (unknown) (unknown) US - DVT: (units (unkn own) date) unknown) (unknown) (no (unknown) (unknown) US periph venous (units (unknown) date) low extrem lt Stat unknown) (unknown) (no (unknown) (unknown) Vascular (units (unkno wn) date) Ultrasound unknown) (Signed) (unknown) (no (unknown) (unknown) Vital Signs (units (un known) date) unknown) (unknown) (no (unknown) (unknown) Vital signs: (units (u nknown) date) unknown) (unknown) (no (unknown) (unknown) XR tibia fibula (units (unknown) date) LT 2V Stat unknown) (unknown) (no (unknown) (unknown) [Embedded Image (units (unknown) date) Not Available] unknown) (unknown) (no (unknown) (unknown) able to establish (units (unknown) date) there was not any unknown) openings. Patient states he has had some (unknown) (no (unknown) (unknown) active drainage (units (unknown) date) but has brownish unknown) discolored dried crusting. Patient also has (unknown) (no (unknown) (unknown) alcohol intake (units (unknown) date) frequency: 0-2 unknown) drinks per day (unknown) (no (unknown) (unknown) and IV (units (unkno wn) date) antibiotics unknown) (unknown) (no (unknown) (unknown) and MRSA. (units (unkn own) date) unknown) (unknown) (no (unknown) (unknown) and below (units (unkn own) date) unknown) (unknown) (no (unknown) (unknown) area of scab. He (units (unknown) date) states the redness unknown) seems to have been longstanding but has (unknown) (no (unknown) (unknown) at [facility] (units (unk nown) date) hospital. unknown) Discussed with hospitalist about keeping for observation (unknown) (no (unknown) (unknown) been draining new (units (unknown) date) staff occasionally unknown) will be purulent but sometimes or but clear (unknown) (no (unknown) (unknown) before evaluate (units (unknown) date) for foreign body unknown) or any obvious bony changes not or appreciated, (unknown) (no (unknown) (unknown) calf the lower (units (unknown) date) leg for about 4 cm unknown) below the knee is erythematous, there is (unknown) (no (unknown) (unknown) compressible, and (units (unknown) date) unknown) (unknown) (no (unknown) (unknown) cutting his leg. (units (unknown) date) Patient has had unknown) chronic injury for the past reported 10 months (unknown) (no (unknown) (unknown) developed heat (units (unknown) date) and warmth to the unknown) area. Patient occasionally has had some funny (unknown) (no (unknown) (unknown) discoloration. He (units (unknown) date) has had increasing unknown) pain particularly in the back calf and has (unknown) (no (unknown) (unknown) edema is (units (unkno wn) date) unknown) (unknown) (no (unknown) (unknown) extremities (units (un known) date) unknown) (unknown) (no (unknown) (unknown) feelings in his (units (unknown) date) chest but denies unknown) chest pain, no shortness of breath. He has had (unknown) (no (unknown) (unknown) fossa.? (units (unkno wn) date) unknown) (unknown) (no (unknown) (unknown) free of (units (unkno wn) date) intraluminal unknown) thrombus.? Color and pulse Doppler demonstrate normal (unknown) (no (unknown) (unknown) guarding or (units (un known) date) rebound, rigidity, unknown) no mass (unknown) (no (unknown) (unknown) he had MRSA. He (units (unknown) date) was referred to unknown) the wound care clinic at [facility] but was never (unknown) (no (unknown) (unknown) he states that it (units (unknown) date) has never healed. unknown) He has been on antibiotics he has been told (unknown) (no (unknown) (unknown) incidental. He (units (unknown) date) is oxygenation has unknown) been appropriate today. Patient has been on (unknown) (no (unknown) (unknown) infection which (units (unknown) date) appears to be unknown) worsening. Patient has elevated heart rate at 90, (unknown) (no (unknown) (unknown) inguinal (units (unkno wn) date) lymphadenopathy. unknown) Patient is COVID positive today which is likely (unknown) (no (unknown) (unknown) intraluminal (units (u nknown) date) flow.? There is unknown) normal augmentation response to distal compression (unknown) (no (unknown) (unknown) irregularity is (units (unknown) date) unknown) (unknown) (no (unknown) (unknown) lower extremity (units (unknown) date) over the past unknown) several days. He states the wound has not really (unknown) (no (unknown) (unknown) lower leg (units (unkno wn) date) infection. unknown) Patient states initially he injured his leg when trying to (unknown) (no (unknown) (unknown) maneuver. (units (unkn own) date) unknown) (unknown) (no (unknown) (unknown) moist mucous (units (u nknown) date) membranes unknown) (unknown) (no (unknown) (unknown) multiple (units (unkno wn) date) antibiotics, he unknown) has been recommended to wound care but he there has not (unknown) (no (unknown) (unknown) nausea but no (units ( unknown) date) active vomiting. unknown) No major issues with bowel movements or (unknown) (no (unknown) (unknown) negative (units (unkno wn) date) procalcitonin. unknown) Patient had x-ray imaging unclear if he has had this (unknown) (no (unknown) (unknown) node measuring 3 (units (unknown) date) x 3 x 1.4 cm that unknown) demonstrates loss of the normal fatty hilum. (unknown) (no (unknown) (unknown) normal range of (units (unknown) date) motion. unknown) (unknown) (no (unknown) (unknown) occasional (units (unk nown) date) alcohol, states unknown) use marijuana but denies any IV drug use or other (unknown) (no (unknown) (unknown) open wound (units (unk nown) date) visualized. unknown) Patient's cap refills less than 2 seconds. Patient has (unknown) (no (unknown) (unknown) over 3 hr (2397 (units (unknown) date) ml) IV NOW ONE unknown) (unknown) (no (unknown) (unknown) performed of (units (u nknown) date) unknown) (unknown) (no (unknown) (unknown) phasic (units (unkno wn) date) unknown) (unknown) (no (unknown) (unknown) prescription (units (u nknown) date) drugs. Denies any unknown) prior surgeries. He does use tobacco, (unknown) (no (unknown) (unknown) present. (units (unkno wn) date) unknown) (unknown) (no (unknown) (unknown) provider. He (units ( unknown) date) states he has unknown) found stable housing recently. Records from November (unknown) (no (unknown) (unknown) pull would out of (units (unknown) date) a pile of tree unknown) that had been cut down he fell scraping or (unknown) (no (unknown) (unknown) recreational (units (u nknown) date) substances. unknown) Patient does not have an established primary care (unknown) (no (unknown) (unknown) right, there is a (units (unknown) date) 5 x 6 cm unknown) irregularly shaped wound on the anterior rivera without (unknown) (no (unknown) (unknown) seen at the (units (un known) date) anterior aspect of unknown) lower leg.? Diffuse subcutaneous soft tissue (unknown) (no (unknown) (unknown) significant warmth (units (unknown) date) on the posterior unknown) calf not as appreciable on the anterior leg. (unknown) (no (unknown) (unknown) some peeling of (units (unknown) date) the skin on the unknown) dorsum of his foot. Patient is tender over the (unknown) (no (unknown) (unknown) subcutaneous soft (units (unknown) date) tissue edema.? No unknown) radiopaque foreign body. (unknown) (no (unknown) (unknown) subjective fever (units (unknown) date) chills sensation, unknown) he had rapid increase in swelling of his left (unknown) (no (unknown) (unknown) tachypnea (units (unkn own) date) accessory muscle unknown) use. (unknown) (no (unknown) (unknown) tenderness and (units (unknown) date) longstanding unknown) infection which is negative but does show some (unknown) (no (unknown) (unknown) the lower (units (unkn own) date) extremity deep unknown) veins from the inguinal ligament to the popliteal (unknown) (no (unknown) (unknown) urination. He (units ( unknown) date) denies any regular unknown) medical issues or that he should be taking any (unknown) (no (unknown) (unknown) with Bactrim, (units ( unknown) date) clinda + keflex in unknown) November, Linezolid and Cipro in July. Result panel 11 (unknown) (no (unknown) (unknown) (no value) (units (unk nown) date) unknown) (unknown) (no (unknown) (unknown) Radiologist's (units ( unknown) date) Impression: unknown) (unknown) (no (unknown) (unknown) (no value) (units (unk nown) date) unknown) (unknown) (no (unknown) (unknown) Date of Service: (units (unknown) date) 01/31/22 unknown) (unknown) (no (unknown) (unknown) (no value) (units (unk nown) date) unknown) (unknown) (no (unknown) (unknown) 01/31/22 07:52 (units (unknown) date) unknown) (unknown) (no (unknown) (unknown) [address] [place] [address] (units (unknown) date) unknown) (unknown) (no (unknown) (unknown) Allergies (units (unkn own) date) unknown) (unknown) (no (unknown) (unknown) KULWANT Jha (units ( unknown) date) [id number] unknown) (unknown) (no (unknown) (unknown) Close (units (unkno wn) date) unknown) (unknown) (no (unknown) (unknown) Documented by: (units (unknown) date) RSTONE unknown) (unknown) (no (unknown) (unknown) ED Orders (units (unkn own) date) unknown) (unknown) (no (unknown) (unknown) Emergency Report (units (unknown) date) unknown) (unknown) (no (unknown) (unknown) [facility] (units (unknown) date) unknown) (unknown) (no (unknown) (unknown) [facility] (units (unknown) date) [address] unknown) [place] [address] (unknown) (no (unknown) (unknown) Lab Results (units (un known) date) unknown) (unknown) (no (unknown) (unknown) Last Admin: (units (un known) date) 01/31/22 09:00 unknown) Dose: 15 mg (unknown) (no (unknown) (unknown) Last Admin: (units (un known) date) 01/31/22 09:00 unknown) Dose: 799 mls/hr (unknown) (no (unknown) (unknown) Last Admin: (units (un known) date) 01/31/22 09:01 unknown) Dose: 50 mls/hr (unknown) (no (unknown) (unknown) Launch?Image (units (u nknown) date) unknown) (unknown) (no (unknown) (unknown) Signed (units (unkno wn) date) unknown) (unknown) (no (unknown) (unknown) Stop: 01/31/22 (units (unknown) date) 08:27 unknown) (unknown) (no (unknown) (unknown) Stop: 01/31/22 (units (unknown) date) 09:25 unknown) (unknown) (no (unknown) (unknown) Stop: 01/31/22 (units (unknown) date) 11:23 unknown) (unknown) (no (unknown) (unknown) Stop: 01/31/22 (units (unknown) date) 11:25 unknown) (unknown) (no (unknown) (unknown) Ultrasound Report (units (unknown) date) unknown) (unknown) (no (unknown) (unknown) Vital Signs - 8 (units (unknown) date) hr unknown) (unknown) (no (unknown) (unknown) XRay Report (units (un known) date) unknown) (unknown) (no (unknown) (unknown) (no value) (units (unk nown) date) unknown) (unknown) (no (unknown) (unknown) 01/31/22 01/31/22 (units (unknown) date) 01/31/22 unknown) Range/Units (unknown) (no (unknown) (unknown) 01/31/22 (units (unkno wn) date) Range/Units unknown) (unknown) (no (unknown) (unknown) 07:52 07:52 07:52 (units (unknown) date) unknown) (unknown) (no (unknown) (unknown) 09:04 (units (unkno wn) date) unknown) (unknown) (no (unknown) (unknown) 01/31/22 (units (unkno wn) date) unknown) (unknown) (no (unknown) (unknown) 12 he does have a (units (unknown) date) leftward shift, unknown) labs are otherwise fairly unremarkable with a (unknown) (no (unknown) (unknown) 2.8 cm.? 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 Last visit I have available is in November (unknown) (no (unknown) (unknown) does not quite (units (unknown) date) meet septic unknown) criteria his white count is 13 today. Hemoglobin is (unknown) (no (unknown) (unknown) lymph (units (unkno wn) date) unknown) (unknown) (no (unknown) (unknown) sodium of 134 (units ( unknown) date) glucose of 120 unknown) with normal renal function normal lactate and a (unknown) (no (unknown) (unknown) - (units (unkno wn) date) unknown) (unknown) (no (unknown) (unknown) 01/31/22 (units (unkno wn) date) unknown) (unknown) (no (unknown) (unknown) 01/31/22 07:09 (units (unknown) date) unknown) (unknown) (no (unknown) (unknown) 01/31/22 07:52 (units (unknown) date) unknown) (unknown) (no (unknown) (unknown) 01/31/22 08:10 (units (unknown) date) unknown) (unknown) (no (unknown) (unknown) 01/31/22 08:26 (units (unknown) date) unknown) (unknown) (no (unknown) (unknown) 01/31/22 09:04 (units (unknown) date) unknown) (unknown) (no (unknown) (unknown) 07:00 01/31/22 (units (unknown) date) unknown) (unknown) (no (unknown) (unknown) 09:00 01/31/22 (units (unknown) date) unknown) (unknown) (no (unknown) (unknown) 09:30 (units (unkno wn) date) unknown) (unknown) (no (unknown) (unknown) 10:20 (units (unkno wn) date) unknown) (unknown) (no (unknown) (unknown) 2021 ER visit was (units (unknown) date) obtained from unknown) [facility]. It appears patient has been treated (unknown) (no (unknown) (unknown) [id number] (units (unkno wn) date) unknown) (unknown) (no (unknown) (unknown) ? (units (unkno wn) date) unknown) (unknown) (no (unknown) (unknown) ? (units (unkno wn) date) unknown) (unknown) (no (unknown) (unknown) A1 can be seen, (units (unknown) date) without an unknown) associated underlying fluid collection. (unknown) (no (unknown) (unknown) ABDOMEN: Soft, (units (unknown) date) nontender. unknown) Normoactive bowel sounds all 4 quadrants. No (unknown) (no (unknown) (unknown) ALT (<50) IU/L (units (unknown) date) unknown) (unknown) (no (unknown) (unknown) ALT 12 (<50) (units (unknown) date) IU/L unknown) (unknown) (no (unknown) (unknown) AST (17-59) (units ( unknown) date) IU/L unknown) (unknown) (no (unknown) (unknown) AST 20 (units (unkno wn) date) (17-59) IU/L unknown) (unknown) (no (unknown) (unknown) Accession Number: (units (unknown) date) [id number] ?? unknown) (unknown) (no (unknown) (unknown) Accession Number: (units (unknown) date) [id number] ?? unknown) (unknown) (no (unknown) (unknown) Acct:[id number] (units (unknown) date) unknown) (unknown) (no (unknown) (unknown) Age/Sex: 46 / M (units (unknown) date) unknown) (unknown) (no (unknown) (unknown) Age/Sex: 46 / M (units (unknown) date) unknown) (unknown) (no (unknown) (unknown) Albumin (units (unkno wn) date) (3.5-5.0) g/dL unknown) (unknown) (no (unknown) (unknown) Albumin 3.9 (units ( unknown) date) (3.5-5.0) g/dL unknown) (unknown) (no (unknown) (unknown) Albumin/Globulin (units (unknown) date) Ratio (1.0-2.8) unknown) (unknown) (no (unknown) (unknown) Albumin/Globulin (units (unknown) date) Ratio 1.0 unknown) (1.0-2.8) (unknown) (no (unknown) (unknown) Alkaline (units (unkno wn) date) Phosphatase unknown) (38-126) U/L (unknown) (no (unknown) (unknown) Alkaline (units (unkno wn) date) Phosphatase 89 unknown) (38-126) U/L (unknown) (no (unknown) (unknown) Allergy/Adv: No (units (unknown) date) Known Drug unknown) Allergies (unknown) (no (unknown) (unknown) Allergy/AdvReac (units (unknown) date) Type Severity unknown) Reaction Status Date / Time (unknown) (no (unknown) (unknown) Approved by: (units (u nknown) date) Yrn Baker, unknown) Peggy on 01/31/2022 at 8:46?? (unknown) (no (unknown) (unknown) Approved by: (units (u nknown) date) Juan Vaughan, unknown) Peggy on 01/31/2022 at 8:14?? (unknown) (no (unknown) (unknown) BUN (9-20) (units (u nknown) date) mg/dL unknown) (unknown) (no (unknown) (unknown) BUN 16 (9-20) (units (unknown) date) mg/dL unknown) (unknown) (no (unknown) (unknown) BUN/Creatinine (units (unknown) date) Ratio (-) unknown) (unknown) (no (unknown) (unknown) BUN/Creatinine (units (unknown) date) Ratio 16.3 unknown) (02-15) (unknown) (no (unknown) (unknown) Baso # (Auto) (units ( unknown) date) (0-100) /uL unknown) (unknown) (no (unknown) (unknown) Baso # (Auto) 0 (units (unknown) date) (0-100) /uL unknown) (unknown) (no (unknown) (unknown) Baso % (Auto) (units ( unknown) date) (0-2) % unknown) (unknown) (no (unknown) (unknown) Baso % (Auto) (units ( unknown) date) 0.4 (0-2) % unknown) (unknown) (no (unknown) (unknown) Blood Culture (units ( unknown) date) Stat unknown) (unknown) (no (unknown) (unknown) Blood Pressure (units (unknown) date) 135/80 07 unknown) 07:00 (unknown) (no (unknown) (unknown) Blood Pressure (units (unknown) date) 133/68 unknown) (unknown) (no (unknown) (unknown) Blood Pressure (units (unknown) date) 135/80 140/79 unknown) 128/61 (unknown) (no (unknown) (unknown) Bones:? No acute (units (unknown) date) fractures or unknown) dislocations.? No suspicious bony lesions.? (unknown) (no (unknown) (unknown) CARDIOVASCULAR: (units (unknown) date) Regular rate and unknown) rhythm without murmurs, rubs or gallops. (unknown) (no (unknown) (unknown) COMPARISON:? (units (u nknown) date) None. unknown) (unknown) (no (unknown) (unknown) COVID19 -Nasal (units (unknown) date) RAPID/Pre-Proc unknown) Stat (unknown) (no (unknown) (unknown) Calcium (units (unkno wn) date) (8.4-10.2) mg/dL unknown) (unknown) (no (unknown) (unknown) Calcium 8.8 (units ( unknown) date) (8.4-10.2) mg/dL unknown) (unknown) (no (unknown) (unknown) Carbon Dioxide (units (unknown) date) (22-32) mmol/L unknown) (unknown) (no (unknown) (unknown) Carbon Dioxide (units (unknown) date) 30 (22-32) unknown) mmol/L (unknown) (no (unknown) (unknown) Chief Complaint: (units (unknown) date) Wound/Laceration unknown) (unknown) (no (unknown) (unknown) Chloride (units (unkno wn) date) (98-107) mmol/L unknown) (unknown) (no (unknown) (unknown) Chloride 98 (units ( unknown) date) (98-107) mmol/L unknown) (unknown) (no (unknown) (unknown) Clindamycin (units (un known) date) Phosphate unknown) (Cleocin) 900 mg in 50 mls @ 50 mls/hr IV NOW ONE (unknown) (no (unknown) (unknown) Clinical (units (unkno wn) date) Impression: unknown) (unknown) (no (unknown) (unknown) Complete Blood (units (unknown) date) Count AUTO DIFF unknown) Stat (unknown) (no (unknown) (unknown) Comprehensive (units ( unknown) date) Metabolic Panel unknown) Stat (unknown) (no (unknown) (unknown) [place] [facility] [place] ([place]) [place]) Infection Preventionist unknown) Stat (unknown) (no (unknown) (unknown) Course (units (unkno wn) date) unknown) (unknown) (no (unknown) (unknown) Creatinine (units (unk nown) date) (0.66-1.25) mg/dL unknown) (unknown) (no (unknown) (unknown) Creatinine 0.98 (units (unknown) date) (0.66-1.25) unknown) mg/dL (unknown) (no (unknown) (unknown) : 1975 (units (unknown) date) Acct:[id number] unknown) (unknown) (no (unknown) (unknown) : 1975 (units (unknown) date) unknown) (unknown) (no (unknown) (unknown) Date of Service: (units (unknown) date) 01/31/22 unknown) (unknown) (no (unknown) (unknown) Departure (units (unkn own) date) unknown) (unknown) (no (unknown) (unknown) Dictated by: (units (u nknown) date) Yrn Baker, unknown) Peggy on 01/31/2022 at 8:41 ? ? (unknown) (no (unknown) (unknown) Dictated by: (units (u nknown) date) Juan Vaughan, unknown) Peggy on 01/31/2022 at 8:13 ? ? (unknown) (no (unknown) (unknown) Discharge Plan (units (unknown) date) unknown) (unknown) (no (unknown) (unknown) Discontinued (units (u nknown) date) Medications unknown) (unknown) (no (unknown) (unknown) ER Physician: (units ( unknown) date) Lana Santiago D.O. unknown) (unknown) (no (unknown) (unknown) EXTREMITIES: (units (u nknown) date) Normal range of unknown) motion, no clubbing. Neurovascularly intact. (unknown) (no (unknown) (unknown) Enlarged left (units (u nknown) date) groin lymph nodes unknown) are seen, with the largest measuring 3.5 x 1.4 x (unknown) (no (unknown) (unknown) Enlarged left (units ( unknown) date) groin lymph nodes unknown) are seen. (unknown) (no (unknown) (unknown) Eos # (Auto) (units (u nknown) date) (0-450) /uL unknown) (unknown) (no (unknown) (unknown) Eos # (Auto) 100 (units (unknown) date) (0-450) /uL unknown) (unknown) (no (unknown) (unknown) Eos % (Auto) (units (u nknown) date) (2-4) % unknown) (unknown) (no (unknown) (unknown) Eos % (Auto) 0.8 (units (unknown) date) L (2-4) % unknown) (unknown) (no (unknown) (unknown) Estimated GFR > (units (unknown) date) 60 (>60) mL/min unknown) (unknown) (no (unknown) (unknown) Estimated GFR (units ( unknown) date) (>60) mL/min unknown) (unknown) (no (unknown) (unknown) Exam (units (unkno wn) date) unknown) (unknown) (no (unknown) (unknown) Exam Narrative: (units (unknown) date) unknown) (unknown) (no (unknown) (unknown) Extremity x-ray (units (unknown) date) #1: unknown) (unknown) (no (unknown) (unknown) FINDINGS:? (units (unk nown) date) unknown) (unknown) (no (unknown) (unknown) FINDINGS:? The (units (unknown) date) common femoral, unknown) femoral and popliteal veins are normally (unknown) (no (unknown) (unknown) GENERAL: Alert (units (unknown) date) and oriented x unknown) three, male in mild distress. (unknown) (no (unknown) (unknown) : No CVA (units (unk nown) date) tenderness unknown) (unknown) (no (unknown) (unknown) General (units (unkno wn) date) unknown) (unknown) (no (unknown) (unknown) GenericComposite[ (units (unknown) date) Plt Count unknown) (150-400) X10^3/uL ] (unknown) (no (unknown) (unknown) GenericComposite[ (units (unknown) date) Plt Count 247 unknown) (150-400) X10^3/uL ] (unknown) (no (unknown) (unknown) GenericComposite[ (units (unknown) date) RBC (4.5-5.9) unknown) X10^6/uL ] (unknown) (no (unknown) (unknown) GenericComposite[ (units (unknown) date) RBC 4.28 L unknown) (4.5-5.9) X10^6/uL ] (unknown) (no (unknown) (unknown) GenericComposite[ (units (unknown) date) WBC (4.5-11.0) unknown) X10^3/uL ] (unknown) (no (unknown) (unknown) GenericComposite[ (units (unknown) date) WBC 13.3 H unknown) (4.5-11.0) X10^3/uL ] (unknown) (no (unknown) (unknown) Globulin (units (unkno wn) date) (1.7-4.1) g/dL unknown) (unknown) (no (unknown) (unknown) Globulin 3.8 (units (unknown) date) (1.7-4.1) g/dL unknown) (unknown) (no (unknown) (unknown) Glucose (units (unkno wn) date) (70-100) mg/dL unknown) (unknown) (no (unknown) (unknown) Glucose 120 H (units (unknown) date) (70-100) mg/dL unknown) (unknown) (no (unknown) (unknown) HEENT: Head (units (un known) date) normocephalic, unknown) atraumatic, EOMI, pupils reactive, face symmetric, (unknown) (no (unknown) (unknown) HPI - (units (unkno wn) date) Wound/Laceration unknown) (unknown) (no (unknown) (unknown) HPI narrative: (units (unknown) date) unknown) (unknown) (no (unknown) (unknown) Hct (41-53) % (units (unknown) date) unknown) (unknown) (no (unknown) (unknown) Hct 38.1 L (units (un known) date) (41-53) % unknown) (unknown) (no (unknown) (unknown) Hgb (13.5-17.5) (units (unknown) date) g/dL unknown) (unknown) (no (unknown) (unknown) Hgb 12.6 L (units (un known) date) (13.5-17.5) g/dL unknown) (unknown) (no (unknown) (unknown) History of (units (unk nown) date) Present Illness unknown) (unknown) (no (unknown) (unknown) IMPRESSION:? (units (u nknown) date) unknown) (unknown) (no (unknown) (unknown) IMPRESSION:? Skin (units (unknown) date) irregularity is unknown) seen at the anterior lower leg with diffuse (unknown) (no (unknown) (unknown) INDICATIONS:? (units ( unknown) date) PAIN AND SWELLING unknown) WITH CHRONIC INFECTION (unknown) (no (unknown) (unknown) INDICATIONS:? (units ( unknown) date) chronic leg unknown) infection, r/o FB (unknown) (no (unknown) (unknown) Imaging Data (units (u nknown) date) unknown) (unknown) (no (unknown) (unknown) Initial Vital (units ( unknown) date) Signs unknown) (unknown) (no (unknown) (unknown) Initial Vital (units ( unknown) date) Signs: unknown) (unknown) (no (unknown) (unknown) Ketorolac (units (unkn own) date) Tromethamine unknown) (Ketorolac 30 Mg/Ml Vial) 15 mg IV NOW ONE (unknown) (no (unknown) (unknown) [place] Vaughane (units ( unknown) date) unknown) (unknown) (no (unknown) (unknown) Lab Data (units (unkno wn) date) unknown) (unknown) (no (unknown) (unknown) Labs: (units (unkno wn) date) unknown) (unknown) (no (unknown) (unknown) Lactate 1.7 (units (unknown) date) (0.7-2.1) mmol/L unknown) (unknown) (no (unknown) (unknown) Lactate (units (unkno wn) date) (0.7-2.1) mmol/L unknown) (unknown) (no (unknown) (unknown) Lactate (Lactic (units (unknown) date) Acid) Stat unknown) (unknown) (no (unknown) (unknown) Piero Frazier??4 (units (unknown) date) 8??M??1975 unknown) (unknown) (no (unknown) (unknown) Limitations: no (units (unknown) date) limitations unknown) (unknown) (no (unknown) (unknown) Lipase (23-300) (units (unknown) date) U/L unknown) (unknown) (no (unknown) (unknown) Lipase 52 (units (un known) date) (23-300) U/L unknown) (unknown) (no (unknown) (unknown) Lipase Stat (units (un known) date) unknown) (unknown) (no (unknown) (unknown) Loc: ED (units (unkno wn) date) unknown) (unknown) (no (unknown) (unknown) Lymph # (Auto) (units (unknown) date) ([id number]) /uL unknown) (unknown) (no (unknown) (unknown) Lymph # (Auto) (units (unknown) date) 1700 unknown) (4137-1100) /uL (unknown) (no (unknown) (unknown) Lymph % (Auto) (units (unknown) date) (25-40) % unknown) (unknown) (no (unknown) (unknown) Lymph % (Auto) (units (unknown) date) 12.6 L (25-40) unknown) % (unknown) (no (unknown) (unknown) MCH (26-34) PG (units (unknown) date) unknown) (unknown) (no (unknown) (unknown) MCH 29.4 (units (unkn own) date) (26-34) PG unknown) (unknown) (no (unknown) (unknown) MCHC (30-36) % (units (unknown) date) unknown) (unknown) (no (unknown) (unknown) MCHC 33.0 (units (unk nown) date) (30-36) % unknown) (unknown) (no (unknown) (unknown) MCV (80-100) (units (unknown) date) fL unknown) (unknown) (no (unknown) (unknown) MCV 89.0 (units (unkn own) date) (80-100) fL unknown) (unknown) (no (unknown) (unknown) MDM - (units (unkno wn) date) Wound/Laceration unknown) (unknown) (no (unknown) (unknown) MDM Narrative (units ( unknown) date) unknown) (unknown) (no (unknown) (unknown) MR#: [id number] (units (unknown) date) unknown) (unknown) (no (unknown) (unknown) Medical decision (units (unknown) date) making narrative: unknown) (unknown) (no (unknown) (unknown) Mode of arrival: (units (unknown) date) Ambulatory unknown) (unknown) (no (unknown) (unknown) Ashley # (Auto) (units ( unknown) date) (0-900) /uL unknown) (unknown) (no (unknown) (unknown) Ashley # (Auto) (units ( unknown) date) 900 (0-900) unknown) /uL (unknown) (no (unknown) (unknown) Ashley % (Auto) (units ( unknown) date) (3-14) % unknown) (unknown) (no (unknown) (unknown) Ashley % (Auto) (units ( unknown) date) 6.8 (3-14) % unknown) (unknown) (no (unknown) (unknown) NECK: Supple, (units ( unknown) date) full range of unknown) motion (unknown) (no (unknown) (unknown) NEUROLOGICAL: (units ( unknown) date) Cranial nerves II unknown) through XII grossly intact. Moving all (unknown) (no (unknown) (unknown) Narrative (units (unkn own) date) unknown) (unknown) (no (unknown) (unknown) Negative for deep (units (unknown) date) venous thrombosis. unknown) (unknown) (no (unknown) (unknown) Neut # (Auto) (units ( unknown) date) (3502-8723) /uL unknown) (unknown) (no (unknown) (unknown) Neut # (Auto) (units ( unknown) date) 66088 H unknown) (9732-5204) /uL (unknown) (no (unknown) (unknown) Neut % (Auto) (units ( unknown) date) (50-75) % unknown) (unknown) (no (unknown) (unknown) Neut % (Auto) (units ( unknown) date) 79.4 H (50-75) unknown) % (unknown) (no (unknown) (unknown) No Known Drug (units ( unknown) date) Allergies Allergy unknown) Verified 01/31/22 07:10 (unknown) (no (unknown) (unknown) No fluid (units (unkno wn) date) collections are unknown) seen associated with the wound. (unknown) (no (unknown) (unknown) Ordered: (units (unkno wn) date) unknown) (unknown) (no (unknown) (unknown) Ordering (units (unkno wn) date) Provider: unknown) Lana Santiago D.O. (unknown) (no (unknown) (unknown) Orders (units (unkno wn) date) unknown) (unknown) (no (unknown) (unknown) PROCEDURE:? US (units (unknown) date) PERIPH VENOUS LOW unknown) EXTREM LT (unknown) (no (unknown) (unknown) PROCEDURE:? XR (units (unknown) date) TIBIA FIBULA LT 2V unknown) (unknown) (no (unknown) (unknown) Pantoprazole (units (u nknown) date) Sodium unknown) (Pantoprazole 40 Mg Vial) 80 mg IV NOW ONE (unknown) (no (unknown) (unknown) Patient History (units (unknown) date) unknown) (unknown) (no (unknown) (unknown) Patient has (units (un known) date) significant unknown) swelling of the left calf and foot in comparison to the (unknown) (no (unknown) (unknown) Patient's chart (units (unknown) date) shows in early unknown) October she had a culture that showed Klebsiella (unknown) (no (unknown) (unknown) Patient: (units (unkno wn) date) FreddiePiero unknown) MR#: [id number] (unknown) (no (unknown) (unknown) Patient: (units (unkno wn) date) FreddiePiero unknown) (unknown) (no (unknown) (unknown) Positive for JVD. (units (unknown) date) unknown) (unknown) (no (unknown) (unknown) Potassium (units (unkn own) date) (3.4-5.1) mmol/L unknown) (unknown) (no (unknown) (unknown) Potassium 3.4 (units (unknown) date) (3.4-5.1) mmol/L unknown) (unknown) (no (unknown) (unknown) Procalcitonin (units ( unknown) date) (<0.5) ng/mL unknown) (unknown) (no (unknown) (unknown) Procalcitonin (units ( unknown) date) 0.37 (<0.5) unknown) ng/mL (unknown) (no (unknown) (unknown) Procalcitonin (units ( unknown) date) Stat unknown) (unknown) (no (unknown) (unknown) Procedure: US (units ( unknown) date) periph venous low unknown) extrem lt (unknown) (no (unknown) (unknown) Procedure: XR (units ( unknown) date) tibia fibula LT 2V unknown) (unknown) (no (unknown) (unknown) Pulse Oximetry (units (unknown) date) unknown) (unknown) (no (unknown) (unknown) Pulse Oximetry (units (unknown) date) 99 01/31/22 unknown) 07:00 (unknown) (no (unknown) (unknown) Pulse Oximetry 99 (units (unknown) date) 99 98 unknown) (unknown) (no (unknown) (unknown) Pulse Rate 93 H (units (unknown) date) 01/31/22 07:00 unknown) (unknown) (no (unknown) (unknown) Pulse Rate 92 H (units (unknown) date) unknown) (unknown) (no (unknown) (unknown) Pulse Rate 93 H (units (unknown) date) 98 H 90 unknown) (unknown) (no (unknown) (unknown) RDW (11.6-14.8) (units (unknown) date) % unknown) (unknown) (no (unknown) (unknown) RDW 15.5 H (units (un known) date) (11.6-14.8) % unknown) (unknown) (no (unknown) (unknown) RESPIRATORY: (units (u nknown) date) Breath sounds unknown) equal bilaterally, no wheezes rales or rhonchi. No (unknown) (no (unknown) (unknown) ROS Unobtainable: (units (unknown) date) All systems unknown) reviewed + are unremarkable except as noted in HPI (unknown) (no (unknown) (unknown) Real-time (units (unkn own) date) imaging, as well unknown) as color and pulse Doppler interrogation, were (unknown) (no (unknown) (unknown) Related Data (units (u nknown) date) unknown) (unknown) (no (unknown) (unknown) Respiratory Rate (units (unknown) date) 18 01/31/22 unknown) 07:00 (unknown) (no (unknown) (unknown) Respiratory Rate (units (unknown) date) 12 unknown) (unknown) (no (unknown) (unknown) Respiratory Rate (units (unknown) date) 18 16 18 unknown) (unknown) (no (unknown) (unknown) Result diagrams: (units (unknown) date) unknown) (unknown) (no (unknown) (unknown) Review of Systems (units (unknown) date) unknown) (unknown) (no (unknown) (unknown) Yrn Baker (units (unknown) date) unknown) (unknown) (no (unknown) (unknown) SARS-CoV-2 (PCR) (units (unknown) date) (Negative) unknown) (unknown) (no (unknown) (unknown) SARS-CoV-2 (PCR) (units (unknown) date) Positive H unknown) (Negative) (unknown) (no (unknown) (unknown) SKIN: Warm, dry, (units (unknown) date) no petechiae, no unknown) rashes or lesions other than noted above. (unknown) (no (unknown) (unknown) Signed By: (units (unk nown) date) unknown) (unknown) (no (unknown) (unknown) Smoking Status: (units (unknown) date) Current every day unknown) smoker (unknown) (no (unknown) (unknown) Smoking Status: (units (unknown) date) Current every day unknown) smoker (unknown) (no (unknown) (unknown) Social History (units (unknown) date) (Reviewed 01/31/22 unknown) @ 10:02 by Lana Santiago DO) (unknown) (no (unknown) (unknown) Sodium (units (unkno wn) date) (137-145) mmol/L unknown) (unknown) (no (unknown) (unknown) Sodium 134 L (units (unknown) date) (137-145) mmol/L unknown) (unknown) (no (unknown) (unknown) Sodium Chloride (units (unknown) date) (Normal Saline unknown) 0.9%) 2,397 mls @ 799 mls/hr 30 ml/kg infuse (unknown) (no (unknown) (unknown) Soft tissues:? No (units (unknown) date) suspicious soft unknown) tissue calcifications or masses.? Skin (unknown) (no (unknown) (unknown) Source: patient (units (unknown) date) unknown) (unknown) (no (unknown) (unknown) Stated Complaint: (units (unknown) date) [place] on left leg unknown) (unknown) (no (unknown) (unknown) Substance Use (units ( unknown) date) Type: marijuana unknown) (unknown) (no (unknown) (unknown) TECHNIQUE:? (units (un known) date) unknown) (unknown) (no (unknown) (unknown) TECHNIQUE:? 2 (units ( unknown) date) views of the tibia unknown) and fibula were acquired.? (unknown) (no (unknown) (unknown) Temperature (units (un known) date) unknown) (unknown) (no (unknown) (unknown) Temperature 98.4 (units (unknown) date) F 01/31/22 07:00 unknown) (unknown) (no (unknown) (unknown) Temperature 98.4 (units (unknown) date) F unknown) (unknown) (no (unknown) (unknown) This is a (units (unkn own) date) 46-year-old male unknown) presents with chronic left lower extremity wound (unknown) (no (unknown) (unknown) This is a (units (unkn own) date) 46-year-old man unknown) with history of housing insecurity, longstanding left (unknown) (no (unknown) (unknown) This lymph node (units (unknown) date) demonstrates a unknown) normal fatty hilum.? There is additional enlarged (unknown) (no (unknown) (unknown) Tibia/Fibula (units (u nknown) date) X-Ray (Signed) unknown) (unknown) (no (unknown) (unknown) Time Seen by (units (u nknown) date) Provider: 01/31/22 unknown) 07:55 (unknown) (no (unknown) (unknown) Total Bilirubin (units (unknown) date) (0.2-1.3) mg/dL unknown) (unknown) (no (unknown) (unknown) Total Bilirubin (units (unknown) date) 0.5 (0.2-1.3) unknown) mg/dL (unknown) (no (unknown) (unknown) Total Protein (units ( unknown) date) (6.3-8.2) g/dL unknown) (unknown) (no (unknown) (unknown) Total Protein (units ( unknown) date) 7.7 (6.3-8.2) unknown) g/dL (unknown) (no (unknown) (unknown) US - DVT: (units (unkn own) date) unknown) (unknown) (no (unknown) (unknown) US periph venous (units (unknown) date) low extrem lt Stat unknown) (unknown) (no (unknown) (unknown) Vascular (units (unkno wn) date) Ultrasound unknown) (Signed) (unknown) (no (unknown) (unknown) Vital Signs (units (un known) date) unknown) (unknown) (no (unknown) (unknown) Vital signs: (units (u nknown) date) unknown) (unknown) (no (unknown) (unknown) XR tibia fibula (units (unknown) date) LT 2V Stat unknown) (unknown) (no (unknown) (unknown) [Embedded Image (units (unknown) date) Not Available] unknown) (unknown) (no (unknown) (unknown) able to establish (units (unknown) date) there was not any unknown) openings. Patient states he has had some (unknown) (no (unknown) (unknown) active drainage (units (unknown) date) but has brownish unknown) discolored dried crusting. Patient also has (unknown) (no (unknown) (unknown) alcohol intake (units (unknown) date) frequency: 0-2 unknown) drinks per day (unknown) (no (unknown) (unknown) and IV (units (unkno wn) date) antibiotics unknown) (unknown) (no (unknown) (unknown) and MRSA. (units (unkn own) date) unknown) (unknown) (no (unknown) (unknown) and below (units (unkn own) date) unknown) (unknown) (no (unknown) (unknown) area of scab. He (units (unknown) date) states the redness unknown) seems to have been longstanding but has (unknown) (no (unknown) (unknown) at [facility] (units (unk nown) date) hospital. unknown) Discussed with hospitalist about keeping for observation (unknown) (no (unknown) (unknown) been draining new (units (unknown) date) staff occasionally unknown) will be purulent but sometimes or but clear (unknown) (no (unknown) (unknown) before evaluate (units (unknown) date) for foreign body unknown) or any obvious bony changes not or appreciated, (unknown) (no (unknown) (unknown) calf the lower (units (unknown) date) leg for about 4 cm unknown) below the knee is erythematous, there is (unknown) (no (unknown) (unknown) compressible, and (units (unknown) date) unknown) (unknown) (no (unknown) (unknown) cutting his leg. (units (unknown) date) Patient has had unknown) chronic injury for the past reported 10 months (unknown) (no (unknown) (unknown) developed heat (units (unknown) date) and warmth to the unknown) area. Patient occasionally has had some funny (unknown) (no (unknown) (unknown) discoloration. He (units (unknown) date) has had increasing unknown) pain particularly in the back calf and has (unknown) (no (unknown) (unknown) edema is (units (unkno wn) date) unknown) (unknown) (no (unknown) (unknown) extremities (units (un known) date) unknown) (unknown) (no (unknown) (unknown) feelings in his (units (unknown) date) chest but denies unknown) chest pain, no shortness of breath. He has had (unknown) (no (unknown) (unknown) fossa.? (units (unkno wn) date) unknown) (unknown) (no (unknown) (unknown) free of (units (unkno wn) date) intraluminal unknown) thrombus.? Color and pulse Doppler demonstrate normal (unknown) (no (unknown) (unknown) guarding or (units (un known) date) rebound, rigidity, unknown) no mass (unknown) (no (unknown) (unknown) he had MRSA. He (units (unknown) date) was referred to unknown) the wound care clinic at [facility] but was never (unknown) (no (unknown) (unknown) he states that it (units (unknown) date) has never healed. unknown) He has been on antibiotics he has been told (unknown) (no (unknown) (unknown) incidental. He (units (unknown) date) is oxygenation has unknown) been appropriate today. Patient has been on (unknown) (no (unknown) (unknown) infection which (units (unknown) date) appears to be unknown) worsening. Patient has elevated heart rate at 90, (unknown) (no (unknown) (unknown) inguinal (units (unkno wn) date) lymphadenopathy. unknown) Patient is COVID positive today which is likely (unknown) (no (unknown) (unknown) intraluminal (units (u nknown) date) flow.? There is unknown) normal augmentation response to distal compression (unknown) (no (unknown) (unknown) irregularity is (units (unknown) date) unknown) (unknown) (no (unknown) (unknown) lower extremity (units (unknown) date) over the past unknown) several days. He states the wound has not really (unknown) (no (unknown) (unknown) lower leg (units (unkno wn) date) infection. unknown) Patient states initially he injured his leg when trying to (unknown) (no (unknown) (unknown) maneuver. (units (unkn own) date) unknown) (unknown) (no (unknown) (unknown) moist mucous (units (u nknown) date) membranes unknown) (unknown) (no (unknown) (unknown) multiple (units (unkno wn) date) antibiotics, he unknown) has been recommended to wound care but he there has not (unknown) (no (unknown) (unknown) nausea but no (units ( unknown) date) active vomiting. unknown) No major issues with bowel movements or (unknown) (no (unknown) (unknown) negative (units (unkno wn) date) procalcitonin. unknown) Patient had x-ray imaging unclear if he has had this (unknown) (no (unknown) (unknown) node measuring 3 (units (unknown) date) x 3 x 1.4 cm that unknown) demonstrates loss of the normal fatty hilum. (unknown) (no (unknown) (unknown) normal range of (units (unknown) date) motion. unknown) (unknown) (no (unknown) (unknown) occasional (units (unk nown) date) alcohol, states unknown) use marijuana but denies any IV drug use or other (unknown) (no (unknown) (unknown) open wound (units (unk nown) date) visualized. unknown) Patient's cap refills less than 2 seconds. Patient has (unknown) (no (unknown) (unknown) over 3 hr (2397 (units (unknown) date) ml) IV NOW ONE unknown) (unknown) (no (unknown) (unknown) performed of (units (u nknown) date) unknown) (unknown) (no (unknown) (unknown) phasic (units (unkno wn) date) unknown) (unknown) (no (unknown) (unknown) prescription (units (u nknown) date) drugs. Denies any unknown) prior surgeries. He does use tobacco, (unknown) (no (unknown) (unknown) present. (units (unkno wn) date) unknown) (unknown) (no (unknown) (unknown) provider. He (units ( unknown) date) states he has unknown) found stable housing recently. Records from November (unknown) (no (unknown) (unknown) pull would out of (units (unknown) date) a pile of tree unknown) that had been cut down he fell scraping or (unknown) (no (unknown) (unknown) recreational (units (u nknown) date) substances. unknown) Patient does not have an established primary care (unknown) (no (unknown) (unknown) right, there is a (units (unknown) date) 5 x 6 cm unknown) irregularly shaped wound on the anterior rivera without (unknown) (no (unknown) (unknown) seen at the (units (un known) date) anterior aspect of unknown) lower leg.? Diffuse subcutaneous soft tissue (unknown) (no (unknown) (unknown) significant warmth (units (unknown) date) on the posterior unknown) calf not as appreciable on the anterior leg. (unknown) (no (unknown) (unknown) some peeling of (units (unknown) date) the skin on the unknown) dorsum of his foot. Patient is tender over the (unknown) (no (unknown) (unknown) subcutaneous soft (units (unknown) date) tissue edema.? No unknown) radiopaque foreign body. (unknown) (no (unknown) (unknown) subjective fever (units (unknown) date) chills sensation, unknown) he had rapid increase in swelling of his left (unknown) (no (unknown) (unknown) tachypnea (units (unkn own) date) accessory muscle unknown) use. (unknown) (no (unknown) (unknown) tenderness and (units (unknown) date) longstanding unknown) infection which is negative but does show some (unknown) (no (unknown) (unknown) the lower (units (unkn own) date) extremity deep unknown) veins from the inguinal ligament to the popliteal (unknown) (no (unknown) (unknown) urination. He (units ( unknown) date) denies any regular unknown) medical issues or that he should be taking any (unknown) (no (unknown) (unknown) with Bactrim, (units ( unknown) date) clinda + keflex in unknown) November, Linezolid and Cipro in July. Result panel 12 (unknown) (no (unknown) (unknown) (no value) (units (unk nown) date) unknown) (unknown) (no (unknown) (unknown) Radiologist's (units ( unknown) date) Impression: unknown) (unknown) (no (unknown) (unknown) (no value) (units (unk nown) date) unknown) (unknown) (no (unknown) (unknown) Date of Service: (units (unknown) date) 01/31/22 unknown) (unknown) (no (unknown) (unknown) (no value) (units (unk nown) date) unknown) (unknown) (no (unknown) (unknown) 01/31/22 07:52 (units (unknown) date) unknown) (unknown) (no (unknown) (unknown) [address] [place] [address] (units (unknown) date) unknown) (unknown) (no (unknown) (unknown) Allergies (units (unkn own) date) unknown) (unknown) (no (unknown) (unknown) [place] (units ( unknown) date) [id number] unknown) (unknown) (no (unknown) (unknown) Close (units (unkno wn) date) unknown) (unknown) (no (unknown) (unknown) Documented by: (units (unknown) date) RSTONE unknown) (unknown) (no (unknown) (unknown) ED Orders (units (unkn own) date) unknown) (unknown) (no (unknown) (unknown) Emergency Report (units (unknown) date) unknown) (unknown) (no (unknown) (unknown) [facility] (units (unknown) date) unknown) (unknown) (no (unknown) (unknown) [facility] (units (unknown) date) [address] unknown) [place] [address] (unknown) (no (unknown) (unknown) Lab Results (units (un known) date) unknown) (unknown) (no (unknown) (unknown) Last Admin: (units (un known) date) 01/31/22 09:00 unknown) Dose: 15 mg (unknown) (no (unknown) (unknown) Last Admin: (units (un known) date) 01/31/22 09:00 unknown) Dose: 799 mls/hr (unknown) (no (unknown) (unknown) Last Admin: (units (un known) date) 01/31/22 09:01 unknown) Dose: 50 mls/hr (unknown) (no (unknown) (unknown) Launch?Image (units (u nknown) date) unknown) (unknown) (no (unknown) (unknown) Signed (units (unkno wn) date) unknown) (unknown) (no (unknown) (unknown) Stop: 01/31/22 (units (unknown) date) 08:27 unknown) (unknown) (no (unknown) (unknown) Stop: 01/31/22 (units (unknown) date) 09:25 unknown) (unknown) (no (unknown) (unknown) Stop: 01/31/22 (units (unknown) date) 11:23 unknown) (unknown) (no (unknown) (unknown) Stop: 01/31/22 (units (unknown) date) 11:25 unknown) (unknown) (no (unknown) (unknown) Ultrasound Report (units (unknown) date) unknown) (unknown) (no (unknown) (unknown) Vital Signs - 8 (units (unknown) date) hr unknown) (unknown) (no (unknown) (unknown) XRay Report (units (un known) date) unknown) (unknown) (no (unknown) (unknown) (no value) (units (unk nown) date) unknown) (unknown) (no (unknown) (unknown) 01/31/22 01/31/22 (units (unknown) date) 01/31/22 unknown) Range/Units (unknown) (no (unknown) (unknown) 01/31/22 (units (unkno wn) date) Range/Units unknown) (unknown) (no (unknown) (unknown) 07:52 07:52 07:52 (units (unknown) date) unknown) (unknown) (no (unknown) (unknown) 09:04 (units (unkno wn) date) unknown) (unknown) (no (unknown) (unknown) 01/31/22 (units (unkno wn) date) unknown) (unknown) (no (unknown) (unknown) 12 he does have a (units (unknown) date) leftward shift, unknown) labs are otherwise fairly unremarkable with a (unknown) (no (unknown) (unknown) 2.8 cm.? 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 Last visit I have available is in November (unknown) (no (unknown) (unknown) does not quite (units (unknown) date) meet septic unknown) criteria his white count is 13 today. Hemoglobin is (unknown) (no (unknown) (unknown) lymph (units (unkno wn) date) unknown) (unknown) (no (unknown) (unknown) sodium of 134 (units ( unknown) date) glucose of 120 unknown) with normal renal function normal lactate and a (unknown) (no (unknown) (unknown) - (units (unkno wn) date) unknown) (unknown) (no (unknown) (unknown) 01/31/22 (units (unkno wn) date) unknown) (unknown) (no (unknown) (unknown) 01/31/22 07:09 (units (unknown) date) unknown) (unknown) (no (unknown) (unknown) 01/31/22 07:52 (units (unknown) date) unknown) (unknown) (no (unknown) (unknown) 01/31/22 08:10 (units (unknown) date) unknown) (unknown) (no (unknown) (unknown) 01/31/22 08:26 (units (unknown) date) unknown) (unknown) (no (unknown) (unknown) 01/31/22 09:04 (units (unknown) date) unknown) (unknown) (no (unknown) (unknown) 07:00 01/31/22 (units (unknown) date) unknown) (unknown) (no (unknown) (unknown) 09:00 01/31/22 (units (unknown) date) unknown) (unknown) (no (unknown) (unknown) 09:30 (units (unkno wn) date) unknown) (unknown) (no (unknown) (unknown) 10:20 (units (unkno wn) date) unknown) (unknown) (no (unknown) (unknown) 2021 ER visit was (units (unknown) date) obtained from unknown) [facility]. It appears patient has been treated (unknown) (no (unknown) (unknown) [id number] (units (unkno wn) date) unknown) (unknown) (no (unknown) (unknown) ? (units (unkno wn) date) unknown) (unknown) (no (unknown) (unknown) ? (units (unkno wn) date) unknown) (unknown) (no (unknown) (unknown) A1 can be seen, (units (unknown) date) without an unknown) associated underlying fluid collection. (unknown) (no (unknown) (unknown) ABDOMEN: Soft, (units (unknown) date) nontender. unknown) Normoactive bowel sounds all 4 quadrants. No (unknown) (no (unknown) (unknown) ALT (<50) IU/L (units (unknown) date) unknown) (unknown) (no (unknown) (unknown) ALT 12 (<50) (units (unknown) date) IU/L unknown) (unknown) (no (unknown) (unknown) AST (17-59) (units ( unknown) date) IU/L unknown) (unknown) (no (unknown) (unknown) AST 20 (units (unkno wn) date) (17-59) IU/L unknown) (unknown) (no (unknown) (unknown) Accession Number: (units (unknown) date) [id number] ?? unknown) (unknown) (no (unknown) (unknown) Accession Number: (units (unknown) date) [id number] ?? unknown) (unknown) (no (unknown) (unknown) Acct:[id number] (units (unknown) date) unknown) (unknown) (no (unknown) (unknown) Age/Sex: 46 / M (units (unknown) date) unknown) (unknown) (no (unknown) (unknown) Age/Sex: 46 / M (units (unknown) date) unknown) (unknown) (no (unknown) (unknown) Albumin (units (unkno wn) date) (3.5-5.0) g/dL unknown) (unknown) (no (unknown) (unknown) Albumin 3.9 (units ( unknown) date) (3.5-5.0) g/dL unknown) (unknown) (no (unknown) (unknown) Albumin/Globulin (units (unknown) date) Ratio (1.0-2.8) unknown) (unknown) (no (unknown) (unknown) Albumin/Globulin (units (unknown) date) Ratio 1.0 unknown) (1.0-2.8) (unknown) (no (unknown) (unknown) Alkaline (units (unkno wn) date) Phosphatase unknown) (38-126) U/L (unknown) (no (unknown) (unknown) Alkaline (units (unkno wn) date) Phosphatase 89 unknown) (38-126) U/L (unknown) (no (unknown) (unknown) Allergy/Adv: No (units (unknown) date) Known Drug unknown) Allergies (unknown) (no (unknown) (unknown) Allergy/AdvReac (units (unknown) date) Type Severity unknown) Reaction Status Date / Time (unknown) (no (unknown) (unknown) Approved by: (units (u nknown) date) alejandro Alex M.D. on 01/31/2022 at 8:46?? (unknown) (no (unknown) (unknown) Approved by: (units (u nknown) date) alejandro Zaidi M.D. on 01/31/2022 at 8:14?? (unknown) (no (unknown) (unknown) BUN (9-20) (units (u nknown) date) mg/dL unknown) (unknown) (no (unknown) (unknown) BUN 16 (9-20) (units (unknown) date) mg/dL unknown) (unknown) (no (unknown) (unknown) BUN/Creatinine (units (unknown) date) Ratio (6-22) unknown) (unknown) (no (unknown) (unknown) BUN/Creatinine (units (unknown) date) Ratio 16.3 unknown) (6-22) (unknown) (no (unknown) (unknown) Baso # (Auto) (units ( unknown) date) (0-100) /uL unknown) (unknown) (no (unknown) (unknown) Baso # (Auto) 0 (units (unknown) date) (0-100) /uL unknown) (unknown) (no (unknown) (unknown) Baso % (Auto) (units ( unknown) date) (0-2) % unknown) (unknown) (no (unknown) (unknown) Baso % (Auto) (units ( unknown) date) 0.4 (0-2) % unknown) (unknown) (no (unknown) (unknown) Blood Culture (units ( unknown) date) Stat unknown) (unknown) (no (unknown) (unknown) Blood Pressure (units (unknown) date) 135/80 06/07/22 unknown) 07:00 (unknown) (no (unknown) (unknown) Blood Pressure (units (unknown) date) 133/68 unknown) (unknown) (no (unknown) (unknown) Blood Pressure (units (unknown) date) 135/80 140/79 unknown) 128/61 (unknown) (no (unknown) (unknown) Bones:? No acute (units (unknown) date) fractures or unknown) dislocations.? No suspicious bony lesions.? (unknown) (no (unknown) (unknown) CARDIOVASCULAR: (units (unknown) date) Regular rate and unknown) rhythm without murmurs, rubs or gallops. (unknown) (no (unknown) (unknown) COMPARISON:? (units (u nknown) date) None. unknown) (unknown) (no (unknown) (unknown) COVID19 -Nasal (units (unknown) date) RAPID/Pre-Proc unknown) Stat (unknown) (no (unknown) (unknown) Calcium (units (unkno wn) date) (8.4-10.2) mg/dL unknown) (unknown) (no (unknown) (unknown) Calcium 8.8 (units ( unknown) date) (8.4-10.2) mg/dL unknown) (unknown) (no (unknown) (unknown) Carbon Dioxide (units (unknown) date) (22-32) mmol/L unknown) (unknown) (no (unknown) (unknown) Carbon Dioxide (units (unknown) date) 30 (22-32) unknown) mmol/L (unknown) (no (unknown) (unknown) Chief Complaint: (units (unknown) date) Wound/Laceration unknown) (unknown) (no (unknown) (unknown) Chloride (units (unkno wn) date) (98-107) mmol/L unknown) (unknown) (no (unknown) (unknown) Chloride 98 (units ( unknown) date) (98-107) mmol/L unknown) (unknown) (no (unknown) (unknown) Clindamycin (units (un known) date) Phosphate unknown) (Cleocin) 900 mg in 50 mls @ 50 mls/hr IV NOW ONE (unknown) (no (unknown) (unknown) Clinical (units (unkno wn) date) Impression: unknown) (unknown) (no (unknown) (unknown) Complete Blood (units (unknown) date) Count AUTO DIFF unknown) Stat (unknown) (no (unknown) (unknown) Comprehensive (units ( unknown) date) Metabolic Panel unknown) Stat (unknown) (no (unknown) (unknown) [place] [facility] [place] ([place]) [place]) Infection Preventionist unknown) Stat (unknown) (no (unknown) (unknown) Consultation #1: (units (unknown) date) unknown) (unknown) (no (unknown) (unknown) Consultations (units ( unknown) date) unknown) (unknown) (no (unknown) (unknown) Course (units (unkno wn) date) unknown) (unknown) (no (unknown) (unknown) Creatinine (units (unk nown) date) (0.66-1.25) mg/dL unknown) (unknown) (no (unknown) (unknown) Creatinine 0.98 (units (unknown) date) (0.66-1.25) unknown) mg/dL (unknown) (no (unknown) (unknown) : 1975 (units (unknown) date) Acct:[id number] unknown) (unknown) (no (unknown) (unknown) : 1975 (units (unknown) date) unknown) (unknown) (no (unknown) (unknown) Date of Service: (units (unknown) date) 01/31/22 unknown) (unknown) (no (unknown) (unknown) Departure (units (unkn own) date) unknown) (unknown) (no (unknown) (unknown) Dictated by: (units (u nknown) date) Yrn Baker, unknownDiallo Woods on 01/31/2022 at 8:41 ? ? (unknown) (no (unknown) (unknown) Dictated by: (units (u nknown) date) Juan Vaughan, unknownDiallo Woods on 01/31/2022 at 8:13 ? ? (unknown) (no (unknown) (unknown) Discharge Plan (units (unknown) date) unknown) (unknown) (no (unknown) (unknown) Discontinued (units (u nknown) date) Medications unknown) (unknown) (no (unknown) (unknown) Dr. Aranda, (units ( unknown) date[facility]. (unknown) (no (unknown) (unknown) ER Physician: (units ( unknown) date) Lana Santiago D.O. unknown) (unknown) (no (unknown) (unknown) EXTREMITIES: (units (u nknown) date) Normal range of unknown) motion, no clubbing. Neurovascularly intact. (unknown) (no (unknown) (unknown) Enlarged left (units (u nknown) date) groin lymph nodes unknown) are seen, with the largest measuring 3.5 x 1.4 x (unknown) (no (unknown) (unknown) Enlarged left (units ( unknown) date) groin lymph nodes unknown) are seen. (unknown) (no (unknown) (unknown) Eos # (Auto) (units (u nknown) date) (0-450) /uL unknown) (unknown) (no (unknown) (unknown) Eos # (Auto) 100 (units (unknown) date) (0-450) /uL unknown) (unknown) (no (unknown) (unknown) Eos % (Auto) (units (u nknown) date) (2-4) % unknown) (unknown) (no (unknown) (unknown) Eos % (Auto) 0.8 (units (unknown) date) L (2-4) % unknown) (unknown) (no (unknown) (unknown) Estimated GFR > (units (unknown) date) 60 (>60) mL/min unknown) (unknown) (no (unknown) (unknown) Estimated GFR (units ( unknown) date) (>60) mL/min unknown) (unknown) (no (unknown) (unknown) Exam (units (unkno wn) date) unknown) (unknown) (no (unknown) (unknown) Exam Narrative: (units (unknown) date) unknown) (unknown) (no (unknown) (unknown) Extremity x-ray (units (unknown) date) #1: unknown) (unknown) (no (unknown) (unknown) FINDINGS:? (units (unk nown) date) unknown) (unknown) (no (unknown) (unknown) FINDINGS:? The (units (unknown) date) common femoral, unknown) femoral and popliteal veins are normally (unknown) (no (unknown) (unknown) GENERAL: Alert (units (unknown) date) and oriented x unknown) three, male in mild distress. (unknown) (no (unknown) (unknown) : No CVA (units (unk nown) date) tenderness unknown) (unknown) (no (unknown) (unknown) General (units (unkno wn) date) unknown) (unknown) (no (unknown) (unknown) GenericComposite[ (units (unknown) date) Plt Count unknown) (150-400) X10^3/uL ] (unknown) (no (unknown) (unknown) GenericComposite[ (units (unknown) date) Plt Count 247 unknown) (150-400) X10^3/uL ] (unknown) (no (unknown) (unknown) GenericComposite[ (units (unknown) date) RBC (4.5-5.9) unknown) X10^6/uL ] (unknown) (no (unknown) (unknown) GenericComposite[ (units (unknown) date) RBC 4.28 L unknown) (4.5-5.9) X10^6/uL ] (unknown) (no (unknown) (unknown) GenericComposite[ (units (unknown) date) WBC (4.5-11.0) unknown) X10^3/uL ] (unknown) (no (unknown) (unknown) GenericComposite[ (units (unknown) date) WBC 13.3 H unknown) (4.5-11.0) X10^3/uL ] (unknown) (no (unknown) (unknown) Globulin (units (unkno wn) date) (1.7-4.1) g/dL unknown) (unknown) (no (unknown) (unknown) Globulin 3.8 (units (unknown) date) (1.7-4.1) g/dL unknown) (unknown) (no (unknown) (unknown) Glucose (units (unkno wn) date) (70-100) mg/dL unknown) (unknown) (no (unknown) (unknown) Glucose 120 H (units (unknown) date) (70-100) mg/dL unknown) (unknown) (no (unknown) (unknown) HEENT: Head (units (un known) date) normocephalic, unknown) atraumatic, EOMI, pupils reactive, face symmetric, (unknown) (no (unknown) (unknown) HPI - (units (unkno wn) date) Wound/Laceration unknown) (unknown) (no (unknown) (unknown) HPI narrative: (units (unknown) date) unknown) (unknown) (no (unknown) (unknown) Hct (41-53) % (units (unknown) date) unknown) (unknown) (no (unknown) (unknown) Hct 38.1 L (units (un known) date) (41-53) % unknown) (unknown) (no (unknown) (unknown) Hgb (13.5-17.5) (units (unknown) date) g/dL unknown) (unknown) (no (unknown) (unknown) Hgb 12.6 L (units (un known) date) (13.5-17.5) g/dL unknown) (unknown) (no (unknown) (unknown) History of (units (unk nown) date) Present Illness unknown) (unknown) (no (unknown) (unknown) IMPRESSION:? (units (u nknown) date) unknown) (unknown) (no (unknown) (unknown) IMPRESSION:? Skin (units (unknown) date) irregularity is unknown) seen at the anterior lower leg with diffuse (unknown) (no (unknown) (unknown) INDICATIONS:? (units ( unknown) date) PAIN AND SWELLING unknown) WITH CHRONIC INFECTION (unknown) (no (unknown) (unknown) INDICATIONS:? (units ( unknown) date) chronic leg unknown) infection, r/o FB (unknown) (no (unknown) (unknown) Imaging Data (units (u nknown) date) unknown) (unknown) (no (unknown) (unknown) Initial Vital (units ( unknown) date) Signs unknown) (unknown) (no (unknown) (unknown) Initial Vital (units ( unknown) date) Signs: unknown) (unknown) (no (unknown) (unknown) Ketorolac (units (unkn own) date) Tromethamine unknown) (Ketorolac 30 Mg/Ml Vial) 15 mg IV NOW ONE (unknown) (no (unknown) (unknown) Clement,Juan (units ( unknown) date) unknown) (unknown) (no (unknown) (unknown) Lab Data (units (unkno wn) date) unknown) (unknown) (no (unknown) (unknown) Labs: (units (unkno wn) date) unknown) (unknown) (no (unknown) (unknown) Lactate 1.7 (units (unknown) date) (0.7-2.1) mmol/L unknown) (unknown) (no (unknown) (unknown) Lactate (units (unkno wn) date) (0.7-2.1) mmol/L unknown) (unknown) (no (unknown) (unknown) Lactate (Lactic (units (unknown) date) Acid) Stat unknown) (unknown) (no (unknown) (unknown) Piero Frazier??4 (units (unknown) date) 8??M??1975 unknown) (unknown) (no (unknown) (unknown) Limitations: no (units (unknown) date) limitations unknown) (unknown) (no (unknown) (unknown) Lipase (23-300) (units (unknown) date) U/L unknown) (unknown) (no (unknown) (unknown) Lipase 52 (units (un known) date) (23-300) U/L unknown) (unknown) (no (unknown) (unknown) Lipase Stat (units (un known) date) unknown) (unknown) (no (unknown) (unknown) Loc: ED (units (unkno wn) date) unknown) (unknown) (no (unknown) (unknown) Lymph # (Auto) (units (unknown) date) (5501-5946) /uL unknown) (unknown) (no (unknown) (unknown) Lymph # (Auto) (units (unknown) date) 1700 unknown) (3780-6368) /uL (unknown) (no (unknown) (unknown) Lymph % (Auto) (units (unknown) date) (25-40) % unknown) (unknown) (no (unknown) (unknown) Lymph % (Auto) (units (unknown) date) 12.6 L (25-40) unknown) % (unknown) (no (unknown) (unknown) MCH (26-34) PG (units (unknown) date) unknown) (unknown) (no (unknown) (unknown) MCH 29.4 (units (unkn own) date) (26-34) PG unknown) (unknown) (no (unknown) (unknown) MCHC (30-36) % (units (unknown) date) unknown) (unknown) (no (unknown) (unknown) MCHC 33.0 (units (unk nown) date) (30-36) % unknown) (unknown) (no (unknown) (unknown) MCV (80-100) (units (unknown) date) fL unknown) (unknown) (no (unknown) (unknown) MCV 89.0 (units (unkn own) date) (80-100) fL unknown) (unknown) (no (unknown) (unknown) MDM - (units (unkno wn) date) Wound/Laceration unknown) (unknown) (no (unknown) (unknown) MDM Narrative (units ( unknown) date) unknown) (unknown) (no (unknown) (unknown) MR#: [id number] (units (unknown) date) unknown) (unknown) (no (unknown) (unknown) Medical decision (units (unknown) date) making narrative: unknown) (unknown) (no (unknown) (unknown) Mode of arrival: (units (unknown) date) Ambulatory unknown) (unknown) (no (unknown) (unknown) Ashley # (Auto) (units ( unknown) date) (0-900) /uL unknown) (unknown) (no (unknown) (unknown) Ashley # (Auto) (units ( unknown) date) 900 (0-900) unknown) /uL (unknown) (no (unknown) (unknown) Ashley % (Auto) (units ( unknown) date) (3-14) % unknown) (unknown) (no (unknown) (unknown) Ashley % (Auto) (units ( unknown) date) 6.8 (3-14) % unknown) (unknown) (no (unknown) (unknown) NECK: Supple, (units ( unknown) date) full range of unknown) motion (unknown) (no (unknown) (unknown) NEUROLOGICAL: (units ( unknown) date) Cranial nerves II unknown) through XII grossly intact. Moving all (unknown) (no (unknown) (unknown) Narrative (units (unkn own) date) unknown) (unknown) (no (unknown) (unknown) Negative for deep (units (unknown) date) venous thrombosis. unknown) (unknown) (no (unknown) (unknown) Neut # (Auto) (units ( unknown) date) (1559-2054) /uL unknown) (unknown) (no (unknown) (unknown) Neut # (Auto) (units ( unknown) date) 99341 H unknown) (5062-9216) /uL (unknown) (no (unknown) (unknown) Neut % (Auto) (units ( unknown) date) (50-75) % unknown) (unknown) (no (unknown) (unknown) Neut % (Auto) (units ( unknown) date) 79.4 H (50-75) unknown) % (unknown) (no (unknown) (unknown) No Known Drug (units ( unknown) date) Allergies Allergy unknown) Verified 01/31/22 07:10 (unknown) (no (unknown) (unknown) No fluid (units (unkno wn) date) collections are unknown) seen associated with the wound. (unknown) (no (unknown) (unknown) Ordered: (units (unkno wn) date) unknown) (unknown) (no (unknown) (unknown) Ordering (units (unkno wn) date) Provider: unknown) Lana Santiago D.O. (unknown) (no (unknown) (unknown) Orders (units (unkno wn) date) unknown) (unknown) (no (unknown) (unknown) PROCEDURE:? US (units (unknown) date) PERIPH VENOUS LOW unknown) EXTREM LT (unknown) (no (unknown) (unknown) PROCEDURE:? XR (units (unknown) date) TIBIA FIBULA LT 2V unknown) (unknown) (no (unknown) (unknown) Pantoprazole (units (u nknown) date) Sodium unknown) (Pantoprazole 40 Mg Vial) 80 mg IV NOW ONE (unknown) (no (unknown) (unknown) Patient (units (unkno wn) date) Disposition: unknown) Admitted as Observation (unknown) (no (unknown) (unknown) Patient History (units (unknown) date) unknown) (unknown) (no (unknown) (unknown) Patient has (units (un known) date) significant unknown) swelling of the left calf and foot in comparison to the (unknown) (no (unknown) (unknown) Patient's chart (units (unknown) date) shows in early unknown) October she had a culture that showed Klebsiella (unknown) (no (unknown) (unknown) Patient: (units (unkno wn) date) Piero Frazier unknown) MR#: [id number] (unknown) (no (unknown) (unknown) Patient: (units (unkno wn) date) FreddiePiero unknown) (unknown) (no (unknown) (unknown) Positive for JVD. (units (unknown) date) unknown) (unknown) (no (unknown) (unknown) Potassium (units (unkn own) date) (3.4-5.1) mmol/L unknown) (unknown) (no (unknown) (unknown) Potassium 3.4 (units (unknown) date) (3.4-5.1) mmol/L unknown) (unknown) (no (unknown) (unknown) Procalcitonin (units ( unknown) date) (<0.5) ng/mL unknown) (unknown) (no (unknown) (unknown) Procalcitonin (units ( unknown) date) 0.37 (<0.5) unknown) ng/mL (unknown) (no (unknown) (unknown) Procalcitonin (units ( unknown) date) Stat unknown) (unknown) (no (unknown) (unknown) Procedure: US (units ( unknown) date) periph venous low unknown) extrem lt (unknown) (no (unknown) (unknown) Procedure: XR (units ( unknown) date) tibia fibula LT 2V unknown) (unknown) (no (unknown) (unknown) Pulse Oximetry (units (unknown) date) unknown) (unknown) (no (unknown) (unknown) Pulse Oximetry (units (unknown) date) 99 01/31/22 unknown) 07:00 (unknown) (no (unknown) (unknown) Pulse Oximetry 99 (units (unknown) date) 99 98 unknown) (unknown) (no (unknown) (unknown) Pulse Rate 93 H (units (unknown) date) 01/31/22 07:00 unknown) (unknown) (no (unknown) (unknown) Pulse Rate 92 H (units (unknown) date) unknown) (unknown) (no (unknown) (unknown) Pulse Rate 93 H (units (unknown) date) 98 H 90 unknown) (unknown) (no (unknown) (unknown) RDW (11.6-14.8) (units (unknown) date) % unknown) (unknown) (no (unknown) (unknown) RDW 15.5 H (units (un known) date) (11.6-14.8) % unknown) (unknown) (no (unknown) (unknown) RESPIRATORY: (units (u nknown) date) Breath sounds unknown) equal bilaterally, no wheezes rales or rhonchi. No (unknown) (no (unknown) (unknown) ROS Unobtainable: (units (unknown) date) All systems unknown) reviewed + are unremarkable except as noted in HPI (unknown) (no (unknown) (unknown) Real-time (units (unkn own) date) imaging, as well unknown) as color and pulse Doppler interrogation, were (unknown) (no (unknown) (unknown) Related Data (units (u nknown) date) unknown) (unknown) (no (unknown) (unknown) Respiratory Rate (units (unknown) date) 18 01/31/22 unknown) 07:00 (unknown) (no (unknown) (unknown) Respiratory Rate (units (unknown) date) 12 unknown) (unknown) (no (unknown) (unknown) Respiratory Rate (units (unknown) date) 18 16 18 unknown) (unknown) (no (unknown) (unknown) Result diagrams: (units (unknown) date) unknown) (unknown) (no (unknown) (unknown) Review of Systems (units (unknown) date) unknown) (unknown) (no (unknown) (unknown) Yrn Baker (units (unknown) date) unknown) (unknown) (no (unknown) (unknown) SARS-CoV-2 (PCR) (units (unknown) date) (Negative) unknown) (unknown) (no (unknown) (unknown) SARS-CoV-2 (PCR) (units (unknown) date) Positive H unknown) (Negative) (unknown) (no (unknown) (unknown) SKIN: Warm, dry, (units (unknown) date) no petechiae, no unknown) rashes or lesions other than noted above. (unknown) (no (unknown) (unknown) Signed By: (units (unk nown) date) unknown) (unknown) (no (unknown) (unknown) Smoking Status: (units (unknown) date) Current every day unknown) smoker (unknown) (no (unknown) (unknown) Smoking Status: (units (unknown) date) Current every day unknown) smoker (unknown) (no (unknown) (unknown) Social History (units (unknown) date) (Reviewed 01/31/22 unknown) @ 10:02 by Lana Santiago DO) (unknown) (no (unknown) (unknown) Sodium (units (unkno wn) date) (137-145) mmol/L unknown) (unknown) (no (unknown) (unknown) Sodium 134 L (units (unknown) date) (137-145) mmol/L unknown) (unknown) (no (unknown) (unknown) Sodium Chloride (units (unknown) date) (Normal Saline unknown) 0.9%) 2,397 mls @ 799 mls/hr 30 ml/kg infuse (unknown) (no (unknown) (unknown) Soft tissues:? No (units (unknown) date) suspicious soft unknown) tissue calcifications or masses.? Skin (unknown) (no (unknown) (unknown) Source: patient (units (unknown) date) unknown) (unknown) (no (unknown) (unknown) Stated Complaint: (units (unknown) date) [place] on left leg unknown) (unknown) (no (unknown) (unknown) Substance Use (units ( unknown) date) Type: marijuana unknown) (unknown) (no (unknown) (unknown) TECHNIQUE:? (units (un known) date) unknown) (unknown) (no (unknown) (unknown) TECHNIQUE:? 2 (units ( unknown) date) views of the tibia unknown) and fibula were acquired.? (unknown) (no (unknown) (unknown) Temperature (units (un known) date) unknown) (unknown) (no (unknown) (unknown) Temperature 98.4 (units (unknown) date) F 01/31/22 07:00 unknown) (unknown) (no (unknown) (unknown) Temperature 98.4 (units (unknown) date) F unknown) (unknown) (no (unknown) (unknown) This is a (units (unkn own) date) 46-year-old male unknown) presents with chronic left lower extremity wound (unknown) (no (unknown) (unknown) This is a (units (unkn own) date) 46-year-old man unknown) with history of housing insecurity, longstanding left (unknown) (no (unknown) (unknown) This lymph node (units (unknown) date) demonstrates a unknown) normal fatty hilum.? There is additional enlarged (unknown) (no (unknown) (unknown) Tibia/Fibula (units (u nknown) date) X-Ray (Signed) unknown) (unknown) (no (unknown) (unknown) Time Seen by (units (u nknown) date) Provider: 01/31/22 unknown) 07:55 (unknown) (no (unknown) (unknown) Time: 11:42 (units (un known) date) unknown) (unknown) (no (unknown) (unknown) Total Bilirubin (units (unknown) date) (0.2-1.3) mg/dL unknown) (unknown) (no (unknown) (unknown) Total Bilirubin (units (unknown) date) 0.5 (0.2-1.3) unknown) mg/dL (unknown) (no (unknown) (unknown) Total Protein (units ( unknown) date) (6.3-8.2) g/dL unknown) (unknown) (no (unknown) (unknown) Total Protein (units ( unknown) date) 7.7 (6.3-8.2) unknown) g/dL (unknown) (no (unknown) (unknown) US - DVT: (units (unkn own) date) unknown) (unknown) (no (unknown) (unknown) US periph venous (units (unknown) date) low extrem lt Stat unknown) (unknown) (no (unknown) (unknown) Vascular (units (unkno wn) date) Ultrasound unknown) (Signed) (unknown) (no (unknown) (unknown) Vital Signs (units (un known) date) unknown) (unknown) (no (unknown) (unknown) Vital signs: (units (u nknown) date) unknown) (unknown) (no (unknown) (unknown) XR tibia fibula (units (unknown) date) LT 2V Stat unknown) (unknown) (no (unknown) (unknown) [Embedded Image (units (unknown) date) Not Available] unknown) (unknown) (no (unknown) (unknown) able to establish (units (unknown) date) there was not any unknown) openings. Patient states he has had some (unknown) (no (unknown) (unknown) active drainage (units (unknown) date) but has brownish unknown) discolored dried crusting. Patient also has (unknown) (no (unknown) (unknown) alcohol intake (units (unknown) date) frequency: 0-2 unknown) drinks per day (unknown) (no (unknown) (unknown) and IV (units (unkno wn) date) antibiotics unknown) (unknown) (no (unknown) (unknown) and MRSA. (units (unkn own) date) unknown) (unknown) (no (unknown) (unknown) and below (units (unkn own) date) unknown) (unknown) (no (unknown) (unknown) area of scab. He (units (unknown) date) states the redness unknown) seems to have been longstanding but has (unknown) (no (unknown) (unknown) at [facility] (units (unk nown) date) hospital. unknown) Discussed with hospitalist about keeping for observation (unknown) (no (unknown) (unknown) been draining new (units (unknown) date) staff occasionally unknown) will be purulent but sometimes or but clear (unknown) (no (unknown) (unknown) before evaluate (units (unknown) date) for foreign body unknown) or any obvious bony changes not or appreciated, (unknown) (no (unknown) (unknown) calf the lower (units (unknown) date) leg for about 4 cm unknown) below the knee is erythematous, there is (unknown) (no (unknown) (unknown) compressible, and (units (unknown) date) unknown) (unknown) (no (unknown) (unknown) cutting his leg. (units (unknown) date) Patient has had unknown) chronic injury for the past reported 10 months (unknown) (no (unknown) (unknown) developed heat (units (unknown) date) and warmth to the unknown) area. Patient occasionally has had some funny (unknown) (no (unknown) (unknown) discoloration. He (units (unknown) date) has had increasing unknown) pain particularly in the back calf and has (unknown) (no (unknown) (unknown) edema is (units (unkno wn) date) unknown) (unknown) (no (unknown) (unknown) extremities (units (un known) date) unknown) (unknown) (no (unknown) (unknown) feelings in his (units (unknown) date) chest but denies unknown) chest pain, no shortness of breath. He has had (unknown) (no (unknown) (unknown) fossa.? (units (unkno wn) date) unknown) (unknown) (no (unknown) (unknown) free of (units (unkno wn) date) intraluminal unknown) thrombus.? Color and pulse Doppler demonstrate normal (unknown) (no (unknown) (unknown) guarding or (units (un known) date) rebound, rigidity, unknown) no mass (unknown) (no (unknown) (unknown) he had MRSA. He (units (unknown) date) was referred to unknown) the wound care clinic at [facility] but was never (unknown) (no (unknown) (unknown) he states that it (units (unknown) date) has never healed. unknown) He has been on antibiotics he has been told (unknown) (no (unknown) (unknown) incidental. He (units (unknown) date) is oxygenation has unknown) been appropriate today. Patient has been on (unknown) (no (unknown) (unknown) infection which (units (unknown) date) appears to be unknown) worsening. Patient has elevated heart rate at 90, (unknown) (no (unknown) (unknown) inguinal (units (unkno wn) date) lymphadenopathy. unknown) Patient is COVID positive today which is likely (unknown) (no (unknown) (unknown) intraluminal (units (u nknown) date) flow.? There is unknown) normal augmentation response to distal compression (unknown) (no (unknown) (unknown) irregularity is (units (unknown) date) unknown) (unknown) (no (unknown) (unknown) lower extremity (units (unknown) date) over the past unknown) several days. He states the wound has not really (unknown) (no (unknown) (unknown) lower leg (units (unkno wn) date) infection. unknown) Patient states initially he injured his leg when trying to (unknown) (no (unknown) (unknown) maneuver. (units (unkn own) date) unknown) (unknown) (no (unknown) (unknown) moist mucous (units (u nknown) date) membranes unknown) (unknown) (no (unknown) (unknown) multiple (units (unkno wn) date) antibiotics, he unknown) has been recommended to wound care but he there has not (unknown) (no (unknown) (unknown) nausea but no (units ( unknown) date) active vomiting. unknown) No major issues with bowel movements or (unknown) (no (unknown) (unknown) negative (units (unkno wn) date) procalcitonin. unknown) Patient had x-ray imaging unclear if he has had this (unknown) (no (unknown) (unknown) node measuring 3 (units (unknown) date) x 3 x 1.4 cm that unknown) demonstrates loss of the normal fatty hilum. (unknown) (no (unknown) (unknown) normal range of (units (unknown) date) motion. unknown) (unknown) (no (unknown) (unknown) occasional (units (unk nown) date) alcohol, states unknown) use marijuana but denies any IV drug use or other (unknown) (no (unknown) (unknown) open wound (units (unk nown) date) visualized. unknown) Patient's cap refills less than 2 seconds. Patient has (unknown) (no (unknown) (unknown) over 3 hr (2397 (units (unknown) date) ml) IV NOW ONE unknown) (unknown) (no (unknown) (unknown) performed of (units (u nknown) date) unknown) (unknown) (no (unknown) (unknown) phasic (units (unkno wn) date) unknown) (unknown) (no (unknown) (unknown) prescription (units (u nknown) date) drugs. Denies any unknown) prior surgeries. He does use tobacco, (unknown) (no (unknown) (unknown) present. (units (unkno wn) date) unknown) (unknown) (no (unknown) (unknown) provider. He (units ( unknown) date) states he has unknown) found stable housing recently. Records from November (unknown) (no (unknown) (unknown) pull would out of (units (unknown) date) a pile of tree unknown) that had been cut down he fell scraping or (unknown) (no (unknown) (unknown) recreational (units (u nknown) date) substances. unknown) Patient does not have an established primary care (unknown) (no (unknown) (unknown) right, there is a (units (unknown) date) 5 x 6 cm unknown) irregularly shaped wound on the anterior rivera without (unknown) (no (unknown) (unknown) seen at the (units (un known) date) anterior aspect of unknown) lower leg.? Diffuse subcutaneous soft tissue (unknown) (no (unknown) (unknown) significant warmth (units (unknown) date) on the posterior unknown) calf not as appreciable on the anterior leg. (unknown) (no (unknown) (unknown) some peeling of (units (unknown) date) the skin on the unknown) dorsum of his foot. Patient is tender over the (unknown) (no (unknown) (unknown) subcutaneous soft (units (unknown) date) tissue edema.? No unknown) radiopaque foreign body. (unknown) (no (unknown) (unknown) subjective fever (units (unknown) date) chills sensation, unknown) he had rapid increase in swelling of his left (unknown) (no (unknown) (unknown) tachypnea (units (unkn own) date) accessory muscle unknown) use. (unknown) (no (unknown) (unknown) tenderness and (units (unknown) date) longstanding unknown) infection which is negative but does show some (unknown) (no (unknown) (unknown) the lower (units (unkn own) date) extremity deep unknown) veins from the inguinal ligament to the popliteal (unknown) (no (unknown) (unknown) urination. He (units ( unknown) date) denies any regular unknown) medical issues or that he should be taking any (unknown) (no (unknown) (unknown) with Bactrim, (units ( unknown) date) clinda + keflex in unknown) November, Linezolid and Cipro in July. Result panel 13 (unknown) (no date) (unknown) (unknown) 0.2 E.U./dL (unkn own) (unknown) (no date) (unknown) (unknown) 1.010 (units (unkn own) unknown) (unknown) (no date) (unknown) (unknown) 6.0 (units (unkn own) unknown) (unknown) (no date) (unknown) (unknown) CLEAR (units (unkn own) unknown) (unknown) (no date) (unknown) (unknown) NEGATIVE (units (unkn own) unknown) (unknown) (no date) (unknown) (unknown) TRACE (units (unkn own) unknown) (unknown) (no date) (unknown) (unknown) TRACE g/dL (unkn own) (unknown) (no date) (unknown) (unknown) YELLOW (units (unkn own) unknown) Result panel 14 (unknown) (no date) (unknown) (unknown) 0.2 E.U./dL (unkn own) (unknown) (no date) (unknown) (unknown) 1.010 (units (unkn own) unknown) (unknown) (no date) (unknown) (unknown) 6.0 (units (unkn own) unknown) (unknown) (no date) (unknown) (unknown) CLEAR (units (unkn own) unknown) (unknown) (no date) (unknown) (unknown) Cult Not (units (unkn own) Indicated unknown) (unknown) (no date) (unknown) (unknown) NEGATIVE (units (unkn own) unknown) (unknown) (no date) (unknown) (unknown) None Seen (units (unk nown) unknown) (unknown) (no date) (unknown) (unknown) None Seen (units (unk nown) unknown) (unknown) (no date) (unknown) (unknown) TRACE (units (unkn own) unknown) (unknown) (no date) (unknown) (unknown) TRACE g/dL (unkn own) (unknown) (no date) (unknown) (unknown) YELLOW (units (unkn own) unknown) Result panel 15 (unknown) (no (unknown) (unknown) (no value) (units (unk nown) date) unknown) (unknown) (no (unknown) (unknown) Radiologist's (units ( unknown) date) Impression: unknown) (unknown) (no (unknown) (unknown) (no value) (units (unk nown) date) unknown) (unknown) (no (unknown) (unknown) Date of Service: (units (unknown) date) 01/31/22 unknown) (unknown) (no (unknown) (unknown) (no value) (units (unk nown) date) unknown) (unknown) (no (unknown) (unknown) <Electronically (units (unknown) date) signed by Lana Coelho unknown) Edouard Santiago> (unknown) (no (unknown) (unknown) 01/31/22 07:52 (units (unknown) date) unknown) (unknown) (no (unknown) (unknown) 01/31/22 1946 (units ( unknown) date) unknown) (unknown) (no (unknown) (unknown) [address] [place] [address] (units (unknown) date) unknown) (unknown) (no (unknown) (unknown) Admin: 01/31/22 (units (unknown) date) 13:45 Dose: 200 unknown) mls/hr (unknown) (no (unknown) (unknown) Allergies (units (unkn own) date) unknown) (unknown) (no (unknown) (unknown) [place] (units ( unknown) date) [id number] unknown) (unknown) (no (unknown) (unknown) Close (units (unkno wn) date) unknown) (unknown) (no (unknown) (unknown) Documented by: (units (unknown) date) RSTONE unknown) (unknown) (no (unknown) (unknown) Documented by: (units (unknown) date) TSUTTER unknown) (unknown) (no (unknown) (unknown) Emergency Report (units (unknown) date) unknown) (unknown) (no (unknown) (unknown) Home Medications (units (unknown) date) unknown) (unknown) (no (unknown) (unknown) [facility] (units (unknown) date) unknown) (unknown) (no (unknown) (unknown) [facility] (units (unknown) date) [address] unknown) [place] [address] (unknown) (no (unknown) (unknown) Lab Results (units (un known) date) unknown) (unknown) (no (unknown) (unknown) Last Admin: (units (un known) date) 01/31/22 09:00 unknown) Dose: 15 mg (unknown) (no (unknown) (unknown) Last Admin: (units (un known) date) 01/31/22 09:00 unknown) Dose: 799 mls/hr (unknown) (no (unknown) (unknown) Last Admin: (units (un known) date) 01/31/22 09:01 unknown) Dose: 50 mls/hr (unknown) (no (unknown) (unknown) Last Admin: (units (un known) date) 01/31/22 13:47 unknown) Dose: Not Given (unknown) (no (unknown) (unknown) Last Admin: (units (un known) date) 01/31/22 14:43 unknown) Dose: 200 mls/hr (unknown) (no (unknown) (unknown) Last Infusion: (units (unknown) date) 01/31/22 14:43 unknown) Dose: 0 mls/hr (unknown) (no (unknown) (unknown) Launch?Image (units (u nknown) date) unknown) (unknown) (no (unknown) (unknown) PRN Reason: (units (un known) date) Opiate Reversal unknown) (unknown) (no (unknown) (unknown) PRN Reason: pain (units (unknown) date) unknown) (unknown) (no (unknown) (unknown) Signed (units (unkno wn) date) unknown) (unknown) (no (unknown) (unknown) Stop: 01/31/22 (units (unknown) date) 08:27 unknown) (unknown) (no (unknown) (unknown) Stop: 01/31/22 (units (unknown) date) 09:25 unknown) (unknown) (no (unknown) (unknown) Stop: 01/31/22 (units (unknown) date) 11:23 unknown) (unknown) (no (unknown) (unknown) Stop: 01/31/22 (units (unknown) date) 11:25 unknown) (unknown) (no (unknown) (unknown) Stop: 01/31/22 (units (unknown) date) 13:04 unknown) (unknown) (no (unknown) (unknown) Stop: 02/02/22 (units (unknown) date) 01:31 unknown) (unknown) (no (unknown) (unknown) Ultrasound Report (units (unknown) date) unknown) (unknown) (no (unknown) (unknown) Vital Signs - 8 (units (unknown) date) hr unknown) (unknown) (no (unknown) (unknown) XRay Report (units (un known) date) unknown) (unknown) (no (unknown) (unknown) (no value) (units (unk nown) date) unknown) (unknown) (no (unknown) (unknown) 01/31/22 01/31/22 (units (unknown) date) 01/31/22 unknown) Range/Units (unknown) (no (unknown) (unknown) 01/31/22 (units (unkno wn) date) Range/Units unknown) (unknown) (no (unknown) (unknown) 07:52 07:52 07:52 (units (unknown) date) unknown) (unknown) (no (unknown) (unknown) 09:04 (units (unkno wn) date) unknown) (unknown) (no (unknown) (unknown) 01/31/22 (units (unkno wn) date) unknown) (unknown) (no (unknown) (unknown) 12 he does have a (units (unknown) date) leftward shift, unknown) labs are otherwise fairly unremarkable with a (unknown) (no (unknown) (unknown) 2.8 cm.? (units (unkno wn) date) unknown) (unknown) (no (unknown) (unknown) Chronic wound of (units (unknown) date) extremity, unknown) Cellulitis of left leg, COVID-19 virus infection (unknown) (no (unknown) (unknown) DVT ultrasound (units (unknown) date) was also ordered unknown) as he has significant swelling and calf (unknown) (no (unknown) (unknown) Medication (units (unk nown) date) Instructions unknown) Recorded Confirmed (unknown) (no (unknown) (unknown) There is also (units ( unknown) date) scabbed regions unknown) about 2 cm x 1 cm on the posterior calf without (unknown) (no (unknown) (unknown) been able to or (units (unknown) date) has not unknown) established. Last visit I have available is in November (unknown) (no (unknown) (unknown) does not quite (units (unknown) date) meet septic unknown) criteria his white count is 13 today. Hemoglobin is (unknown) (no (unknown) (unknown) lymph (units (unkno wn) date) unknown) (unknown) (no (unknown) (unknown) sodium of 134 (units ( unknown) date) glucose of 120 unknown) with normal renal function normal lactate and a (unknown) (no (unknown) (unknown) - (units (unkno wn) date) unknown) (unknown) (no (unknown) (unknown) 01/31/22 (units (unkno wn) date) unknown) (unknown) (no (unknown) (unknown) 07:00 01/31/22 (units (unknown) date) unknown) (unknown) (no (unknown) (unknown) 09:00 01/31/22 (units (unknown) date) unknown) (unknown) (no (unknown) (unknown) 09:30 (units (unkno wn) date) unknown) (unknown) (no (unknown) (unknown) 10:20 (units (unkno wn) date) unknown) (unknown) (no (unknown) (unknown) 2021 ER visit was (units (unknown) date) obtained from unknown) Al[facility]ia. It appears patient has been treated (unknown) (no (unknown) (unknown) [id number] (units (unkno wn) date) unknown) (unknown) (no (unknown) (unknown) ? (units (unkno wn) date) unknown) (unknown) (no (unknown) (unknown) ? (units (unkno wn) date) unknown) (unknown) (no (unknown) (unknown) A1 can be seen, (units (unknown) date) without an unknown) associated underlying fluid collection. (unknown) (no (unknown) (unknown) ABDOMEN: Soft, (units (unknown) date) nontender. unknown) Normoactive bowel sounds all 4 quadrants. No (unknown) (no (unknown) (unknown) ALT (<50) IU/L (units (unknown) date) unknown) (unknown) (no (unknown) (unknown) ALT 12 (<50) (units (unknown) date) IU/L unknown) (unknown) (no (unknown) (unknown) AST (17-59) (units ( unknown) date) IU/L unknown) (unknown) (no (unknown) (unknown) AST 20 (units (unkno wn) date) (17-59) IU/L unknown) (unknown) (no (unknown) (unknown) Accession Number: (units (unknown) date) [id number] ?? unknown) (unknown) (no (unknown) (unknown) Accession Number: (units (unknown) date) [id number] ?? unknown) (unknown) (no (unknown) (unknown) Acct:[id number] (units (unknown) date) unknown) (unknown) (no (unknown) (unknown) Acetaminophen (units ( unknown) date) (Acetaminophen 325 unknown) Mg Tablet) 650 mg PO Q6HR PRN (unknown) (no (unknown) (unknown) Admit Date/Time: (units (unknown) date) 01/31/22 11:48 unknown) (unknown) (no (unknown) (unknown) Admit Provider: (units (unknown) date) Moise Aranda unknown) (unknown) (no (unknown) (unknown) Age/Sex: 46 / M (units (unknown) date) unknown) (unknown) (no (unknown) (unknown) Age/Sex: 46 / M (units (unknown) date) unknown) (unknown) (no (unknown) (unknown) Albumin (units (unkno wn) date) (3.5-5.0) g/dL unknown) (unknown) (no (unknown) (unknown) Albumin 3.9 (units ( unknown) date) (3.5-5.0) g/dL unknown) (unknown) (no (unknown) (unknown) Albumin/Globulin (units (unknown) date) Ratio (1.0-2.8) unknown) (unknown) (no (unknown) (unknown) Albumin/Globulin (units (unknown) date) Ratio 1.0 unknown) (1.0-2.8) (unknown) (no (unknown) (unknown) Alkaline (units (unkno wn) date) Phosphatase unknown) (38-126) U/L (unknown) (no (unknown) (unknown) Alkaline (units (unkno wn) date) Phosphatase 89 unknown) (38-126) U/L (unknown) (no (unknown) (unknown) Allergy/Adv: No (units (unknown) date) Known Drug unknown) Allergies (unknown) (no (unknown) (unknown) Allergy/AdvReac (units (unknown) date) Type Severity unknown) Reaction Status Date / Time (unknown) (no (unknown) (unknown) Approved by: (units (u nknown) date) Yrn Baker, unknown) Peggy on 01/31/2022 at 8:46?? (unknown) (no (unknown) (unknown) Approved by: (units (u nknown) date) Juan Vaughan, unknown) Peggy on 01/31/2022 at 8:14?? (unknown) (no (unknown) (unknown) BUN (9-20) (units (u nknown) date) mg/dL unknown) (unknown) (no (unknown) (unknown) BUN 16 (9-20) (units (unknown) date) mg/dL unknown) (unknown) (no (unknown) (unknown) BUN/Creatinine (units (unknown) date) Ratio (6-22) unknown) (unknown) (no (unknown) (unknown) BUN/Creatinine (units (unknown) date) Ratio 16.3 unknown) (6-22) (unknown) (no (unknown) (unknown) Baso # (Auto) (units ( unknown) date) (0-100) /uL unknown) (unknown) (no (unknown) (unknown) Baso # (Auto) 0 (units (unknown) date) (0-100) /uL unknown) (unknown) (no (unknown) (unknown) Baso % (Auto) (units ( unknown) date) (0-2) % unknown) (unknown) (no (unknown) (unknown) Baso % (Auto) (units ( unknown) date) 0.4 (0-2) % unknown) (unknown) (no (unknown) (unknown) Blood Pressure (units (unknown) date) 135/80 01/31/22 unknown) 07:00 (unknown) (no (unknown) (unknown) Blood Pressure (units (unknown) date) 133/68 unknown) (unknown) (no (unknown) (unknown) Blood Pressure (units (unknown) date) 135/80 140/79 unknown) 128/61 (unknown) (no (unknown) (unknown) Bones:? No acute (units (unknown) date) fractures or unknown) dislocations.? No suspicious bony lesions.? (unknown) (no (unknown) (unknown) CARDIOVASCULAR: (units (unknown) date) Regular rate and unknown) rhythm without murmurs, rubs or gallops. (unknown) (no (unknown) (unknown) COMPARISON:? (units (u nknown) date) None. unknown) (unknown) (no (unknown) (unknown) Calcium (units (unkno wn) date) (8.4-10.2) mg/dL unknown) (unknown) (no (unknown) (unknown) Calcium 8.8 (units ( unknown) date) (8.4-10.2) mg/dL unknown) (unknown) (no (unknown) (unknown) Carbon Dioxide (units (unknown) date) (22-32) mmol/L unknown) (unknown) (no (unknown) (unknown) Carbon Dioxide (units (unknown) date) 30 (22-32) unknown) mmol/L (unknown) (no (unknown) (unknown) Ceftriaxone Sodium (units (unknown) date) 1,000 mg/ (Sodium unknown) Chloride) 100 mls @ 200 mls/hr IV Q24H LAKISHA (unknown) (no (unknown) (unknown) Chief Complaint: (units (unknown) date) Wound/Laceration unknown) (unknown) (no (unknown) (unknown) Chloride (units (unkno wn) date) (98-107) mmol/L unknown) (unknown) (no (unknown) (unknown) Chloride 98 (units ( unknown) date) (98-107) mmol/L unknown) (unknown) (no (unknown) (unknown) Clindamycin (units (un known) date) Phosphate unknown) (Cleocin) 900 mg in 50 mls @ 50 mls/hr IV NOW ONE (unknown) (no (unknown) (unknown) Clinical (units (unkno wn) date) Impression: unknown) (unknown) (no (unknown) (unknown) Consultation #1: (units (unknown) date) unknown) (unknown) (no (unknown) (unknown) Consultations (units ( unknown) date) unknown) (unknown) (no (unknown) (unknown) Course (units (unkno wn) date) unknown) (unknown) (no (unknown) (unknown) Creatinine (units (unk nown) date) (0.66-1.25) mg/dL unknown) (unknown) (no (unknown) (unknown) Creatinine 0.98 (units (unknown) date) (0.66-1.25) unknown) mg/dL (unknown) (no (unknown) (unknown) : 1975 (units (unknown) date) Acct:[id number] unknown) (unknown) (no (unknown) (unknown) : 1975 (units (unknown) date) unknown) (unknown) (no (unknown) (unknown) Date of Service: (units (unknown) date) 01/31/22 unknown) (unknown) (no (unknown) (unknown) Departure (units (unkn own) date) unknown) (unknown) (no (unknown) (unknown) Dictated by: (units (u nknown) date) alejandro Alex M.D. on 01/31/2022 at 8:41 ? ? (unknown) (no (unknown) (unknown) Dictated by: (units (u nknown) date) Juan Vaughan, alejandro Woods on 01/31/2022 at 8:13 ? ? (unknown) (no (unknown) (unknown) Discharge Plan (units (unknown) date) unknown) (unknown) (no (unknown) (unknown) Discontinued (units (u nknown) date) Medications unknown) (unknown) (no (unknown) (unknown) Dr. Aranda, (units ( unknown) date[facility]. (unknown) (no (unknown) (unknown) ER Physician: (units ( unknown) date) Lana Santiago D.O. unknown) (unknown) (no (unknown) (unknown) EXTREMITIES: (units (u nknown) date) Normal range of unknown) motion, no clubbing. Neurovascularly intact. (unknown) (no (unknown) (unknown) Enlarged left (units (u nknown) date) groin lymph nodes unknown) are seen, with the largest measuring 3.5 x 1.4 x (unknown) (no (unknown) (unknown) Enlarged left (units ( unknown) date) groin lymph nodes unknown) are seen. (unknown) (no (unknown) (unknown) Enoxaparin Sodium (units (unknown) date) (Enoxaparin 40 unknown) Mg/0.4 Ml Syringe) 40 mg SUBCUT DAILY LAKISHA (unknown) (no (unknown) (unknown) Eos # (Auto) (units (u nknown) date) (0-450) /uL unknown) (unknown) (no (unknown) (unknown) Eos # (Auto) 100 (units (unknown) date) (0-450) /uL unknown) (unknown) (no (unknown) (unknown) Eos % (Auto) (units (u nknown) date) (2-4) % unknown) (unknown) (no (unknown) (unknown) Eos % (Auto) 0.8 (units (unknown) date) L (2-4) % unknown) (unknown) (no (unknown) (unknown) Estimated GFR > (units (unknown) date) 60 (>60) mL/min unknown) (unknown) (no (unknown) (unknown) Estimated GFR (units ( unknown) date) (>60) mL/min unknown) (unknown) (no (unknown) (unknown) Exam (units (unkno wn) date) unknown) (unknown) (no (unknown) (unknown) Exam Narrative: (units (unknown) date) unknown) (unknown) (no (unknown) (unknown) Extremity x-ray (units (unknown) date) #1: unknown) (unknown) (no (unknown) (unknown) FINDINGS:? (units (unk nown) date) unknown) (unknown) (no (unknown) (unknown) FINDINGS:? The (units (unknown) date) common femoral, unknown) femoral and popliteal veins are normally (unknown) (no (unknown) (unknown) GENERAL: Alert (units (unknown) date) and oriented x unknown) three, male in mild distress. (unknown) (no (unknown) (unknown) : No CVA (units (unk nown) date) tenderness unknown) (unknown) (no (unknown) (unknown) General (units (unkno wn) date) unknown) (unknown) (no (unknown) (unknown) GenericComposite[ (units (unknown) date) Plt Count unknown) (150-400) X10^3/uL ] (unknown) (no (unknown) (unknown) GenericComposite[ (units (unknown) date) Plt Count 247 unknown) (150-400) X10^3/uL ] (unknown) (no (unknown) (unknown) GenericComposite[ (units (unknown) date) RBC (4.5-5.9) unknown) X10^6/uL ] (unknown) (no (unknown) (unknown) GenericComposite[ (units (unknown) date) RBC 4.28 L unknown) (4.5-5.9) X10^6/uL ] (unknown) (no (unknown) (unknown) GenericComposite[ (units (unknown) date) WBC (4.5-11.0) unknown) X10^3/uL ] (unknown) (no (unknown) (unknown) GenericComposite[ (units (unknown) date) WBC 13.3 H unknown) (4.5-11.0) X10^3/uL ] (unknown) (no (unknown) (unknown) Globulin (units (unkno wn) date) (1.7-4.1) g/dL unknown) (unknown) (no (unknown) (unknown) Globulin 3.8 (units (unknown) date) (1.7-4.1) g/dL unknown) (unknown) (no (unknown) (unknown) Glucose (units (unkno wn) date) (70-100) mg/dL unknown) (unknown) (no (unknown) (unknown) Glucose 120 H (units (unknown) date) (70-100) mg/dL unknown) (unknown) (no (unknown) (unknown) HEENT: Head (units (un known) date) normocephalic, unknown) atraumatic, EOMI, pupils reactive, face symmetric, (unknown) (no (unknown) (unknown) HPI - (units (unkno wn) date) Wound/Laceration unknown) (unknown) (no (unknown) (unknown) HPI narrative: (units (unknown) date) unknown) (unknown) (no (unknown) (unknown) Hct (41-53) % (units (unknown) date) unknown) (unknown) (no (unknown) (unknown) Hct 38.1 L (units (un known) date) (41-53) % unknown) (unknown) (no (unknown) (unknown) Hgb (13.5-17.5) (units (unknown) date) g/dL unknown) (unknown) (no (unknown) (unknown) Hgb 12.6 L (units (un known) date) (13.5-17.5) g/dL unknown) (unknown) (no (unknown) (unknown) History of (units (unk nown) date) Present Illness unknown) (unknown) (no (unknown) (unknown) IMPRESSION:? (units (u nknown) date) unknown) (unknown) (no (unknown) (unknown) IMPRESSION:? Skin (units (unknown) date) irregularity is unknown) seen at the anterior lower leg with diffuse (unknown) (no (unknown) (unknown) INDICATIONS:? (units ( unknown) date) PAIN AND SWELLING unknown) WITH CHRONIC INFECTION (unknown) (no (unknown) (unknown) INDICATIONS:? (units ( unknown) date) chronic leg unknown) infection, r/o FB (unknown) (no (unknown) (unknown) Imaging Data (units (u nknown) date) unknown) (unknown) (no (unknown) (unknown) Initial Vital (units ( unknown) date) Signs unknown) (unknown) (no (unknown) (unknown) Initial Vital (units ( unknown) date) Signs: unknown) (unknown) (no (unknown) (unknown) Ketorolac (units (unkn own) date) Tromethamine unknown) (Ketorolac 30 Mg/Ml Vial) 15 mg IV NOW ONE (unknown) (no (unknown) (unknown) Clement,Juan (units ( unknown) date) unknown) (unknown) (no (unknown) (unknown) Lab Data (units (unkno wn) date) unknown) (unknown) (no (unknown) (unknown) Labs: (units (unkno wn) date) unknown) (unknown) (no (unknown) (unknown) Lactate 1.7 (units (unknown) date) (0.7-2.1) mmol/L unknown) (unknown) (no (unknown) (unknown) Lactate (units (unkno wn) date) (0.7-2.1) mmol/L unknown) (unknown) (no (unknown) (unknown) Piero Frazier??4 (units (unknown) date) 8??M??1975 unknown) (unknown) (no (unknown) (unknown) Limitations: no (units (unknown) date) limitations unknown) (unknown) (no (unknown) (unknown) Lipase (23-300) (units (unknown) date) U/L unknown) (unknown) (no (unknown) (unknown) Lipase 52 (units (un known) date) (23-300) U/L unknown) (unknown) (no (unknown) (unknown) Loc: ED (units (unkno wn) date) unknown) (unknown) (no (unknown) (unknown) Lymph # (Auto) (units (unknown) date) (5104-9031) /uL unknown) (unknown) (no (unknown) (unknown) Lymph # (Auto) (units (unknown) date) 1700 unknown) (2904-4135) /uL (unknown) (no (unknown) (unknown) Lymph % (Auto) (units (unknown) date) (25-40) % unknown) (unknown) (no (unknown) (unknown) Lymph % (Auto) (units (unknown) date) 12.6 L (25-40) unknown) % (unknown) (no (unknown) (unknown) MCH (26-34) PG (units (unknown) date) unknown) (unknown) (no (unknown) (unknown) MCH 29.4 (units (unkn own) date) (26-34) PG unknown) (unknown) (no (unknown) (unknown) MCHC (30-36) % (units (unknown) date) unknown) (unknown) (no (unknown) (unknown) MCHC 33.0 (units (unk nown) date) (30-36) % unknown) (unknown) (no (unknown) (unknown) MCV (80-100) (units (unknown) date) fL unknown) (unknown) (no (unknown) (unknown) MCV 89.0 (units (unkn own) date) (80-100) fL unknown) (unknown) (no (unknown) (unknown) MDM - (units (unkno wn) date) Wound/Laceration unknown) (unknown) (no (unknown) (unknown) MDM Narrative (units ( unknown) date) unknown) (unknown) (no (unknown) (unknown) MR#: [id number] (units (unknown) date) unknown) (unknown) (no (unknown) (unknown) Medical decision (units (unknown) date) making narrative: unknown) (unknown) (no (unknown) (unknown) Mode of arrival: (units (unknown) date) Ambulatory unknown) (unknown) (no (unknown) (unknown) Ashley # (Auto) (units ( unknown) date) (0-900) /uL unknown) (unknown) (no (unknown) (unknown) Ashley # (Auto) (units ( unknown) date) 900 (0-900) unknown) /uL (unknown) (no (unknown) (unknown) Ashley % (Auto) (units ( unknown) date) (3-14) % unknown) (unknown) (no (unknown) (unknown) Ashley % (Auto) (units ( unknown) date) 6.8 (3-14) % unknown) (unknown) (no (unknown) (unknown) NECK: Supple, (units ( unknown) date) full range of unknown) motion (unknown) (no (unknown) (unknown) NEUROLOGICAL: (units ( unknown) date) Cranial nerves II unknown) through XII grossly intact. Moving all (unknown) (no (unknown) (unknown) Naloxone HCl (units (u nknown) date) (Naloxone 0.4 unknown) Mg/Ml Vial) 0.2 mg IV Q2MIN PRN (unknown) (no (unknown) (unknown) Narrative (units (unkn own) date) unknown) (unknown) (no (unknown) (unknown) Negative for deep (units (unknown) date) venous thrombosis. unknown) (unknown) (no (unknown) (unknown) Neut # (Auto) (units ( unknown) date) (1442-1150) /uL unknown) (unknown) (no (unknown) (unknown) Neut # (Auto) (units ( unknown) date) 12706 H unknown) (7982-1726) /uL (unknown) (no (unknown) (unknown) Neut % (Auto) (units ( unknown) date) (50-75) % unknown) (unknown) (no (unknown) (unknown) Neut % (Auto) (units ( unknown) date) 79.4 H (50-75) unknown) % (unknown) (no (unknown) (unknown) No Known Drug (units ( unknown) date) Allergies Allergy unknown) Verified 01/31/22 07:10 (unknown) (no (unknown) (unknown) No Known Home (units ( unknown) date) Medications unknown) 01/31/22 01/31/22 (unknown) (no (unknown) (unknown) No fluid (units (unkno wn) date) collections are unknown) seen associated with the wound. (unknown) (no (unknown) (unknown) Ordered: (units (unkno wn) date) unknown) (unknown) (no (unknown) (unknown) Ordering (units (unkno wn) date) Provider: unknown) Lana Santiago D.O. (unknown) (no (unknown) (unknown) Orders (units (unkno wn) date) unknown) (unknown) (no (unknown) (unknown) PROCEDURE:? US (units (unknown) date) PERIPH VENOUS LOW unknown) EXTREM LT (unknown) (no (unknown) (unknown) PROCEDURE:? XR (units (unknown) date) TIBIA FIBULA LT 2V unknown) (unknown) (no (unknown) (unknown) Pantoprazole (units (u nknown) date) Sodium unknown) (Pantoprazole 40 Mg Vial) 80 mg IV NOW ONE (unknown) (no (unknown) (unknown) Patient (units (unkno wn) date) Disposition: unknown) Admitted as Observation (unknown) (no (unknown) (unknown) Patient History (units (unknown) date) unknown) (unknown) (no (unknown) (unknown) Patient has (units (un known) date) significant unknown) swelling of the left calf and foot in comparison to the (unknown) (no (unknown) (unknown) Patient's chart (units (unknown) date) shows in early unknown) October she had a culture that showed Klebsiella (unknown) (no (unknown) (unknown) Patient: (units (unkno wn) date) Piero Frazier unknown) MR#: [id number] (unknown) (no (unknown) (unknown) Patient: (units (unkno wn) date) Piero Frazier unknown) (unknown) (no (unknown) (unknown) Positive for JVD. (units (unknown) date) unknown) (unknown) (no (unknown) (unknown) Potassium (units (unkn own) date) (3.4-5.1) mmol/L unknown) (unknown) (no (unknown) (unknown) Potassium 3.4 (units (unknown) date) (3.4-5.1) mmol/L unknown) (unknown) (no (unknown) (unknown) Procalcitonin (units ( unknown) date) (<0.5) ng/mL unknown) (unknown) (no (unknown) (unknown) Procalcitonin (units ( unknown) date) 0.37 (<0.5) unknown) ng/mL (unknown) (no (unknown) (unknown) Procedure: US (units ( unknown) date) periph venous low unknown) extrem lt (unknown) (no (unknown) (unknown) Procedure: XR (units ( unknown) date) tibia fibula LT 2V unknown) (unknown) (no (unknown) (unknown) Pulse Oximetry (units (unknown) date) unknown) (unknown) (no (unknown) (unknown) Pulse Oximetry (units (unknown) date) 99 01/31/22 unknown) 07:00 (unknown) (no (unknown) (unknown) Pulse Oximetry 99 (units (unknown) date) 99 98 unknown) (unknown) (no (unknown) (unknown) Pulse Rate 93 H (units (unknown) date) 01/31/22 07:00 unknown) (unknown) (no (unknown) (unknown) Pulse Rate 92 H (units (unknown) date) unknown) (unknown) (no (unknown) (unknown) Pulse Rate 93 H (units (unknown) date) 98 H 90 unknown) (unknown) (no (unknown) (unknown) RDW (11.6-14.8) (units (unknown) date) % unknown) (unknown) (no (unknown) (unknown) RDW 15.5 H (units (un known) date) (11.6-14.8) % unknown) (unknown) (no (unknown) (unknown) RESPIRATORY: (units (u nknown) date) Breath sounds unknown) equal bilaterally, no wheezes rales or rhonchi. No (unknown) (no (unknown) (unknown) ROS Unobtainable: (units (unknown) date) All systems unknown) reviewed + are unremarkable except as noted in HPI (unknown) (no (unknown) (unknown) Real-time (units (unkn own) date) imaging, as well unknown) as color and pulse Doppler interrogation, were (unknown) (no (unknown) (unknown) Related Data (units (u nknown) date) unknown) (unknown) (no (unknown) (unknown) Respiratory Rate (units (unknown) date) 18 01/31/22 unknown) 07:00 (unknown) (no (unknown) (unknown) Respiratory Rate (units (unknown) date) 12 unknown) (unknown) (no (unknown) (unknown) Respiratory Rate (units (unknown) date) 18 16 18 unknown) (unknown) (no (unknown) (unknown) Result diagrams: (units (unknown) date) unknown) (unknown) (no (unknown) (unknown) Review of Systems (units (unknown) date) unknown) (unknown) (no (unknown) (unknown) Yrn Baker (units (unknown) date) unknown) (unknown) (no (unknown) (unknown) SARS-CoV-2 (PCR) (units (unknown) date) (Negative) unknown) (unknown) (no (unknown) (unknown) SARS-CoV-2 (PCR) (units (unknown) date) Positive H unknown) (Negative) (unknown) (no (unknown) (unknown) LAKISHA (units (unkno wn) date) unknown) (unknown) (no (unknown) (unknown) SKIN: Warm, dry, (units (unknown) date) no petechiae, no unknown) rashes or lesions other than noted above. (unknown) (no (unknown) (unknown) Signed By: (units (unk nown) date) unknown) (unknown) (no (unknown) (unknown) Smoking Status: (units (unknown) date) Current every day unknown) smoker (unknown) (no (unknown) (unknown) Smoking Status: (units (unknown) date) Current every day unknown) smoker (unknown) (no (unknown) (unknown) Social History (units (unknown) date) (Reviewed 01/31/22 unknown) @ 10:02 by Lana Santiago DO) (unknown) (no (unknown) (unknown) Sodium (units (unkno wn) date) (137-145) mmol/L unknown) (unknown) (no (unknown) (unknown) Sodium 134 L (units (unknown) date) (137-145) mmol/L unknown) (unknown) (no (unknown) (unknown) Sodium Chloride (units (unknown) date) (Normal Saline unknown) 0.9%) 2,397 mls @ 799 mls/hr 30 ml/kg infuse (unknown) (no (unknown) (unknown) Soft tissues:? No (units (unknown) date) suspicious soft unknown) tissue calcifications or masses.? Skin (unknown) (no (unknown) (unknown) Source: patient (units (unknown) date) unknown) (unknown) (no (unknown) (unknown) Stated Complaint: (units (unknown) date) Mersa on left leg unknown) (unknown) (no (unknown) (unknown) Substance Use (units ( unknown) date) Type: marijuana unknown) (unknown) (no (unknown) (unknown) TECHNIQUE:? (units (un known) date) unknown) (unknown) (no (unknown) (unknown) TECHNIQUE:? 2 (units ( unknown) date) views of the tibia unknown) and fibula were acquired.? (unknown) (no (unknown) (unknown) Temperature (units (un known) date) unknown) (unknown) (no (unknown) (unknown) Temperature 98.4 (units (unknown) date) F 01/31/22 07:00 unknown) (unknown) (no (unknown) (unknown) Temperature 98.4 (units (unknown) date) F unknown) (unknown) (no (unknown) (unknown) This is a (units (unkn own) date) 46-year-old male unknown) presents with chronic left lower extremity wound (unknown) (no (unknown) (unknown) This is a (units (unkn own) date) 46-year-old man unknown) with history of housing insecurity, longstanding left (unknown) (no (unknown) (unknown) This lymph node (units (unknown) date) demonstrates a unknown) normal fatty hilum.? There is additional enlarged (unknown) (no (unknown) (unknown) Tibia/Fibula (units (u nknown) date) X-Ray (Signed) unknown) (unknown) (no (unknown) (unknown) Time Seen by (units (u nknown) date) Provider: 01/31/22 unknown) 07:55 (unknown) (no (unknown) (unknown) Time: 11:42 (units (un known) date) unknown) (unknown) (no (unknown) (unknown) Total Bilirubin (units (unknown) date) (0.2-1.3) mg/dL unknown) (unknown) (no (unknown) (unknown) Total Bilirubin (units (unknown) date) 0.5 (0.2-1.3) unknown) mg/dL (unknown) (no (unknown) (unknown) Total Protein (units ( unknown) date) (6.3-8.2) g/dL unknown) (unknown) (no (unknown) (unknown) Total Protein (units ( unknown) date) 7.7 (6.3-8.2) unknown) g/dL (unknown) (no (unknown) (unknown) US - DVT: (units (unkn own) date) unknown) (unknown) (no (unknown) (unknown) Vancomycin HCl (units (unknown) date) (Vancomycin Per unknown) Pharmacy) 1 request MISC NOW ONE (unknown) (no (unknown) (unknown) Vancomycin HCl (units (unknown) date) (Vancomycin unknown) Trough) 1 request MISC NOW ONE (unknown) (no (unknown) (unknown) Vancomycin (units (unk nown) date) HCl/Dextrose unknown) (Vancomycin) 1,500 mg in 300 mls @ 200 mls/hr IV Q12H (unknown) (no (unknown) (unknown) Vascular (units (unkno wn) date) Ultrasound unknown) (Signed) (unknown) (no (unknown) (unknown) Vital Signs (units (un known) date) unknown) (unknown) (no (unknown) (unknown) Vital signs: (units (u nknown) date) unknown) (unknown) (no (unknown) (unknown) [Embedded Image (units (unknown) date) Not Available] unknown) (unknown) (no (unknown) (unknown) able to establish (units (unknown) date) there was not any unknown) openings. Patient states he has had some (unknown) (no (unknown) (unknown) active drainage (units (unknown) date) but has brownish unknown) discolored dried crusting. Patient also has (unknown) (no (unknown) (unknown) alcohol intake (units (unknown) date) frequency: 0-2 unknown) drinks per day (unknown) (no (unknown) (unknown) alcohol intake: (units (unknown) date) never unknown) (unknown) (no (unknown) (unknown) and IV (units (unkno wn) date) antibiotics and to unknown) he accepts for observation. (unknown) (no (unknown) (unknown) and MRSA. (units (unkn own) date) unknown) (unknown) (no (unknown) (unknown) and below (units (unkn own) date) unknown) (unknown) (no (unknown) (unknown) area of scab. He (units (unknown) date) states the redness unknown) seems to have been longstanding but has (unknown) (no (unknown) (unknown) at [facility] (units (unk nown) date) hospital. unknown) Discussed with hospitalist about keeping for observation (unknown) (no (unknown) (unknown) been draining new (units (unknown) date) staff occasionally unknown) will be purulent but sometimes or but clear (unknown) (no (unknown) (unknown) before evaluate (units (unknown) date) for foreign body unknown) or any obvious bony changes not or appreciated, (unknown) (no (unknown) (unknown) calf the lower (units (unknown) date) leg for about 4 cm unknown) below the knee is erythematous, there is (unknown) (no (unknown) (unknown) compressible, and (units (unknown) date) unknown) (unknown) (no (unknown) (unknown) cutting his leg. (units (unknown) date) Patient has had unknown) chronic injury for the past reported 10 months (unknown) (no (unknown) (unknown) developed heat (units (unknown) date) and warmth to the unknown) area. Patient occasionally has had some funny (unknown) (no (unknown) (unknown) discoloration. He (units (unknown) date) has had increasing unknown) pain particularly in the back calf and has (unknown) (no (unknown) (unknown) edema is (units (unkno wn) date) unknown) (unknown) (no (unknown) (unknown) extremities (units (un known) date) unknown) (unknown) (no (unknown) (unknown) feelings in his (units (unknown) date) chest but denies unknown) chest pain, no shortness of breath. He has had (unknown) (no (unknown) (unknown) fossa.? (units (unkno wn) date) unknown) (unknown) (no (unknown) (unknown) free of (units (unkno wn) date) intraluminal unknown) thrombus.? Color and pulse Doppler demonstrate normal (unknown) (no (unknown) (unknown) guarding or (units (un known) date) rebound, rigidity, unknown) no mass (unknown) (no (unknown) (unknown) he had MRSA. He (units (unknown) date) was referred to unknown) the wound care clinic at [facility] but was never (unknown) (no (unknown) (unknown) he states that it (units (unknown) date) has never healed. unknown) He has been on antibiotics he has been told (unknown) (no (unknown) (unknown) household (units (unkn own) date) members: other unknown) (unknown) (no (unknown) (unknown) incidental. He (units (unknown) date) is oxygenation has unknown) been appropriate today. Patient has been on (unknown) (no (unknown) (unknown) infection which (units (unknown) date) appears to be unknown) worsening. Patient has elevated heart rate at 90, (unknown) (no (unknown) (unknown) inguinal (units (unkno wn) date) lymphadenopathy. unknown) Patient is COVID positive today which is likely (unknown) (no (unknown) (unknown) intraluminal (units (u nknown) date) flow.? There is unknown) normal augmentation response to distal compression (unknown) (no (unknown) (unknown) irregularity is (units (unknown) date) unknown) (unknown) (no (unknown) (unknown) lower extremity (units (unknown) date) over the past unknown) several days. He states the wound has not really (unknown) (no (unknown) (unknown) lower leg (units (unkno wn) date) infection. unknown) Patient states initially he injured his leg when trying to (unknown) (no (unknown) (unknown) maneuver. (units (unkn own) date) unknown) (unknown) (no (unknown) (unknown) moist mucous (units (u nknown) date) membranes unknown) (unknown) (no (unknown) (unknown) multiple (units (unkno wn) date) antibiotics, he unknown) has been recommended to wound care but he there has not (unknown) (no (unknown) (unknown) nausea but no (units ( unknown) date) active vomiting. unknown) No major issues with bowel movements or (unknown) (no (unknown) (unknown) negative (units (unkno wn) date) procalcitonin. unknown) Patient had x-ray imaging unclear if he has had this (unknown) (no (unknown) (unknown) node measuring 3 (units (unknown) date) x 3 x 1.4 cm that unknown) demonstrates loss of the normal fatty hilum. (unknown) (no (unknown) (unknown) normal range of (units (unknown) date) motion. unknown) (unknown) (no (unknown) (unknown) occasional (units (unk nown) date) alcohol, states unknown) use marijuana but denies any IV drug use or other (unknown) (no (unknown) (unknown) open wound (units (unk nown) date) visualized. unknown) Patient's cap refills less than 2 seconds. Patient has (unknown) (no (unknown) (unknown) over 3 hr (2397 (units (unknown) date) ml) IV NOW ONE unknown) (unknown) (no (unknown) (unknown) performed of (units (u nknown) date) unknown) (unknown) (no (unknown) (unknown) phasic (units (unkno wn) date) unknown) (unknown) (no (unknown) (unknown) prescription (units (u nknown) date) drugs. Denies any unknown) prior surgeries. He does use tobacco, (unknown) (no (unknown) (unknown) present. (units (unkno wn) date) unknown) (unknown) (no (unknown) (unknown) provider. He (units ( unknown) date) states he has unknown) found stable housing recently. Records from November (unknown) (no (unknown) (unknown) pull would out of (units (unknown) date) a pile of tree unknown) that had been cut down he fell scraping or (unknown) (no (unknown) (unknown) recreational (units (u nknown) date) substances. unknown) Patient does not have an established primary care (unknown) (no (unknown) (unknown) right, there is a (units (unknown) date) 5 x 6 cm unknown) irregularly shaped wound on the anterior rivera without (unknown) (no (unknown) (unknown) seen at the (units (un known) date) anterior aspect of unknown) lower leg.? Diffuse subcutaneous soft tissue (unknown) (no (unknown) (unknown) significant warmth (units (unknown) date) on the posterior unknown) calf not as appreciable on the anterior leg. (unknown) (no (unknown) (unknown) some peeling of (units (unknown) date) the skin on the unknown) dorsum of his foot. Patient is tender over the (unknown) (no (unknown) (unknown) subcutaneous soft (units (unknown) date) tissue edema.? No unknown) radiopaque foreign body. (unknown) (no (unknown) (unknown) subjective fever (units (unknown) date) chills sensation, unknown) he had rapid increase in swelling of his left (unknown) (no (unknown) (unknown) tachypnea (units (unkn own) date) accessory muscle unknown) use. (unknown) (no (unknown) (unknown) tenderness and (units (unknown) date) longstanding unknown) infection which is negative but does show some (unknown) (no (unknown) (unknown) the lower (units (unkn own) date) extremity deep unknown) veins from the inguinal ligament to the popliteal (unknown) (no (unknown) (unknown) urination. He (units ( unknown) date) denies any regular unknown) medical issues or that he should be taking any (unknown) (no (unknown) (unknown) with Bactrim, (units ( unknown) date) clinda + keflex in unknown) November, Linezolid and Cipro in July. Result panel 16 (unknown) (no (unknown) (unknown) (no value) (units (unk nown) date) unknown) (unknown) (no (unknown) (unknown) (no value) (units (unk nown) date) unknown) (unknown) (no (unknown) (unknown) Date of Service: (units (unknown) date) 01/31/22 unknown) (unknown) (no (unknown) (unknown) (no value) (units (unk nown) date) unknown) (unknown) (no (unknown) (unknown) - (units (unkno wn) date) unknown) (unknown) (no (unknown) (unknown) 01/31/22 07:52 (units (unknown) date) unknown) (unknown) (no (unknown) (unknown) Allergies (units (unkn own) date) unknown) (unknown) (no (unknown) (unknown) History + (units (unkn own) date) Physical Report unknown) (unknown) (no (unknown) (unknown) Home Medications (units (unknown) date) unknown) (unknown) (no (unknown) (unknown) [facility] (units (unknown) date) [address] [place] [address] unknown) [place] [address] (unknown) (no (unknown) (unknown) Laboratory (units (unk nown) date) Results - last 24 unknown) hr (unknown) (no (unknown) (unknown) (no value) (units (unk nown) date) unknown) (unknown) (no (unknown) (unknown) 01/31/22 (units (unkno wn) date) 01/31/22 unknown) (unknown) (no (unknown) (unknown) 01/31/22 (units (unkno wn) date) 01/31/22 01/31/22 unknown) (unknown) (no (unknown) (unknown) 07:52 07:52 (units (un known) date) 07:52 unknown) (unknown) (no (unknown) (unknown) 09:04 12:15 (units (un known) date) unknown) (unknown) (no (unknown) (unknown) 01/31/22 (units (unkno wn) date) unknown) (unknown) (no (unknown) (unknown) Medication (units (unk nown) date) Instructions unknown) Recorded Confirmed Type (unknown) (no (unknown) (unknown) (past 8 hours): (units (unknown) date) unknown) (unknown) (no (unknown) (unknown) 13:23 01/31/22 (units (unknown) date) unknown) (unknown) (no (unknown) (unknown) 20:22 (units (unkno wn) date) unknown) (unknown) (no (unknown) (unknown) [id number] (units (unkno wn) date) unknown) (unknown) (no (unknown) (unknown) 46M with PMH (units (u nknown) date) chronic left leg unknown) ulcer, unstable housing who presents with redness (unknown) (no (unknown) (unknown) ABD: soft, (units (unk nown) date) nontender, unknown) nondistended, no organomegaly (unknown) (no (unknown) (unknown) ALT (units (unkno wn) date) unknown) (unknown) (no (unknown) (unknown) ALT 12 (units (unkno wn) date) unknown) (unknown) (no (unknown) (unknown) AST (units (unkno wn) date) unknown) (unknown) (no (unknown) (unknown) AST 20 (units (unkno wn) date) unknown) (unknown) (no (unknown) (unknown) Age/Sex: 46 / M (units (unknown) date) unknown) (unknown) (no (unknown) (unknown) Albumin (units (unkno wn) date) unknown) (unknown) (no (unknown) (unknown) Albumin 3.9 (units ( unknown) date) unknown) (unknown) (no (unknown) (unknown) Albumin/Globulin (units (unknown) date) Ratio unknown) (unknown) (no (unknown) (unknown) Albumin/Globulin (units (unknown) date) Ratio 1.0 unknown) (unknown) (no (unknown) (unknown) Alkaline (units (unkno wn) date) Phosphatase unknown) (unknown) (no (unknown) (unknown) Alkaline (units (unkno wn) date) Phosphatase 89 unknown) (unknown) (no (unknown) (unknown) Allergy/AdvReac (units (unknown) date) Type Severity unknown) Reaction Status Date / Time (unknown) (no (unknown) (unknown) Ashia for (units (unkn own) date) Klebsiella and unknown) MRSA. He has been treated with bactrim, then (unknown) (no (unknown) (unknown) Assessment + (units (u nknown) date) Plan unknown) (unknown) (no (unknown) (unknown) BUN (units (unkno wn) date) unknown) (unknown) (no (unknown) (unknown) BUN 16 (units (unkno wn) date) unknown) (unknown) (no (unknown) (unknown) BUN/Creatinine (units (unknown) date) Ratio unknown) (unknown) (no (unknown) (unknown) BUN/Creatinine (units (unknown) date) Ratio 16.3 unknown) (unknown) (no (unknown) (unknown) Baso # (Auto) (units ( unknown) date) unknown) (unknown) (no (unknown) (unknown) Baso # (Auto) 0 (units (unknown) date) unknown) (unknown) (no (unknown) (unknown) Baso % (Auto) (units ( unknown) date) unknown) (unknown) (no (unknown) (unknown) Baso % (Auto) (units ( unknown) date) 0.4 unknown) (unknown) (no (unknown) (unknown) Been Physically (units (unknown) date) Hurt or No unknown) (unknown) (no (unknown) (unknown) Blood Pressure (units (unknown) date) 152/99 H 132/77 unknown) (unknown) (no (unknown) (unknown) CV: regular rate (units (unknown) date) and rhythm, no unknown) murmurs (unknown) (no (unknown) (unknown) Calcium (units (unkno wn) date) unknown) (unknown) (no (unknown) (unknown) Calcium 8.8 (units ( unknown) date) unknown) (unknown) (no (unknown) (unknown) Carbon Dioxide (units (unknown) date) unknown) (unknown) (no (unknown) (unknown) Carbon Dioxide (units (unknown) date) 30 unknown) (unknown) (no (unknown) (unknown) Chief complaint: (units (unknown) date) Mersa on left leg unknown) (unknown) (no (unknown) (unknown) Chloride (units (unkno wn) date) unknown) (unknown) (no (unknown) (unknown) Chloride 98 (units ( unknown) date) unknown) (unknown) (no (unknown) (unknown) Creatinine (units (unk nown) date) unknown) (unknown) (no (unknown) (unknown) Creatinine (units (unk nown) date) 0.98 unknown) (unknown) (no (unknown) (unknown) Critical Care (units ( unknown) date) time: unknown) (unknown) (no (unknown) (unknown) : 1975 (units (unknown) date) Acct:[id number] unknown) (unknown) (no (unknown) (unknown) Date Patient (units (u nknown) date) Seen: 01/31/22 unknown) (unknown) (no (unknown) (unknown) Deep Vein (units (unkn own) date) Thrombosis/Pulmon unknown) singh Embolism Present on Admission: No (unknown) (no (unknown) (unknown) EXT: warm and (units ( unknown) date) well perfused, unknown) left leg ulcer chronic appearing with purulence, (unknown) (no (unknown) (unknown) Environment (units (un known) date) unknown) (unknown) (no (unknown) (unknown) Eos # (Auto) (units (u nknown) date) unknown) (unknown) (no (unknown) (unknown) Eos # (Auto) (units (u nknown) date) 100 unknown) (unknown) (no (unknown) (unknown) Eos % (Auto) (units (u nknown) date) unknown) (unknown) (no (unknown) (unknown) Eos % (Auto) (units (u nknown) date) 0.8 L unknown) (unknown) (no (unknown) (unknown) Estimated GFR (units ( unknown) date) unknown) (unknown) (no (unknown) (unknown) Estimated GFR (units ( unknown) date) > 60 unknown) (unknown) (no (unknown) (unknown) Exam (units (unkno wn) date) unknown) (unknown) (no (unknown) (unknown) Exam Narrative: (units (unknown) date) unknown) (unknown) (no (unknown) (unknown) Family + Social (units (unknown) date) History unknown) (unknown) (no (unknown) (unknown) Family history: (units (unknown) date) unable to provide unknown) due to mental status (unknown) (no (unknown) (unknown) Feels Safe in (units ( unknown) date) Current Yes unknown) (unknown) (no (unknown) (unknown) GEN: lethargic, (units (unknown) date) sleepy unknown) (unknown) (no (unknown) (unknown) Globulin (units (unkno wn) date) unknown) (unknown) (no (unknown) (unknown) Globulin 3.8 (units (unknown) date) unknown) (unknown) (no (unknown) (unknown) Glucose (units (unkno wn) date) unknown) (unknown) (no (unknown) (unknown) Glucose 120 H (units (unknown) date) unknown) (unknown) (no (unknown) (unknown) HEENT: moist (units (u nknown) date) mucous membranes, unknown) PERRL (unknown) (no (unknown) (unknown) Hct (units (unkno wn) date) unknown) (unknown) (no (unknown) (unknown) Hct 38.1 L (units (un known) date) unknown) (unknown) (no (unknown) (unknown) Hgb (units (unkno wn) date) unknown) (unknown) (no (unknown) (unknown) Hgb 12.6 L (units (un known) date) unknown) (unknown) (no (unknown) (unknown) History of (units (unk nown) date) Present Illness unknown) (unknown) (no (unknown) (unknown) Home Medications (units (unknown) date) and Allergies unknown) (unknown) (no (unknown) (unknown) I spent a total (units (unknown) date) of [] minutes of unknown) critical care time on this patient's care (unknown) (no (unknown) (unknown) IV antibiotics. (units (unknown) date) Of note, when I unknown) did examine him he was quite lethargic and was (unknown) (no (unknown) (unknown) In the ED workup (units (unknown) date) was done, vitals unknown) notable for mild tachycardia in the 90s. Labs (unknown) (no (unknown) (unknown) Labs (units (unkno wn) date) unknown) (unknown) (no (unknown) (unknown) Labs: (units (unkno wn) date) unknown) (unknown) (no (unknown) (unknown) Lactate (units (unkno wn) date) unknown) (unknown) (no (unknown) (unknown) Lactate 1.7 (units (unknown) date) unknown) (unknown) (no (unknown) (unknown) Lipase (units (unkno wn) date) unknown) (unknown) (no (unknown) (unknown) Lipase 52 (units (un known) date) unknown) (unknown) (no (unknown) (unknown) Lymph # (Auto) (units (unknown) date) unknown) (unknown) (no (unknown) (unknown) Lymph # (Auto) (units (unknown) date) 1700 unknown) (unknown) (no (unknown) (unknown) Lymph % (Auto) (units (unknown) date) unknown) (unknown) (no (unknown) (unknown) Lymph % (Auto) (units (unknown) date) 12.6 L unknown) (unknown) (no (unknown) (unknown) MCH (units (unkno wn) date) unknown) (unknown) (no (unknown) (unknown) MCH 29.4 (units (unkn own) date) unknown) (unknown) (no (unknown) (unknown) MCHC (units (unkno wn) date) unknown) (unknown) (no (unknown) (unknown) MCHC 33.0 (units (unk nown) date) unknown) (unknown) (no (unknown) (unknown) MCV (units (unkno wn) date) unknown) (unknown) (no (unknown) (unknown) MCV 89.0 (units (unkn own) date) unknown) (unknown) (no (unknown) (unknown) Meds (units (unkno wn) date) unknown) (unknown) (no (unknown) (unknown) Ashley # (Auto) (units ( unknown) date) unknown) (unknown) (no (unknown) (unknown) Ashley # (Auto) (units ( unknown) date) 900 unknown) (unknown) (no (unknown) (unknown) Ashley % (Auto) (units ( unknown) date) unknown) (unknown) (no (unknown) (unknown) Ashley % (Auto) (units ( unknown) date) 6.8 unknown) (unknown) (no (unknown) (unknown) NECK: trachea (units ( unknown) date) midline, no JVD unknown) (unknown) (no (unknown) (unknown) Narrative (units (unkn own) date) unknown) (unknown) (no (unknown) (unknown) Narrative: (units (unk nown) date) unknown) (unknown) (no (unknown) (unknown) Neut # (Auto) (units ( unknown) date) unknown) (unknown) (no (unknown) (unknown) Neut # (Auto) (units ( unknown) date) 25107 H unknown) (unknown) (no (unknown) (unknown) Neut % (Auto) (units ( unknown) date) unknown) (unknown) (no (unknown) (unknown) Neut % (Auto) (units ( unknown) date) 79.4 H unknown) (unknown) (no (unknown) (unknown) No Known Drug (units ( unknown) date) Allergies Allergy unknown) Verified 01/31/22 07:10 (unknown) (no (unknown) (unknown) No Known Home (units ( unknown) date) Medications unknown) 01/31/22 01/31/22 History (unknown) (no (unknown) (unknown) Objective (units (unkn own) date) unknown) (unknown) (no (unknown) (unknown) Oxygen Delivery (units (unknown) date) Method Room unknown) Air (unknown) (no (unknown) (unknown) Oxygen Flow Rate (units (unknown) date) 0 unknown) (unknown) (no (unknown) (unknown) PULM: clear (units (un known) date) bilaterally, no unknown) wheezes/rhonchi/r ales (unknown) (no (unknown) (unknown) Patient History (units (unknown) date) unknown) (unknown) (no (unknown) (unknown) Patient: (units (unkno wn) date) Piero Frazier unknown) MR#: [id number] (unknown) (no (unknown) (unknown) Plt Count (units (unkn own) date) unknown) (unknown) (no (unknown) (unknown) Plt Count 247 (units (unknown) date) unknown) (unknown) (no (unknown) (unknown) Potassium (units (unkn own) date) unknown) (unknown) (no (unknown) (unknown) Potassium 3.4 (units (unknown) date) unknown) (unknown) (no (unknown) (unknown) Prior Living (units (u nknown) date) Arrangements unknown) Apartment/Condo (unknown) (no (unknown) (unknown) Procalcitonin (units ( unknown) date) unknown) (unknown) (no (unknown) (unknown) Procalcitonin (units ( unknown) date) 0.37 unknown) (unknown) (no (unknown) (unknown) Provider: (units (unkn own) date) Moise Aranda MD unknown) (unknown) (no (unknown) (unknown) Pulse Oximetry (units (unknown) date) 97 97 unknown) (unknown) (no (unknown) (unknown) Pulse Rate 82 90 (units (unknown) date) unknown) (unknown) (no (unknown) (unknown) Quality (units (unkno wn) date) unknown) (unknown) (no (unknown) (unknown) RBC (units (unkno wn) date) unknown) (unknown) (no (unknown) (unknown) RBC 4.28 L (units (un known) date) unknown) (unknown) (no (unknown) (unknown) RDW (units (unkno wn) date) unknown) (unknown) (no (unknown) (unknown) RDW 15.5 H (units (un known) date) unknown) (unknown) (no (unknown) (unknown) Respiratory Rate (units (unknown) date) 16 18 unknown) (unknown) (no (unknown) (unknown) Result Diagrams: (units (unknown) date) unknown) (unknown) (no (unknown) (unknown) Review of (units (unkn own) date) Systems unknown) (unknown) (no (unknown) (unknown) SARS-CoV-2 (PCR) (units (unknown) date) unknown) (unknown) (no (unknown) (unknown) SARS-CoV-2 (PCR) (units (unknown) date) Positive H unknown) (unknown) (no (unknown) (unknown) Safety + (units (unkno wn) date) Behavioral: unknown) (unknown) (no (unknown) (unknown) Signed By: (units (unk nown) date) unknown) (unknown) (no (unknown) (unknown) Smoking Status (units (unknown) date) Current every unknown) day smoker (unknown) (no (unknown) (unknown) Smoking packs (units ( unknown) date) per day 1 unknown) (unknown) (no (unknown) (unknown) Social History: (units (unknown) date) unknown) (unknown) (no (unknown) (unknown) Social history: (units (unknown) date) unable to provide unknown) due to mental status (unknown) (no (unknown) (unknown) Sodium (units (unkno wn) date) unknown) (unknown) (no (unknown) (unknown) Sodium 134 L (units (unknown) date) unknown) (unknown) (no (unknown) (unknown) Substance Use (units ( unknown) date) Type marijuana unknown) (unknown) (no (unknown) (unknown) Temperature 97.7 (units (unknown) date) F 98.8 F unknown) (unknown) (no (unknown) (unknown) Threatened By a (units (unknown) date) Person unknown) (unknown) (no (unknown) (unknown) Time Patient (units (u nknown) date) Seen: 11:00 unknown) (unknown) (no (unknown) (unknown) Time Spent With (units (unknown) date) Patient unknown) (unknown) (no (unknown) (unknown) Tobacco + (units (unkn own) date) Substance use: unknown) (unknown) (no (unknown) (unknown) Total Bilirubin (units (unknown) date) unknown) (unknown) (no (unknown) (unknown) Total Bilirubin (units (unknown) date) 0.5 unknown) (unknown) (no (unknown) (unknown) Total Protein (units ( unknown) date) unknown) (unknown) (no (unknown) (unknown) Total Protein (units ( unknown) date) 7.7 unknown) (unknown) (no (unknown) (unknown) Ultrasound for (units (unknown) date) DVT negative. unknown) Xray for foreign body negative. He was ordered for (unknown) (no (unknown) (unknown) Ur Culture (units (unk nown) date) Indicated? unknown) (unknown) (no (unknown) (unknown) Ur Culture (units (unk nown) date) Indicated? Cult unknown) not indicated (unknown) (no (unknown) (unknown) Ur Leukocyte (units (u nknown) date) Esterase unknown) (unknown) (no (unknown) (unknown) Ur Leukocyte (units (u nknown) date) Esterase unknown) Negative (unknown) (no (unknown) (unknown) Ur Specific (units (un known) date) Ruth unknown) (unknown) (no (unknown) (unknown) Ur Specific (units (un known) date) Ruth 1.010 unknown) (unknown) (no (unknown) (unknown) Ur Squamous (units (un known) date) Epith Cells unknown) (unknown) (no (unknown) (unknown) Ur Squamous (units (un known) date) Epith Cells unknown) None seen (unknown) (no (unknown) (unknown) Urine Appearance (units (unknown) date) unknown) (unknown) (no (unknown) (unknown) Urine Appearance (units (unknown) date) Clear unknown) (unknown) (no (unknown) (unknown) Urine Bacteria (units (unknown) date) unknown) (unknown) (no (unknown) (unknown) Urine Bacteria (units (unknown) date) None seen unknown) (unknown) (no (unknown) (unknown) Urine Bilirubin (units (unknown) date) unknown) (unknown) (no (unknown) (unknown) Urine Bilirubin (units (unknown) date) Negative unknown) (unknown) (no (unknown) (unknown) Urine Color (units (un known) date) unknown) (unknown) (no (unknown) (unknown) Urine Color (units (un known) date) Yellow unknown) (unknown) (no (unknown) (unknown) Urine Glucose (units ( unknown) date) (UA) unknown) (unknown) (no (unknown) (unknown) Urine Glucose (units ( unknown) date) (UA) Trace H unknown) (unknown) (no (unknown) (unknown) Urine Ketones (units ( unknown) date) unknown) (unknown) (no (unknown) (unknown) Urine Ketones (units ( unknown) date) Negative unknown) (unknown) (no (unknown) (unknown) Urine Nitrate (units ( unknown) date) unknown) (unknown) (no (unknown) (unknown) Urine Nitrate (units ( unknown) date) Negative unknown) (unknown) (no (unknown) (unknown) Urine Occult (units (u nknown) date) Blood unknown) (unknown) (no (unknown) (unknown) Urine Occult (units (u nknown) date) Blood Negative unknown) (unknown) (no (unknown) (unknown) Urine Protein (units ( unknown) date) unknown) (unknown) (no (unknown) (unknown) Urine Protein (units ( unknown) date) Trace H unknown) (unknown) (no (unknown) (unknown) Urine RBC (units (unkn own) date) unknown) (unknown) (no (unknown) (unknown) Urine RBC None (units (unknown) date) seen unknown) (unknown) (no (unknown) (unknown) Urine (units (unkno wn) date) Urobilinogen unknown) (unknown) (no (unknown) (unknown) Urine (units (unkno wn) date) Urobilinogen unknown) 0.2 (unknown) (no (unknown) (unknown) Urine WBC (units (unkn own) date) unknown) (unknown) (no (unknown) (unknown) Urine WBC None (units (unknown) date) seen unknown) (unknown) (no (unknown) (unknown) Urine pH (units (unkno wn) date) unknown) (unknown) (no (unknown) (unknown) Urine pH 6.0 (units (unknown) date) unknown) (unknown) (no (unknown) (unknown) VTE (units (unkno wn) date) unknown) (unknown) (no (unknown) (unknown) Vital Signs (units (un known) date) unknown) (unknown) (no (unknown) (unknown) WBC (units (unkno wn) date) unknown) (unknown) (no (unknown) (unknown) WBC 13.3 H (units (un known) date) unknown) (unknown) (no (unknown) (unknown) [Embedded Image (units (unknown) date) Not Available] unknown) (unknown) (no (unknown) (unknown) alcohol intake (units (unknown) date) never unknown) (unknown) (no (unknown) (unknown) alcohol intake (units (unknown) date) frequency 0-2 unknown) drinks per day (unknown) (no (unknown) (unknown) and pain of his (units (unknown) date) leg. He unknown) reportedly initially injured his leg when a part of tree (unknown) (no (unknown) (unknown) been. He has (units (u nknown) date) been treated unknown) multiple times with antibiotcis, last in October or (unknown) (no (unknown) (unknown) household (units (unkn own) date) members other unknown) (unknown) (no (unknown) (unknown) injured him (units (un known) date) nearly a year unknown) ago. He has been referred to wound clinic but has not (unknown) (no (unknown) (unknown) linezolid/cipro (units (unknown) date) and then unknown) clinda/keflex regimens in the past. He reportedly had (unknown) (no (unknown) (unknown) most of entirety (units (unknown) date) of anterior lower unknown) leg is swollen, warm and red (unknown) (no (unknown) (unknown) notable for WBC (units (unknown) date) of 13.3, hgb unknown) 12.6. Lactate 1.7. Procal 0.37. COVID positive. (unknown) (no (unknown) (unknown) redness, warmth, (units (unknown) date) and pain. unknown) Reportedly he does use tobacco, occasional alcohol, (unknown) (no (unknown) (unknown) states use (units (unk nown) date) marijuana but unknown) denies any IV drug use or other recreational (unknown) (no (unknown) (unknown) subjective (units (unk nown) date) fevers and unknown) noticed significant swelling of his leg along with (unknown) (no (unknown) (unknown) substances.?No (units (unknown) date) PCP.? unknown) (unknown) (no (unknown) (unknown) today; this time (units (unknown) date) is exclusive of unknown) procedural time. (unknown) (no (unknown) (unknown) too sleepy to (units ( unknown) date) provide much unknown) information. (unknown) (no (unknown) (unknown) unable to (units (unkn own) date) provide due to unknown) mental status Result panel 17 (unknown) (no (unknown) (unknown) (no value) (units (unk nown) date) unknown) (unknown) (no (unknown) (unknown) (no value) (units (unk nown) date) unknown) (unknown) (no (unknown) (unknown) Date of Service: (units (unknown) date) 01/31/22 unknown) (unknown) (no (unknown) (unknown) (no value) (units (unk nown) date) unknown) (unknown) (no (unknown) (unknown) - (units (unkno wn) date) unknown) (unknown) (no (unknown) (unknown) 01/31/22 07:52 (units (unknown) date) unknown) (unknown) (no (unknown) (unknown) Allergies (units (unkn own) date) unknown) (unknown) (no (unknown) (unknown) History + (units (unkn own) date) Physical Report unknown) (unknown) (no (unknown) (unknown) Home Medications (units (unknown) date) unknown) (unknown) (no (unknown) (unknown) [facility] (units (unknown) date) [address] unknown) [place] [address] (unknown) (no (unknown) (unknown) Laboratory (units (unk nown) date) Results - last 24 unknown) hr (unknown) (no (unknown) (unknown) (no value) (units (unk nown) date) unknown) (unknown) (no (unknown) (unknown) 01/31/22 (units (unkno wn) date) 01/31/22 unknown) (unknown) (no (unknown) (unknown) 01/31/22 (units (unkno wn) date) 01/31/22 01/31/22 unknown) (unknown) (no (unknown) (unknown) 07:52 07:52 (units (un known) date) 07:52 unknown) (unknown) (no (unknown) (unknown) 09:04 12:15 (units (un known) date) unknown) (unknown) (no (unknown) (unknown) 01/31/22 (units (unkno wn) date) unknown) (unknown) (no (unknown) (unknown) Medication (units (unk nown) date) Instructions unknown) Recorded Confirmed Type (unknown) (no (unknown) (unknown) Surrogate (units (unkn own) date) decision maker is unknown) in patient?s record [If Yes, STOP here]: Yes (unknown) (no (unknown) (unknown) (past 8 hours): (units (unknown) date) unknown) (unknown) (no (unknown) (unknown) -COVID positive, (units (unknown) date) but do not unknown) suspect this as cause (unknown) (no (unknown) (unknown) -await cultures (units (unknown) date) unknown) (unknown) (no (unknown) (unknown) -careful with (units ( unknown) date) medications that unknown) can cause altered mental status (unknown) (no (unknown) (unknown) -consider wound (units (unknown) date) clinic referall unknown) on discharge (unknown) (no (unknown) (unknown) -has no (units (unkno wn) date) respiratory unknown) symptoms (unknown) (no (unknown) (unknown) -however rule (units ( unknown) date) out possibility unknown) of intoxicant by checking urine drug screen (unknown) (no (unknown) (unknown) -if mental (units (unk nown) date) status not unknown) recovered, check CT head (unknown) (no (unknown) (unknown) -likely can be (units (unknown) date) switched to oral unknown) medications soon (unknown) (no (unknown) (unknown) -no evidence of (units (unknown) date) sepsis unknown) (unknown) (no (unknown) (unknown) -started on IV (units (unknown) date) antibiotics and unknown) vancomycin and ceftriaxone (unknown) (no (unknown) (unknown) -supportive (units (un known) date) treatment for now unknown) (unknown) (no (unknown) (unknown) -suspect in (units (un known) date) setting of acute unknown) illness (unknown) (no (unknown) (unknown) 1. Acute (units (unkno wn) date) cellulitis unknown) (unknown) (no (unknown) (unknown) 13:23 01/31/22 (units (unknown) date) unknown) (unknown) (no (unknown) (unknown) 2. Acute (units (unkno wn) date) encephalopathy unknown) (unknown) (no (unknown) (unknown) 20:22 (units (unkno wn) date) unknown) (unknown) (no (unknown) (unknown) 3. COVID (units (unkno wn) date) positive unknown) (unknown) (no (unknown) (unknown) [id number] (units (unkno wn) date) unknown) (unknown) (no (unknown) (unknown) 46M with PMH (units (u nknown) date) chronic left leg unknown) ulcer, unstable housing who presents with redness (unknown) (no (unknown) (unknown) ABD: soft, (units (unk nown) date) nontender, unknown) nondistended, no organomegaly (unknown) (no (unknown) (unknown) ALT (units (unkno wn) date) unknown) (unknown) (no (unknown) (unknown) ALT 12 (units (unkno wn) date) unknown) (unknown) (no (unknown) (unknown) AST (units (unkno wn) date) unknown) (unknown) (no (unknown) (unknown) AST 20 (units (unkno wn) date) unknown) (unknown) (no (unknown) (unknown) Age/Sex: 46 / M (units (unknown) date) unknown) (unknown) (no (unknown) (unknown) Albumin (units (unkno wn) date) unknown) (unknown) (no (unknown) (unknown) Albumin 3.9 (units ( unknown) date) unknown) (unknown) (no (unknown) (unknown) Albumin/Globulin (units (unknown) date) Ratio unknown) (unknown) (no (unknown) (unknown) Albumin/Globulin (units (unknown) date) Ratio 1.0 unknown) (unknown) (no (unknown) (unknown) Alkaline (units (unkno wn) date) Phosphatase unknown) (unknown) (no (unknown) (unknown) Alkaline (units (unkno wn) date) Phosphatase 89 unknown) (unknown) (no (unknown) (unknown) Allergy/AdvReac (units (unknown) date) Type Severity unknown) Reaction Status Date / Time (unknown) (no (unknown) (unknown) November for (units (unkn own) date) Klebsiella and unknown) MRSA. He has been treated with bactrim, then (unknown) (no (unknown) (unknown) Assessment + (units (u nknown) date) Plan unknown) (unknown) (no (unknown) (unknown) Assessment + (units (u nknown) date) Plan narrative: unknown) (unknown) (no (unknown) (unknown) BUN (units (unkno wn) date) unknown) (unknown) (no (unknown) (unknown) BUN 16 (units (unkno wn) date) unknown) (unknown) (no (unknown) (unknown) BUN/Creatinine (units (unknown) date) Ratio unknown) (unknown) (no (unknown) (unknown) BUN/Creatinine (units (unknown) date) Ratio 16.3 unknown) (unknown) (no (unknown) (unknown) Baso # (Auto) (units ( unknown) date) unknown) (unknown) (no (unknown) (unknown) Baso # (Auto) 0 (units (unknown) date) unknown) (unknown) (no (unknown) (unknown) Baso % (Auto) (units ( unknown) date) unknown) (unknown) (no (unknown) (unknown) Baso % (Auto) (units ( unknown) date) 0.4 unknown) (unknown) (no (unknown) (unknown) Been Physically (units (unknown) date) Hurt or No unknown) (unknown) (no (unknown) (unknown) Blood Pressure (units (unknown) date) 152/99 H 132/77 unknown) (unknown) (no (unknown) (unknown) CODE: Full (units (unk nown) date) unknown) (unknown) (no (unknown) (unknown) CV: regular rate (units (unknown) date) and rhythm, no unknown) murmurs (unknown) (no (unknown) (unknown) Calcium (units (unkno wn) date) unknown) (unknown) (no (unknown) (unknown) Calcium 8.8 (units ( unknown) date) unknown) (unknown) (no (unknown) (unknown) Carbon Dioxide (units (unknown) date) unknown) (unknown) (no (unknown) (unknown) Carbon Dioxide (units (unknown) date) 30 unknown) (unknown) (no (unknown) (unknown) Chief complaint: (units (unknown) date) Mersa on left leg unknown) (unknown) (no (unknown) (unknown) Chloride (units (unkno wn) date) unknown) (unknown) (no (unknown) (unknown) Chloride 98 (units ( unknown) date) unknown) (unknown) (no (unknown) (unknown) Creatinine (units (unk nown) date) unknown) (unknown) (no (unknown) (unknown) Creatinine (units (unk nown) date) 0.98 unknown) (unknown) (no (unknown) (unknown) Critical Care (units ( unknown) date) time: unknown) (unknown) (no (unknown) (unknown) : 1975 (units (unknown) date) Acct:[id number] unknown) (unknown) (no (unknown) (unknown) Date Patient (units (u nknown) date) Seen: 01/31/22 unknown) (unknown) (no (unknown) (unknown) Deep Vein (units (unkn own) date) Thrombosis/Pulmon unknown) singh Embolism Present on Admission: No (unknown) (no (unknown) (unknown) EXT: warm and (units ( unknown) date) well perfused, unknown) left leg ulcer chronic appearing with purulence, (unknown) (no (unknown) (unknown) Environment (units (un known) date) unknown) (unknown) (no (unknown) (unknown) Eos # (Auto) (units (u nknown) date) unknown) (unknown) (no (unknown) (unknown) Eos # (Auto) (units (u nknown) date) 100 unknown) (unknown) (no (unknown) (unknown) Eos % (Auto) (units (u nknown) date) unknown) (unknown) (no (unknown) (unknown) Eos % (Auto) (units (u nknown) date) 0.8 L unknown) (unknown) (no (unknown) (unknown) Estimated GFR (units ( unknown) date) unknown) (unknown) (no (unknown) (unknown) Estimated GFR (units ( unknown) date) > 60 unknown) (unknown) (no (unknown) (unknown) Exam (units (unkno wn) date) unknown) (unknown) (no (unknown) (unknown) Exam Narrative: (units (unknown) date) unknown) (unknown) (no (unknown) (unknown) Family + Social (units (unknown) date) History unknown) (unknown) (no (unknown) (unknown) Family history: (units (unknown) date) unable to provide unknown) due to mental status (unknown) (no (unknown) (unknown) Feels Safe in (units ( unknown) date) Current Yes unknown) (unknown) (no (unknown) (unknown) GEN: lethargic, (units (unknown) date) sleepy unknown) (unknown) (no (unknown) (unknown) Globulin (units (unkno wn) date) unknown) (unknown) (no (unknown) (unknown) Globulin 3.8 (units (unknown) date) unknown) (unknown) (no (unknown) (unknown) Glucose (units (unkno wn) date) unknown) (unknown) (no (unknown) (unknown) Glucose 120 H (units (unknown) date) unknown) (unknown) (no (unknown) (unknown) HEENT: moist (units (u nknown) date) mucous membranes, unknown) PERRL (unknown) (no (unknown) (unknown) Hct (units (unkno wn) date) unknown) (unknown) (no (unknown) (unknown) Hct 38.1 L (units (un known) date) unknown) (unknown) (no (unknown) (unknown) Hgb (units (unkno wn) date) unknown) (unknown) (no (unknown) (unknown) Hgb 12.6 L (units (un known) date) unknown) (unknown) (no (unknown) (unknown) History of (units (unk nown) date) Present Illness unknown) (unknown) (no (unknown) (unknown) Home Medications (units (unknown) date) and Allergies unknown) (unknown) (no (unknown) (unknown) I confirm the (units (u nknown) date) patient?s Advance unknown) Care Plan is present, Code status is documented, (unknown) (no (unknown) (unknown) I have utilized (units (unknown) date) all available unknown) resources to reconcile the patient's home (unknown) (no (unknown) (unknown) I spent a total (units (unknown) date) of [] minutes of unknown) critical care time on this patient's care (unknown) (no (unknown) (unknown) IV antibiotics. (units (unknown) date) Of note, when I unknown) did examine him he was quite lethargic and was (unknown) (no (unknown) (unknown) In the ED workup (units (unknown) date) was done, vitals unknown) notable for mild tachycardia in the 90s. Labs (unknown) (no (unknown) (unknown) Labs (units (unkno wn) date) unknown) (unknown) (no (unknown) (unknown) Labs: (units (unkno wn) date) unknown) (unknown) (no (unknown) (unknown) Lactate (units (unkno wn) date) unknown) (unknown) (no (unknown) (unknown) Lactate 1.7 (units (unknown) date) unknown) (unknown) (no (unknown) (unknown) Lipase (units (unkno wn) date) unknown) (unknown) (no (unknown) (unknown) Lipase 52 (units (un known) date) unknown) (unknown) (no (unknown) (unknown) Lymph # (Auto) (units (unknown) date) unknown) (unknown) (no (unknown) (unknown) Lymph # (Auto) (units (unknown) date) 1700 unknown) (unknown) (no (unknown) (unknown) Lymph % (Auto) (units (unknown) date) unknown) (unknown) (no (unknown) (unknown) Lymph % (Auto) (units (unknown) date) 12.6 L unknown) (unknown) (no (unknown) (unknown) MCH (units (unkno wn) date) unknown) (unknown) (no (unknown) (unknown) MCH 29.4 (units (unkn own) date) unknown) (unknown) (no (unknown) (unknown) MCHC (units (unkno wn) date) unknown) (unknown) (no (unknown) (unknown) MCHC 33.0 (units (unk nown) date) unknown) (unknown) (no (unknown) (unknown) MCV (units (unkno wn) date) unknown) (unknown) (no (unknown) (unknown) MCV 89.0 (units (unkn own) date) unknown) (unknown) (no (unknown) (unknown) MIPS - Admit (units (u nknown) date) unknown) (unknown) (no (unknown) (unknown) Meds (units (unkno wn) date) unknown) (unknown) (no (unknown) (unknown) Ashley # (Auto) (units ( unknown) date) unknown) (unknown) (no (unknown) (unknown) Ashley # (Auto) (units ( unknown) date) 900 unknown) (unknown) (no (unknown) (unknown) Ashley % (Auto) (units ( unknown) date) unknown) (unknown) (no (unknown) (unknown) Ashley % (Auto) (units ( unknown) date) 6.8 unknown) (unknown) (no (unknown) (unknown) Mr. Frazier is a (units (unknown) date) 46M with chronic unknown) leg wound admitted with cellulitis. (unknown) (no (unknown) (unknown) NECK: trachea (units ( unknown) date) midline, no JVD unknown) (unknown) (no (unknown) (unknown) NEURO: sleep and (units (unknown) date) lethargic, moving unknown) all extremities (unknown) (no (unknown) (unknown) Narrative (units (unkn own) date) unknown) (unknown) (no (unknown) (unknown) Narrative: (units (unk nown) date) unknown) (unknown) (no (unknown) (unknown) Neut # (Auto) (units ( unknown) date) unknown) (unknown) (no (unknown) (unknown) Neut # (Auto) (units ( unknown) date) [address] H unknown) (unknown) (no (unknown) (unknown) Neut % (Auto) (units ( unknown) date) unknown) (unknown) (no (unknown) (unknown) Neut % (Auto) (units ( unknown) date) 79.4 H unknown) (unknown) (no (unknown) (unknown) No Known Drug (units ( unknown) date) Allergies Allergy unknown) Verified 01/31/22 07:10 (unknown) (no (unknown) (unknown) No Known Home (units ( unknown) date) Medications unknown) 01/31/22 01/31/22 History (unknown) (no (unknown) (unknown) Objective (units (unkn own) date) unknown) (unknown) (no (unknown) (unknown) Oxygen Delivery (units (unknown) date) Method Room unknown) Air (unknown) (no (unknown) (unknown) Oxygen Flow Rate (units (unknown) date) 0 unknown) (unknown) (no (unknown) (unknown) PULM: clear (units (un known) date) bilaterally, no unknown) wheezes/rhonchi/r ales (unknown) (no (unknown) (unknown) Patient History (units (unknown) date) unknown) (unknown) (no (unknown) (unknown) Patient: (units (unkno wn) date) Piero Frazier unknown) MR#: [id number] (unknown) (no (unknown) (unknown) Plt Count (units (unkn own) date) unknown) (unknown) (no (unknown) (unknown) Plt Count 247 (units (unknown) date) unknown) (unknown) (no (unknown) (unknown) Potassium (units (unkn own) date) unknown) (unknown) (no (unknown) (unknown) Potassium 3.4 (units (unknown) date) unknown) (unknown) (no (unknown) (unknown) Prior Living (units (u nknown) date) Arrangements unknown) Apartment/Condo (unknown) (no (unknown) (unknown) Procalcitonin (units ( unknown) date) unknown) (unknown) (no (unknown) (unknown) Procalcitonin (units ( unknown) date) 0.37 unknown) (unknown) (no (unknown) (unknown) Provider: (units (unkn own) date) Moise Aranda MD unknown) (unknown) (no (unknown) (unknown) Proxy: Lizbeth (units ( unknown) date) Vetra unknown) (unknown) (no (unknown) (unknown) Pulse Oximetry (units (unknown) date) 97 97 unknown) (unknown) (no (unknown) (unknown) Pulse Rate 82 90 (units (unknown) date) unknown) (unknown) (no (unknown) (unknown) Quality (units (unkno wn) date) unknown) (unknown) (no (unknown) (unknown) RBC (units (unkno wn) date) unknown) (unknown) (no (unknown) (unknown) RBC 4.28 L (units (un known) date) unknown) (unknown) (no (unknown) (unknown) RDW (units (unkno wn) date) unknown) (unknown) (no (unknown) (unknown) RDW 15.5 H (units (un known) date) unknown) (unknown) (no (unknown) (unknown) Respiratory Rate (units (unknown) date) 16 18 unknown) (unknown) (no (unknown) (unknown) Result Diagrams: (units (unknown) date) unknown) (unknown) (no (unknown) (unknown) Review of (units (unkn own) date) Systems unknown) (unknown) (no (unknown) (unknown) SARS-CoV-2 (PCR) (units (unknown) date) unknown) (unknown) (no (unknown) (unknown) SARS-CoV-2 (PCR) (units (unknown) date) Positive H unknown) (unknown) (no (unknown) (unknown) Safety + (units (unkno wn) date) Behavioral: unknown) (unknown) (no (unknown) (unknown) Signed (units (unkno wn) date) By:<Electronicall unknown) y signed by Moise Aranda MD>01/31/22 2131 (unknown) (no (unknown) (unknown) Smoking Status (units (unknown) date) Current every unknown) day smoker (unknown) (no (unknown) (unknown) Smoking packs (units ( unknown) date) per day 1 unknown) (unknown) (no (unknown) (unknown) Social History: (units (unknown) date) unknown) (unknown) (no (unknown) (unknown) Social history: (units (unknown) date) unable to provide unknown) due to mental status (unknown) (no (unknown) (unknown) Sodium (units (unkno wn) date) unknown) (unknown) (no (unknown) (unknown) Sodium 134 L (units (unknown) date) unknown) (unknown) (no (unknown) (unknown) Substance Use (units ( unknown) date) Type marijuana unknown) (unknown) (no (unknown) (unknown) Temperature 97.7 (units (unknown) date) F 98.8 F unknown) (unknown) (no (unknown) (unknown) Threatened By a (units (unknown) date) Person unknown) (unknown) (no (unknown) (unknown) Time Patient (units (u nknown) date) Seen: 11:00 unknown) (unknown) (no (unknown) (unknown) Time Spent With (units (unknown) date) Patient unknown) (unknown) (no (unknown) (unknown) Tobacco + (units (unkn own) date) Substance use: unknown) (unknown) (no (unknown) (unknown) Total Bilirubin (units (unknown) date) unknown) (unknown) (no (unknown) (unknown) Total Bilirubin (units (unknown) date) 0.5 unknown) (unknown) (no (unknown) (unknown) Total Protein (units ( unknown) date) unknown) (unknown) (no (unknown) (unknown) Total Protein (units ( unknown) date) 7.7 unknown) (unknown) (no (unknown) (unknown) Ultrasound for (units (unknown) date) DVT negative. unknown) Xray for foreign body negative. He was ordered for (unknown) (no (unknown) (unknown) Ur Culture (units (unk nown) date) Indicated? unknown) (unknown) (no (unknown) (unknown) Ur Culture (units (unk nown) date) Indicated? Cult unknown) not indicated (unknown) (no (unknown) (unknown) Ur Leukocyte (units (u nknown) date) Esterase unknown) (unknown) (no (unknown) (unknown) Ur Leukocyte (units (u nknown) date) Esterase unknown) Negative (unknown) (no (unknown) (unknown) Ur Specific (units (un known) date) Ruth unknown) (unknown) (no (unknown) (unknown) Ur Specific (units (un known) date) Ruth 1.010 unknown) (unknown) (no (unknown) (unknown) Ur Squamous (units (un known) date) Epith Cells unknown) (unknown) (no (unknown) (unknown) Ur Squamous (units (un known) date) Epith Cells unknown) None seen (unknown) (no (unknown) (unknown) Urine Appearance (units (unknown) date) unknown) (unknown) (no (unknown) (unknown) Urine Appearance (units (unknown) date) Clear unknown) (unknown) (no (unknown) (unknown) Urine Bacteria (units (unknown) date) unknown) (unknown) (no (unknown) (unknown) Urine Bacteria (units (unknown) date) None seen unknown) (unknown) (no (unknown) (unknown) Urine Bilirubin (units (unknown) date) unknown) (unknown) (no (unknown) (unknown) Urine Bilirubin (units (unknown) date) Negative unknown) (unknown) (no (unknown) (unknown) Urine Color (units (un known) date) unknown) (unknown) (no (unknown) (unknown) Urine Color (units (un known) date) Yellow unknown) (unknown) (no (unknown) (unknown) Urine Glucose (units ( unknown) date) (UA) unknown) (unknown) (no (unknown) (unknown) Urine Glucose (units ( unknown) date) (UA) Trace H unknown) (unknown) (no (unknown) (unknown) Urine Ketones (units ( unknown) date) unknown) (unknown) (no (unknown) (unknown) Urine Ketones (units ( unknown) date) Negative unknown) (unknown) (no (unknown) (unknown) Urine Nitrate (units ( unknown) date) unknown) (unknown) (no (unknown) (unknown) Urine Nitrate (units ( unknown) date) Negative unknown) (unknown) (no (unknown) (unknown) Urine Occult (units (u nknown) date) Blood unknown) (unknown) (no (unknown) (unknown) Urine Occult (units (u nknown) date) Blood Negative unknown) (unknown) (no (unknown) (unknown) Urine Protein (units ( unknown) date) unknown) (unknown) (no (unknown) (unknown) Urine Protein (units ( unknown) date) Trace H unknown) (unknown) (no (unknown) (unknown) Urine RBC (units (unkn own) date) unknown) (unknown) (no (unknown) (unknown) Urine RBC None (units (unknown) date) seen unknown) (unknown) (no (unknown) (unknown) Urine (units (unkno wn) date) Urobilinogen unknown) (unknown) (no (unknown) (unknown) Urine (units (unkno wn) date) Urobilinogen unknown) 0.2 (unknown) (no (unknown) (unknown) Urine WBC (units (unkn own) date) unknown) (unknown) (no (unknown) (unknown) Urine WBC None (units (unknown) date) seen unknown) (unknown) (no (unknown) (unknown) Urine pH (units (unkno wn) date) unknown) (unknown) (no (unknown) (unknown) Urine pH 6.0 (units (unknown) date) unknown) (unknown) (no (unknown) (unknown) VTE (units (unkno wn) date) unknown) (unknown) (no (unknown) (unknown) Vital Signs (units (un known) date) unknown) (unknown) (no (unknown) (unknown) WBC (units (unkno wn) date) unknown) (unknown) (no (unknown) (unknown) WBC 13.3 H (units (un known) date) unknown) (unknown) (no (unknown) (unknown) [Embedded Image (units (unknown) date) Not Available] unknown) (unknown) (no (unknown) (unknown) alcohol intake (units (unknown) date) never unknown) (unknown) (no (unknown) (unknown) alcohol intake (units (unknown) date) frequency 0-2 unknown) drinks per day (unknown) (no (unknown) (unknown) and pain of his (units (unknown) date) leg. He unknown) reportedly initially injured his leg when a part of tree (unknown) (no (unknown) (unknown) been. He has (units (u nknown) date) been treated unknown) multiple times with antibiotcis, last in October or (unknown) (no (unknown) (unknown) household (units (unkn own) date) members other unknown) (unknown) (no (unknown) (unknown) injured him (units (un known) date) nearly a year unknown) ago. He has been referred to wound clinic but has not (unknown) (no (unknown) (unknown) linezolid/cipro (units (unknown) date) and then unknown) clinda/keflex regimens in the past. He reportedly had (unknown) (no (unknown) (unknown) medications (units (un known) date) unknown) (unknown) (no (unknown) (unknown) most of entirety (units (unknown) date) of anterior lower unknown) leg is swollen, warm and red (unknown) (no (unknown) (unknown) notable for WBC (units (unknown) date) of 13.3, hgb unknown) 12.6. Lactate 1.7. Procal 0.37. COVID positive. (unknown) (no (unknown) (unknown) redness, warmth, (units (unknown) date) and pain. unknown) Reportedly he does use tobacco, occasional alcohol, (unknown) (no (unknown) (unknown) states use (units (unk nown) date) marijuana but unknown) denies any IV drug use or other recreational (unknown) (no (unknown) (unknown) subjective (units (unk nown) date) fevers and unknown) noticed significant swelling of his leg along with (unknown) (no (unknown) (unknown) substances.?No (units (unknown) date) PCP.? unknown) (unknown) (no (unknown) (unknown) today; this time (units (unknown) date) is exclusive of unknown) procedural time. (unknown) (no (unknown) (unknown) too sleepy to (units ( unknown) date) provide much unknown) information. (unknown) (no (unknown) (unknown) unable to (units (unkn own) date) provide due to unknown) mental status Result panel 18 (unknown) (no date) (unknown) (unknown) 1.015 (units (unkn own) unknown) (unknown) (no date) (unknown) (unknown) 20 (units (unkn own) unknown) (unknown) (no date) (unknown) (unknown) 5 (units (unkn own) unknown) (unknown) (no date) (unknown) (unknown) Negative (units (unkn own) unknown) (unknown) (no date) (unknown) (unknown) Positive (units (unkn own) unknown) Result panel 19 (unknown) (no date) (unknown) (unknown) 1.4 % (unkn own) (unknown) (no date) (unknown) (unknown) 10.1 X10 3/uL (unkn own) (unknown) (no date) (unknown) (unknown) 100 /uL (unkn own) (unknown) (no date) (unknown) (unknown) 1000 /uL (unkn own) (unknown) (no date) (unknown) (unknown) 12.6 g/dL (unkn own) (unknown) (no date) (unknown) (unknown) 15.7 % (unkn own) (unknown) (no date) (unknown) (unknown) 254 X10 3/uL (unkn own) (unknown) (no date) (unknown) (unknown) 29.5 PG (unkn own) (unknown) (no date) (unknown) (unknown) 33.4 % (unkn own) (unknown) (no date) (unknown) (unknown) 37.7 % (unkn own) (unknown) (no date) (unknown) (unknown) 4.26 X10 6/uL (unkn own) (unknown) (no date) (unknown) (unknown) 4.7 % (unkn own) (unknown) (no date) (unknown) (unknown) 5.8 % (unkn own) (unknown) (no date) (unknown) (unknown) 500 /uL (unkn own) (unknown) (no date) (unknown) (unknown) 600 /uL (unkn own) (unknown) (no date) (unknown) (unknown) 78.6 % (unkn own) (unknown) (no date) (unknown) (unknown) 7900 /uL (unkn own) (unknown) (no date) (unknown) (unknown) 88.3 fL (unkn own) (unknown) (no date) (unknown) (unknown) 9.5 % (unkn own) Result panel 20 (unknown) (no date) (unknown) (unknown) > 60 mL/min (unkn own) (unknown) (no date) (unknown) (unknown) 0.67 mg/dL (unkn own) (unknown) (no date) (unknown) (unknown) 10 mg/dL (unkn own) (unknown) (no date) (unknown) (unknown) 106 mmol/L (unkn own) (unknown) (no date) (unknown) (unknown) 136 mmol/L (unkn own) (unknown) (no date) (unknown) (unknown) 14.9 (units unknown) (unknown) (unknown) (no date) (unknown) (unknown) 23 mmol/L (unkn own) (unknown) (no date) (unknown) (unknown) 4.3 mmol/L (unkn own) (unknown) (no date) (unknown) (unknown) 8.2 mg/dL (unkn own) (unknown) (no date) (unknown) (unknown) 91 mg/dL (unkn own) Result panel 21 (unknown) (no date) (unknown) (unknown) (no value) (units (un known) unknown) (unknown) (no date) (unknown) (unknown) NO GROWTH (units (unk nown) AFTER 24 unknown) HOURS Result panel 22 (unknown) (no date) (unknown) (unknown) (no value) (units (un known) unknown) (unknown) (no date) (unknown) (unknown) NO GROWTH (units (unk nown) AFTER 24 unknown) HOURS Result panel 23 (unknown) (no (unknown) (unknown) (no value) (units (unk nown) date) unknown) (unknown) (no (unknown) (unknown) Date of Service: (units (unknown) date) 01/31/22 unknown) (unknown) (no (unknown) (unknown) (no value) (units (unk nown) date) unknown) (unknown) (no (unknown) (unknown) - (units (unkno wn) date) unknown) (unknown) (no (unknown) (unknown) 02/01/22 04:45 (units (unknown) date) unknown) (unknown) (no (unknown) (unknown) [facility] (units (unknown) date) [address] unknown) [place] [address] (unknown) (no (unknown) (unknown) Laboratory Results (units (unknown) date) - last 24 hr unknown) (unknown) (no (unknown) (unknown) Progress Note (units ( unknown) date) unknown) (unknown) (no (unknown) (unknown) (no value) (units (unk nown) date) unknown) (unknown) (no (unknown) (unknown) 01/31/22 02/01/22 (units (unknown) date) 02/01/22 unknown) (unknown) (no (unknown) (unknown) 23:35 04:45 04:45 (units (unknown) date) unknown) (unknown) (no (unknown) (unknown) 02/01/22 (units (unkno wn) date) unknown) (unknown) (no (unknown) (unknown) (past 8 hours): (units (unknown) date) unknown) (unknown) (no (unknown) (unknown) 12:00 (units (unkno wn) date) unknown) (unknown) (no (unknown) (unknown) [id number] (units (unkno wn) date) unknown) (unknown) (no (unknown) (unknown) ABD: soft, (units (unk nown) date) nontender, unknown) nondistended, no organomegaly (unknown) (no (unknown) (unknown) Age/Sex: 46 / M (units (unknown) date) unknown) (unknown) (no (unknown) (unknown) Assessment + Plan (units (unknown) date) unknown) (unknown) (no (unknown) (unknown) BUN 10 (units (unkn own) date) unknown) (unknown) (no (unknown) (unknown) BUN/Creatinine (units (unknown) date) Ratio 14.9 unknown) (unknown) (no (unknown) (unknown) Baso # (Auto) (units ( unknown) date) 100 unknown) (unknown) (no (unknown) (unknown) Baso % (Auto) (units ( unknown) date) 1.4 unknown) (unknown) (no (unknown) (unknown) Blood Pressure (units (unknown) date) 133/79 unknown) (unknown) (no (unknown) (unknown) CV: regular rate (units (unknown) date) and rhythm, no unknown) murmurs (unknown) (no (unknown) (unknown) Calcium 8.2 L (units (unknown) date) unknown) (unknown) (no (unknown) (unknown) Carbon Dioxide (units (unknown) date) 23 unknown) (unknown) (no (unknown) (unknown) Chloride 106 (units (unknown) date) unknown) (unknown) (no (unknown) (unknown) Continues to have (units (unknown) date) some L calf pain unknown) and swelling today, though it is improving. (unknown) (no (unknown) (unknown) Creatinine 0.67 (units (unknown) date) unknown) (unknown) (no (unknown) (unknown) Critical Care (units ( unknown) date) time: unknown) (unknown) (no (unknown) (unknown) : 1975 (units (unknown) date) Acct:[id number] unknown) (unknown) (no (unknown) (unknown) Date Patient Seen: (units (unknown) date) 02/01/22 unknown) (unknown) (no (unknown) (unknown) Deep Vein (units (unkn own) date) Thrombosis/Pulmonar unknown) y Embolism Present on Admission: No (unknown) (no (unknown) (unknown) EXT: warm and well (units (unknown) date) perfused, left leg unknown) ulcer chronic appearing without any (unknown) (no (unknown) (unknown) Eos # (Auto) 500 (units (unknown) date) H unknown) (unknown) (no (unknown) (unknown) Eos % (Auto) 4.7 (units (unknown) date) H unknown) (unknown) (no (unknown) (unknown) Estimated GFR > (units (unknown) date) 60 unknown) (unknown) (no (unknown) (unknown) Exam (units (unkno wn) date) unknown) (unknown) (no (unknown) (unknown) Exam Narrative: (units (unknown) date) unknown) (unknown) (no (unknown) (unknown) GEN: alert, NAD. (units (unknown) date) unknown) (unknown) (no (unknown) (unknown) Glucose 91 (units ( unknown) date) unknown) (unknown) (no (unknown) (unknown) HEENT: moist (units (u nknown) date) mucous membranes, unknown) PERRL (unknown) (no (unknown) (unknown) Hct 37.7 L (units (u nknown) date) unknown) (unknown) (no (unknown) (unknown) Hgb 12.6 L (units (u nknown) date) unknown) (unknown) (no (unknown) (unknown) I spent a total of (units (unknown) date) [] minutes of unknown) critical care time on this patient's care (unknown) (no (unknown) (unknown) Interval history: (units (unknown) date) unknown) (unknown) (no (unknown) (unknown) Labs (units (unkno wn) date) unknown) (unknown) (no (unknown) (unknown) Labs: (units (unkno wn) date) unknown) (unknown) (no (unknown) (unknown) Lymph # (Auto) (units (unknown) date) 1000 L unknown) (unknown) (no (unknown) (unknown) Lymph % (Auto) (units (unknown) date) 9.5 L unknown) (unknown) (no (unknown) (unknown) MCH 29.5 (units (unk nown) date) unknown) (unknown) (no (unknown) (unknown) MCHC 33.4 (units (un known) date) unknown) (unknown) (no (unknown) (unknown) MCV 88.3 (units (unk nown) date) unknown) (unknown) (no (unknown) (unknown) Ashley # (Auto) (units ( unknown) date) 600 unknown) (unknown) (no (unknown) (unknown) Ashley % (Auto) (units ( unknown) date) 5.8 unknown) (unknown) (no (unknown) (unknown) NECK: trachea (units ( unknown) date) midline, no JVD unknown) (unknown) (no (unknown) (unknown) Narrative (units (unkn own) date) unknown) (unknown) (no (unknown) (unknown) Neut # (Auto) (units ( unknown) date) 7900 H unknown) (unknown) (no (unknown) (unknown) Neut % (Auto) (units ( unknown) date) 78.6 H unknown) (unknown) (no (unknown) (unknown) Objective (units (unkn own) date) unknown) (unknown) (no (unknown) (unknown) Oxygen Delivery (units (unknown) date) Method Room Air unknown) (unknown) (no (unknown) (unknown) Oxygen Flow Rate (units (unknown) date) 0 unknown) (unknown) (no (unknown) (unknown) PFSH (units (unkno wn) date) unknown) (unknown) (no (unknown) (unknown) PULM: clear (units (un known) date) bilaterally, no unknown) wheezes/rhonchi/ral es (unknown) (no (unknown) (unknown) Patient: (units (unkno wn) date) Piero Frazier unknown) MR#: [id number] (unknown) (no (unknown) (unknown) Plt Count 254 (units (unknown) date) unknown) (unknown) (no (unknown) (unknown) Potassium 4.3 (units (unknown) date) unknown) (unknown) (no (unknown) (unknown) Provider: (units (unkn own) date) Kevin Hansen D.O. unknown) (unknown) (no (unknown) (unknown) Pulse Oximetry 97 (units (unknown) date) unknown) (unknown) (no (unknown) (unknown) Pulse Rate 87 (units ( unknown) date) unknown) (unknown) (no (unknown) (unknown) Quality (units (unkno wn) date) unknown) (unknown) (no (unknown) (unknown) RBC 4.26 L (units (u nknown) date) unknown) (unknown) (no (unknown) (unknown) RDW 15.7 H (units (u nknown) date) unknown) (unknown) (no (unknown) (unknown) Respiratory Rate (units (unknown) date) 18 unknown) (unknown) (no (unknown) (unknown) Result Diagrams: (units (unknown) date) unknown) (unknown) (no (unknown) (unknown) Signed By: (units (unk nown) date) unknown) (unknown) (no (unknown) (unknown) Smoking Status: (units (unknown) date) Current every day unknown) smoker (unknown) (no (unknown) (unknown) Social History (units (unknown) date) (Reviewed 01/31/22 unknown) @ 10:02 by Lana Santiago DO) (unknown) (no (unknown) (unknown) Sodium 136 L (units (unknown) date) unknown) (unknown) (no (unknown) (unknown) Subjective (units (unk nown) date) unknown) (unknown) (no (unknown) (unknown) Temperature 99.1 F (units (unknown) date) unknown) (unknown) (no (unknown) (unknown) Time Spent With (units (unknown) date) Patient unknown) (unknown) (no (unknown) (unknown) U Benzodiazepines (units (unknown) date) Scrn Negative unknown) (unknown) (no (unknown) (unknown) U Marijuana (THC) (units (unknown) date) Screen Negative unknown) (unknown) (no (unknown) (unknown) U Methamphetamines (units (unknown) date) Scrn Positive H unknown) (unknown) (no (unknown) (unknown) U Opiates 300ng/mL (units (unknown) date) cut Negative unknown) (unknown) (no (unknown) (unknown) U Tricyclic (units (un known) date) Antidepress unknown) Negative (unknown) (no (unknown) (unknown) Ur Amphetamines (units (unknown) date) Screen Positive H unknown) (unknown) (no (unknown) (unknown) Ur Barbiturates (units (unknown) date) Screen Negative unknown) (unknown) (no (unknown) (unknown) Ur MDMA Scrn (units (u nknown) date) (Ecstasy) Negative unknown) (unknown) (no (unknown) (unknown) Ur Oxycodone (units (u nknown) date) Screen Negative unknown) (unknown) (no (unknown) (unknown) Ur Phencyclidine (units (unknown) date) Scrn Negative unknown) (unknown) (no (unknown) (unknown) Urine Cocaine (units ( unknown) date) Screen Negative unknown) (unknown) (no (unknown) (unknown) Urine Methadone (units (unknown) date) Screen Negative unknown) (unknown) (no (unknown) (unknown) VTE (units (unkno wn) date) unknown) (unknown) (no (unknown) (unknown) Vital Signs (units (un known) date) unknown) (unknown) (no (unknown) (unknown) WBC 10.1 (units (unk nown) date) unknown) (unknown) (no (unknown) (unknown) [Embedded Image (units (unknown) date) Not Available] unknown) (unknown) (no (unknown) (unknown) alcohol intake: (units (unknown) date) never unknown) (unknown) (no (unknown) (unknown) paramjit and (units (unkno wn) date) tenderness, unknown) improved from prior demarcation. (unknown) (no (unknown) (unknown) household members: (units (unknown) date) other unknown) (unknown) (no (unknown) (unknown) surrounding (units (un known) date) erythema or unknown) purulence, swelling now mostly posterior with mild eryt (unknown) (no (unknown) (unknown) today; this time (units (unknown) date) is exclusive of unknown) procedural time. Result panel 24 (unknown) (no (unknown) (unknown) (no value) (units (unk nown) date) unknown) (unknown) (no (unknown) (unknown) Date of Service: (units (unknown) date) 01/31/22 unknown) (unknown) (no (unknown) (unknown) (no value) (units (unk nown) date) unknown) (unknown) (no (unknown) (unknown) - (units (unkno wn) date) unknown) (unknown) (no (unknown) (unknown) 02/01/22 04:45 (units (unknown) date) unknown) (unknown) (no (unknown) (unknown) Formerly [facility] (units (unknown) date) [address] unknown) [place] [address] (unknown) (no (unknown) (unknown) Laboratory Results (units (unknown) date) - last 24 hr unknown) (unknown) (no (unknown) (unknown) Progress Note (units ( unknown) date) unknown) (unknown) (no (unknown) (unknown) (no value) (units (unk nown) date) unknown) (unknown) (no (unknown) (unknown) 01/31/22 02/01/22 (units (unknown) date) 02/01/22 unknown) (unknown) (no (unknown) (unknown) 23:35 04:45 04:45 (units (unknown) date) unknown) (unknown) (no (unknown) (unknown) 02/01/22 (units (unkno wn) date) unknown) (unknown) (no (unknown) (unknown) (past 8 hours): (units (unknown) date) unknown) (unknown) (no (unknown) (unknown) -COVID positive, (units (unknown) date) but do not suspect unknown) this as cause (unknown) (no (unknown) (unknown) -blood cultures (units (unknown) date) negative thus far. unknown) (unknown) (no (unknown) (unknown) -careful with (units ( unknown) date) medications that unknown) can cause altered mental status (unknown) (no (unknown) (unknown) -consider wound (units (unknown) date) clinic referall on unknown) discharge (unknown) (no (unknown) (unknown) -has no (units (unkno wn) date) respiratory unknown) symptoms (unknown) (no (unknown) (unknown) -if mental status (units (unknown) date) not recovered, unknown) check CT head (unknown) (no (unknown) (unknown) -likely can be (units (unknown) date) switched to oral unknown) medications tomorrow. (unknown) (no (unknown) (unknown) -no evidence of (units (unknown) date) sepsis overtly unknown) other than encephalopathy. (unknown) (no (unknown) (unknown) -possibly due to (units (unknown) date) substance as UDS unknown) positive for methamphetamine and amphetamine (unknown) (no (unknown) (unknown) -started on IV (units (unknown) date) antibiotics and unknown) vancomycin and ceftriaxone (unknown) (no (unknown) (unknown) -supportive (units (un known) date) treatment for now unknown) (unknown) (no (unknown) (unknown) -suspect in (units (un known) date) setting of acute unknown) illness (unknown) (no (unknown) (unknown) 1. Acute (units (unkno wn) date) cellulitis unknown) (unknown) (no (unknown) (unknown) 12:00 (units (unkno wn) date) unknown) (unknown) (no (unknown) (unknown) 2. Acute (units (unkno wn) date) encephalopathy, unknown) improved (unknown) (no (unknown) (unknown) 3. COVID positive (units (unknown) date) unknown) (unknown) (no (unknown) (unknown) [id number] (units (unkno wn) date) unknown) (unknown) (no (unknown) (unknown) ABD: soft, (units (unk nown) date) nontender, unknown) nondistended, no organomegaly (unknown) (no (unknown) (unknown) Age/Sex: 46 / M (units (unknown) date) unknown) (unknown) (no (unknown) (unknown) Assessment + Plan (units (unknown) date) unknown) (unknown) (no (unknown) (unknown) Assessment + Plan (units (unknown) date) narrative: unknown) (unknown) (no (unknown) (unknown) BUN 10 (units (unkn own) date) unknown) (unknown) (no (unknown) (unknown) BUN/Creatinine (units (unknown) date) Ratio 14.9 unknown) (unknown) (no (unknown) (unknown) Baso # (Auto) (units ( unknown) date) 100 unknown) (unknown) (no (unknown) (unknown) Baso % (Auto) (units ( unknown) date) 1.4 unknown) (unknown) (no (unknown) (unknown) Blood Pressure (units (unknown) date) 133/79 unknown) (unknown) (no (unknown) (unknown) CODE: Full (units (unk nown) date) unknown) (unknown) (no (unknown) (unknown) CV: regular rate (units (unknown) date) and rhythm, no unknown) murmurs (unknown) (no (unknown) (unknown) Calcium 8.2 L (units (unknown) date) unknown) (unknown) (no (unknown) (unknown) Carbon Dioxide (units (unknown) date) 23 unknown) (unknown) (no (unknown) (unknown) Chloride 106 (units (unknown) date) unknown) (unknown) (no (unknown) (unknown) Continues to have (units (unknown) date) some L calf pain unknown) and swelling today, though it is improving. (unknown) (no (unknown) (unknown) Creatinine 0.67 (units (unknown) date) unknown) (unknown) (no (unknown) (unknown) Critical Care (units ( unknown) date) time: unknown) (unknown) (no (unknown) (unknown) : 1975 (units (unknown) date) Acct:[id number] unknown) (unknown) (no (unknown) (unknown) Date Patient Seen: (units (unknown) date) 02/01/22 unknown) (unknown) (no (unknown) (unknown) Deep Vein (units (unkn own) date) Thrombosis/Pulmonar unknown) y Embolism Present on Admission: No (unknown) (no (unknown) (unknown) EXT: warm and well (units (unknown) date) perfused, left leg unknown) ulcer chronic appearing without any (unknown) (no (unknown) (unknown) Eos # (Auto) 500 (units (unknown) date) H unknown) (unknown) (no (unknown) (unknown) Eos % (Auto) 4.7 (units (unknown) date) H unknown) (unknown) (no (unknown) (unknown) Estimated GFR > (units (unknown) date) 60 unknown) (unknown) (no (unknown) (unknown) Exam (units (unkno wn) date) unknown) (unknown) (no (unknown) (unknown) Exam Narrative: (units (unknown) date) unknown) (unknown) (no (unknown) (unknown) GEN: alert, NAD. (units (unknown) date) unknown) (unknown) (no (unknown) (unknown) Glucose 91 (units ( unknown) date) unknown) (unknown) (no (unknown) (unknown) HEENT: moist (units (u nknown) date) mucous membranes, unknown) PERRL (unknown) (no (unknown) (unknown) Hct 37.7 L (units (u nknown) date) unknown) (unknown) (no (unknown) (unknown) Hgb 12.6 L (units (u nknown) date) unknown) (unknown) (no (unknown) (unknown) I have utilized (units (unknown) date) all available unknown) resources to reconcile the patient's home (unknown) (no (unknown) (unknown) I spent a total of (units (unknown) date) [] minutes of unknown) critical care time on this patient's care (unknown) (no (unknown) (unknown) Interval history: (units (unknown) date) unknown) (unknown) (no (unknown) (unknown) Labs (units (unkno wn) date) unknown) (unknown) (no (unknown) (unknown) Labs: (units (unkno wn) date) unknown) (unknown) (no (unknown) (unknown) Lymph # (Auto) (units (unknown) date) 1000 L unknown) (unknown) (no (unknown) (unknown) Lymph % (Auto) (units (unknown) date) 9.5 L unknown) (unknown) (no (unknown) (unknown) MCH 29.5 (units (unk nown) date) unknown) (unknown) (no (unknown) (unknown) MCHC 33.4 (units (un known) date) unknown) (unknown) (no (unknown) (unknown) MCV 88.3 (units (unk nown) date) unknown) (unknown) (no (unknown) (unknown) Ashley # (Auto) (units ( unknown) date) 600 unknown) (unknown) (no (unknown) (unknown) Ashley % (Auto) (units ( unknown) date) 5.8 unknown) (unknown) (no (unknown) (unknown) Mr. Frazier is a (units (unknown) date) 46M with chronic unknown) leg wound admitted with cellulitis. (unknown) (no (unknown) (unknown) NECK: trachea (units ( unknown) date) midline, no JVD unknown) (unknown) (no (unknown) (unknown) Narrative (units (unkn own) date) unknown) (unknown) (no (unknown) (unknown) Neut # (Auto) (units ( unknown) date) 7900 H unknown) (unknown) (no (unknown) (unknown) Neut % (Auto) (units ( unknown) date) 78.6 H unknown) (unknown) (no (unknown) (unknown) Objective (units (unkn own) date) unknown) (unknown) (no (unknown) (unknown) Oxygen Delivery (units (unknown) date) Method Room Air unknown) (unknown) (no (unknown) (unknown) Oxygen Flow Rate (units (unknown) date) 0 unknown) (unknown) (no (unknown) (unknown) PFSH (units (unkno wn) date) unknown) (unknown) (no (unknown) (unknown) PULM: clear (units (un known) date) bilaterally, no unknown) wheezes/rhonchi/ral es (unknown) (no (unknown) (unknown) Patient: (units (unkno wn) date) Piero Frazier unknown) MR#: [id number] (unknown) (no (unknown) (unknown) Plt Count 254 (units (unknown) date) unknown) (unknown) (no (unknown) (unknown) Potassium 4.3 (units (unknown) date) unknown) (unknown) (no (unknown) (unknown) Provider: (units (unkn own) date) Kevin Hansen D.O. unknown) (unknown) (no (unknown) (unknown) Proxy: Lizbeth (units ( unknown) date) Vetra unknown) (unknown) (no (unknown) (unknown) Pulse Oximetry 97 (units (unknown) date) unknown) (unknown) (no (unknown) (unknown) Pulse Rate 87 (units ( unknown) date) unknown) (unknown) (no (unknown) (unknown) Quality (units (unkno wn) date) unknown) (unknown) (no (unknown) (unknown) RBC 4.26 L (units (u nknown) date) unknown) (unknown) (no (unknown) (unknown) RDW 15.7 H (units (u nknown) date) unknown) (unknown) (no (unknown) (unknown) Respiratory Rate (units (unknown) date) 18 unknown) (unknown) (no (unknown) (unknown) Result Diagrams: (units (unknown) date) unknown) (unknown) (no (unknown) (unknown) Signed (units (unkno wn) date) By:<Electronically unknown) signed by Kevin Hansen D.O.>02/01/22 1659 (unknown) (no (unknown) (unknown) Smoking Status: (units (unknown) date) Current every day unknown) smoker (unknown) (no (unknown) (unknown) Social History (units (unknown) date) (Reviewed 01/31/22 unknown) @ 10:02 by Lana Santiago DO) (unknown) (no (unknown) (unknown) Sodium 136 L (units (unknown) date) unknown) (unknown) (no (unknown) (unknown) Subjective (units (unk nown) date) unknown) (unknown) (no (unknown) (unknown) Temperature 99.1 F (units (unknown) date) unknown) (unknown) (no (unknown) (unknown) Time Spent With (units (unknown) date) Patient unknown) (unknown) (no (unknown) (unknown) U Benzodiazepines (units (unknown) date) Scrn Negative unknown) (unknown) (no (unknown) (unknown) U Marijuana (THC) (units (unknown) date) Screen Negative unknown) (unknown) (no (unknown) (unknown) U Methamphetamines (units (unknown) date) Scrn Positive H unknown) (unknown) (no (unknown) (unknown) U Opiates 300ng/mL (units (unknown) date) cut Negative unknown) (unknown) (no (unknown) (unknown) U Tricyclic (units (un known) date) Antidepress unknown) Negative (unknown) (no (unknown) (unknown) Ur Amphetamines (units (unknown) date) Screen Positive H unknown) (unknown) (no (unknown) (unknown) Ur Barbiturates (units (unknown) date) Screen Negative unknown) (unknown) (no (unknown) (unknown) Ur MDMA Scrn (units (u nknown) date) (Ecstasy) Negative unknown) (unknown) (no (unknown) (unknown) Ur Oxycodone (units (u nknown) date) Screen Negative unknown) (unknown) (no (unknown) (unknown) Ur Phencyclidine (units (unknown) date) Scrn Negative unknown) (unknown) (no (unknown) (unknown) Urine Cocaine (units ( unknown) date) Screen Negative unknown) (unknown) (no (unknown) (unknown) Urine Methadone (units (unknown) date) Screen Negative unknown) (unknown) (no (unknown) (unknown) VTE (units (unkno wn) date) unknown) (unknown) (no (unknown) (unknown) Vital Signs (units (un known) date) unknown) (unknown) (no (unknown) (unknown) WBC 10.1 (units (unk nown) date) unknown) (unknown) (no (unknown) (unknown) [Embedded Image (units (unknown) date) Not Available] unknown) (unknown) (no (unknown) (unknown) alcohol intake: (units (unknown) date) never unknown) (unknown) (no (unknown) (unknown) paramjit and (units (unkno wn) date) tenderness, unknown) improved from prior demarcation. (unknown) (no (unknown) (unknown) household members: (units (unknown) date) other unknown) (unknown) (no (unknown) (unknown) medications (units (un known) date) unknown) (unknown) (no (unknown) (unknown) surrounding (units (un known) date) erythema or unknown) purulence, swelling now mostly posterior with mild eryt (unknown) (no (unknown) (unknown) today; this time (units (unknown) date) is exclusive of unknown) procedural time. Result panel 25 (unknown) (no date) (unknown) (unknown) 7.8 ug/mL (unkn own) Result panel 26 (unknown) (no date) (unknown) (unknown) NO GROWTH (units (unk nown) AFTER 48 unknown) HOURS (unknown) (no date) (unknown) (unknown) (no value) (units (un known) unknown) Result panel 27 (unknown) (no date) (unknown) (unknown) NO GROWTH (units (unk nown) AFTER 48 unknown) HOURS (unknown) (no date) (unknown) (unknown) (no value) (units (un known) unknown) Result panel 28 (unknown) (no (unknown) (unknown) (no value) (units (unk nown) date) unknown) (unknown) (no (unknown) (unknown) Date of (units (unkno wn) date) Service: unknown) 02/01/22 (unknown) (no (unknown) (unknown) (no value) (units (unk nown) date) unknown) (unknown) (no (unknown) (unknown) - (units (unkno wn) date) unknown) (unknown) (no (unknown) (unknown) 02/01/22 04:45 (units (unknown) date) unknown) (unknown) (no (unknown) (unknown) 300 mg PO BID 7 (units (unknown) date) Days Qty: 14 0RF unknown) (unknown) (no (unknown) (unknown) 600 mg PO BID 7 (units (unknown) date) Days Qty: 14 0RF unknown) (unknown) (no (unknown) (unknown) Comment: (units (unkno wn) date) unknown) (unknown) (no (unknown) (unknown) Discharge (units (unkn own) date) Summary unknown) (unknown) (no (unknown) (unknown) Formerly [facility] (units (unknown) date) [address] unknown) [place] [address] (unknown) (no (unknown) (unknown) Laboratory (units (unk nown) date) Results - last unknown) 24 hr (unknown) (no (unknown) (unknown) ICHTHYOLOGIST Consult (units (un known) date) needed for:: unknown) Social Determinants issue (unknown) (no (unknown) (unknown) Reason for (units (unk nown) date) consultation: unknown) left rivera (unknown) (no (unknown) (unknown) (no value) (units (unk nown) date) unknown) (unknown) (no (unknown) (unknown) 01:20 (units (unkno wn) date) unknown) (unknown) (no (unknown) (unknown) 02/02/22 (units (unkno wn) date) unknown) (unknown) (no (unknown) (unknown) cefdinir 300 mg (units (unknown) date) Capsule unknown) (unknown) (no (unknown) (unknown) linezolid 600 (units ( unknown) date) mg Tablet unknown) (unknown) (no (unknown) (unknown) 02/02/22 (units (unkno wn) date) unknown) (unknown) (no (unknown) (unknown) at home (units (unkno wn) date) (another 7 unknown) days), and referral to wound care performed by case (unknown) (no (unknown) (unknown) the left leg. (units ( unknown) date) This improved unknown) with antibiotics. Please complete antibiotic course (unknown) (no (unknown) (unknown) (past 8 hours): (units (unknown) date) unknown) (unknown) (no (unknown) (unknown) 03:42 02/02/22 (units (unknown) date) unknown) (unknown) (no (unknown) (unknown) 01/31/22 07:09 (units (unknown) date) unknown) (unknown) (no (unknown) (unknown) 01/31/22 13:23 (units (unknown) date) unknown) (unknown) (no (unknown) (unknown) 02/01/22 09:50 (units (unknown) date) unknown) (unknown) (no (unknown) (unknown) 02/02/22 08:56 (units (unknown) date) unknown) (unknown) (no (unknown) (unknown) 09:00 (units (unkno wn) date) unknown) (unknown) (no (unknown) (unknown) [id number] (units (unkno wn) date) unknown) (unknown) (no (unknown) (unknown) 46M with PMH (units (u nknown) date) chronic left leg unknown) ulcer, unstable housing who presents with redness (unknown) (no (unknown) (unknown) Activity: As (units (u nknown) date) tolerated unknown) (unknown) (no (unknown) (unknown) Age/Sex: 46 / M (units (unknown) date) unknown) (unknown) (no (unknown) (unknown) Ashia for (units (unkn own) date) Klebsiella and unknown) MRSA. He has been treated with bactrim, then (unknown) (no (unknown) (unknown) Blood Pressure (units (unknown) date) 146/86 H 171/104 unknown) H (unknown) (no (unknown) (unknown) Chief (units (unkno wn) date) complaint: Mersa unknown) on left leg (unknown) (no (unknown) (unknown) Consult to (units (unk nown) date) Inpatient Wound unknown) Care Nurse Routine (unknown) (no (unknown) (unknown) Consult to ICHTHYOLOGIST (units (unknown) date) - Social unknown) Services Routine (unknown) (no (unknown) (unknown) Consult to ICHTHYOLOGIST (units (unknown) date) - Social unknown) Services Stat (unknown) (no (unknown) (unknown) Consults: (units (unkn own) date) unknown) (unknown) (no (unknown) (unknown) : 1975 (units (unknown) date) unknown) Acct:[id number] (unknown) (no (unknown) (unknown) Date Patient (units (u nknown) date) Seen: 02/02/22 unknown) (unknown) (no (unknown) (unknown) Date of (units (unkno wn) date) admission: unknown) (unknown) (no (unknown) (unknown) Deep Vein (units (unkn own) date) Thrombosis/Pulmo unknown) nary Embolism Present on Admission: No (unknown) (no (unknown) (unknown) Diet/Activity/T (units (unknown) date) reatments unknown) (unknown) (no (unknown) (unknown) Diet: Diet as (units ( unknown) date) Tolerated unknown) (unknown) (no (unknown) (unknown) Discharge Date: (units (unknown) date) 02/02/22 unknown) (unknown) (no (unknown) (unknown) Discharge (units (unkn own) date) Health Status unknown) (unknown) (no (unknown) (unknown) Discharge Plan (units (unknown) date) unknown) (unknown) (no (unknown) (unknown) Discharge (units (unkn own) date) Providers unknown) (unknown) (no (unknown) (unknown) Discharge (units (unkn own) date) orders + unknown) Medications (unknown) (no (unknown) (unknown) Discharge (units (unkn own) date) provider: unknown) (unknown) (no (unknown) (unknown) Exam (units (unkno wn) date) unknown) (unknown) (no (unknown) (unknown) Family history: (units (unknown) date) unable to unknown) provide due to mental status (unknown) (no (unknown) (unknown) Follow (units (unkno wn) date) up/Referrals: unknown) (unknown) (no (unknown) (unknown) History of (units (unk nown) date) Present Illness unknown) (unknown) (no (unknown) (unknown) IV antibiotics. (units (unknown) date) Of note, when I unknown) did examine him he was quite lethargic and was (unknown) (no (unknown) (unknown) In the ED (units (unkn own) date) workup was done, unknown) vitals notable for mild tachycardia in the 90s. Labs (unknown) (no (unknown) (unknown) Labs (units (unkno wn) date) unknown) (unknown) (no (unknown) (unknown) Labs: (units (unkno wn) date) unknown) (unknown) (no (unknown) (unknown) Cory Schulte MD (units (unknown) date) [Physician] - unknown) (unknown) (no (unknown) (unknown) Multidrug (units (unkn own) date) resistant unknown) organism: No MDRO (unknown) (no (unknown) (unknown) Narrative: (units (unk nown) date) unknown) (unknown) (no (unknown) (unknown) New (units (unkno wn) date) unknown) (unknown) (no (unknown) (unknown) Objective (units (unkn own) date) unknown) (unknown) (no (unknown) (unknown) Oxygen Delivery (units (unknown) date) Method Room unknown) Air (unknown) (no (unknown) (unknown) Oxygen Flow (units (un known) date) Rate 0 unknown) (unknown) (no (unknown) (unknown) Oxygen Flow (units (un known) date) Rate 0 0 unknown) (unknown) (no (unknown) (unknown) PFSH (units (unkno wn) date) unknown) (unknown) (no (unknown) (unknown) Patient (units (unkno wn) date) Disposition: unknown) Home (unknown) (no (unknown) (unknown) Patient: (units (unkno wn) date) Piero Frazier unknown) MR#: [id number] (unknown) (no (unknown) (unknown) Per Laure Metz, (units (unknown) date) CULINARY WORKER: unknown) (unknown) (no (unknown) (unknown) Prescriptions: (units (unknown) date) unknown) (unknown) (no (unknown) (unknown) Provider (units (unkno wn) date) unknown) (unknown) (no (unknown) (unknown) Provider (units (unkno wn) date) Discharge unknown) Comment: You were admitted to the hospital with cellulitis of (unknown) (no (unknown) (unknown) Provider: (units (unkn own) date) Kevin Hansen unknown) D.O. (unknown) (no (unknown) (unknown) Pulse Oximetry (units (unknown) date) 97 100 unknown) (unknown) (no (unknown) (unknown) Pulse Rate 87 (units ( unknown) date) 89 unknown) (unknown) (no (unknown) (unknown) Quality (units (unkno wn) date) unknown) (unknown) (no (unknown) (unknown) Respiratory (units (un known) date) Rate 18 16 unknown) (unknown) (no (unknown) (unknown) Result (units (unkno wn) date) Diagrams: unknown) (unknown) (no (unknown) (unknown) Kevin Hansen, (units (unknown) date) DO unknown) (unknown) (no (unknown) (unknown) Signed By: (units (unk nown) date) unknown) (unknown) (no (unknown) (unknown) Smoking Status: (units (unknown) date) Current every unknown) day smoker (unknown) (no (unknown) (unknown) Social History (units (unknown) date) (Reviewed unknown) 01/31/22 @ 10:02 by Lana Snatiago DO) (unknown) (no (unknown) (unknown) Social history: (units (unknown) date) unable to unknown) provide due to mental status (unknown) (no (unknown) (unknown) Temperature (units (un known) date) 98.3 F 97.9 F unknown) (unknown) (no (unknown) (unknown) Time Patient (units (u nknown) date) Seen: 10:20 unknown) (unknown) (no (unknown) (unknown) Ultrasound for (units (unknown) date) DVT negative. unknown) Xray for foreign body negative. He was ordered for (unknown) (no (unknown) (unknown) VTE (units (unkno wn) date) unknown) (unknown) (no (unknown) (unknown) Vancomycin (units (unk nown) date) Trough 7.8 L unknown) (unknown) (no (unknown) (unknown) Vital Signs (units (un known) date) unknown) (unknown) (no (unknown) (unknown) [Embedded Image (units (unknown) date) Not Available] unknown) (unknown) (no (unknown) (unknown) alcohol intake: (units (unknown) date) never unknown) (unknown) (no (unknown) (unknown) and pain of his (units (unknown) date) leg. He unknown) reportedly initially injured his leg when a part of tree (unknown) (no (unknown) (unknown) been. He has (units (u nknown) date) been treated unknown) multiple times with antibiotcis, last in October or (unknown) (no (unknown) (unknown) household (units (unkn own) date) members: other unknown) (unknown) (no (unknown) (unknown) injured him (units (un known) date) nearly a year unknown) ago. He has been referred to wound clinic but has not (unknown) (no (unknown) (unknown) linezolid/cipro (units (unknown) date) and then unknown) clinda/keflex regimens in the past. He reportedly had (unknown) (no (unknown) (unknown) management. (units (un known) date) unknown) (unknown) (no (unknown) (unknown) notable for WBC (units (unknown) date) of 13.3, hgb unknown) 12.6. Lactate 1.7. Procal 0.37. COVID positive. (unknown) (no (unknown) (unknown) redness, (units (unkno wn) date) warmth, and unknown) pain. Reportedly he does use tobacco, occasional alcohol, (unknown) (no (unknown) (unknown) states use (units (unk nown) date) marijuana but unknown) denies any IV drug use or other recreational (unknown) (no (unknown) (unknown) subjective (units (unk nown) date) fevers and unknown) noticed significant swelling of his leg along with (unknown) (no (unknown) (unknown) substances.?No (units (unknown) date) PCP.? unknown) (unknown) (no (unknown) (unknown) too sleepy to (units ( unknown) date) provide much unknown) information. Result panel 29 (unknown) (no (unknown) (unknown) (no value) (units (unk nown) date) unknown) (unknown) (no (unknown) (unknown) Date of (units (unkno wn) date) Service: unknown) 02/01/22 (unknown) (no (unknown) (unknown) (no value) (units (unk nown) date) unknown) (unknown) (no (unknown) (unknown) - (units (unkno wn) date) unknown) (unknown) (no (unknown) (unknown) 02/01/22 04:45 (units (unknown) date) unknown) (unknown) (no (unknown) (unknown) 300 mg PO BID 7 (units (unknown) date) Days Qty: 14 0RF unknown) (unknown) (no (unknown) (unknown) 600 mg PO BID 7 (units (unknown) date) Days Qty: 14 0RF unknown) (unknown) (no (unknown) (unknown) Comment: (units (unkno wn) date) unknown) (unknown) (no (unknown) (unknown) Discharge (units (unkn own) date) Summary unknown) (unknown) (no (unknown) (unknown) Formerly [facility] (units (unknown) date) [address] unknown) [place] [address] (unknown) (no (unknown) (unknown) Laboratory (units (unk nown) date) Results - last unknown) 24 hr (unknown) (no (unknown) (unknown) ICHTHYOLOGIST Consult (units (un known) date) needed for:: unknown) Social Determinants issue (unknown) (no (unknown) (unknown) Reason for (units (unk nown) date) consultation: unknown) left rivera (unknown) (no (unknown) (unknown) (no value) (units (unk nown) date) unknown) (unknown) (no (unknown) (unknown) 01:20 (units (unkno wn) date) unknown) (unknown) (no (unknown) (unknown) 02/02/22 (units (unkno wn) date) unknown) (unknown) (no (unknown) (unknown) cefdinir 300 mg (units (unknown) date) Capsule unknown) (unknown) (no (unknown) (unknown) linezolid 600 (units ( unknown) date) mg Tablet unknown) (unknown) (no (unknown) (unknown) 02/02/22 (units (unkno wn) date) unknown) (unknown) (no (unknown) (unknown) at home (units (unkno wn) date) (another 7 unknown) days), and referral to wound care performed by case (unknown) (no (unknown) (unknown) the left leg. (units ( unknown) date) This improved unknown) with antibiotics. Please complete antibiotic course (unknown) (no (unknown) (unknown) (past 8 hours): (units (unknown) date) unknown) (unknown) (no (unknown) (unknown) 03:42 02/02/22 (units (unknown) date) unknown) (unknown) (no (unknown) (unknown) 01/31/22 07:09 (units (unknown) date) unknown) (unknown) (no (unknown) (unknown) 01/31/22 13:23 (units (unknown) date) unknown) (unknown) (no (unknown) (unknown) 02/01/22 09:50 (units (unknown) date) unknown) (unknown) (no (unknown) (unknown) 02/02/22 08:56 (units (unknown) date) unknown) (unknown) (no (unknown) (unknown) 09:00 (units (unkno wn) date) unknown) (unknown) (no (unknown) (unknown) [id number] (units (unkno wn) date) unknown) (unknown) (no (unknown) (unknown) 46M with PMH (units (u nknown) date) chronic left leg unknown) ulcer, unstable housing who presents with redness (unknown) (no (unknown) (unknown) Activity: As (units (u nknown) date) tolerated unknown) (unknown) (no (unknown) (unknown) Age/Sex: 46 / M (units (unknown) date) unknown) (unknown) (no (unknown) (unknown) Ashia for (units (unkn own) date) Klebsiella and unknown) MRSA. He has been treated with bactrim, then (unknown) (no (unknown) (unknown) Blood Pressure (units (unknown) date) 146/86 H 171/104 unknown) H (unknown) (no (unknown) (unknown) Chief (units (unkno wn) date) complaint: Mersa unknown) on left leg (unknown) (no (unknown) (unknown) Consult to (units (unk nown) date) Inpatient Wound unknown) Care Nurse Routine (unknown) (no (unknown) (unknown) Consult to ICHTHYOLOGIST (units (unknown) date) - Social unknown) Services Routine (unknown) (no (unknown) (unknown) Consult to ICHTHYOLOGIST (units (unknown) date) - Social unknown) Services Stat (unknown) (no (unknown) (unknown) Consults: (units (unkn own) date) unknown) (unknown) (no (unknown) (unknown) : 1975 (units (unknown) date) unknown) Acct:[id number] (unknown) (no (unknown) (unknown) Date Patient (units (u nknown) date) Seen: 02/02/22 unknown) (unknown) (no (unknown) (unknown) Date of (units (unkno wn) date) admission: unknown) (unknown) (no (unknown) (unknown) Deep Vein (units (unkn own) date) Thrombosis/Pulmo unknown) nary Embolism Present on Admission: No (unknown) (no (unknown) (unknown) Diet/Activity/T (units (unknown) date) reatments unknown) (unknown) (no (unknown) (unknown) Diet: Diet as (units ( unknown) date) Tolerated unknown) (unknown) (no (unknown) (unknown) Discharge Date: (units (unknown) date) 02/02/22 unknown) (unknown) (no (unknown) (unknown) Discharge (units (unkn own) date) Health Status unknown) (unknown) (no (unknown) (unknown) Discharge Plan (units (unknown) date) unknown) (unknown) (no (unknown) (unknown) Discharge (units (unkn own) date) Providers unknown) (unknown) (no (unknown) (unknown) Discharge (units (unkn own) date) orders + unknown) Medications (unknown) (no (unknown) (unknown) Discharge (units (unkn own) date) provider: unknown) (unknown) (no (unknown) (unknown) Exam (units (unkno wn) date) unknown) (unknown) (no (unknown) (unknown) Family history: (units (unknown) date) unable to unknown) provide due to mental status (unknown) (no (unknown) (unknown) Follow (units (unkno wn) date) up/Referrals: unknown) (unknown) (no (unknown) (unknown) History of (units (unk nown) date) Present Illness unknown) (unknown) (no (unknown) (unknown) IV antibiotics. (units (unknown) date) Of note, when I unknown) did examine him he was quite lethargic and was (unknown) (no (unknown) (unknown) In the ED (units (unkn own) date) workup was done, unknown) vitals notable for mild tachycardia in the 90s. Labs (unknown) (no (unknown) (unknown) Instructions: (units ( unknown) date) How to Use unknown) Antibiotics Wisely (unknown) (no (unknown) (unknown) Labs (units (unkno wn) date) unknown) (unknown) (no (unknown) (unknown) Labs: (units (unkno wn) date) unknown) (unknown) (no (unknown) (unknown) Cory Schulte MD (units (unknown) date) [Physician] - unknown) (unknown) (no (unknown) (unknown) Multidrug (units (unkn own) date) resistant unknown) organism: No MDRO (unknown) (no (unknown) (unknown) Narrative: (units (unk nown) date) unknown) (unknown) (no (unknown) (unknown) New (units (unkno wn) date) unknown) (unknown) (no (unknown) (unknown) Objective (units (unkn own) date) unknown) (unknown) (no (unknown) (unknown) Oxygen Delivery (units (unknown) date) Method Room unknown) Air (unknown) (no (unknown) (unknown) Oxygen Flow (units (un known) date) Rate 0 unknown) (unknown) (no (unknown) (unknown) Oxygen Flow (units (un known) date) Rate 0 0 unknown) (unknown) (no (unknown) (unknown) PFSH (units (unkno wn) date) unknown) (unknown) (no (unknown) (unknown) Patient (units (unkno wn) date) Disposition: unknown) Home (unknown) (no (unknown) (unknown) Patient: (units (unkno wn) date) FreddiePiero unknown) MR#: [id number] (unknown) (no (unknown) (unknown) Per Laure Metz, (units (unknown) date) CULINARY WORKER: unknown) (unknown) (no (unknown) (unknown) Prescriptions: (units (unknown) date) unknown) (unknown) (no (unknown) (unknown) Provider (units (unkno wn) date) unknown) (unknown) (no (unknown) (unknown) Provider (units (unkno wn) date) Discharge unknown) Comment: You were admitted to the hospital with cellulitis of (unknown) (no (unknown) (unknown) Provider: (units (unkn own) date) Kevin Hansen unknown) D.O. (unknown) (no (unknown) (unknown) Pulse Oximetry (units (unknown) date) 97 100 unknown) (unknown) (no (unknown) (unknown) Pulse Rate 87 (units ( unknown) date) 89 unknown) (unknown) (no (unknown) (unknown) Quality (units (unkno wn) date) unknown) (unknown) (no (unknown) (unknown) Respiratory (units (un known) date) Rate 18 16 unknown) (unknown) (no (unknown) (unknown) Result (units (unkno wn) date) Diagrams: unknown) (unknown) (no (unknown) (unknown) Kevin Hansen, (units (unknown) date) DO unknown) (unknown) (no (unknown) (unknown) Signed By: (units (unk nown) date) unknown) (unknown) (no (unknown) (unknown) Smoking Status: (units (unknown) date) Current every unknown) day smoker (unknown) (no (unknown) (unknown) Social History (units (unknown) date) (Reviewed unknown) 01/31/22 @ 10:02 by Lana Santiago DO) (unknown) (no (unknown) (unknown) Social history: (units (unknown) date) unable to unknown) provide due to mental status (unknown) (no (unknown) (unknown) Temperature (units (un known) date) 98.3 F 97.9 F unknown) (unknown) (no (unknown) (unknown) Time Patient (units (u nknown) date) Seen: 10:20 unknown) (unknown) (no (unknown) (unknown) Ultrasound for (units (unknown) date) DVT negative. unknown) Xray for foreign body negative. He was ordered for (unknown) (no (unknown) (unknown) VTE (units (unkno wn) date) unknown) (unknown) (no (unknown) (unknown) Vancomycin (units (unk nown) date) Trough 7.8 L unknown) (unknown) (no (unknown) (unknown) Visit (units (unkno wn) date) Report/Discharge unknown) Packet (unknown) (no (unknown) (unknown) Vital Signs (units (un known) date) unknown) (unknown) (no (unknown) (unknown) [Embedded Image (units (unknown) date) Not Available] unknown) (unknown) (no (unknown) (unknown) alcohol intake: (units (unknown) date) never unknown) (unknown) (no (unknown) (unknown) and pain of his (units (unknown) date) leg. He unknown) reportedly initially injured his leg when a part of tree (unknown) (no (unknown) (unknown) been. He has (units (u nknown) date) been treated unknown) multiple times with antibiotcis, last in October or (unknown) (no (unknown) (unknown) household (units (unkn own) date) members: other unknown) (unknown) (no (unknown) (unknown) injured him (units (un known) date) nearly a year unknown) ago. He has been referred to wound clinic but has not (unknown) (no (unknown) (unknown) linezolid/cipro (units (unknown) date) and then unknown) clinda/keflex regimens in the past. He reportedly had (unknown) (no (unknown) (unknown) management. (units (un known) date) unknown) (unknown) (no (unknown) (unknown) notable for WBC (units (unknown) date) of 13.3, hgb unknown) 12.6. Lactate 1.7. Procal 0.37. COVID positive. (unknown) (no (unknown) (unknown) redness, (units (unkno wn) date) warmth, and unknown) pain. Reportedly he does use tobacco, occasional alcohol, (unknown) (no (unknown) (unknown) states use (units (unk nown) date) marijuana but unknown) denies any IV drug use or other recreational (unknown) (no (unknown) (unknown) subjective (units (unk nown) date) fevers and unknown) noticed significant swelling of his leg along with (unknown) (no (unknown) (unknown) substances.?No (units (unknown) date) PCP.? unknown) (unknown) (no (unknown) (unknown) too sleepy to (units ( unknown) date) provide much unknown) information. Result panel 30 (unknown) (no (unknown) (unknown) (no value) (units (unk nown) date) unknown) (unknown) (no (unknown) (unknown) Date of Service: (units (unknown) date) 02/01/22 unknown) (unknown) (no (unknown) (unknown) (no value) (units (unk nown) date) unknown) (unknown) (no (unknown) (unknown) - (units (unkno wn) date) unknown) (unknown) (no (unknown) (unknown) 02/01/22 04:45 (units (unknown) date) unknown) (unknown) (no (unknown) (unknown) 300 mg PO BID 7 (units (unknown) date) Days Qty: 14 0RF unknown) (unknown) (no (unknown) (unknown) 600 mg PO BID 7 (units (unknown) date) Days Qty: 14 0RF unknown) (unknown) (no (unknown) (unknown) Comment: (units (unkno wn) date) unknown) (unknown) (no (unknown) (unknown) Discharge (units (unkn own) date) Summary unknown) (unknown) (no (unknown) (unknown) Formerly [facility] (units (unknown) date) [address] unknown) [place] [address] (unknown) (no (unknown) (unknown) Laboratory (units (unk nown) date) Results - last 24 unknown) hr (unknown) (no (unknown) (unknown) ICHTHYOLOGIST Consult (units (un known) date) needed for:: unknown) Social Determinants issue (unknown) (no (unknown) (unknown) Reason for (units (unk nown) date) consultation: unknown) left rivera (unknown) (no (unknown) (unknown) (no value) (units (unk nown) date) unknown) (unknown) (no (unknown) (unknown) 01:20 (units (unkno wn) date) unknown) (unknown) (no (unknown) (unknown) 02/02/22 (units (unkno wn) date) unknown) (unknown) (no (unknown) (unknown) cefdinir 300 mg (units (unknown) date) Capsule unknown) (unknown) (no (unknown) (unknown) linezolid 600 mg (units (unknown) date) Tablet unknown) (unknown) (no (unknown) (unknown) 02/02/22 (units (unkno wn) date) unknown) (unknown) (no (unknown) (unknown) He also had a (units ( unknown) date) mild unknown) encephalopathy which was probably due to his acute illness (unknown) (no (unknown) (unknown) at home (another (units (unknown) date) 7 days), and unknown) referral to wound care performed by case (unknown) (no (unknown) (unknown) the left leg. (units ( unknown) date) This improved unknown) with antibiotics. Please complete antibiotic course (unknown) (no (unknown) (unknown) (past 8 hours): (units (unknown) date) unknown) (unknown) (no (unknown) (unknown) 03:42 02/02/22 (units (unknown) date) unknown) (unknown) (no (unknown) (unknown) 01/31/22 07:09 (units (unknown) date) unknown) (unknown) (no (unknown) (unknown) 01/31/22 13:23 (units (unknown) date) unknown) (unknown) (no (unknown) (unknown) 02/01/22 09:50 (units (unknown) date) unknown) (unknown) (no (unknown) (unknown) 02/02/22 08:56 (units (unknown) date) unknown) (unknown) (no (unknown) (unknown) 09:00 (units (unkno wn) date) unknown) (unknown) (no (unknown) (unknown) 1. Acute (units (unkno wn) date) cellulitis of the unknown) left lower extremity (unknown) (no (unknown) (unknown) 2. Acute (units (unkno wn) date) encephalopathy, unknown) improved (unknown) (no (unknown) (unknown) 3. COVID (units (unkno wn) date) positive unknown) (unknown) (no (unknown) (unknown) 4. Chronic lower (units (unknown) date) extremity rivera unknown) wound (unknown) (no (unknown) (unknown) [id number] (units (unkno wn) date) unknown) (unknown) (no (unknown) (unknown) 46M with PMH (units (u nknown) date) chronic left leg unknown) ulcer, unstable housing who presents with redness (unknown) (no (unknown) (unknown) ABD: soft, (units (unk nown) date) nontender, unknown) nondistended, no organomegaly (unknown) (no (unknown) (unknown) Activity: As (units (u nknown) date) tolerated unknown) (unknown) (no (unknown) (unknown) Age/Sex: 46 / M (units (unknown) date) unknown) (unknown) (no (unknown) (unknown) November for (units (unkn own) date) Klebsiella and unknown) MRSA. 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 (unknown) (no (unknown) (unknown) Consult to (units (unk nown) date) Inpatient Wound unknown) Care Nurse Routine (unknown) (no (unknown) (unknown) Consult to ICHTHYOLOGIST - (units (unknown) date) Infection Preventionist unknown) Routine (unknown) (no (unknown) (unknown) Consult to ICHTHYOLOGIST - (units (unknown) date) Infection Preventionist unknown) Stat (unknown) (no (unknown) (unknown) Consults: (units (unkn own) date) unknown) (unknown) (no (unknown) (unknown) : 1975 (units (unknown) date) Acct:[id number] unknown) (unknown) (no (unknown) (unknown) Date Patient (units (u nknown) date) Seen: 02/02/22 unknown) (unknown) (no (unknown) (unknown) Date of (units (unkno wn) date) admission: unknown) (unknown) (no (unknown) (unknown) Deep Vein (units (unkn own) date) Thrombosis/Pulmon unknown) singh Embolism Present on Admission: No (unknown) (no (unknown) (unknown) Diet/Activity/Tr (units (unknown) date) eatments unknown) (unknown) (no (unknown) (unknown) Diet: Diet as (units ( unknown) date) Tolerated unknown) (unknown) (no (unknown) (unknown) Discharge Date: (units (unknown) date) 02/02/22 unknown) (unknown) (no (unknown) (unknown) Discharge (units (unkn own) date) Diagnosis: unknown) (unknown) (no (unknown) (unknown) Discharge Health (units (unknown) date) Status unknown) (unknown) (no (unknown) (unknown) Discharge Plan (units (unknown) date) unknown) (unknown) (no (unknown) (unknown) Discharge (units (unkn own) date) Providers unknown) (unknown) (no (unknown) (unknown) Discharge orders (units (unknown) date) + Medications unknown) (unknown) (no (unknown) (unknown) Discharge (units (unkn own) date) provider: unknown) (unknown) (no (unknown) (unknown) EXT: warm and (units (u nknown) date) well perfused, unknown) left leg ulcer anteriorly chronic appearing without (unknown) (no (unknown) (unknown) Exam (units (unkno wn) date) unknown) (unknown) (no (unknown) (unknown) Exam Narrative: (units (unknown) date) unknown) (unknown) (no (unknown) (unknown) Family history: (units (unknown) date) unable to provide unknown) due to mental status (unknown) (no (unknown) (unknown) Follow (units (unkno wn) date) up/Referrals: unknown) (unknown) (no (unknown) (unknown) GEN: alert, NAD. (units (unknown) date) unknown) (unknown) (no (unknown) (unknown) HEENT: moist (units (u nknown) date) mucous membranes, unknown) PERRL (unknown) (no (unknown) (unknown) History of (units (unk nown) date) Present Illness unknown) (unknown) (no (unknown) (unknown) Hospital Course (units (unknown) date) unknown) (unknown) (no (unknown) (unknown) Hospital Course: (units (unknown) date) unknown) (unknown) (no (unknown) (unknown) IV antibiotics. (units (unknown) date) Of note, when I unknown) did examine him he was quite lethargic and was (unknown) (no (unknown) (unknown) In the ED workup (units (unknown) date) was done, vitals unknown) notable for mild tachycardia in the 90s. Labs (unknown) (no (unknown) (unknown) Instructions: (units ( unknown) date) How to Use unknown) Antibiotics Wisely (unknown) (no (unknown) (unknown) Labs (units (unkno wn) date) unknown) (unknown) (no (unknown) (unknown) Labs: (units (unkno wn) date) unknown) (unknown) (no (unknown) (unknown) Cory Schulte MD (units (unknown) date) [Physician] - unknown) (unknown) (no (unknown) (unknown) Multidrug (units (unkn own) date) resistant unknown) organism: No MDRO (unknown) (no (unknown) (unknown) NECK: trachea (units ( unknown) date) midline, no JVD unknown) (unknown) (no (unknown) (unknown) Narrative (units (unkn own) date) unknown) (unknown) (no (unknown) (unknown) Narrative: (units (unk nown) date) unknown) (unknown) (no (unknown) (unknown) New (units (unkno wn) date) unknown) (unknown) (no (unknown) (unknown) Objective (units (unkn own) date) unknown) (unknown) (no (unknown) (unknown) Oxygen Delivery (units (unknown) date) Method Room unknown) Air (unknown) (no (unknown) (unknown) Oxygen Flow Rate (units (unknown) date) 0 unknown) (unknown) (no (unknown) (unknown) Oxygen Flow Rate (units (unknown) date) 0 0 unknown) (unknown) (no (unknown) (unknown) PFSH (units (unkno wn) date) unknown) (unknown) (no (unknown) (unknown) PULM: clear (units (un known) date) bilaterally, no unknown) wheezes/rhonchi/r ales (unknown) (no (unknown) (unknown) Patient (units (unkno wn) date) Disposition: Home unknown) (unknown) (no (unknown) (unknown) Patient: (units (unkno wn) date) Piero Frazier unknown) MR#: [id number] (unknown) (no (unknown) (unknown) Per Laure Metz, (units (unknown) date) CULINARY WORKER: unknown) (unknown) (no (unknown) (unknown) Prescriptions: (units (unknown) date) unknown) (unknown) (no (unknown) (unknown) Provider (units (unkno wn) date) unknown) (unknown) (no (unknown) (unknown) Provider (units (unkno wn) date) Discharge unknown) Comment: You were admitted to the hospital with cellulitis of (unknown) (no (unknown) (unknown) Provider: (units (unkn own) date) Kevin Hansen unknown) D.O. (unknown) (no (unknown) (unknown) Pulse Oximetry (units (unknown) date) 97 100 unknown) (unknown) (no (unknown) (unknown) Pulse Rate 87 89 (units (unknown) date) unknown) (unknown) (no (unknown) (unknown) Quality (units (unkno wn) date) unknown) (unknown) (no (unknown) (unknown) Respiratory Rate (units (unknown) date) 18 16 unknown) (unknown) (no (unknown) (unknown) Result Diagrams: (units (unknown) date) unknown) (unknown) (no (unknown) (unknown) Kevin Hansen, (units (unknown) date) DO unknown) (unknown) (no (unknown) (unknown) Signed By: (units (unk nown) date) unknown) (unknown) (no (unknown) (unknown) Smoking Status: (units (unknown) date) Current every day unknown) smoker (unknown) (no (unknown) (unknown) Social History (units (unknown) date) (Reviewed unknown) 01/31/22 @ 10:02 by Lana Santiago DO) (unknown) (no (unknown) (unknown) Social history: (units (unknown) date) unable to provide unknown) due to mental status (unknown) (no (unknown) (unknown) Summary (units (unkno wn) date) unknown) (unknown) (no (unknown) (unknown) Temperature 98.3 (units (unknown) date) F 97.9 F unknown) (unknown) (no (unknown) (unknown) This is a (units (unkno wn) date) 46-year-old male unknown) admitted with cellulitis of his left lower extremity. (unknown) (no (unknown) (unknown) Time Patient (units (u nknown) date) Seen: 10:20 unknown) (unknown) (no (unknown) (unknown) Time Spent with (units (unknown) date) Patient unknown) (unknown) (no (unknown) (unknown) Time spent: (units (un known) date) Greater than 30 unknown) minutes (unknown) (no (unknown) (unknown) Ultrasound for (units (unknown) date) DVT negative. unknown) Xray for foreign body negative. He was ordered for (unknown) (no (unknown) (unknown) VTE (units (unkno wn) date) unknown) (unknown) (no (unknown) (unknown) Vancomycin (units (unk nown) date) Trough 7.8 L unknown) (unknown) (no (unknown) (unknown) Visit (units (unkno wn) date) Report/Discharge unknown) Packet (unknown) (no (unknown) (unknown) Vital Signs (units (un known) date) unknown) (unknown) (no (unknown) (unknown) [Embedded Image (units (unknown) date) Not Available] unknown) (unknown) (no (unknown) (unknown) alcohol intake: (units (unknown) date) never unknown) (unknown) (no (unknown) (unknown) and pain of his (units (unknown) date) leg. He unknown) reportedly initially injured his leg when a part of tree (unknown) (no (unknown) (unknown) any surrounding (units (unknown) date) erythema or unknown) purulence, swelling now mostly resolved posteriorly. (unknown) (no (unknown) (unknown) been. He has (units (u nknown) date) been treated unknown) multiple times with antibiotcis, last in October or (unknown) (no (unknown) (unknown) household (units (unkn own) date) members: other unknown) (unknown) (no (unknown) (unknown) in severity of (units (unknown) date) infection, as no unknown) other obvious source was found (unknown) (no (unknown) (unknown) injured him (units (un known) date) nearly a year unknown) ago. He has been referred to wound clinic but has not (unknown) (no (unknown) (unknown) linezolid/cipro (units (unknown) date) and then unknown) clinda/keflex regimens in the past. He reportedly had (unknown) (no (unknown) (unknown) management. (units (un known) date) unknown) (unknown) (no (unknown) (unknown) notable for WBC (units (unknown) date) of 13.3, hgb unknown) 12.6. Lactate 1.7. Procal 0.37. COVID positive. (unknown) (no (unknown) (unknown) redness, warmth, (units (unknown) date) and pain. unknown) Reportedly he does use tobacco, occasional alcohol, (unknown) (no (unknown) (unknown) states use (units (unk nown) date) marijuana but unknown) denies any IV drug use or other recreational (unknown) (no (unknown) (unknown) subjective (units (unk nown) date) fevers and unknown) noticed significant swelling of his leg along with (unknown) (no (unknown) (unknown) substances.?No (units (unknown) date) PCP.? unknown) (unknown) (no (unknown) (unknown) too sleepy to (units ( unknown) date) provide much unknown) information. Result panel 31 (unknown) (no (unknown) (unknown) (no value) (units (unk nown) date) unknown) (unknown) (no (unknown) (unknown) Date of Service: (units (unknown) date) 02/01/22 unknown) (unknown) (no (unknown) (unknown) (no value) (units (unk nown) date) unknown) (unknown) (no (unknown) (unknown) - (units (unkno wn) date) unknown) (unknown) (no (unknown) (unknown) 02/01/22 04:45 (units (unknown) date) unknown) (unknown) (no (unknown) (unknown) 300 mg PO BID 7 (units (unknown) date) Days Qty: 14 0RF unknown) (unknown) (no (unknown) (unknown) 600 mg PO BID 7 (units (unknown) date) Days Qty: 14 0RF unknown) (unknown) (no (unknown) (unknown) Comment: (units (unkno wn) date) unknown) (unknown) (no (unknown) (unknown) Discharge Summary (units (unknown) date) unknown) (unknown) (no (unknown) (unknown) Former[facility] (units (unknown) date) [address] unknown) [place] [address] (unknown) (no (unknown) (unknown) Laboratory (units (unk nown) date) Results - last 24 unknown) hr (unknown) (no (unknown) (unknown) ICHTHYOLOGIST Consult (units (un known) date) needed for:: unknown) Social Determinants issue (unknown) (no (unknown) (unknown) Reason for (units (unk nown) date) consultation: left unknown) rivera (unknown) (no (unknown) (unknown) (no value) (units (unk nown) date) unknown) (unknown) (no (unknown) (unknown) 01:20 (units (unkno wn) date) unknown) (unknown) (no (unknown) (unknown) 02/02/22 (units (unkno wn) date) unknown) (unknown) (no (unknown) (unknown) cefdinir 300 mg (units (unknown) date) Capsule unknown) (unknown) (no (unknown) (unknown) linezolid 600 mg (units (unknown) date) Tablet unknown) (unknown) (no (unknown) (unknown) 02/02/22 (units (unkno wn) date) unknown) (unknown) (no (unknown) (unknown) He also had a (units ( unknown) date) mild unknown) encephalopathy which was probably due to his acute illness (unknown) (no (unknown) (unknown) at home (another (units (unknown) date) 7 days), and unknown) referral to wound care performed by case (unknown) (no (unknown) (unknown) the left leg. (units ( unknown) date) This improved with unknown) antibiotics. Please complete antibiotic course (unknown) (no (unknown) (unknown) (past 8 hours): (units (unknown) date) unknown) (unknown) (no (unknown) (unknown) 03:42 02/02/22 (units (unknown) date) unknown) (unknown) (no (unknown) (unknown) 01/31/22 07:09 (units (unknown) date) unknown) (unknown) (no (unknown) (unknown) 01/31/22 13:23 (units (unknown) date) unknown) (unknown) (no (unknown) (unknown) 02/01/22 09:50 (units (unknown) date) unknown) (unknown) (no (unknown) (unknown) 02/02/22 08:56 (units (unknown) date) unknown) (unknown) (no (unknown) (unknown) 09:00 (units (unkno wn) date) unknown) (unknown) (no (unknown) (unknown) 1. Acute (units (unkno wn) date) cellulitis of the unknown) left lower extremity (unknown) (no (unknown) (unknown) 2. Acute (units (unkno wn) date) encephalopathy, unknown) improved (unknown) (no (unknown) (unknown) 3. COVID positive (units (unknown) date) unknown) (unknown) (no (unknown) (unknown) 4. Chronic lower (units (unknown) date) extremity rivera unknown) wound (unknown) (no (unknown) (unknown) [id number] (units (unkno wn) date) unknown) (unknown) (no (unknown) (unknown) 46M with PMH (units (u nknown) date) chronic left leg unknown) ulcer, unstable housing who presents with redness (unknown) (no (unknown) (unknown) ABD: soft, (units (unk nown) date) nontender, unknown) nondistended, no organomegaly (unknown) (no (unknown) (unknown) Activity: As (units (u nknown) date) tolerated unknown) (unknown) (no (unknown) (unknown) Age/Sex: 46 / M (units (unknown) date) unknown) (unknown) (no (unknown) (unknown) Ashia for (units (unkn own) date) Klebsiella and unknown) MRSA. He has been treated with bactrim, then (unknown) (no (unknown) (unknown) Blood Pressure (units (unknown) date) 146/86 H 171/104 H unknown) (unknown) (no (unknown) (unknown) CV: regular rate (units (unknown) date) and rhythm, no unknown) murmurs (unknown) (no (unknown) (unknown) Chief complaint: (units (unknown) date) Mersa on left leg unknown) (unknown) (no (unknown) (unknown) Chronic purplish (units (unknown) date) appearance of left unknown) calf. (unknown) (no (unknown) (unknown) Consult to (units (unk nown) date) Inpatient Wound unknown) Care Nurse Routine (unknown) (no (unknown) (unknown) Consult to ICHTHYOLOGIST - (units (unknown) date) Infection Preventionist unknown) Routine (unknown) (no (unknown) (unknown) Consult to ICHTHYOLOGIST - (units (unknown) date) Infection Preventionist unknown) Stat (unknown) (no (unknown) (unknown) Consults: (units (unkn own) date) unknown) (unknown) (no (unknown) (unknown) : 1975 (units (unknown) date) Acct:[id number] unknown) (unknown) (no (unknown) (unknown) Date Patient (units (u nknown) date) Seen: 02/02/22 unknown) (unknown) (no (unknown) (unknown) Date of (units (unkno wn) date) admission: unknown) (unknown) (no (unknown) (unknown) Deep Vein (units (unkn own) date) Thrombosis/Pulmona unknown) ry Embolism Present on Admission: No (unknown) (no (unknown) (unknown) Diet/Activity/Venkat (units (unknown) date) atments unknown) (unknown) (no (unknown) (unknown) Diet: Diet as (units ( unknown) date) Tolerated unknown) (unknown) (no (unknown) (unknown) Discharge Date: (units (unknown) date) 02/02/22 unknown) (unknown) (no (unknown) (unknown) Discharge (units (unkn own) date) Diagnosis: unknown) (unknown) (no (unknown) (unknown) Discharge Health (units (unknown) date) Status unknown) (unknown) (no (unknown) (unknown) Discharge Plan (units (unknown) date) unknown) (unknown) (no (unknown) (unknown) Discharge (units (unkn own) date) Providers unknown) (unknown) (no (unknown) (unknown) Discharge orders (units (unknown) date) + Medications unknown) (unknown) (no (unknown) (unknown) Discharge (units (unkn own) date) provider: unknown) (unknown) (no (unknown) (unknown) EXT: warm and well (units (unknown) date) perfused, left leg unknown) ulcer anteriorly chronic appearing without (unknown) (no (unknown) (unknown) Exam (units (unkno wn) date) unknown) (unknown) (no (unknown) (unknown) Exam Narrative: (units (unknown) date) unknown) (unknown) (no (unknown) (unknown) Family history: (units (unknown) date) unable to provide unknown) due to mental status (unknown) (no (unknown) (unknown) Follow (units (unkno wn) date) up/Referrals: unknown) (unknown) (no (unknown) (unknown) GEN: alert, NAD. (units (unknown) date) unknown) (unknown) (no (unknown) (unknown) HEENT: moist (units (u nknown) date) mucous membranes, unknown) PERRL (unknown) (no (unknown) (unknown) History of (units (unk nown) date) Present Illness unknown) (unknown) (no (unknown) (unknown) Hospital Course (units (unknown) date) unknown) (unknown) (no (unknown) (unknown) Hospital Course: (units (unknown) date) unknown) (unknown) (no (unknown) (unknown) IV antibiotics. (units (unknown) date) Of note, when I unknown) did examine him he was quite lethargic and was (unknown) (no (unknown) (unknown) In the ED workup (units (unknown) date) was done, vitals unknown) notable for mild tachycardia in the 90s. Labs (unknown) (no (unknown) (unknown) Instructions: (units ( unknown) date) How to Use unknown) Antibiotics Wisely (unknown) (no (unknown) (unknown) Labs (units (unkno wn) date) unknown) (unknown) (no (unknown) (unknown) Labs: (units (unkno wn) date) unknown) (unknown) (no (unknown) (unknown) Cory Schulte MD (units (unknown) date) [Physician] - unknown) (unknown) (no (unknown) (unknown) Multidrug (units (unkn own) date) resistant unknown) organism: No MDRO (unknown) (no (unknown) (unknown) NECK: trachea (units ( unknown) date) midline, no JVD unknown) (unknown) (no (unknown) (unknown) Narrative (units (unkn own) date) unknown) (unknown) (no (unknown) (unknown) Narrative: (units (unk nown) date) unknown) (unknown) (no (unknown) (unknown) New (units (unkno wn) date) unknown) (unknown) (no (unknown) (unknown) Objective (units (unkn own) date) unknown) (unknown) (no (unknown) (unknown) Oxygen Delivery (units (unknown) date) Method Room Air unknown) (unknown) (no (unknown) (unknown) Oxygen Flow Rate (units (unknown) date) 0 unknown) (unknown) (no (unknown) (unknown) Oxygen Flow Rate (units (unknown) date) 0 0 unknown) (unknown) (no (unknown) (unknown) PFSH (units (unkno wn) date) unknown) (unknown) (no (unknown) (unknown) PULM: clear (units (un known) date) bilaterally, no unknown) wheezes/rhonchi/ra les (unknown) (no (unknown) (unknown) Patient (units (unkno wn) date) Disposition: Home unknown) (unknown) (no (unknown) (unknown) Patient: (units (unkno wn) date) Piero Frazier unknown) MR#: [id number] (unknown) (no (unknown) (unknown) Per Laure Metz, (units (unknown) date) CULINARY WORKER: unknown) (unknown) (no (unknown) (unknown) Prescriptions: (units (unknown) date) unknown) (unknown) (no (unknown) (unknown) Provider (units (unkno wn) date) unknown) (unknown) (no (unknown) (unknown) Provider Discharge (units (unknown) date) Comment: You were unknown) admitted to the hospital with cellulitis of (unknown) (no (unknown) (unknown) Provider: (units (unkn own) date) Kevin Hansen unknown) D.O. (unknown) (no (unknown) (unknown) Pulse Oximetry 97 (units (unknown) date) 100 unknown) (unknown) (no (unknown) (unknown) Pulse Rate 87 89 (units (unknown) date) unknown) (unknown) (no (unknown) (unknown) Quality (units (unkno wn) date) unknown) (unknown) (no (unknown) (unknown) Respiratory Rate (units (unknown) date) 18 16 unknown) (unknown) (no (unknown) (unknown) Result Diagrams: (units (unknown) date) unknown) (unknown) (no (unknown) (unknown) Kevin Hansen, (units (unknown) date) DO unknown) (unknown) (no (unknown) (unknown) Signed (units (unkno wn) date) By:<Electronically unknown) signed by Sterling MartinezO.>02/02/22 [id number] (unknown) (no (unknown) (unknown) Smoking Status: (units (unknown) date) Current every day unknown) smoker (unknown) (no (unknown) (unknown) Social History (units (unknown) date) (Reviewed 01/31/22 unknown) @ 10:02 by Lana Santiago DO) (unknown) (no (unknown) (unknown) Social history: (units (unknown) date) unable to provide unknown) due to mental status (unknown) (no (unknown) (unknown) Summary (units (unkno wn) date) unknown) (unknown) (no (unknown) (unknown) Temperature 98.3 (units (unknown) date) F 97.9 F unknown) (unknown) (no (unknown) (unknown) This is a (units (unkno wn) date) 46-year-old male unknown) admitted with cellulitis of his left lower extremity. (unknown) (no (unknown) (unknown) Time Patient (units (u nknown) date) Seen: 10:20 unknown) (unknown) (no (unknown) (unknown) Time Spent with (units (unknown) date) Patient unknown) (unknown) (no (unknown) (unknown) Time spent: (units (un known) date) Greater than 30 unknown) minutes (unknown) (no (unknown) (unknown) Ultrasound for (units (unknown) date) DVT negative. Xray unknown) for foreign body negative. He was ordered for (unknown) (no (unknown) (unknown) VTE (units (unkno wn) date) unknown) (unknown) (no (unknown) (unknown) Vancomycin Trough (units (unknown) date) 7.8 L unknown) (unknown) (no (unknown) (unknown) Visit (units (unkno wn) date) Report/Discharge unknown) Packet (unknown) (no (unknown) (unknown) Vital Signs (units (un known) date) unknown) (unknown) (no (unknown) (unknown) [Embedded Image (units (unknown) date) Not Available] unknown) (unknown) (no (unknown) (unknown) acute infection, (units (unknown) date) or substance use. unknown) He was counseled on cessation and (unknown) (no (unknown) (unknown) alcohol intake: (units (unknown) date) never unknown) (unknown) (no (unknown) (unknown) and appeared to (units (unknown) date) be well healing unknown) upon my examination. He was started on broad- (unknown) (no (unknown) (unknown) and pain of his (units (unknown) date) leg. He reportedly unknown) initially injured his leg when a part of tree (unknown) (no (unknown) (unknown) any surrounding (units (unknown) date) erythema or unknown) purulence, swelling now mostly resolved posteriorly. (unknown) (no (unknown) (unknown) been. He has been (units (unknown) date) treated multiple unknown) times with antibiotcis, last in October or (unknown) (no (unknown) (unknown) blood pressures (units (unknown) date) were also mildly unknown) elevated but this may be in the setting pain, (unknown) (no (unknown) (unknown) chronic lower (units ( unknown) date) extremity rivera unknown) wound, which had a fairly unremarkable appearance (unknown) (no (unknown) (unknown) extremity (units (unkn own) date) cellulitis. He unknown) has prior infections in that leg in the past. Given (unknown) (no (unknown) (unknown) given the (units (unkn own) date) presence of unknown) methamphetamine on his urine drug screen. He was also (unknown) (no (unknown) (unknown) his continued (units ( unknown) date) nonhealing unknown) ulceration of his left lower extremity, though it does (unknown) (no (unknown) (unknown) household (units (unkn own) date) members: other unknown) (unknown) (no (unknown) (unknown) in severity of (units (unknown) date) infection, but unknown) could be due to a toxic encephalopathy as well (unknown) (no (unknown) (unknown) infection. Blood (units (unknown) date) cultures were unknown) obtained in the emergency room and were (unknown) (no (unknown) (unknown) injured him (units (un known) date) nearly a year ago. unknown) He has been referred to wound clinic but has not (unknown) (no (unknown) (unknown) linezolid/cipro (units (unknown) date) and then unknown) clinda/keflex regimens in the past. He reportedly had (unknown) (no (unknown) (unknown) management. (units (un known) date) unknown) (unknown) (no (unknown) (unknown) negative. He (units ( unknown) date) improved on unknown) ceftriaxone and vancomycin therapy while here, and (unknown) (no (unknown) (unknown) not appear (units (unk nown) date) infected at this unknown) time, he was given referral to wound care. His (unknown) (no (unknown) (unknown) notable for WBC (units (unknown) date) of 13.3, hgb 12.6. unknown) Lactate 1.7. Procal 0.37. COVID positive. (unknown) (no (unknown) (unknown) noted to be COVID (units (unknown) date) positive but had unknown) no respiratory symptoms. He further has a (unknown) (no (unknown) (unknown) recommended to (units (unknown) date) follow-up with a unknown) primary care provider as an outpatient. (unknown) (no (unknown) (unknown) redness, warmth, (units (unknown) date) and pain. unknown) Reportedly he does use tobacco, occasional alcohol, (unknown) (no (unknown) (unknown) spectrum (units (unkno wn) date) antibiotics given unknown) a history of MRSA infection as well as Gram-negative (unknown) (no (unknown) (unknown) states use (units (unk nown) date) marijuana but unknown) denies any IV drug use or other recreational (unknown) (no (unknown) (unknown) subjective fevers (units (unknown) date) and noticed unknown) significant swelling of his leg along with (unknown) (no (unknown) (unknown) substances.?No (units (unknown) date) PCP.? unknown) (unknown) (no (unknown) (unknown) too sleepy to (units ( unknown) date) provide much unknown) information. (unknown) (no (unknown) (unknown) will be (units (unkno wn) date) discharged on oral unknown) cefdinir and linezolid for a complicated left lower Result panel 32 (unknown) (no date) (unknown) (unknown) (no value) (units (un known) unknown) (unknown) (no date) (unknown) (unknown) NO GROWTH (units (unk nown) AFTER 72 unknown) HOURS Result panel 33 (unknown) (no date) (unknown) (unknown) (no value) (units (un known) unknown) (unknown) (no date) (unknown) (unknown) NO GROWTH (units (unk nown) AFTER 72 unknown) HOURS Result panel 34 (unknown) (no date) (unknown) (unknown) (no value) (units (un known) unknown) (unknown) (no date) (unknown) (unknown) NO GROWTH (units (unk nown) AFTER 4 DAYS unknown) Result panel 35 (unknown) (no date) (unknown) (unknown) (no value) (units (un known) unknown) (unknown) (no date) (unknown) (unknown) NO GROWTH (units (unk nown) AFTER 4 DAYS unknown) Result panel 36 (unknown) (no date) (unknown) (unknown) (no value) (units (un known) unknown) (unknown) (no date) (unknown) (unknown) NO GROWTH (units (unk nown) AFTER 5 DAYS unknown) Result panel 37 (unknown) (no date) (unknown) (unknown) (no value) (units (un known) unknown) (unknown) (no date) (unknown) (unknown) NO GROWTH (units (unk nown) AFTER 5 DAYS unknown) Social History date description facility (no date) [facility]ital Signs date measurement value units +0000 BMI BMI 24.4 kg/m2 +0000 BP_diastolic BP_diastolic 79 mm[H g] +0000 BP_systolic BP_systolic 156 mm[Hg] [id number]+0000 heart_rate heart_rate 92 /min +0000 height_metric height_metric 185.42 cm [id number] height_standard height_standard 73 in +0000 respiration_rate respiration_rate 19 /min +0000 temperature_metric temperature_metric 36.89 C +0000 temperature_standard temperature_standard 9 8.4 F +0000 weight_metric weight_metric 83.91 kg +0000 weight_standard weight_standard 184.99 lb [id number]+0000 BP_diastolic BP_diastolic 104 mm[H g] +0000 BP_systolic BP_systolic 171 mm[Hg] [id number]+0000 heart_rate heart_rate 89 /min +0000 respiration_rate respiration_rate 16 /min +0000 temperature_metric temperature_metric 36.61 C +0000 temperature_standard temperature_standard 9 7.9 F
[2022-03-04] MEDS ORDERED: oxyCODONE/ACET 5/325 Prepack 4 PO STA (20:26)
--- NOTE | 2022-03-04 20:37 | ED Physician Documentation ---
PD HPI UPPER EXT INJURY - Stated complaint Stated Complaint: RT HAND INJ/CELLULITIS LT LEG - Chief complaint Chief Complaint: Trauma Ext - History obtained from History obtained from: Patient - Additonal information Additional information: Is a 47-year-old presenting for evaluation of right middle finger pain after A socket wrench accidentally fell on it. The pain is sharp. It is worse with palpation and movement. He also reports a history of chronic lower extremity swelling and has a wound to his left leg that he would like to be reevaluated. He was seen by a wound care nurse over a month ago and took a course of antibiotics and states that it is improving but that it is slow to heal. He has not been able to get into the wound care clinic or to her PCP office for follow- up. He says that the drainage has improved And he denies fever, chest pain, trouble breathing, abdominal pain. He does not take blood thinners. Review of Systems Constitutional: denies: Fever Nose: denies: Congestion Cardiac: denies: Chest pain / pressure Respiratory: denies: Dyspnea GI: denies: Abdominal Pain Skin: reports: Lesions Musculoskeletal: denies: Back pain Neurologic: denies: Headache PD PAST MEDICAL HISTORY - Past Medical History Past Medical History: Yes Cardiovascular: None Respiratory: None Neuro: Head injury Endocrine/Autoimmune: None GI: None : None HEENT: None Psych: None Musculoskeletal: None Derm: None, Other drug resistant infections - Past Surgical History Past Surgical History: No - Present Medications Home Medications: Ambulatory Orders Medication Instructions Recorded Confirmed Benzonatate [Tessalon] 100 mg PO TID PRN #20 cap 08/04/21 Cholecalciferol [Vitamin D3] 800 unit PO DAILY #60 tablet 08/04/21 Ciprofloxacin [Cipro] 500 mg PO BID 8 Days #32 tablet 08/04/21 Ferrous Sulfate [Feosol] 325 mg PO DAILY #30 tablet 08/04/21 HYDROcod/ACETAM 5/325 [Mandan 5/325] 1 tab PO Q4H PRN #15 tablet 08/04/21 Lactobacillus Rhamnosus GG 1 cap PO DAILY #8 cap 08/04/21 [Culturelle] Linezolid [Zyvox] 600 mg PO BID 8 Days #16 tablet 08/04/21 Multivitamin W/Minerals [Theragran 1 tab PO QDLUNCH #30 tablet 08/04/21 M] Nicotine 14 mg Patch [Nicoderm] 1 patch TOP DAILY PRN #7 patch 08/04/21 Doxycycline Hyclate 100 mg PO BID 14 Days #28 tab 10/26/21 Ketorolac [Toradol] 10 mg PO Q6H PRN #30 tablet 10/26/21 Mupirocin 2% Oint [Bactroban 2% 1 applic TOP BID #50 gm 10/26/21 Oint] HYDROcod/ACETAM 5/325 [Mandan 5/325] 1 ea PO Q6H PRN #15 tablet 12/15/21 Mupirocin 2% Oint [Bactroban 2% 1 applic TOP TID #15 gm 12/15/21 Oint] Soft Lens Rinse,Store Solution 20 ml TOP TID 6 Days #355 ml 12/15/21 [Saline Solution] cephALEXin [Keflex] 500 mg PO TID #20 cap 12/15/21 clindamycin HCL [Clindamycin HCl] 300 mg PO TID 7 Days #20 cap 12/15/21 Bacitracin Zinc 1 each TP ONCE #1 packet 03/04/22 Bacitracin Zinc Oint 1 applic TOP BID #1 gm 03/04/22 Oxycodone HCl/Acetaminophen 1 each PO Q6H PRN #14 tablet 03/04/22 [Percocet 5-325 mg Tablet] - Allergies Allergies/Adverse Reactions: Allergies Allergy/AdvReac Type Severity Reaction Status Date / Time No Known Drug Allergies Allergy Verified 03/04/22 19:31 - Social History Does the pt smoke?: Yes Smoking Status: Current every day smoker Does the pt drink ETOH?: No Does the pt have substance abuse?: Yes Substance Use and Type: Meth - Immunizations Immunizations are current?: Yes - POLST Patient has POLST: No POLST Status: Full Code PD ED PE NORMAL - General General: Alert and oriented X 3, No acute distress, Well developed/nourished - HEENT HEENT: Atraumatic, Moist mucous membranes - Neck Neck: Supple, no meningeal sign - Cardiac Cardiac: RRR, No murmur, Strong equal pulses - Respiratory Respiratory: No respiratory distress - Derm Derm: Other (Venous stasis dermatitis to bilateral lower extremities, left greater than right, 3 cm superficial ulceration to left rivera with no abnormal drainage) - Extremities Extremities: Other (Superficial abrasion to right middle digit over proximal phalanx, tenderness,Able to flex and extend but with significant pain, brisk cap refill, sensation intact) - Neuro Neuro: Normal speech - Psych Psych: Normal mood Results - Vitals Vitals: Vital Signs - 24 hr 03/04/22 03/04/22 03/04/22 19:26 19:31 20:49 Temperature 36.5 C Heart Rate 99 91 86 Respiratory 16 16 18 Rate Blood Pressure 157/104 H 173/108 H 157/91 H O2 Saturation 100 100 100 Oxygen O2 Source Room air PD MEDICAL DECISION MAKING - ED course Complexity details: reviewed results, re-evaluated patient, d/w patient ED course: Patient with injury to right middle finger. Fracture seen on x-ray. Ermelinda tape applied and patient given pain medication. Patient also requesting wound check of chronic stasis dermatitis to lower extremities. He has a superficial ulcer to his left leg which has been slow to heal but does not currently appear infected. Discussed need for close follow-up with wound care clinic and encouraged him to call again on Sunday to establish an appointment. He is ad vised on return precautions as well as need for follow-up with a PCP. Departure - Departure Disposition: Home, Self Care Clinical Impression: Chronic venous stasis dermatitis Fracture of phalanx, proximal, right hand Qualifiers: Encounter type: initial encounter Fracture type: closed Qualified Code(s): S62.619A - Displaced fracture of proximal phalanx of unspecified finger, initial encounter for closed fracture Condition: Stable Instructions: ED Fx Finger Closed, ED Ulcer Venous Leg Follow-Up: Lisha Ramirez ARNP [Physician No Access] - Prescriptions: Bacitracin Zinc 1 each TP ONCE #1 packet Bacitracin Zinc Oint 1 applic TOP BID #1 gm Oxycodone HCl/Acetaminophen [Percocet 5-325 mg Tablet] 1 each PO Q6H PRN #14 tablet PRN Reason: pain Comments: You were evaluated for an injury to your right hand and found to have a fracture in your middle finger. We are going to apply a ermelinda tape. Please continue to ermelinda tape your finger to Help immobilize it. This will help with pain. I have also prescribed a short course of narcotic medication and sent this to [facility] in [place]. You also have Skin changes to both legs related to Chronic swelling. At this time I do not see signs of active infection. Please call the wound care clinic on Sunday. You also need to establish care with a primary care doctor. I have included the name of 1 who you should try calling on Sunday for an appointment.If you have any worsening symptoms please return to the emergency department. I am prescribing a short course of narcotic pain medication for you. These are potentially dangerous and addictive medications that should be used carefully. These medications may constipate you. Take an ttyu-cud-mybsuap stool softener (docusate) twice daily with plenty of water while taking these medications. If you go 24 hours without a bowel movement, take hhus-ahl-elrwjwn miralax, per package instructions. Do not drink or drive while taking these medications. If you received narcotic or sedating medications while in the emergency department, do not drive for 24 hours. Store this medication in a safe, secure place and out of reach of children. It is a violation of federal law to give or sell this medication to another person or to use in a manner other than prescribed. The ED will not refill narcotic prescriptions, including prescriptions lost or stolen. To dispose of unwanted medications: 1. [facility] at [address] in [facility] has a medication drop box. They accept prescription medications (in pill form) Sunday through Sunday 9:00 a.m. to 5:00 p.m. 2. The [facility] accepts prescription medications (in pill form only) for disposal year round. Call for more information. 3. Contact the [facility] for the next [facility] sponsored prescription drug collection event. , [phone], or [phone]; Note that many narcotic pain relievers also contain Tylenol/acetaminophen. Please ensure that your total dose of acetaminophen from all sources does not exceed 3 g (3000 mg) per day. Discharge Date/Time: 03/04/22 21:09
--- NOTE | 2022-03-04 20:49 | XRAY Report ---
PROCEDURE: Hand 3 View RT INDICATIONS: Trauma TECHNIQUE: 5 views of the hand(s) acquired. COMPARISON: None FINDINGS: Bones: No fractures or dislocations. No suspicious bony lesions. Soft tissues: No suspicious soft tissue calcifications. IMPRESSION: No fracture or foreign body found. Mild arthritic change at the inner phalangeal joints. Reviewed by: Artie Gray MD on 03/04/2022 8:48 PM PDT Approved by: Artie Gray MD on 03/04/2022 8:48 PM PDT Station ID: [id number]
[2022-03-04 20:50] VITALS: BP 157/91
== END 2022-03-04 21:09 | disposition home or self-care (01) ==
LOC: ED 19:02
DX: S62.612A Displaced fracture of proximal phalanx of right middle finger, initial encounter for closed fracture (principal); W20.8XXA Other cause of strike by thrown, projected or falling object, initial encounter; F17.200 Nicotine dependence, unspecified, uncomplicated; F15.10 Other stimulant abuse, uncomplicated; I87.2 Venous insufficiency (chronic) (peripheral); L97.829 Non-pressure chronic ulcer of other part of left lower leg with unspecified severity
CPT/HCPCS: 99282; 99283

== ENCOUNTER 2022-03-15 15:39 | Emergency (ER) | payer MEDICAID ==
[2022-03-15 15:46] VITALS: BP 158/95
--- OUTSIDE RECORDS SUMMARY | 2022-03-15 15:59 | EXTERNAL MEDICAL SUMMARY RPT | Continuity of Care Document ---
:1975 Author Organization [facility] Address [address] [place] [address] Phone Allergies and Intolerances date description facility type (no date) No Known Drug Allergies [facility] (unkn own) Encounters No information. Functional Status No information. Immunizations No information. Medications date description facility +0000 cefdinir 300 MG Oral [facility] [id number] linezolid 600 MG Oral Tablet [facility] Problems No information. Procedures date description facility +0000 Diagnosis [facility] [id number] Diagnosis [facility] [id number] Finding [facility] [id number]+0000 Finding [facility] [id number]+0000 General Physician [facility] [id number]+0000 [facility] Results/Labs test date author facility value [...] (unknown) date) unknown) (unknown) (no (unknown) (unknown) [facility] (units (unknown) date) [address] unknown) [place] [address] (unknown) (no (unknown) (unknown) Vital Signs - [...] wn) date) unknown) (unknown) (no (unknown) (unknown) [id number] (units (unkno wn) date) unknown) (unknown) (no [...] Stat (unknown) (no (unknown) (unknown) Consult to MANAGEMENT TRAINEE - (units (unknown) date) [employer] unknown) Stat (unknown) (no (unknown) (unknown) Course (units (unkno wn) date) unknown) (unknown) (no (unknown) (unknown) : 1975 (units (unknown) date) Acct:[id number] unknown) (unknown) (no (unknown) (unknown) ER Physician: [...] (unknown) Patient: (units (unkno wn) date) Piero Rush unknown) MR#: [id number] (unknown) (no (unknown) (unknown) [...] (unknown) date) unknown) (unknown) (no (unknown) (unknown) [facility] (units (unknown) date) [address] unknown) [place] [address] (unknown) (no (unknown) (unknown) Vital Signs - [...] wn) date) unknown) (unknown) (no (unknown) (unknown) [id number] (units (unkno wn) date) unknown) (unknown) (no [...] Stat (unknown) (no (unknown) (unknown) Consult to MANAGEMENT TRAINEE - (units (unknown) date) [employer] unknown) Stat (unknown) (no (unknown) (unknown) Course (units (unkno wn) date) unknown) (unknown) (no (unknown) (unknown) : 1975 (units (unknown) date) Acct:[id number] unknown) (unknown) (no (unknown) (unknown) ER Physician: [...] (unknown) Patient: (units (unkno wn) date) Piero Rush unknown) MR#: [id number] (unknown) (no (unknown) (unknown) [...] date) unknown) (unknown) (no (unknown) (unknown) [address] [place] [address] (units (unknown) date) unknown) (unknown) (no (unknown) (unknown) [place], [place] (units ( unknown) date) [address] unknown) (unknown) (no (unknown) (unknown) [facility] (units (unknown) date) unknown) (unknown) (no (unknown) [...] (unknown) Approved by: (units (u nknown) date) rupinder Alex) Peggy on 01/31/2022 at 8:46 (unknown) (no (unknown) (unknown) Approved by: (units (u nknown) date) Juan Vaughan, unknown) Peggy on 01/31/2022 at 8:14 (unknown) (no (unknown) (unknown) Bones: No acute (units (unknown) date) fractures or unknown) dislocations. No suspicious bony lesions. (unknown) (no (unknown) (unknown) COMPARISON: (units (un known) date) None. unknown) (unknown) (no (unknown) (unknown) Dictated by: (units (u nknown) date) rupinder Alex) Peggy on 01/31/2022 at 8:41 (unknown) (no (unknown) (unknown) Dictated by: (units (u nknown) date) rupinder Zaidi) Peggy on 01/31/2022 at 8:13 (unknown) (no (unknown) [...] to the popliteal (unknown) (no (unknown) (unknown) [id number] (units (unkno wn) date) unknown) (unknown) (no (unknown) (unknown) Accession (units (unkn own) date) Number: unknown) [id number] (unknown) (no (unknown) (unknown) Accession (units (unkn own) date) Number: unknown) [id number] (unknown) (no (unknown) (unknown) Age/Sex: 46 / M (units (unknown) date) Date of unknown) Service: (unknown) (no (unknown) (unknown) : 1975 (units (unknown) date) Acct:[id number] unknown) (unknown) (no (unknown) (unknown) Loc: ED [...] (unknown) Patient: (units (unkno wn) date) Piero Rush unknown) MR#: [id number] (unknown) (no (unknown) (unknown) [...] (unknown) date) unknown) (unknown) (no (unknown) (unknown) [facility] (units (unknown) date) [address]) [place] [address] (unknown) (no (unknown) (unknown) Lab Results (units [...] (unkno wn) date) (unknown) (no (unknown) (unknown) 89471 /uL (unkno wn) date) (unknown) (no (unknown) [...] (unkno wn) date) (unknown) (no (unknown) (unknown) 092307 (units (unkno wn) date) unknown) (unknown) (no [...] Stat (unknown) (no (unknown) (unknown) Consult to MANAGEMENT TRAINEE - (units (unknown) date) [employer] unknown) Stat (unknown) (no (unknown) (unknown) Course (units (unkno wn) date) unknown) (unknown) (no (unknown) (unknown) Creatinine 0.98 (units (unknown) date) (0.66-1.25) unknown) mg/dL (unknown) (no (unknown) (unknown) : 1975 (units (unknown) date) Acct:[id number] unknown) (unknown) (no (unknown) (unknown) ER Physician: [...] (unknown) Patient: (units (unkno wn) date) Piero Rush unknown) MR#: [id number] (unknown) (no (unknown) (unknown) [...] own) date) unknown) (unknown) (no (unknown) (unknown) [place], [place] (units ( unknown) date) [address] unknown) (unknown) (no (unknown) (unknown) ED Orders (units (unkn own) date) unknown) (unknown) (no (unknown) (unknown) Emergency Report (units (unknown) date) unknown) (unknown) (no (unknown) (unknown) [facility] (units (unknown) date) unknown) (unknown) (no (unknown) (unknown) [facility] (units (unknown) date) [address] unknown) [place] [address] (unknown) (no (unknown) (unknown) Lab Results (units [...] (unknown) (unknown) 01/31/22 (units (unkno wn) date) 06/07/22 06/07/22 unknown) Range/Units (unknown) (no (unknown) (unknown) 07:52 [...] wn) date) unknown) (unknown) (no (unknown) (unknown) [id number] (units (unkno wn) date) unknown) (unknown) (no (unknown) (unknown) ? (units (unkno wn) date) unknown) (unknown) (no (unknown) (unknown) ALT 12 (<50) (units (unknown) date) IU/L unknown) (unknown) (no (unknown) (unknown) AST 20 (units (unkno wn) date) (17-59) IU/L unknown) (unknown) (no (unknown) (unknown) Accession (units (unkn own) date) Number: unknown) [id number] ?? (unknown) (no (unknown) (unknown) Acct:[id number] (units (unknown) date) unknown) (unknown) (no (unknown) [...] Stat (unknown) (no (unknown) (unknown) Consult to [facility] - (units (unknown) date) [employer] unknown) Stat (unknown) (no (unknown) (unknown) Course (units (unkno wn) date) unknown) (unknown) (no (unknown) (unknown) Creatinine (units (unk nown) date) 0.98 unknown) (0.66-1.25) mg/dL (unknown) (no (unknown) (unknown) : 1975 (units (unknown) date) Acct:[id number] unknown) (unknown) (no (unknown) (unknown) : 1975 [...] # (Auto) (units (unknown) date) 1700 unknown) (3996-8840) /uL (unknown) (no (unknown) (unknown) Lymph % [...] Wound/Laceration unknown) (unknown) (no (unknown) (unknown) MR#: [id number] (units (unknown) date) unknown) (unknown) (no (unknown) (unknown) Mode of arrival: (units (unknown) date) Ambulatory unknown) (unknown) (no (unknown) (unknown) [place] # (Auto) (units ( unknown) date) 900 (0-900) unknown) /uL (unknown) (no (unknown) (unknown) [place] % (Auto) (units ( unknown) date) 6.8 (3-14) % unknown) (unknown) (no (unknown) (unknown) Neut # (Auto) (units ( unknown) date) 54075 H unknown) (1375-4040) /uL (unknown) (no (unknown) (unknown) Neut % [...] (unknown) Patient: (units (unkno wn) date) Piero Rush unknown) MR#: [id number] (unknown) (no (unknown) (unknown) Patient: (units (unkno wn) date) Piero Rush unknown) (unknown) (no (unknown) (unknown) Potassium 3.4 [...] (unknown) date) unknown) (unknown) (no (unknown) (unknown) [address] [place] [address] (units (unknown) date) unknown) (unknown) (no (unknown) (unknown) Allergies (units (unkn own) date) unknown) (unknown) (no (unknown) (unknown) [facility]ha (units ( unknown) date) [address] unknown) (unknown) (no (unknown) (unknown) Documented by: (units (unknown) date) RSTONE unknown) (unknown) (no (unknown) (unknown) ED Orders (units (unkn own) date) unknown) (unknown) (no (unknown) (unknown) Emergency Report (units (unknown) date) unknown) (unknown) (no (unknown) (unknown) [facility] (units (unknown) date) unknown) (unknown) (no (unknown) (unknown) [facility] (units (unknown) date) [address] unknown) [place] [address] (unknown) (no (unknown) (unknown) Lab Results (units [...] wn) date) unknown) (unknown) (no (unknown) (unknown) [id number] (units (unkno wn) date) unknown) (unknown) (no [...] Accession (units (unkn own) date) Number: unknown) [id number] ?? (unknown) (no (unknown) (unknown) Acct:[id number] (units (unknown) date) unknown) (unknown) (no (unknown) [...] Stat (unknown) (no (unknown) (unknown) Consult to MANAGEMENT TRAINEE - (units (unknown) date) [employer] unknown) Stat (unknown) (no (unknown) (unknown) Course (units (unkno wn) date) unknown) (unknown) (no (unknown) (unknown) Creatinine (units (unk nown) date) (0.66-1.25) unknown) mg/dL (unknown) (no (unknown) (unknown) Creatinine (units (unk nown) date) 0.98 unknown) (0.66-1.25) mg/dL (unknown) (no (unknown) (unknown) : 1975 (units (unknown) date) Acct:[id number] unknown) (unknown) (no (unknown) (unknown) : 1975 [...] (unknown) Lymph # (Auto) (units (unknown) date) (4891-1352) /uL unknown) (unknown) (no (unknown) (unknown) Lymph # (Auto) (units (unknown) date) 1700 unknown) (1909-2954) /uL (unknown) (no (unknown) (unknown) Lymph % [...] Wound/Laceration unknown) (unknown) (no (unknown) (unknown) MR#: [id number] (units (unknown) date) unknown) (unknown) (no (unknown) (unknown) Mode of arrival: (units (unknown) date) Ambulatory unknown) (unknown) (no (unknown) (unknown) [place] # (Auto) (units ( unknown) date) (0-900) /uL unknown) (unknown) (no (unknown) (unknown) [place] # (Auto) (units ( unknown) date) 900 (0-900) unknown) /uL (unknown) (no (unknown) (unknown) [place] % (Auto) (units ( unknown) date) (3-14) % unknown) (unknown) (no (unknown) (unknown) [place] % (Auto) (units ( unknown) date) 6.8 (3-14) % unknown) (unknown) (no (unknown) (unknown) Neut # (Auto) (units ( unknown) date) (5675-3424) /uL unknown) (unknown) (no (unknown) (unknown) Neut # (Auto) (units ( unknown) date) 44252 H unknown) (9259-5552) /uL (unknown) (no (unknown) (unknown) Neut % [...] (unknown) Patient: (units (unkno wn) date) Piero Rush unknown) MR#: [id number] (unknown) (no (unknown) (unknown) Patient: (units (unkno wn) date) Piero Rush unknown) (unknown) (no (unknown) (unknown) Potassium (units [...] (unknown) date) unknown) (unknown) (no (unknown) (unknown) [address] [place] [address] (units (unknown) date) unknown) (unknown) (no (unknown) (unknown) Allergies (units (unkn own) date) unknown) (unknown) (no (unknown) (unknown) [facility] (units ( unknown) date) [address] unknown) (unknown) (no (unknown) (unknown) Close (units (unkno wn) date) unknown) (unknown) (no (unknown) (unknown) Documented by: (units (unknown) date) LAMAR unknown) (unknown) (no (unknown) (unknown) ED Orders (units (unkn own) date) unknown) (unknown) (no (unknown) (unknown) Emergency Report (units (unknown) date) unknown) (unknown) (no (unknown) (unknown) [facility] (units (unknown) date) unknown) (unknown) (no (unknown) (unknown) [facility] (units (unknown) date) [address] unknown) [place] [address] (unknown) (no (unknown) (unknown) Lab Results (units [...] has been treated (unknown) (no (unknown) (unknown) [id number] (units (unkno wn) date) unknown) (unknown) (no [...] (unknown) (unknown) Accession Number: (units (unknown) date) [id number] ?? unknown) (unknown) (no (unknown) (unknown) Accession Number: (units (unknown) date) [id number] ?? unknown) (unknown) (no (unknown) (unknown) Acct:[id number] (units (unknown) date) unknown) (unknown) (no (unknown) [...] (unknown) Blood Pressure (units (unknown) date) 135/80 // unknown) 07:00 (unknown) (no (unknown) (unknown) Blood [...] Stat (unknown) (no (unknown) (unknown) Consult to [facility] - (units (unknown) date) [employer] unknown) Stat (unknown) (no (unknown) (unknown) Course (units (unkno wn) date) unknown) (unknown) (no (unknown) (unknown) Creatinine (units (unk nown) date) (0.66-1.25) mg/dL unknown) (unknown) (no (unknown) (unknown) Creatinine 0.98 (units (unknown) date) (0.66-1.25) unknown) mg/dL (unknown) (no (unknown) (unknown) : 1975 (units (unknown) date) Acct:[id number] unknown) (unknown) (no (unknown) (unknown) : 1975 [...] Stat unknown) (unknown) (no (unknown) (unknown) Piero Rush??4 (units (unknown) date) 8??M??1975 unknown) (unknown) (no [...] (unknown) Lymph # (Auto) (units (unknown) date) (2213-1370) /uL unknown) (unknown) (no (unknown) (unknown) Lymph # (Auto) (units (unknown) date) 1700 unknown) (2388-6670) /uL (unknown) (no (unknown) (unknown) Lymph % [...] date) unknown) (unknown) (no (unknown) (unknown) MR#: [id number] (units (unknown) date) unknown) (unknown) (no (unknown) (unknown) Medical decision (units (unknown) date) making narrative: unknown) (unknown) (no (unknown) (unknown) Mode of arrival: (units (unknown) date) Ambulatory unknown) (unknown) (no (unknown) (unknown) [place] # (Auto) (units ( unknown) date) (0-900) /uL unknown) (unknown) (no (unknown) (unknown) [place] # (Auto) (units ( unknown) date) 900 (0-900) unknown) /uL (unknown) (no (unknown) (unknown) [place] % (Auto) (units ( unknown) date) (3-14) % unknown) (unknown) (no (unknown) (unknown) [place] % (Auto) (units ( unknown) date) 6.8 [...] Neut # (Auto) (units ( unknown) date) (2314-3207) /uL unknown) (unknown) (no (unknown) (unknown) Neut # (Auto) (units ( unknown) date) 84356 H unknown) (9485-1627) /uL (unknown) (no (unknown) (unknown) Neut % [...] (unknown) Patient: (units (unkno wn) date) Piero Rush unknown) MR#: [id number] (unknown) (no (unknown) (unknown) Patient: (units (unkno wn) date) Piero Rush unknown) (unknown) (no (unknown) (unknown) Positive for [...] Seen by (units (u nknown) date) Provider: 06/07/22 unknown) 07:55 (unknown) (no (unknown) (unknown) Total [...] but has (unknown) (no (unknown) (unknown) at [facility] (units (unk nown) date) hospital. unknown) Discussed [...] to unknown) the wound care clinic at [facility] but was never (unknown) (no (unknown) (unknown) [...] date) unknown) (unknown) (no (unknown) (unknown) [address] [place] [address] (units (unknown) date) unknown) (unknown) (no (unknown) (unknown) Allergies (units (unkn own) date) unknown) (unknown) (no (unknown) (unknown) [facility] (units ( unknown) date) [address] unknown) (unknown) (no (unknown) (unknown) Close (units (unkno wn) date) unknown) (unknown) (no (unknown) (unknown) Documented by: (units (unknown) date) RSTONE unknown) (unknown) (no (unknown) (unknown) ED Orders (units (unkn own) date) unknown) (unknown) (no (unknown) (unknown) Emergency Report (units (unknown) date) unknown) (unknown) (no (unknown) (unknown) [facility] (units (unknown) date) unknown) (unknown) (no (unknown) (unknown) [facility] (units (unknown) date) [address] unknown) [place] [address] (unknown) (no (unknown) (unknown) Lab Results (units [...] has been treated (unknown) (no (unknown) (unknown) 123012 (units (unkno wn) date) unknown) (unknown) (no [...] (unknown) (unknown) Accession Number: (units (unknown) date) [id number] ?? unknown) (unknown) (no (unknown) (unknown) Accession Number: (units (unknown) date) [id number] ?? unknown) (unknown) (no (unknown) (unknown) Acct:[id number] (units (unknown) date) unknown) (unknown) (no (unknown) [...] Stat (unknown) (no (unknown) (unknown) Consult to [facility] - (units (unknown) date) [employer] unknown) Stat (unknown) (no (unknown) (unknown) Course (units (unkno wn) date) unknown) (unknown) (no (unknown) (unknown) Creatinine (units (unk nown) date) (0.66-1.25) mg/dL unknown) (unknown) (no (unknown) (unknown) Creatinine 0.98 (units (unknown) date) (0.66-1.25) unknown) mg/dL (unknown) (no (unknown) (unknown) : 1975 (units (unknown) date) Acct:[id number] unknown) (unknown) (no (unknown) (unknown) : 1975 [...] Juan Vaughan, rupinder) Peggy on 01/31/2022 at 8:13 ? ? [...] IV NOW ONE (unknown) (no (unknown) (unknown) Juan Vaughan (units ( unknown) date) unknown) (unknown) (no [...] Stat unknown) (unknown) (no (unknown) (unknown) Piero Rush??4 (units (unknown) date) 8??M??1975 unknown) (unknown) (no [...] (unknown) Lymph # (Auto) (units (unknown) date) (9704-7259) /uL unknown) (unknown) (no (unknown) (unknown) Lymph # (Auto) (units (unknown) date) 1700 unknown) (4865-4027) /uL (unknown) (no (unknown) (unknown) Lymph % [...] date) unknown) (unknown) (no (unknown) (unknown) MR#: [id number] (units (unknown) date) unknown) (unknown) (no (unknown) (unknown) Medical decision (units (unknown) date) making narrative: unknown) (unknown) (no (unknown) (unknown) Mode of arrival: (units (unknown) date) Ambulatory unknown) (unknown) (no (unknown) (unknown) [place] # (Auto) (units ( unknown) date) (0-900) /uL unknown) (unknown) (no (unknown) (unknown) [place] # (Auto) (units ( unknown) date) 900 (0-900) unknown) /uL (unknown) (no (unknown) (unknown) [place] % (Auto) (units ( unknown) date) (3-14) % unknown) (unknown) (no (unknown) (unknown) [place] % (Auto) (units ( unknown) date) 6.8 [...] Neut # (Auto) (units ( unknown) date) (9564-9505) /uL unknown) (unknown) (no (unknown) (unknown) Neut # (Auto) (units ( unknown) date) 09085 H unknown) (7617-8558) /uL (unknown) (no (unknown) (unknown) Neut % [...] (unknown) Patient: (units (unkno wn) date) Piero Rush unknown) MR#: [id number] (unknown) (no (unknown) (unknown) [...] but has (unknown) (no (unknown) (unknown) at [facility] (units (unk nown) date) [facility]. unknown) Discussed with hospitalist about keeping [...] to unknown) the wound care clinic at [facility] but was never (unknown) (no (unknown) (unknown) [...] (unknown) date) unknown) (unknown) (no (unknown) (unknown) [address] [place] [address] (units (unknown) date) unknown) (unknown) (no (unknown) (unknown) Allergies (units (unkn own) date) unknown) (unknown) (no (unknown) (unknown) [place] (units ( unknown) date) [address] unknown) (unknown) (no (unknown) (unknown) Close (units (unkno wn) date) unknown) (unknown) (no (unknown) (unknown) Documented by: (units (unknown) date) RSTONE unknown) (unknown) (no (unknown) (unknown) ED Orders (units (unkn own) date) unknown) (unknown) (no (unknown) (unknown) Emergency Report (units (unknown) date) unknown) (unknown) (no (unknown) (unknown) [facility] (units (unknown) date) unknown) (unknown) (no (unknown) (unknown) [facility] (units (unknown) date) [address] unknown) [place] [address] (unknown) (no (unknown) (unknown) Lab Results (units [...] has been treated (unknown) (no (unknown) (unknown) [id number] (units (unkno wn) date) unknown) (unknown) (no [...] (unknown) (unknown) Accession Number: (units (unknown) date) [id number] ?? unknown) (unknown) (no (unknown) (unknown) Accession Number: (units (unknown) date) [id number] ?? unknown) (unknown) (no (unknown) (unknown) Acct:[id number] (units (unknown) date) unknown) (unknown) (no (unknown) [...] (unknown) Approved by: (units (u nknown) date) rupinder Zaidi) Peggy on 01/31/2022 at 8:14?? (unknown) (no [...] Stat (unknown) (no (unknown) (unknown) Consult to [facility] - (units (unknown) date) [employer] unknown) Stat (unknown) (no (unknown) (unknown) Consultation [...] (unknown) (unknown) : 1975 (units (unknown) date) Acct:[id number] unknown) (unknown) (no (unknown) (unknown) : 1975 [...] (unknown) Dr. Aranda, (units ( unknown) date) [facility] accepts unknown) for observation. (unknown) (no (unknown) [...] IV NOW ONE (unknown) (no (unknown) (unknown) AllisonSagrario awade (units ( unknown) date) unknown) (unknown) (no [...] Stat unknown) (unknown) (no (unknown) (unknown) Piero Rush??4 (units (unknown) date) 8??M??1975 unknown) (unknown) (no [...] (unknown) Lymph # (Auto) (units (unknown) date) (2818-6934) /uL unknown) (unknown) (no (unknown) (unknown) Lymph # (Auto) (units (unknown) date) 1700 unknown) (0856-6573) /uL (unknown) (no (unknown) (unknown) Lymph % [...] date) unknown) (unknown) (no (unknown) (unknown) MR#: [id number] (units (unknown) date) unknown) (unknown) (no (unknown) (unknown) Medical decision (units (unknown) date) making narrative: unknown) (unknown) (no (unknown) (unknown) Mode of arrival: (units (unknown) date) Ambulatory unknown) (unknown) (no (unknown) (unknown) [place] # (Auto) (units ( unknown) date) (0-900) /uL unknown) (unknown) (no (unknown) (unknown) [place] # (Auto) (units ( unknown) date) 900 (0-900) unknown) /uL (unknown) (no (unknown) (unknown) [place] % (Auto) (units ( unknown) date) (3-14) % unknown) (unknown) (no (unknown) (unknown) [place] % (Auto) (units ( unknown) date) 6.8 [...] Neut # (Auto) (units ( unknown) date) (0118-6063) /uL unknown) (unknown) (no (unknown) (unknown) Neut # (Auto) (units ( unknown) date) 94693 H unknown) (9104-9049) /uL (unknown) (no (unknown) (unknown) Neut % [...] (unknown) Patient: (units (unkno wn) date) FreddiePiero richards unknown) MR#: [id number] (unknown) (no (unknown) (unknown) [...] but has (unknown) (no (unknown) (unknown) at [facility] (units (unk nown) date) hospital. unknown) Discussed [...] to unknown) the wound care clinic at [facility] but was never (unknown) (no (unknown) (unknown) [...] date) unknown) (unknown) (no (unknown) (unknown) [address] [place] [address] (units (unknown) date) unknown) (unknown) (no (unknown) (unknown) Admin: 01/31/22 (units (unknown) date) 13:45 Dose: 200 unknown) mls/hr (unknown) (no (unknown) (unknown) Allergies (units (unkn own) date) unknown) (unknown) (no (unknown) (unknown) [place], [place] (units ( unknown) date) [address] unknown) (unknown) (no (unknown) (unknown) Close (units (unkno wn) date) unknown) (unknown) (no (unknown) (unknown) Documented by: (units (unknown) date) RSTONE unknown) (unknown) (no (unknown) (unknown) Documented by: (units (unknown) date) TSUTTER unknown) (unknown) (no (unknown) (unknown) Emergency Report (units (unknown) date) unknown) (unknown) (no (unknown) (unknown) Home Medications (units (unknown) date) unknown) (unknown) (no (unknown) (unknown) [facility] (units (unknown) date) unknown) (unknown) (no (unknown) (unknown) [facility] (units (unknown) date) [address] unknown) [place] [address] (unknown) (no (unknown) (unknown) Lab Results (units [...] has been treated (unknown) (no (unknown) (unknown) [id number] (units (unkno wn) date) unknown) (unknown) (no [...] (unknown) (unknown) Accession Number: (units (unknown) date) [id number] ?? unknown) (unknown) (no (unknown) (unknown) Accession Number: (units (unknown) date) [id number] ?? unknown) (unknown) (no (unknown) (unknown) Acct:[id number] (units (unknown) date) unknown) (unknown) (no (unknown) [...] (unknown) Blood Pressure (units (unknown) date) 135/80 0607/ unknown) 07:00 (unknown) (no (unknown) (unknown) Blood [...] (unknown) (unknown) : 1975 (units (unknown) date) Acct:[id number] unknown) (unknown) (no (unknown) (unknown) : 1975 (units (unknown) date) unknown) (unknown) (no (unknown) (unknown) Date of Service: (units (unknown) date) 01/31/22 unknown) (unknown) (no (unknown) (unknown) Departure (units (unkn own) date) unknown) (unknown) (no (unknown) (unknown) Dictated by: (units (u nknown) date) Yrn Baker, alejandro Woods on 01/31/2022 at 8:41 ? ? (unknown) (no (unknown) (unknown) Dictated by: (units (u nknown) date) Juan Vaughan, alejandro Woods on 01/31/2022 at 8:13 ? ? (unknown) (no (unknown) (unknown) Discharge Plan (units (unknown) date) unknown) (unknown) (no (unknown) (unknown) Discontinued (units (u nknown) date) Medications unknown) (unknown) (no (unknown) (unknown) Dr. Aranda, (units ( unknown) date) hospital accepts unknown) for observation. (unknown) (no (unknown) [...] IV NOW ONE (unknown) (no (unknown) (unknown) ClementJuan awad (units ( unknown) date) unknown) (unknown) (no (unknown) (unknown) Lab Data (units (unkno wn) date) unknown) (unknown) (no (unknown) (unknown) Labs: (units (unkno wn) date) unknown) (unknown) (no (unknown) (unknown) Lactate 1.7 (units (unknown) date) (0.7-2.1) mmol/L unknown) (unknown) (no (unknown) (unknown) Lactate (units (unkno wn) date) (0.7-2.1) mmol/L unknown) (unknown) (no (unknown) (unknown) Piero Rush??4 (units (unknown) date) 8??M??1975 unknown) (unknown) (no (unknown) (unknown) Limitations: no (units (unknown) date) limitations unknown) (unknown) (no (unknown) (unknown) Lipase (23-300) (units (unknown) date) U/L unknown) (unknown) (no (unknown) (unknown) Lipase 52 (units (un known) date) (23-300) U/L unknown) (unknown) (no (unknown) (unknown) Loc: ED (units (unkno wn) date) unknown) (unknown) (no (unknown) (unknown) Lymph # (Auto) (units (unknown) date) (9425-9526) /uL unknown) (unknown) (no (unknown) (unknown) Lymph # (Auto) (units (unknown) date) 1700 unknown) (5558-4462) /uL (unknown) (no (unknown) (unknown) Lymph % [...] date) unknown) (unknown) (no (unknown) (unknown) MR#: [id number] (units (unknown) date) unknown) (unknown) (no (unknown) (unknown) Medical decision (units (unknown) date) making narrative: unknown) (unknown) (no (unknown) (unknown) Mode of arrival: (units (unknown) date) Ambulatory unknown) (unknown) (no (unknown) (unknown) [place] # (Auto) (units ( unknown) date) (0-900) /uL unknown) (unknown) (no (unknown) (unknown) [place] # (Auto) (units ( unknown) date) 900 (0-900) unknown) /uL (unknown) (no (unknown) (unknown) [place] % (Auto) (units ( unknown) date) (3-14) % unknown) (unknown) (no (unknown) (unknown) [place] % (Auto) (units ( unknown) date) 6.8 [...] Neut # (Auto) (units ( unknown) date) (0211-5679) /uL unknown) (unknown) (no (unknown) (unknown) Neut # (Auto) (units ( unknown) date) 56244 H unknown) (3672-7709) /uL (unknown) (no (unknown) (unknown) Neut % [...] (unknown) Patient: (units (unkno wn) date) Piero Rush unknown) MR#: [id number] (unknown) (no (unknown) (unknown) Patient: (units (unkno wn) date) Piero Rush unknown) (unknown) (no (unknown) (unknown) Positive for [...] (unknown) Respiratory Rate (units (unknown) date) 18 06 unknown) 07:00 (unknown) (no (unknown) (unknown) Respiratory [...] but has (unknown) (no (unknown) (unknown) at [facility] (units (unk nown) date) hospital. unknown) Discussed [...] to unknown) the wound care clinic at [facility] but was never (unknown) (no (unknown) (unknown) [...] (unknown) date) unknown) (unknown) (no (unknown) (unknown) [facility] (units (unknown) date) [address] [place] [address] unknown) [place] [address] (unknown) (no (unknown) (unknown) Laboratory (units (unk [...] wn) date) unknown) (unknown) (no (unknown) (unknown) [id number] (units (unkno wn) date) unknown) (unknown) (no [...] (unknown) (unknown) : 1975 (units (unknown) date) Acct:[id number] unknown) (unknown) (no (unknown) (unknown) Date Patient [...] wn) date) unknown) (unknown) (no (unknown) (unknown) [place] # (Auto) (units ( unknown) date) unknown) (unknown) (no (unknown) (unknown) [place] # (Auto) (units ( unknown) date) 900 unknown) (unknown) (no (unknown) (unknown) [place] % (Auto) (units ( unknown) date) unknown) (unknown) (no (unknown) (unknown) [place] % (Auto) (units ( unknown) date) 6.8 [...] Neut # (Auto) (units ( unknown) date) 16177 H unknown) (unknown) (no (unknown) (unknown) Neut [...] (unknown) Patient: (units (unkno wn) date) FreddiePiero richards unknown) MR#: [id number] (unknown) (no (unknown) (unknown) [...] (unknown) Ur Specific (units (un known) date) [place] unknown) (unknown) (no (unknown) (unknown) Ur Specific (units (un known) date) [place] 1.010 unknown) (unknown) (no (unknown) (unknown) Ur [...] (unknown) date) unknown) (unknown) (no (unknown) (unknown) [facility] (units (unknown) date) [address] unknown) [place] [address] (unknown) (no (unknown) (unknown) Laboratory (units (unk [...] date) positive unknown) (unknown) (no (unknown) (unknown) [id number] (units (unkno wn) date) unknown) (unknown) (no [...] (unknown) (unknown) : 1975 (units (unknown) date) Acct:[id number] unknown) (unknown) (no (unknown) (unknown) Date Patient [...] wn) date) unknown) (unknown) (no (unknown) (unknown) [place] # (Auto) (units ( unknown) date) unknown) (unknown) (no (unknown) (unknown) [place] # (Auto) (units ( unknown) date) 900 unknown) (unknown) (no (unknown) (unknown) [place] % (Auto) (units ( unknown) date) unknown) (unknown) (no (unknown) (unknown) [place] % (Auto) (units ( unknown) date) 6.8 unknown) (unknown) (no (unknown) (unknown) Mr. Rush is a (units (unknown) date) 46M with [...] Neut # (Auto) (units ( unknown) date) [address]16 H unknown) (unknown) (no (unknown) (unknown) Neut [...] (unknown) Patient: (units (unkno wn) date) Piero Rush unknown) MR#: [id number] (unknown) (no (unknown) (unknown) [...] (unknown) Ur Specific (units (un known) date) [place] unknown) (unknown) (no (unknown) (unknown) Ur Specific (units (un known) date) [place] 1.010 unknown) (unknown) (no (unknown) (unknown) Ur [...] (unknown) date) unknown) (unknown) (no (unknown) (unknown) [facility] (units (unknown) date) [address] unknown) [place] [address] (unknown) (no (unknown) (unknown) Laboratory Results (units [...] wn) date) unknown) (unknown) (no (unknown) (unknown) [id number] (units (unkno wn) date) unknown) (unknown) (no [...] (unknown) (unknown) : 1975 (units (unknown) date) Acct:[id number] unknown) (unknown) (no (unknown) (unknown) Date Patient [...] nown) date) unknown) (unknown) (no (unknown) (unknown) [place] # (Auto) (units ( unknown) date) 600 unknown) (unknown) (no (unknown) (unknown) [place] % (Auto) (units ( unknown) date) 5.8 [...] (unknown) Patient: (units (unkno wn) date) Piero Rush unknown) MR#: [id number] (unknown) (no (unknown) (unknown) [...] (unknown) date) unknown) (unknown) (no (unknown) (unknown) [facility] (units (unknown) date) [address] [place] [address] unknown) [place] [address] (unknown) (no (unknown) (unknown) Laboratory Results (units [...] (unknown) date) unknown) (unknown) (no (unknown) (unknown) [id number] (units (unkno wn) date) unknown) (unknown) (no [...] (unknown) (unknown) : 1975 (units (unknown) date) Acct:[id number] unknown) (unknown) (no (unknown) (unknown) Date Patient [...] nown) date) unknown) (unknown) (no (unknown) (unknown) [place] # (Auto) (units ( unknown) date) 600 unknown) (unknown) (no (unknown) (unknown) [place] % (Auto) (units ( unknown) date) 5.8 unknown) (unknown) (no (unknown) (unknown) Mr. Rush is a (units (unknown) date) 46M with [...] (unknown) Patient: (units (unkno wn) date) Piero Rush unknown) MR#: [id number] (unknown) (no (unknown) (unknown) [...] date) Summary unknown) (unknown) (no (unknown) (unknown) [facility] (units (unknown) date) [address] unknown) [place] [address] (unknown) (no (unknown) (unknown) Laboratory (units (unk nown) date) Results - last unknown) 24 hr (unknown) (no (unknown) (unknown) MANAGEMENT TRAINEE Consult (units (un known) date) needed for:: [...] wn) date) unknown) (unknown) (no (unknown) (unknown) 198001 (units (unkno wn) date) unknown) (unknown) (no [...] Routine (unknown) (no (unknown) (unknown) Consult to MANAGEMENT TRAINEE (units (unknown) date) - Social unknown) Services Routine (unknown) (no (unknown) (unknown) Consult to MANAGEMENT TRAINEE (units (unknown) date) - Social unknown) Services Stat (unknown) (no (unknown) (unknown) Consults: (units (unkn own) date) unknown) (unknown) (no (unknown) (unknown) : 1975 (units (unknown) date) unknown) Acct:[id number] (unknown) (no (unknown) (unknown) Date Patient (units [...] (unknown) Per Laure Metz, (units (unknown) date) PHYSICAL PLANT MANAGER: unknown) (unknown) (no (unknown) (unknown) Prescriptions: (units [...] date) Summary unknown) (unknown) (no (unknown) (unknown) [facility] (units (unknown) date) [address] unknown) [place] [address] (unknown) (no (unknown) (unknown) Laboratory (units (unk nown) date) Results - last unknown) 24 hr (unknown) (no (unknown) (unknown) MANAGEMENT TRAINEE Consult (units (un known) date) needed for:: [...] wn) date) unknown) (unknown) (no (unknown) (unknown) [id number] (units (unkno wn) date) unknown) (unknown) (no [...] Routine (unknown) (no (unknown) (unknown) Consult to MANAGEMENT TRAINEE (units (unknown) date) - Social unknown) Services Routine (unknown) (no (unknown) (unknown) Consult to MANAGEMENT TRAINEE (units (unknown) date) - Social unknown) Services Stat (unknown) (no (unknown) (unknown) Consults: (units (unkn own) date) unknown) (unknown) (no (unknown) (unknown) : 1975 (units (unknown) date) unknown) Acct:[id number] (unknown) (no (unknown) (unknown) Date Patient (units [...] (unknown) Patient: (units (unkno wn) date) Piero Rush unknown) MR#: [id number] (unknown) (no (unknown) (unknown) Per Laure Metz, (units (unknown) date) PHYSICAL PLANT MANAGER: unknown) (unknown) (no (unknown) (unknown) Prescriptions: (units [...] date) Summary unknown) (unknown) (no (unknown) (unknown) [facility] (units (unknown) date) [address] unknown) [place] [address] (unknown) (no (unknown) (unknown) Laboratory (units (unk nown) date) Results - last unknown) hr (unknown) (no (unknown) (unknown) MANAGEMENT TRAINEE Consult (units (un known) date) needed for:: [...] [place] unknown) wound (unknown) (no (unknown) (unknown) [id number] (units (unkno wn) date) unknown) (unknown) (no [...] Routine (unknown) (no (unknown) (unknown) Consult to MANAGEMENT TRAINEE - (units (unknown) date) [employer] unknown) Routine (unknown) (no (unknown) (unknown) Consult to MANAGEMENT TRAINEE - (units (unknown) date) [employer] unknown) Stat (unknown) (no (unknown) (unknown) Consults: (units (unkn own) date) unknown) (unknown) (no (unknown) (unknown) : 1975 (units (unknown) date) Acct:[id number] unknown) (unknown) (no (unknown) (unknown) Date Patient [...] (unknown) Patient: (units (unkno wn) date) Piero Rush unknown) MR#: [id number] (unknown) (no (unknown) (unknown) Per Laure Metz, (units (unknown) date) PHYSICAL PLANT MANAGER: unknown) (unknown) (no (unknown) (unknown) Prescriptions: (units [...] (unknown) date) unknown) (unknown) (no (unknown) (unknown) [facility] (units (unknown) date) [address] unknown) [place] [address] (unknown) (no (unknown) (unknown) Laboratory (units (unk nown) date) Results - last 24 unknown) hr (unknown) (no (unknown) (unknown) MANAGEMENT TRAINEE Consult (units (un known) date) needed for:: [...] [place] unknown) wound (unknown) (no (unknown) (unknown) [id number] (units (unkno wn) date) unknown) (unknown) (no [...] Routine (unknown) (no (unknown) (unknown) Consult to MANAGEMENT TRAINEE - (units (unknown) date) [employer] unknown) Routine (unknown) (no (unknown) (unknown) Consult to MANAGEMENT TRAINEE - (units (unknown) date) [place] [employer] unknown) Stat (unknown) (no (unknown) (unknown) Consults: (units (unkn own) date) unknown) (unknown) (no (unknown) (unknown) : 1975 (units (unknown) date) Acct:[id number] unknown) (unknown) (no (unknown) (unknown) Date Patient [...] (unknown) Patient: (units (unkno wn) date) Piero Rush unknown) MR#: [id number] (unknown) (no (unknown) (unknown) Per Laure Metz, (units (unknown) date) PHYSICAL PLANT MANAGER: unknown) (unknown) (no (unknown) (unknown) Prescriptions: (units [...] date) By:<Electronically unknown) signed by Kevin Hansen DAngelaO.>02/02/22 1729 (unknown) (no (unknown) (unknown) Smoking Status: (units [...] description facility (no date) [facility] Signs date measurement value units +0000 BMI BMI 24.4 kg/m2 +0000 BP_diastolic BP_diastolic 79 mm[H g] +0000 BP_systolic BP_systolic 156 mm[Hg] +0000 heart_rate heart_rate 92 /min +0000 height_metric height_metric 185.42 cm [id number]+0000 height_standard height_standard 73 in +0000 respiration_rate respiration_rate 19 /min +0000 temperature_metric temperature_metric 36.89 C +0000 temperature_standard temperature_standard 9 8.4 F [id number]+0000 weight_metric weight_metric 83.91 kg [id number]+0000 weight_standard weight_standard 184.99 lb 11296694646739+0000 BP_diastolic BP_diastolic 104 mm[H g] 65786006411355+0000 BP_systolic BP_systolic 171 mm[Hg] 46735105165946+0000 heart_rate heart_rate 89 /min +0000 respiration_rate respiration_rate 16 /min +0000 temperature_metric temperature_metric 36.61 C +0000 temperature_standard temperature_standard 9 7.9 F
[2022-03-15] MEDS ORDERED: cephALEXin 250 MG CAPSULE PO STA (16:04)
[2022-03-15] MEDS ORDERED: SULFAMETH/TRIMETH DS 800/160 MG TABLET PO STA (16:04)
[2022-03-15] MEDS ORDERED: BACITRACIN ZINC OINT 1 PACKET TOP STA (16:12)
--- NOTE | 2022-03-15 16:19 | ED Physician Documentation ---
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 He states that he has been placed on antibiotics and given wound care in various emergency departments, but the wound is never fully healed. He states he does not follow-up with his regular doctor and does not go to wound care. No fevers. No chills. No drainage. Nothing makes it better or worse. Review of Systems Constitutional: denies: Fever, Chills GI: denies: Vomiting, Diarrhea Skin: denies: Rash Musculoskeletal: denies: Neck pain, Back pain Neurologic: denies: Headache PD PAST MEDICAL HISTORY - Past Medical History Cardiovascular: None Respiratory: None Neuro: Head injury Endocrine/Autoimmune: None GI: None : None HEENT: None Psych: None Musculoskeletal: None Derm: None, Other drug resistant infections - Past Surgical History Past Surgical History: No - Present Medications Home Medications: Ambulatory Orders Medication Instructions Recorded Confirmed Benzonatate [Tessalon] 100 mg PO TID PRN #20 cap 08/04/21 Cholecalciferol [Vitamin D3] 800 unit PO DAILY #60 tablet 08/04/21 Ciprofloxacin [Cipro] 500 mg PO BID 8 Days #32 tablet 08/04/21 Ferrous Sulfate [Feosol] 325 mg PO DAILY #30 tablet 08/04/21 HYDROcod/ACETAM 5/325 [Rogers 5/325] 1 tab PO Q4H PRN #15 tablet 08/04/21 Lactobacillus Rhamnosus GG 1 cap PO DAILY #8 cap 08/04/21 [Culturelle] Linezolid [Zyvox] 600 mg PO BID 8 Days #16 tablet 08/04/21 Multivitamin W/Minerals [Theragran 1 tab PO QDLUNCH #30 tablet 08/04/21 M] Nicotine 14 mg Patch [Nicoderm] 1 patch TOP DAILY PRN #7 patch 08/04/21 Doxycycline Hyclate 100 mg PO BID 14 Days #28 tab 10/26/21 Ketorolac [Toradol] 10 mg PO Q6H PRN #30 tablet 10/26/21 Mupirocin 2% Oint [Bactroban 2% 1 applic TOP BID #50 gm 10/26/21 Oint] HYDROcod/ACETAM 5/325 [Rogers 5/325] 1 ea PO Q6H PRN #15 tablet 12/15/21 Mupirocin 2% Oint [Bactroban 2% 1 applic TOP TID #15 gm 12/15/21 Oint] Soft Lens Rinse,Store Solution 20 ml TOP TID 6 Days #355 ml 12/15/21 [Saline Solution] cephALEXin [Keflex] 500 mg PO TID #20 cap 12/15/21 clindamycin HCL [Clindamycin HCl] 300 mg PO TID 7 Days #20 cap 12/15/21 Bacitracin Zinc 1 each TP ONCE #1 packet 03/04/22 Bacitracin Zinc Oint 1 applic TOP BID #1 gm 03/04/22 Oxycodone HCl/Acetaminophen 1 each PO Q6H PRN #14 tablet 03/04/22 [Percocet 5-325 mg Tablet] Ibuprofen [Motrin] 800 mg PO Q8H PRN #30 tablet 03/15/22 Sulfamethox/Trimeth 800/160 1 each PO BID #14 tablet 03/15/22 [Bactrim Ds 800/160] cephALEXin [Keflex] 500 mg PO Q6H #28 cap 03/15/22 - Allergies Allergies/Adverse Reactions: Allergies Allergy/AdvReac Type Severity Reaction Status Date / Time No Known Drug Allergies Allergy Verified 03/15/22 15:47 - Social History Does the pt smoke?: Yes Smoking Status: Current every day smoker Does the pt drink ETOH?: No Does the pt have substance abuse?: Yes - Immunizations Immunizations are current?: Yes - POLST Patient has POLST: No POLST Status: Full Code PD ED PE NORMAL - Vitals Vital signs reviewed: Yes - General General: Alert and oriented X 3, No acute distress - HEENT HEENT: Moist mucous membranes - Neck Neck: Supple, no meningeal sign - Cardiac Cardiac: RRR, Strong equal pulses - Respiratory Respiratory: No respiratory distress, Clear bilaterally - Abdomen Abdomen: Soft, Non tender, Non distended - Derm Derm: Warm and dry - Extremities Extremities: No edema, Other (Left lower extremity has a 3 x 2 cm circular wound to the lateral aspect of the mid calf. No bony tenderness. He also has a small scabbed area to the posterior calf.) - Neuro Neuro: Alert and oriented X 3 - Psych Psych: Normal mood, Normal affect Results - Vitals Vitals: Vital Signs - 24 hr 03/15/22 03/15/22 03/15/22 15:43 15:46 16:53 Temperature 36.2 C L 36.2 C L 36.2 C L Heart Rate 100 100 90 Respiratory 20 20 18 Rate Blood Pressure 158/95 H 158/95 H 158/95 H O2 Saturation 97 97 98 Oxygen O2 Source Room air PD MEDICAL DECISION MAKING - ED course Complexity details: reviewed results, re-evaluated patient, considered differential, d/w patient ED course: 47-year-old male presents to the emergency department with left lower extremity wound, chronic. Mild erythema, but no significant drainage. No bony tenderness. We will place on antibiotics and have him follow-up with the walk- in clinic for wound care. Patient counseled regarding signs and symptoms for which I believe and urgent re-evaluation would be necessary. Patient with good understanding of and agreement to plan and is comfortable going home at this time This document was made in part using voice recognition software. While efforts are made to proofread this document, sound alike and grammatical errors may occur. Departure - Departure Disposition: 01 Home, Self Care Clinical Impression: Leg wound, left Qualifiers: Encounter type: initial encounter Qualified Code(s): S81.802A - Unspecified open wound, left lower leg, initial encounter Condition: Good Instructions: ED Wound Care Follow-Up: [facility] [place] [Provider Group] Prescriptions: Sulfamethox/Trimeth 800/160 [Bactrim Ds 800/160] 1 each PO BID #14 tablet cephALEXin [Keflex] 500 mg PO Q6H #28 cap Ibuprofen [Motrin] 800 mg PO Q8H PRN #30 tablet PRN Reason: PAIN &/OR FEVER Comments: Your medications were sent to [facility] in [place]. Please follow-up with the walk-in clinic in 3 to 4 days for a wound check. They will need to refer you to wound care as well. Keep the wound clean. Leave the Mepitel in place. Discharge Date/Time: 03/15/22 16:53
[2022-03-15] MEDS ORDERED: ACETAMINOPHEN 325 MG TABLET PO STA (16:30)
== END 2022-03-15 16:53 | disposition home or self-care (01) ==
LOC: ED 15:39
DX: S81.802A Unspecified open wound, left lower leg, initial encounter (principal); X58.XXXA Exposure to other specified factors, initial encounter; F17.200 Nicotine dependence, unspecified, uncomplicated
CPT/HCPCS: 99282; 99284; A9270

== ENCOUNTER 2022-07-11 18:27 | Outpatient (CLI) | payer MEDICAID | END 2022-07-11 23:59 | disposition critical access hospital (66) | LOC: EMS 18:27 | DX: R00.0 Tachycardia, unspecified (principal); R42 Dizziness and giddiness; R50.9 Fever, unspecified; M79.661 Pain in right lower leg; M79.89 Other specified soft tissue disorders | CPT/HCPCS: A0425; A0429; A0999 ==

== ENCOUNTER 2022-07-11 18:53 | Emergency (ER) | payer MEDICAID ==
--- OUTSIDE RECORDS SUMMARY | 2022-07-11 19:15 | EXTERNAL MEDICAL SUMMARY RPT | Continuity of Care Document ---
:1975 Author Organization [facility] Address [address] [place] [address] Phone Care Team Providers Name Role Phone Unavailable Unavailable Unavailable Paulino NuñezpLes, Gee Unavailable Unavailable Lester Pfs, Referrals, Chelsea Unavailable Unavailable Allergies No information. Encounters No information. Functional Status No information. Immunizations No information. Medications date description facility [id number]+0000 cephalexin All 42103633373244+0000 cephalexin All 97818579497629+0000 cephalexin All 76404799429207+0000 cephalexin All 79383563490566+0000 sulfamethoxazole-trimethoprim All 76024904221563+0000 sulfamethoxazole-trimethoprim All 53292407512803+0000 sulfamethoxazole-trimethoprim All 34773665464363+0000 sulfamethoxazole-trimethoprim All 59288304753139+0000 cephalexin All 38290298066185+0000 cephalexin All 36341582700791+0000 cephalexin All 02063779188812+0000 cephalexin All 94466502158193+0000 sulfamethoxazole-trimethoprim All 20256369341146+0000 sulfamethoxazole-trimethoprim All 76760303233100+0000 sulfamethoxazole-trimethoprim All 98473193878471+0000 sulfamethoxazole-trimethoprim All Problems No information. Procedures date description facility 79966883273069+0000 Visit Code Hold All 70219536174246+0000 Visit Code Hold All Results/Labs No information. Social History date description facility 62188708461187+0000 Unknown if ever smoked All 29829089924122+0000 Unknown if ever smoked All Vital Signs date measurement value units 47169134868392+0000 BMI BMI 29.17 kg/m2 69502947885695+0000 BP_diastolic BP_diastolic 102 mmHg 59408871422014+0000 BP_systolic BP_systolic 174 mmHg 62217217326717+0000 heart_rate heart_rate 88 /min 94397489433773+0000 height_metric height_metric 180.34 cm 10830932398344+0000 height_standard height_standard 71 in 86206027450768+0000 respiration_rate respiration_rate 15 /min +0000 temperature_metric temperature_metric 36.5 C +0000 temperature_standard temperature_standard 9 7.7 F +0000 weight_metric weight_metric 94.53 kg +0000 weight_standard weight_standard 208.4 lb
[2022-07-11 19:16] LABS: BASOPHILS % (AUTO) 0.4 %; EOSINOPHILS # (AUTO) 0.1 10^3/uL (0.0-0.7); EOSINOPHILS % (AUTO) 1.4 %; HCT - HEMATOCRIT 38.3 % (42.0-52.0); HGB - HEMOGLOBIN 12.7 g/dL (14.0-18.0); LYMPHOCYTES # (AUTO) 0.7 10^3/uL (1.5-3.5); LYMPHOCYTES % (AUTO) 7.6 %; MEAN CORPUSCULAR HEMOGLOBIN 29.9 pg (27.0-31.0); MEAN CORPUSCULAR HGB CONC 33.2 g/dL (32.0-36.0); MEAN CORPUSCULAR VOLUME 90.1 fL (80.0-94.0); MEAN PLATELET VOLUME 9.1 fL (7.4-11.4); MONOCYTES # (AUTO) 0.7 10^3/uL (0.0-1.0); MONOCYTES % (AUTO) 7.8 %; NEUTROPHILS # (AUTO) 7.7 10^3/uL (1.5-6.6); NEUTROPHILS % (AUTO) 82.6 %; PLT - PLATELET COUNT 245 10^3/uL (130-450); RED BLOOD COUNT 4.25 10^6/uL (4.70-6.10); RED CELL DISTRIBUTION WIDTH 13.4 % (12.0-15.0); WHITE BLOOD COUNT 9.4 x10^3/uL (4.8-10.8)
[2022-07-11] MEDS ORDERED: LINEZOLID 600 MG TABLET PO STA (19:24)
--- NOTE | 2022-07-11 19:24 | ED Physician Documentation ---
PD HPI WOUND RECHECK - Stated complaint Stated Complaint: DIZZY/R LEG PX - Chief complaint Chief Complaint: Wound - Histroy obtained from History obtained from: Patient - Additional information Additional information: 47-year-old gentleman with history of methamphetamine abuse who is undomiciled and "couch surfing" developed pain on the right leg today. 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 He denies fevers or chills. He did feel like his heart was fluttering. He is never really been able to establish primary care or follow-up in wound care. Of note most recent MRSA isolate was fairly bain resistant, Review of Systems Constitutional: denies: Fever, Chills Cardiac: reports: Palpitations (Fluttering). denies: Chest pain / pressure Respiratory: denies: Dyspnea PD PAST MEDICAL HISTORY - Past Medical History Past Medical History: Yes Cardiovascular: None Respiratory: None Neuro: Head injury Endocrine/Autoimmune: None GI: None : None HEENT: None Psych: None Musculoskeletal: None Derm: None, Other drug resistant infections - Past Surgical History Past Surgical History: No - Present Medications Home Medications: Ambulatory Orders Medication Instructions Recorded Confirmed Linezolid [Zyvox] 600 mg PO BID #20 tablet 07/11/22 - Allergies Allergies/Adverse Reactions: Allergies Allergy/AdvReac Type Severity Reaction Status Date / Time No Known Drug Allergies Allergy Verified 07/11/22 18:59 - Social History Does the pt smoke?: Yes Smoking Status: Current every day smoker Does the pt drink ETOH?: No Does the pt have substance abuse?: Yes - Immunizations Immunizations are current?: Yes - POLST Patient has POLST: No POLST Status: Full Code PD ED PE NORMAL - Vitals Vital signs reviewed: Yes - General General: Alert and oriented X 3, No acute distress - HEENT HEENT: PERRL, EOMI - Neck Neck: Supple, no meningeal sign, No bony TTP - Cardiac Cardiac: RRR, No murmur - Respiratory Respiratory: No respiratory distress, Clear bilaterally - Abdomen Abdomen: Non tender - Derm Derm: Normal color, Warm and dry - Extremities Extremities: Other (Venous stasis and redness of both legs with a large ulcer anterolateral left rivera and a smaller ulcer anterolateral right leg, the right leg has some cellulitis. The left leg does not.) - Neuro Neuro: Alert and oriented X 3, Normal speech Results - Vitals Vitals: Vital Signs - 24 hr 07/11/22 18:57 Temperature 37.4 C Heart Rate 104 H Respiratory 16 Rate Blood Pressure 146/82 H O2 Saturation 96 Oxygen O2 Source Room air - EKG (time done) 1914 Rate: Rate (enter#) (99) Rhythm: LAE, KACIE [place]: LAD Intervals: Normal MO QRS: Normal Ischemia: ST elevation c/w repol. No: ST elevation c/w ischemia, ST depression - Labs Labs: Laboratory Tests 07/11/22 07/11/22 07/11/22 19:08 19:08 19:08 WBC 9.4 RBC 4.25 L Hgb 12.7 L Hct 38.3 L MCV 90.1 MCH 29.9 MCHC 33.2 RDW 13.4 Plt Count 245 MPV 9.1 Neut # (Auto) 7.7 H Lymph # (Auto) 0.7 L Mcduffie # (Auto) 0.7 Eos # (Auto) 0.1 Baso # (Auto) 0.0 Absolute Nucleated RBC 0.00 Nucleated RBC % 0.0 Sodium 130 L Potassium 3.9 Chloride 98 L Carbon Dioxide 22 Anion Gap 10.0 BUN 20 Creatinine 1.0 Estimated GFR (MDRD) 79 L Glucose 101 H Calcium 8.6 Total Bilirubin 0.3 AST 29 ALT 20 Alkaline Phosphatase 70 Troponin I High Sens 14.1 Total Protein 7.2 Albumin 2.9 L Globulin 4.3 H Albumin/Globulin Ratio 0.7 L Lipase 40 PD MEDICAL DECISION MAKING - ED course ED course: 47-year-old gentleman with some social issues presents with a recurrent infection of his right leg. Previous culture reviewed, unfortunately the only oral option for his prior MRSA would be linezolid. And he is started on this, but discussed with him at length that he really needs to establish primary care and get into wound care. Departure - Departure Disposition: 01 Home, Self Care Clinical Impression: MRSA infection Condition: Good Record reviewed to determine appropriate education?: Yes Instructions: ED Skin Infec MRSA Suspect Conf Prescriptions: Linezolid [Zyvox] 600 mg PO BID #20 tablet Comments: Piero you were seen today for recurrent infection in your legs, you have a previous history of MRSA which had numerous resistant to antibiotics. The only oral option is linezolid. Please note that linezolid may not interact well with methamphetamines, and you should avoid methamphetamines while on linezolid. Also would be ideal if you can follow-up with your primary care physician and establish an wound care as that would be the most helpful thing for you. Return for new or worsening symptoms.
[2022-07-11 19:31] LABS: ALBUMIN 2.9 g/dL (3.2-5.5); ALBUMIN/GLOBULIN RATIO 0.7 (1.0-2.2); BILIRUBIN,TOTAL 0.3 mg/dL (0.2-1.0); CALCIUM 8.6 mg/dL (8.5-10.3); POTASSIUM 3.9 mmol/L (3.5-5.0); TOTAL PROTEIN 7.2 g/dL (6.7-8.2)
[2022-07-11 19:59] VITALS: BP 145/99
[2022-07-11] MEDS ORDERED: HYDROcod/ACET 5/325 Prepack 4 PO STA (20:11)
--- NOTE | 2022-07-11 20:18 | XRAY Report ---
PROCEDURE: Chest 1 View X-Ray INDICATIONS: Chest pain TECHNIQUE: One view of the chest was acquired. COMPARISON: 07/29/2021 FINDINGS: Surgical changes and devices: None. Lungs and pleura: The right costophrenic angle is excluded. Mild right lung base opacity. No pleural effusions. Mediastinum: Mediastinal contours appear normal. Heart size is normal. Bones and chest wall: No suspicious bony lesions. Overlying soft tissues appear unremarkable. IMPRESSION: Mild right lung base opacity could represent atelectasis or early airspace disease. Consider future i maging surveillance to assess for resolution. Reviewed by: Con Wilder MD on 07/11/2022 8:16 PM PST Approved by: Con Wilder MD on 07/11/2022 8:16 PM PST Station ID: [id number]
== END 2022-07-11 21:04 | disposition home or self-care (01) ==
LOC: ED 18:53
DX: A49.02 Methicillin resistant Staphylococcus aureus infection, unspecified site (principal); F17.200 Nicotine dependence, unspecified, uncomplicated; Z59.01 Sheltered homelessness
CPT/HCPCS: 36415; 71045; 80053; 83690; 84484; 85025; 93005; 99283; 99284; A9270

== ENCOUNTER 2022-08-03 16:18 | Emergency (ER) | payer MEDICAID ==
[2022-08-03 16:38] VITALS: BP 182/106
[2022-08-03] MEDS ORDERED: BACITRACIN ZINC OINT 1 PACKET TOP STA (18:29)
--- NOTE | 2022-08-03 18:32 | ED Physician Documentation ---
History of Present Illness - Stated complaint Stated Complaint: ABSCESS GAUZE REMOVAL - Chief complaint Chief Complaint: Wound - Additonal information Additional information: 47-year-old male who is homeless, has a history of methamphetamine abuse as well as current treatment for a right ankle abscess presents emergency department requesting we remove the gauze from the abscess that was drained on 26 July. Patient reports he has been fearful to remove it. He has been seen multiple times in the past for lower extremity wounds and has very large left lower extremity venous stasis ulcer that is not changed or new. He reports difficulty following up with Wound care due to lack of phone and stable housing. He is had no fevers. He is ambulatory. Review of Systems Constitutional: denies: Fever Ears: reports: Reviewed and negative Throat: reports: Reviewed and negative Cardiac: reports: Reviewed and negative Respiratory: reports: Reviewed and negative Skin: reports: Other (Hemosiderin staining venous stasis ulcers right leg abscess) Musculoskeletal: reports: Reviewed and negative PD PAST MEDICAL HISTORY - Past Medical History Cardiovascular: None Respiratory: None Neuro: Head injury Endocrine/Autoimmune: None GI: None : None HEENT: None Psych: None Musculoskeletal: None Derm: None, Other drug resistant infections - Past Surgical History Past Surgical History: No - Present Medications Home Medications: Ambulatory Orders Medication Instructions Recorded Confirmed Bacitracin Zinc Oint 1 applic TOP BID #1 each 07/26/22 08/03/22 Ibuprofen [Motrin] 1 tablet PO Q8H PRN #30 tablet 07/26/22 08/03/22 Sulfamethox/Trimeth 800/160 1 each PO BID #14 tablet 07/26/22 08/03/22 [Bactrim Ds 800/160] Mupirocin 2% Oint [Bactroban 2% 1 applic TOP ONCE #50 gm 08/03/22 Oint] - Allergies Allergies/Adverse Reactions: Allergies Allergy/AdvReac Type Severity Reaction Status Date / Time No Known Drug Allergies Allergy Verified 08/03/22 16:35 - Social History Does the pt smoke?: Yes Smoking Status: Current every day smoker Does the pt drink ETOH?: No Does the pt have substance abuse?: Yes - Immunizations Immunizations are current?: Yes - POLST Patient has POLST: No POLST Status: Full Code PD ED PE NORMAL - General General: Alert and oriented X 3, No acute distress. No: Well developed/nourished (Disheveled poorly kempt poor hygiene) - HEENT HEENT: Atraumatic - Cardiac Cardiac: RRR, No murmur - Respiratory Respiratory: No respiratory distress, Clear bilaterally - Abdomen Abdomen: Normal bowel sounds - Derm Derm: Other (Chronic hemosiderin staining of bilateral lower extremities. Large 4 x 4 venous stasis ulcer of the left lower anterior rivera. No surrounding erythema. Ulceration right lower ankle at the point of previous abscess. Packing removed shallow ulceration is present without surrounding erythema.). No: Normal color (Venous stasis and redness of both legs with a large ulcer anterolateral left rivera and a smaller ulcer anterolateral right leg. No cellulitis), Warm and dry Results - Vitals Vitals: Vital Signs - 24 hr 08/03/22 16:33 Temperature 36.5 C Heart Rate 105 H Respiratory 16 Rate Blood Pressure 182/106 H O2 Saturation 97 Oxygen O2 Source Room air PD MEDICAL DECISION MAKING - ED course Complexity details: d/w patient ED course: 47-year-old male who is homeless, has a history of methamphetamine abuse as well as known chronic bilateral lower extremity venous stasis ulcers presents to the emergency department requesting the packing be removed from his abscess that was drained on 26 July. He reports completing a full course of Bactrim. On presentation I did remove the packing and a shallow ulceration is present. He has had no fevers and remains ambulatory on this leg. He reports difficulty following up with wound care due to his social situation. I have given the patient some wound care bandages and will write a prescription for Bactrim to place over his wounds until he is able to be seen by wound care as well as follow-up with primary care provider though this will prove difficult given his social situation. Otherwise clinically the patient does not present as having acute cellulitis or bacterial infection of the lower extremities and would not benefit from further antibiotics today. He is discharged in stable condition. Departure - Departure Disposition: 01 Home, Self Care Clinical Impression: Abscess packing removal, Venous stasis ulcers of both lower extremities Condition: Stable Record reviewed to determine appropriate education?: Yes Prescriptions: Mupirocin 2% Oint [Bactroban 2% Oint] 1 applic TOP ONCE #50 gm Comments: Piero we remove the packing from your right lower ankle region. The ulcer that you have now will take a number of weeks to heal. I have sent a prescription for Bactroban or mupirocin ointment to the [facility] in [place]. I recommend that you liberally apply this to your open wounds twice daily. Please call the [facility] to arrange follow-up for your venous stasis ulcers. These will not heal without proper treatment. You can reach the clinic by calling
== END 2022-08-03 18:42 | disposition home or self-care (01) ==
LOC: ED 16:18
DX: L02.415 Cutaneous abscess of right lower limb (principal); F17.200 Nicotine dependence, unspecified, uncomplicated; Z59.02 Unsheltered homelessness; L02.416 Cutaneous abscess of left lower limb; Z48.00 Encounter for change or removal of nonsurgical wound dressing
CPT/HCPCS: 99282; 99283; A9270

== ENCOUNTER 2023-01-16 15:10 | Outpatient (CLI) | payer MEDICAID ==
[2023-01-16 17:51] LABS: BASOPHILS # (AUTO) 0.1 10^3/uL (0.0-0.1); BASOPHILS % (AUTO) 0.8 %; EOSINOPHILS # (AUTO) 0.3 10^3/uL (0.0-0.7); EOSINOPHILS % (AUTO) 4.6 %; HCT - HEMATOCRIT 39.4 % (42.0-52.0); HGB - HEMOGLOBIN 12.5 g/dL (14.0-18.0); LYMPHOCYTES # (AUTO) 1.9 10^3/uL (1.5-3.5); LYMPHOCYTES % (AUTO) 27.2 %; MEAN CORPUSCULAR HGB CONC 31.7 g/dL (32.0-36.0); MEAN CORPUSCULAR VOLUME 88.3 fL (80.0-94.0); MEAN PLATELET VOLUME 9.9 fL (7.4-11.4); MONOCYTES # (AUTO) 0.4 10^3/uL (0.0-1.0); MONOCYTES % (AUTO) 5.1 %; NEUTROPHILS # (AUTO) 4.4 10^3/uL (1.5-6.6); PLT - PLATELET COUNT 332 10^3/uL (130-450); RED BLOOD COUNT 4.46 10^6/uL (4.70-6.10); RED CELL DISTRIBUTION WIDTH 14.5 % (12.0-15.0); WHITE BLOOD COUNT 7.1 x10^3/uL (4.8-10.8)
[2023-01-16 18:02] LABS: ALBUMIN 3.1 g/dL (3.2-5.5); ALBUMIN/GLOBULIN RATIO 0.7 (1.0-2.2); ALKALINE PHOSPHATASE 78 IU/L (42-121); ALT ALANINE AMINOTRANSFERASE 13 IU/L (10-60); AST ASPARTATE AMINOTRANSFERASE 23 IU/L (10-42); BILIRUBIN,TOTAL 0.5 mg/dL (0.2-1.0); BUN - BLOOD UREA NITROGEN 13 mg/dL (6-20); CALCIUM 8.8 mg/dL (8.5-10.3); CARBON DIOXIDE - CO2 28 mmol/L (21-32); CHLORIDE 104 mmol/L (101-111); CHOL/HDL RATIO 3.4 (<5.0); CHOLESTEROL 141 mg/dL; CREATININE 0.9 mg/dL (0.6-1.2); GFR - MDRD 90 (>89); GLUCOSE 143 mg/dL (70-100); HDL CHOLESTEROL 42 mg/dL; LDL CHOLESTEROL,CALCULATED 48 mg/dL; LDL/HDL RATIO 1.1 (<3.6); POTASSIUM 3.9 mmol/L (3.5-5.0); SODIUM 139 mmol/L (135-145); TOTAL PROTEIN 7.3 g/dL (6.7-8.2); TRIGLYCERIDES 253 mg/dL; VLDL CHOLESTEROL 51 mg/dL
[2023-01-16 18:15] LABS: THYROID STIMULATING HORMONE 1.51 uIU/mL (0.34-5.60)
[2023-01-16 20:27] LABS: CHLAMYDIA TRACHOMATIS DNA NEGATIVE (NEGATIVE); NEISSERIA GONORRHOEAE DNA NEGATIVE (NEGATIVE); TRICHOMONAS VAGINALIS DNA NEGATIVE (NEGATIVE)
[2023-01-17 03:09] LABS: HEPATITIS B SURFACE AB QUAL Non Reactive (.)
[2023-01-17 06:10] LABS: RPR Non Reactive (Non Reactive)
[2023-01-17 16:08] LABS: HCV AB Non Reactive (Non Reactive); HIV SCREEN 4TH GENERATION Non Reactive (Non Reactive)
== END 2023-01-16 15:11 | disposition home or self-care (01) ==
LOC: LAB.N 15:10
PROVIDERS: ATTEND Nurse Practitioner
DX: Z51.81 Encounter for therapeutic drug level monitoring (principal); Z13.220 Encounter for screening for lipoid disorders; Z11.3 Encounter for screening for infections with a predominantly sexual mode of transmission; Z11.59 Encounter for screening for other viral diseases
CPT/HCPCS: 36415; 80053; 80061; 83721; 84443; 85025; 86592; 86706; 86803; 87389; 87491; 87591; 87661

== ENCOUNTER 2023-05-01 12:27 | Outpatient (CLI) | payer MEDICAID ==
--- NOTE | 2023-05-01 17:41 | Ultrasound Report ---
PROCEDURE: Pelvic Limited or F/U INDICATIONS: HERNIA TECHNIQUE: Real-time transabdominal scanning was performed of the pelvis, with image documentation. COMPARISON: None. FINDINGS: Examination of right inguinal region shows right inguinal hernia with fascial defect measures 1.7 cm ill with and contains fat only. IMPRESSION: Fat-containing right inguinal hernia as above. Reviewed by: Bharathi Martinez MD on 05/01/2023 5:39 PM PDT Approved by: Bharathi Martinez MD on 05/01/2023 5:39 PM PDT Station ID: [id number]
== END 2023-05-01 12:28 | disposition home or self-care (01) ==
LOC: DI 12:27
PROVIDERS: ATTEND Nurse Practitioner
DX: K40.90 Unilateral inguinal hernia, without obstruction or gangrene, not specified as recurrent (principal)

== ENCOUNTER 2023-05-04 14:25 | Outpatient (CLI) | payer MEDICAID ==
--- NOTE | 2023-05-04 17:37 | XRAY Report ---
PROCEDURE: Knee 4 View RT INDICATIONS: KNEE PAIN TECHNIQUE: 4 views of the right knee(s) were acquired. COMPARISON: CT lower extremity 07/29/2021. FINDINGS: Bones: No fractures or dislocations. No suspicious bony lesions. Soft tissues: Small knee joint effusion. No suspicious soft tissue calcifications or masses. IMPRESSION: No acute bony abnormality. If clinically indicated MRI could be considered for further evaluation. Reviewed by: Matt Wray MD on 05/04/2023 5:35 PM PDT Approved by: Matt Wray MD on 05/04/2023 5:35 PM PDT Station ID: [id number]
== END 2023-05-04 14:26 | disposition home or self-care (01) ==
LOC: DI 14:25
PROVIDERS: ATTEND Nurse Practitioner
DX: M25.561 Pain in right knee (principal)

== ENCOUNTER 2023-07-14 20:07 | Outpatient (CLI) | payer MEDICAID | END 2023-07-14 20:08 | disposition critical access hospital (66) | LOC: EMS 20:07 | DX: T40.411A Poisoning by fentanyl or fentanyl analogs, accidental (unintentional), initial encounter (principal) | CPT/HCPCS: A0425; A0429; A0999 ==

== ENCOUNTER 2023-07-14 20:31 | Emergency (ER) | payer MEDICAID ==
[2023-07-14 20:53] VITALS: BP 169/99; O2SAT 99
--- NOTE | 2023-07-14 21:44 | ED Physician Documentation ---
History of Present Illness - Stated complaint Stated Complaint: OD - Chief complaint Chief Complaint: General - History obtained from History obtained from: Patient, EMS - Additonal information Additional information: 48-year-old male presents by EMS for opiate overdose. Patient was found unresponsive, he was given 16 mg intranasal Narcan with return to consciousness. Patient denies wanting to kill himself. He refuses to answer further questions, pulling the blankets over his head and repeatedly requesting a sandwich Review of Systems Unable to obtain: Uncooperative PD PAST MEDICAL HISTORY - Past Medical History Cardiovascular: None Respiratory: None Neuro: Head injury Endocrine/Autoimmune: None GI: None : None HEENT: None Psych: None Musculoskeletal: None Derm: None, Other drug resistant infections - Past Surgical History Past Surgical History: No - Present Medications Home Medications: Ambulatory Orders Medication Instructions Recorded Confirmed No Known Home Medications 07/14/23 07/14/23 - Allergies Allergies/Adverse Reactions: Allergies Allergy/AdvReac Type Severity Reaction Status Date / Time No Known Drug Allergies Allergy Verified 07/14/23 20:48 - Social History Does the pt smoke?: Yes Smoking Status: Current every day smoker Does the pt drink ETOH?: No Does the pt have substance abuse?: Yes - Immunizations Immunizations are current?: Yes - POLST Patient has POLST: No POLST Status: Full Code PD ED PE NORMAL - Vitals Vital signs reviewed: Yes - General General: Alert and oriented X 3, Other (disheveled) - Cardiac Cardiac: RRR - Respiratory Respiratory: No respiratory distress - Derm Derm: Normal color, Warm and dry - Extremities Extremities: No deformity, No tenderness to palpate, Normal ROM s pain, No edema - Neuro Neuro: Alert and oriented X 3, stator plate washer 2-12 intact, No motor deficit, Normal speech Results - Vitals Vitals: Vital Signs - 24 hr 07/14/23 20:42 Temperature 36.1 C L Heart Rate 84 Respiratory 14 Rate Blood Pressure 169/99 H O2 Saturation 99 Oxygen O2 Source Room air PD Medical Decision Making - ED course Complexity details: re-evaluated patient, considered differential, d/w patient ED course: Accidental opiate overdose. Patient has been seen in the past for similar presentation. Will place on quality assurance monitor final and will observe to ensure that patient does not need repeat Narcan. Despite numerous attempts at verbal redirection the patient refused to wear quality assurance monitor final and continually requesting food from nursing staff. When he was informed that he could not be given food he became irate, removing all of his monitoring equipment and requesting discharge. Patient then requiring security to help dc patient as he refused to get out of bed. Patient eventually ambulated out of the emergency department. Departure - Departure Disposition: 01 Home, Self Care Clinical Impression: Refusal of care by patient Opiate overdose Qualifiers: Encounter type: initial encounter Injury intent: accidental or unintentional Qualified Code(s): T40.601A - Poisoning by unspecified narcotics, accidental (unintentional), initial encounter Condition: Stable Instructions: ED Overdose Accidental Forms: PCP List Discharge Date/Time: 07/14/23 22:07
== END 2023-07-14 22:07 | disposition home or self-care (01) ==
LOC: EDUNIT# → ED 20:31
DX: T40.601A Poisoning by unspecified narcotics, accidental (unintentional), initial encounter (principal); F17.200 Nicotine dependence, unspecified, uncomplicated
CPT/HCPCS: 99283; 99284

== ENCOUNTER 2023-09-20 10:21 | Outpatient (CLI) | payer MEDICAID | END 2023-09-20 23:59 | disposition EMS.NT | LOC: EMS 10:21 | DX: Z03.89 Encounter for observation for other suspected diseases and conditions ruled out (principal) ==

== ENCOUNTER 2023-09-23 03:09 | Emergency (ER) | payer MEDICAID, OTHER ==
[2023-09-23 03:26] VITALS: BP 171/109; O2SAT 98
--- NOTE | 2023-09-23 03:29 | ED Physician Documentation ---
History of Present Illness - Stated complaint Stated Complaint: FIT - Chief complaint Chief Complaint: General - History obtained from History obtained from: Patient, Police - Additonal information Additional information: 48-year-old male with history of chronic venous stasis wounds, polysubstance abuse presents with law enforcement for evaluation to see if he is fit for confinement. When undergoing arrest patient told law enforcement that he had MRSA and needed to be seen in the ER. Patient has a very longstanding documented history of leg wounds. Review of Systems Constitutional: denies: Fever, Chills Skin: reports: Lesions. denies: Rash, Abrasion (s), Laceration (s) PD PAST MEDICAL HISTORY - Past Medical History Past Medical History: Yes Cardiovascular: None Respiratory: None Neuro: Head injury Endocrine/Autoimmune: None GI: None : None HEENT: None Psych: None Musculoskeletal: None Derm: None, Other drug resistant infections Other Past Medical History: substance use. hernia. chronic leg wounds - Past Surgical History Past Surgical History: No - Present Medications Home Medications: Ambulatory Orders Medication Instructions Recorded Confirmed No Known Home Medications 07/14/23 07/14/23 - Allergies Allergies/Adverse Reactions: Allergies Allergy/AdvReac Type Severity Reaction Status Date / Time No Known Drug Allergies Allergy Verified 09/23/23 03:25 - Social History Does the pt smoke?: Yes Smoking Status: Current every day smoker Does the pt drink ETOH?: No Does the pt have substance abuse?: Yes - Immunizations Immunizations are current?: Yes - POLST Patient has POLST: No POLST Status: Full Code PD ED PE NORMAL - Vitals Vital signs reviewed: Yes - General General: Alert and oriented X 3, No acute distress, Other (APPEARS CHRONICALLY UNWELL, OLDER THAN STATED AGE) - Cardiac Cardiac: RRR - Respiratory Respiratory: No respiratory distress, Clear bilaterally - Derm Derm: Warm and dry, Other (BILATERAL VENOUS STASIS CHANGES BELOW KNEE. NO WARMTH, NO FLUCTUANCE. SHALLOW ULCERATION ANTERIOR R BOYD WITHOUT SURROUNDING WARMTH/FLUCTUANCE) - Extremities Extremities: No deformity - Neuro Neuro: Alert and oriented X 3, shelver 2-12 intact, No motor deficit, Normal speech Results - Vitals Vitals: Vital Signs - 24 hr 09/23/23 03:22 Temperature 36.5 C Heart Rate 86 Respiratory 18 Rate Blood Pressure 171/109 H O2 Saturation 98 Oxygen O2 Source Room air PD Medical Decision Making - ED course Complexity details: reviewed results, considered differential, d/w patient ED course: Patient presenting after telling law enforcement that he wanted to be evaluated for MRSA. Patient does have long documented history of MRSA and chronic venous stasis wounds. Patient's legs were exposed, he does have chronic venous stasis changes of his bilateral lower extremities from the knee down, however there is no undue warmth, fluctuance, no crepitus, no discharge, no indication of active ongoing infection Departure - Departure Disposition: 01 Home, Self Care Clinical Impression: Venous stasis dermatitis Condition: Stable Instructions: ED Ulcer Venous Leg Forms: PCP List
== END 2023-09-23 03:45 | disposition home or self-care (01) ==
LOC: ED 03:09
DX: Z02.89 Encounter for other administrative examinations (principal); I87.2 Venous insufficiency (chronic) (peripheral); L97.829 Non-pressure chronic ulcer of other part of left lower leg with unspecified severity; L97.819 Non-pressure chronic ulcer of other part of right lower leg with unspecified severity; F17.200 Nicotine dependence, unspecified, uncomplicated
CPT/HCPCS: 99281; 99282